=== PATIENT | female | born 1955 | race Caucasian/White ===

== ENCOUNTER 2023-05-04 11:27 | Observation (INO) | payer BC, SELFPAY ==
[2023-05-04] VITALS (31 sets, daily range): BP systolic 119–184; BP diastolic 61–105; PULSE 70–129; RESP 16–33; TEMP 36.6–37.7; O2SAT 87–100; BMI 34.8; BMI 38.0
--- NOTE | 2023-05-04 12:23 | ED_ITS ---
HPI - Nausea/Vomiting/Diarrhea General Chief complaint: Nausea/Vomiting/Diarrhea Stated complaint: vomiting Time Seen by Provider: 05/04/23 12:23 Source: patient Mode of arrival: Wheelchair Limitations: no limitations History of Present Illness HPI Narrative: Patient presents to emergency department complaining of nausea, vomiting. Symptoms have been ongoing for the last 3 days. Patient complains of mid epigastric pain. She has a history of an ulcer. Patient states today she started having blood in her vomitus Today. She has not been able to keep anything down. She denies any fevers, states that she had chills. She denies any chest, shortness of breath. She denies any melena, hematochezia. She denies eating anything that could have gotten her sick. Related Data Home Medications Medication Instructions Recorded Confirmed amitriptyline 150 mg tablet 150 mg PO .HS 05/04/23 05/04/23 diltiazem HCl 300 mg 300 mg PO Q24H 05/04/23 05/04/23 tablet,extended release 24 hr dorzolamide 22.3 mg-timolol 6.8 1 drp ophthalmic (eye) TID 05/04/23 05/04/23 mg/mL eye drops duloxetine 60 mg capsule,delayed 120 mg PO QDAY 05/04/23 05/04/23 release furosemide 20 mg tablet 20 mg PO QDAY 05/04/23 05/04/23 gabapentin 400 mg capsule 400 mg PO TID 05/04/23 05/04/23 latanoprost 0.005 % eye drops 1 drp ophthalmic (eye) QDAY 05/04/23 05/04/23 losartan 50 mg tablet 100 mg PO QDAY 05/04/23 05/04/23 omeprazole 40 mg capsule,delayed 40 mg PO BID 05/04/23 05/04/23 release potassium chloride 10 mEq 10 meq PO BID 05/04/23 05/04/23 tablet,extended release(part/cryst) quetiapine 100 mg tablet 100 mg PO .MORNING 05/04/23 05/04/23 quetiapine 200 mg tablet 200 mg PO .HS 05/04/23 05/04/23 simvastatin 80 mg tablet 80 mg PO QDAY 05/04/23 05/04/23 tizanidine 4 mg tablet 8 mg PO .HS 05/04/23 05/04/23 Allergies Allergy/AdvReac Type Severity Reaction Status Date / Time No Known Drug Allergies Allergy Verified 05/04/23 11:50 Review of Systems ROS Status of ROS 10 or more systems reviewed and unremarkable except as noted in history and below [facility] Social History Smoking status: Never smoker Exam Narrative Exam Narrative: Nurses notes and vital signs reviewed and patient is not hypoxic. General: Ill-appearing, vomiting, and any clinical Skin: Warm, dry, mild pallor noted. No Rash Head: Normocephalic, atraumatic. Neck: Supple, non-tender. Eye: Pupils are equal, round and EOMI. No scleral icterus. Ears, Nose, Mouth, and Throat: TM clear, no posterior oropharynx erythema or nasal mucosal hypertrophy, uvula is mid-line Oral mucosa is dry Cardiovascular: Sinus tachycardia without murmur, gallop or rub. Respiratory: No accessory muscle use or respiratory distress. Lungs are clear to auscultation, no wheezing, rales or rhonchi Chest Wall: no tenderness Back: No midline thoracic or lumbar vertebral tenderness. No CVA tenderness Musculoskeletal: normal ROM, no calf or popliteal tenderness, no lower extremity edema/swelling GI: Abdomen is soft, non-distended. Normal bowel sounds. Moderate epigastric tenderness to palpation. No rebound, guarding, or rigidity noted. Rectal: Normal rectal tone, dark brown, nonmelenous, soft stool Hemoccult positi ve Neurological: A&O x4. No cranial nerve dysfunction observed. No truncal ataxia. Moves all extremities. Sensation intact. Psychiatric: Cooperative and interactive. Normal mood and affect. Constitutional Vital Signs, click to edit/add: Last Vital Signs Temp 98.5 F 05/04/23 11:50 Pulse 120 H 05/04/23 15:00 Resp 18 05/04/23 12:30 BP 150/80 H 05/04/23 15:21 Pulse Ox 94 L 05/04/23 14:50 O2 Del Method Room Air 05/04/23 13:27 O2 Flow Rate 2 05/04/23 13:27 Course Vital Signs Vital signs: Vital Signs Temperature 98.5 F 05/04/23 11:50 Pulse Rate 128 H 05/04/23 11:50 Respiratory Rate 26 H 05/04/23 11:50 Blood Pressure 167/103 H 05/04/23 11:50 Pulse Oximetry 98 05/04/23 11:50 Oxygen Delivery Method Room Air 05/04/23 11:50 Temperature 98.5 F 05/04/23 11:50 Pulse Rate 120 H 05/04/23 15:00 Respiratory Rate 18 05/04/23 12:30 Blood Pressure 150/80 H 05/04/23 15:21 Pulse Oximetry 94 L 05/04/23 14:50 Oxygen Delivery Method Room Air 05/04/23 13:27 Oxygen Delivery Flow Rate 2 05/04/23 13:27 MDM - Nausea/Vomiting/Diarrhea MDM Narrative Medical decision making narrative: She had an IV established. She was given multiple doses of antiemetics and 3 L normal saline. Patient's lactic was elevated and it improved. CT abdomen and pelvis was done. Patient was given Protonix IV. She improve her vomiting but still remained tachycardic. The patient was discussed with Dr. Rodriguez who will observation to monitor for GI bleed. Differential Diagnosis Differential diagnosis: Likely drug-induced nausea and vomiting and dehydration Lab Data Attestation: I reviewed the patient's lab results. Labs: Lab Results 05/04/23 05/04/23 05/04/23 Range/Units 12:00 12:54 14:40 WBC 15.6 H (4.0-11.0) 10^3/uL RBC 5.26 (4.20-5.40) 10^6/uL Hgb 16.9 H (12.0-16.0) g/dL Hct 48.8 H (36.0-48.0) % MCV 92.8 (81.0-99.0) fL MCH 32.1 (26.7-34.0) pg MCHC 34.6 (29.9-35.2) g/dL RDW 12.3 (11.0-15.0) % Plt Count 333 (150-450) 10^3/uL MPV 10.6 (9.5-13.5) fL Neut % (Auto) 82.6 H (43.0-75.0) % Lymph % (Auto) 11.2 L (20.5-60.0) % [place] % (Auto) 5.3 (1.7-12.0) % Eos % (Auto) 0.3 L (0.9-7.0) % Baso % (Auto) 0.1 L (0.2-2.0) % Neut # (Auto) 12.9 H (1.4-6.5) 10^3/uL Lymph # (Auto) 1.8 (1.2-3.8) 10^3/uL [place] # (Auto) 0.8 (0.3-0.8) 10^3/uL Eos # (Auto) 0.1 (0.0-0.7) 10^3/uL Baso # (Auto) 0.0 (0.0-0.1) 10^3/uL Abs Immat Gran (auto) 0.08 H (0.00-0.03) 10^3/uL Imm/Tot Granulo (auto) 0.5 (0.0-0.5) % PT 10.2 (9.0-11.6) sec INR 0.96 Sodium 137 (136-145) mmol/L Potassium 3.1 L (3.5-5.1) mmol/L Chloride 94 L (98-107) mmol/L Carbon Dioxide 21.4 (21.0-32.0) mmol/L Anion Gap 24.7 BUN 26.0 H (7.0-18.0) mg/dL Creatinine 1.75 H (0.55-1.02) mg/dL Est GFR ( Amer) 35 L (>=60) Est GFR (Non-Af Amer) 29 L (>=60) BUN/Creatinine Ratio 14.9 Glucose 190 H (74-106) mg/dL Lactate 5.0 H* (0.4-2.0) mmol/L Calcium 10.4 H (8.5-10.1) mg/dL Magnesium 1.7 L (1.8-2.4) mg/dL Total Bilirubin 0.7 (0.2-1.0) mg/dL AST 49 H (15-37) U/L ALT 25 (14-59) U/L Alkaline Phosphatase 139 H (46-116) U/L Troponin I High Sens 40.8 (4.0-51.3) pg/mL NT-Pro-B Natriuret Pep 2521.0 H* (<=900.0) pg/mL Total Protein 8.6 H (6.4-8.2) g/dL Albumin 4.5 (3.4-5.0) g/dL Globulin 4.1 g/dL Albumin/Globulin Ratio 1.1 Lipase 81.0 (73.0-393.0) U/L Urine Color Lt. yellow (YELLOW) Urine Clarity Clear (CLEAR) Urine pH 7.0 (5.0-9.0) Ur Specific [place] 1.010 (1.005-1.025) Urine Protein >=300 A (NEG/TRACE) mg/dL Urine Glucose (UA) Negative (NEGATIVE) mg/dL Urine Ketones Negative (NEGATIVE) mg/dL Urine Occult Blood Moderate A (NEGATIVE) Urine Nitrite Negative (NEGATIVE) Urine Bilirubin Negative (NEGATIVE) Urine Urobilinogen 0.2 (0.2-1.0) EU/dL Ur Leukocyte Esterase Trace A (NEGATIVE) Urine RBC None seen (0-2) #/HPF Urine WBC 2-5 A (NONE SEEN) #/HPF Ur Squamous Epith Cells Rare (NONE/RARE) #/LPF Urine Crystals None seen (None Seen) #/HPF Urine Bacteria Trace A (NONE SEEN) #/HPF Urine Casts None seen (NONE SEEN) #/LPF Urine Mucus None seen (NONE SEEN) Ur Culture Indicated? Yes Gastric Fluid pH 5-7 Gastric Occult Blood Postive Stool Occult Blood Positive A Blood Type A Positive Antibody Screen Negative 05/04/23 Range/Units 14:48 WBC (4.0-11.0) 10^3/uL RBC (4.20-5.40) 10^6/uL Hgb (12.0-16.0) g/dL Hct (36.0-48.0) % MCV (81.0-99.0) fL MCH (26.7-34.0) pg MCHC (29.9-35.2) g/dL RDW (11.0-15.0) % Plt Count (150-450) 10^3/uL MPV (9.5-13.5) fL Neut % (Auto) (43.0-75.0) % Lymph % (Auto) (20.5-60.0) % [place] % (Auto) (1.7-12.0) % Eos % (Auto) (0.9-7.0) % Baso % (Auto) (0.2-2.0) % Neut # (Auto) (1.4-6.5) 10^3/uL Lymph # (Auto) (1.2-3.8) 10^3/uL [place] # (Auto) (0.3-0.8) 10^3/uL Eos # (Auto) (0.0-0.7) 10^3/uL Baso # (Auto) (0.0-0.1) 10^3/uL Abs Immat Gran (auto) (0.00-0.03) 10^3/uL Imm/Tot Granulo (auto) (0.0-0.5) % PT (9.0-11.6) sec INR Sodium (136-145) mmol/L Potassium (3.5-5.1) mmol/L Chloride (98-107) mmol/L Carbon Dioxide (21.0-32.0) mmol/L Anion Gap BUN (7.0-18.0) mg/dL Creatinine (0.55-1.02) mg/dL Est GFR ( Amer) (>=60) Est GFR (Non-Af Amer) (>=60) BUN/Creatinine Ratio Glucose (74-106) mg/dL Lactate 1.4 (0.4-2.0) mmol/L Calcium (8.5-10.1) mg/dL Magnesium (1.8-2.4) mg/dL Total Bilirubin (0.2-1.0) mg/dL AST (15-37) U/L ALT (14-59) U/L Alkaline Phosphatase (46-116) U/L Troponin I High Sens (4.0-51.3) pg/mL NT-Pro-B Natriuret Pep (<=900.0) pg/mL Total Protein (6.4-8.2) g/dL Albumin (3.4-5.0) g/dL Globulin g/dL Albumin/Globulin Ratio Lipase (73.0-393.0) U/L Urine Color (YELLOW) Urine Clarity (CLEAR) Urine pH (5.0-9.0) Ur Specific [place] (1.005-1.025) Urine Protein (NEG/TRACE) mg/dL Urine Glucose (UA) (NEGATIVE) mg/dL Urine Ketones (NEGATIVE) mg/dL Urine Occult Blood (NEGATIVE) Urine Nitrite (NEGATIVE) Urine Bilirubin (NEGATIVE) Urine Urobilinogen (0.2-1.0) EU/dL Ur Leukocyte Esterase (NEGATIVE) Urine RBC (0-2) #/HPF Urine WBC (NONE SEEN) #/HPF Ur Squamous Epith Cells (NONE/RARE) #/LPF Urine Crystals (None Seen) #/HPF Urine Bacteria (NONE SEEN) #/HPF Urine Casts (NONE SEEN) #/LPF Urine Mucus (NONE SEEN) Ur Culture Indicated? Gastric Fluid pH Gastric Occult Blood Stool Occult Blood Blood Type Antibody Screen ECG Data Attestation: I personally reviewed and interpreted this ECG as follows: Discharge Plan Discharge Chief Complaint: Nausea/Vomiting/Diarrhea Clinical Impression: Gastrointestinal bleed, Tachycardia, Dehydration Patient Disposition: Admitted as Observation Time of Disposition Decision: 16:00 Condition: Good Discharge Date/Time: 05/04/23 17:08
--- NOTE | 2023-05-04 12:27 | XR_ITS ---
The [address] [address] Patient Name: ADRIANNA RIVAS MRN: [id number] date: 1955 Sex: F Assigned Patient Location: ER Current Patient Location: ER Accession/Order Number: [id number] Exam Date: 05/04/2023 13:18 Report Date: 05/04/2023 13:54 At the request of: NISHA TRIPP Procedure: XR chest 1V XR chest 1V CLINICAL HISTORY: weakness. COMPARISON: None Available. TECHNIQUE: Single AP portable upright view of the chest. FINDINGS: Low lung volumes with no focal airspace opacities. No pleural effusion or pneumothorax. And accentuation of the cardiac silhouette size but partially tilted technique but also probable mild cardiomegaly. Evidence of prominent hiatal hernia. No acute bony process. XR/XR chest 1V IMPRESSION: No acute cardiopulmonary process. Suspect hiatal hernia. Electronically authenticated by: MARIA C FERNANDEZ Date: 05/04/2023 13:54
[2023-05-04 12:39] LABS: Basophils Percent Auto 0.1 % (0.2-2.0); Eosinophils Absolute Auto 0.1 10^3/uL (0.0-0.7); Eosinophils Percent Auto 0.3 % (0.9-7.0); Hematocrit 48.8 % (36.0-48.0); Hemoglobin 16.9 g/dL (12.0-16.0); Immature Granulocytes Abs Auto 0.08 10^3/uL (0.00-0.03); Immature Granulocytes Pct Auto 0.5 % (0.0-0.5); Lymphocytes Absolute Auto 1.8 10^3/uL (1.2-3.8); Lymphocytes Percent Auto 11.2 % (20.5-60.0); Mean Corpuscular HGB Conc 34.6 g/dL (29.9-35.2); Mean Corpuscular Hemoglobin 32.1 pg (26.7-34.0); Mean Corpuscular Volume 92.8 fL (81.0-99.0); Mean Platelet Volume 10.6 fL (9.5-13.5); Monocytes Absolute Auto 0.8 10^3/uL (0.3-0.8); Monocytes Percent Auto 5.3 % (1.7-12.0); Neutrophils Absolute Auto 12.9 10^3/uL (1.4-6.5); Neutrophils Percent Auto 82.6 % (43.0-75.0); Platelet Count 333 10^3/uL (150-450); Red Blood Count 5.26 10^6/uL (4.20-5.40); Red Cell Distribution Width 12.3 % (11.0-15.0); White Blood Count 15.6 10^3/uL (4.0-11.0)
[2023-05-04 12:46] LABS: INR 0.96; Prothrombin Time 10.2 sec (9.0-11.6)
--- NOTE | 2023-05-04 12:46 | CT_ITS ---
[address] [address] Patient Name: ADRIANNA RIVAS MRN: [id number] date: 1955 Sex: F Assigned Patient Location: ER Current Patient Location: Accession/Order Number: [id number] Exam Date: 05/04/2023 13:20 Report Date: 05/04/2023 14:01 At the request of: NISHA TRIPP Procedure: CT abdomen pelvis w con CT ABDOMEN AND PELVIS WITH CONTRAST: INDICATION: n/v/d abd pain. COMPARISON: None. TECHNIQUE: Helical CT images of the abdomen and pelvis were obtained after the administration of intravenous contrast. Dose reduction techniques were achieved by using automated exposure control and/or adjustment of mA and/or kV according to patient size and/or use of iterative reconstruction technique. FINDINGS: LOWER CHEST: Subsegmental atelectasis in the left lower lobe. There is a moderate hiatal hernia. LIVER: There is a 2.0 x 1.3 cm hypodense lesion in the periphery of the right hepatic lobe (series 3, image 23). There is hepatomegaly. GALLBLADDER AND BILIARY SYSTEM: The gallbladder is distended. No wall thickening or biliary ductal dilatation. SPLEEN: Unremarkable. PANCREAS: Moderate diffuse fatty atrophy of the pancreas. No pancreatic ductal dilatation. ADRENAL GLANDS: There is a 9 mm indeterminate right adrenal nodule. 1.3 x 0.9 cm indeterminate left adrenal nodule. KIDNEYS AND URETERS: Severe atrophy of the right kidney. Mild atrophy of the left kidney. There is no hydronephrosis. There is a 1.1 cm calculus noted at the right ureteropelvic junction. There is a 1.1 cm calculus in the lower pole the right kidney. 4 mm nonobstructing calculus in the lower pole the right kidney. Nonobstructing left renal calculi measuring 8 mm, 1 cm and 3 mm. There is a 1.3 cm cyst in the upper pole the left kidney. Additional subcentimeter renal hypodensities which are not well characterized on this study. BLADDER: Unremarkable. GASTROINTESTINAL TRACT: No evidence of bowel obstruction or colitis. Normal appendix. VASCULATURE: Atherosclerotic calcification of the abdominal aorta without aneurysmal dilatation. Atherosclerotic disease also noted involving the splenic artery. RETROPERITONEUM AND LYMPH NODES: No lymphadenopathy or mass. PERITONEUM/MESENTERY: No abdominal ascites. No free air. PELVIS: No pelvic ascites or lymphadenopathy. Small bilateral fat-containing inguinal hernias. BODY WALL: Small fat-containing umbilical hernia. BONES: Multilevel degenerative changes of the lumbar spine with grade 1 anterolisthesis of L4 and L5. Moderate degenerative changes of the hips bilaterally. CT/CT abdomen pelvis w con IMPRESSION: 1. Bilateral nephrolithiasis as described. 1.1 cm calculus in the right ureteropelvic junction. No hydroureteronephrosis. Severe atrophy of the right kidney. Mild atrophy of the left kidney. 2. Hepatomegaly. Hypodense lesion in the periphery of the right hepatic lobe measuring 2.0 x 1.3 cm. This may represent a hemangioma. Consider further evaluation with contrast-enhanced nonemergent MRI. 3. Moderate hiatal hernia. 4. Degenerative changes of bilateral hips and the lumbar spine. 5. Indeterminate bilateral adrenal nodules. Electronically authenticated by: DENIS ANTUNEZ Date: 05/04/2023 14:01
[2023-05-04] MEDS: PROMETHAZINE HCL 25 MG/ML VIAL IV (12:52)
[2023-05-04] MEDS: PANTOPRAZOLE SODIUM 40 MG VIAL IV (12:52)
[2023-05-04] MEDS: ONDANSETRON PF 4 MG/2 ML VIAL IV ×2 (12:52→18:18)
[2023-05-04] MEDS: 0.9 % SODIUM CHLORIDE 1,000 ML 999 ML IV (12:52)
[2023-05-04 12:58] LABS: Alanine Aminotransferase 25 U/L (14-59); Albumin Globulin Ratio 1.1; Albumin Level 4.5 g/dL (3.4-5.0); Alkaline Phosphatase 139 U/L (46-116); Anion Gap 24.7; Aspartate Amino Transferase 49 U/L (15-37); BUN Creatinine Ratio 14.9; Bilirubin Total 0.7 mg/dL (0.2-1.0); Calcium 10.4 mg/dL (8.5-10.1); Carbon Dioxide 21.4 mmol/L (21.0-32.0); Chloride 94 mmol/L (98-107); Estimated GFR (African America 35 (>=60); Estimated GFR (Non-African Ame 29 (>=60); Globulin 4.1 g/dL; Glucose 190 mg/dL (74-106); Magnesium 1.7 mg/dL (1.8-2.4); Potassium 3.1 mmol/L (3.5-5.1); Sodium 137 mmol/L (136-145); Total Protein 8.6 g/dL (6.4-8.2); Troponin I High Sensitivity 40.8 pg/mL (4.0-51.3)
[2023-05-04 13:12] LABS: Internal Control Within Normal Limits; Occult Blood Gastric Fluid POSTIVE
[2023-05-04 13:16] LABS: Occult Blood Positive
--- NOTE | 2023-05-04 13:28 | PC.NURSE ---
Addendum entered by Skye Vazquez 05/04/23 13:29: INITIATED AT 1300 Original Note: INITIATED SUPPLEMENTAL OXYGEN AT 2L WITH NASAL CANNULA
[2023-05-04 15:19] LABS: Bilirubin Urine NEGATIVE (NEGATIVE); Blood Urine MODERATE (NEGATIVE); Clarity Urine CLEAR (CLEAR); Color Urine LT. YELLOW (YELLOW); Glucose Urine UA NEGATIVE (NEGATIVE); Ketones Urine NEGATIVE (NEGATIVE); Leukocyte Esterase Urine TRACE (NEGATIVE); Nitrite Urine NEGATIVE (NEGATIVE); Protein Urine >=300 mg/dL (NEG/TRACE); Urobilinogen Urine 0.2 EU/dL (0.2-1.0)
[2023-05-04 15:20] LABS: Urine Microscopic Indicated YES
[2023-05-04 15:26] LABS: Bacteria Urine TRACE #/HPF (NONE SEEN); Cast Seen? NONE SEEN #/LPF (NONE SEEN); Crystals Seen? None Seen #/HPF (None Seen); Mucus Urine NONE SEEN (NONE SEEN); RBC Urine NONE SEEN #/HPF (0-2); Squamous Epithelial Cell Urine RARE #/LPF (NONE/RARE)
[2023-05-04 15:27] LABS: Urine Culture Indicated YES
[2023-05-04] MEDS: 0.9 % SODIUM CHLORIDE 1,000 ML 1000 ML IV (15:32)
[2023-05-04 15:56] LABS: Lactate/Lactic Acid 1.4 mmol/L (0.4-2.0)
[2023-05-04 17:20] LABS: Thyroid Stimulating Hormone 3.747 uIU/mL (0.358-3.740)
--- NOTE | 2023-05-04 17:32 | ECG_ITS ---
The [facility] Test Date: 2023-05-04 Pat Name: ADRIANNA RIVAS Department: Room: Gender: Female [employer] Business [employer]: : 1955 Requested By: [id number] Order Number: [id number] Reading MD: IVAN BURDICK Measurements Intervals [place] Rate: 128 P: 126 MO: 192 QRS: 86 QRSD: 98 T: -45 QT: 322 QTc: 398 Interpretive Statements 1220 Rapid atrial rhythm 2440 Incomplete right bundle branch block [address] depression 4664 Twave abnormality, possible inferior ischemia 9150 abnormal ECG No previous ECG available for comparison Electronically Signed On 05-04-2023 18:30:34 EDT by IVAN BURDICK
[2023-05-04] MEDS: CEFTRIAXONE 1,000 MG in 0.9 % SODIUM CHLORIDE 50 ML 100 MG IV (18:17)
[2023-05-04] MEDS: LACTATED RINGER'S SOLUTION 1,000 ML 100 ML IV (18:18)
[2023-05-04] MEDS: CIPROFLOXACIN IN 5 % DEXTROSE 400 MG/200 ML PIGGYBACK 200 MG IV (18:45)
--- NOTE | 2023-05-04 20:02 | PC.NURSE ---
Patient thought she was going to vomit. Patient sitting up in bed with dry heaves. Pt soiled underwear, Depends placed on patient until can bring her clean clothing. Patient had BM and Urinated at bedside commode then returned to bed with bed alarm on.
[2023-05-04] MEDS: INSULIN ASPART 300 UNIT/3 ML PEN SUBQ (21:54)
[2023-05-04] MEDS: TIZANIDINE HCL 4 MG TABLET 8 MG PO (21:55)
[2023-05-04] MEDS: GABAPENTIN 400 MG CAPSULE PO (21:55)
[2023-05-04] MEDS: AMITRIPTYLINE HCL 50 MG TABLET 150 MG PO (21:55)
[2023-05-04] MEDS: QUETIAPINE FUMARATE 100 MG TABLET 200 MG PO (21:56)
[2023-05-04 22:50] LABS: Glucometer 151 mg/dL (74-106)
[2023-05-04] MEDS: PROMETHAZINE HCL 25 MG/ML VIAL 12.5 MG IV (22:58)
[2023-05-05] VITALS (11 sets, daily range): BP systolic 135–137; BP diastolic 86–89; PULSE 90–116; RESP 16; TEMP 37.6; O2SAT 90–97
[2023-05-05 04:54] LABS: Basophils Percent Auto 0.2 % (0.2-2.0); Hematocrit 39.3 % (36.0-48.0); Immature Granulocytes Abs Auto 0.04 10^3/uL (0.00-0.03); Immature Granulocytes Pct Auto 0.4 % (0.0-0.5); Lymphocytes Absolute Auto 1.9 10^3/uL (1.2-3.8); Lymphocytes Percent Auto 18.4 % (20.5-60.0); Mean Corpuscular HGB Conc 33.1 g/dL (29.9-35.2); Mean Corpuscular Hemoglobin 32.2 pg (26.7-34.0); Mean Corpuscular Volume 97.3 fL (81.0-99.0); Mean Platelet Volume 10.5 fL (9.5-13.5); Monocytes Percent Auto 10.1 % (1.7-12.0); Neutrophils Absolute Auto 7.2 10^3/uL (1.4-6.5); Neutrophils Percent Auto 70.9 % (43.0-75.0); Platelet Count 200 10^3/uL (150-450); Red Blood Count 4.04 10^6/uL (4.20-5.40); Red Cell Distribution Width 12.7 % (11.0-15.0); White Blood Count 10.1 10^3/uL (4.0-11.0)
[2023-05-05 05:11] LABS: BUN Creatinine Ratio 16.8; Calcium 8.5 mg/dL (8.5-10.1); Carbon Dioxide 23.1 mmol/L (21.0-32.0); Chloride 104 mmol/L (98-107); Estimated GFR (African America 54 (>=60); Estimated GFR (Non-African Ame 45 (>=60); Glucose 132 mg/dL (74-106); Potassium 3.1 mmol/L (3.5-5.1); Sodium 139 mmol/L (136-145)
[2023-05-05] MEDS: CIPROFLOXACIN IN 5 % DEXTROSE 400 MG/200 ML PIGGYBACK 150 MG IV (05:30)
[2023-05-05] MEDS: GABAPENTIN 400 MG CAPSULE PO (05:33)
[2023-05-05] MEDS: POTASSIUM CHLORIDE 10 MEQ ER TABLET 20 MEQ PO ×2 (06:58→08:52)
[2023-05-05] MEDS: ACETAMINOPHEN 500 MG TABLET 1000 MG PO (07:35)
[2023-05-05] MEDS: LACTATED RINGER'S SOLUTION 1,000 ML 100 ML IV (07:36)
[2023-05-05] MEDS: DULOXETINE HCL 60 MG CAPSULE.DR 120 MG PO (08:51)
[2023-05-05] MEDS: LOSARTAN POTASSIUM 50 MG TABLET 100 MG PO (08:51)
[2023-05-05] MEDS: DILTIAZEM HCL 300 MG CAP.ER.24H PO (08:52)
[2023-05-05] MEDS: METOPROLOL TARTRATE 25 MG TABLET PO (08:52)
[2023-05-05] MEDS: QUETIAPINE FUMARATE 100 MG TABLET PO (08:52)
[2023-05-05] MEDS: ATORVASTATIN CALCIUM 40 MG TABLET PO (08:52)
--- NOTE | 2023-05-05 09:24 | PM.HP ---
H&P: HPI History of Present Illness Chief complaint: vomiting, GI Bleed, Tachycardia, Hypokalemia Narrative: Patient present to the emergency room with nausea vomiting and black stools. Hemoccult positive. Hemoglobin elevated in the emergency room. Patient observed overnight. Globin did drop down 5 points. Part of this may be delusional. [facility] Medical History Surgical History Family History Father Family history of CHF (congestive heart failure) Family history of diabetes mellitus Mother Family history of CHF (congestive heart failure) Family history of hypertension Social History Within the past year, how often did you have a drink containing alcohol: never Score interpretation: A score less than 3 is consistent with normal alcohol consumption. Smoking status: Never smoker Non-prescribed substance use: denies use Previous occupational history: retired Highest level of school completed/degree received: high school graduate Are you now , , , , never or living with a partner: Little interest or pleasure in doing things: not at all Feeling down, depressed, or hopeless: not at all Feel stressed/tense/nervous/anxious/difficulty sleeping: only a little Do you think of yourself as: straight/heterosexual Gender Identity: female Meds Home Medications and Allergies Home Medications Medication Instructions Recorded Confirmed Type amitriptyline 150 mg tablet 150 mg PO .HS 05/04/23 05/04/23 History diltiazem HCl 300 mg 300 mg PO Q24H 05/04/23 05/04/23 History tablet,extended release 24 hr dorzolamide 22.3 mg-timolol 6.8 1 drp ophthalmic (eye) TID 05/04/23 05/04/23 History mg/mL eye drops duloxetine 60 mg capsule,delayed 120 mg PO QDAY 05/04/23 05/04/23 History release furosemide 20 mg tablet 20 mg PO QDAY 05/04/23 05/04/23 History gabapentin 400 mg capsule 400 mg PO TID 05/04/23 05/04/23 History latanoprost 0.005 % eye drops 1 drp ophthalmic (eye) QDAY 05/04/23 05/04/23 History losartan 50 mg tablet 100 mg PO QDAY 05/04/23 05/04/23 History potassium chloride 10 mEq 10 meq PO BID 05/04/23 05/04/23 History tablet,extended release(part/cryst) quetiapine 100 mg tablet 100 mg PO .MORNING 05/04/23 05/04/23 History quetiapine 200 mg tablet 200 mg PO .HS 05/04/23 05/04/23 History simvastatin 80 mg tablet 80 mg PO QDAY 05/04/23 05/04/23 History tizanidine 4 mg tablet 8 mg PO .HS 05/04/23 05/04/23 History pantoprazole 40 mg tablet,delayed 40 mg PO QAM #30 tabs 05/05/23 Rx release (Protonix) sucralfate 1 gram tablet (Carafate) 1 g PO Q6H 4 weeks #112 tabs 05/05/23 Rx Allergies Allergy/AdvReac Type Severity Reaction Status Date / Time No Known Drug Allergies Allergy Verified 05/04/23 11:50 Exam Constitutional Vital Signs, click to edit/add: Last Vital Signs Temp 99.6 F 05/05/23 05:01 Pulse 116 H 05/05/23 08:02 Resp 16 05/05/23 05:01 BP 135/86 05/05/23 08:51 Pulse Ox 90 L 05/05/23 05:34 O2 Del Method Room Air 05/05/23 05:34 O2 Flow Rate 2 05/04/23 17:32 Documenting provider has reviewed patient's vital signs: yes Common normals: no apparent distress Respiratory Common normals: normal respiratory effort Cardio Common normals: regular rate, regular rhythm and S2 normal heart sound GI Common normals: Normal to inspection, nondistended, normoactive bowel sounds present, soft to palpation and non-tender Results Labs Labs: Short CBC 05/04/23 05/05/23 Range/Units 12:00 04:09 WBC 15.6 H 10.1 (4.0-11.0) 10^3/uL Hgb 16.9 H 13.0 (12.0-16.0) g/dL Hct 48.8 H 39.3 (36.0-48.0) % Plt Count 333 200 (150-450) 10^3/uL BMP 05/04/23 05/05/23 12:00 04:09 Sodium 137 139 Potassium 3.1 L 3.1 L Chloride 94 L 104 Carbon Dioxide 21.4 23.1 BUN 26.0 H 20.0 H Creatinine 1.75 H 1.19 H Glucose 190 H 132 H Calcium 10.4 H 8.5 Liver Function 05/04/23 Range/Units 12:00 Total Bilirubin 0.7 (0.2-1.0) mg/dL AST 49 H (15-37) U/L ALT 25 (14-59) U/L Alkaline Phosphatase 139 H (46-116) U/L Albumin 4.5 (3.4-5.0) g/dL Urine 05/04/23 Range/Units 14:40 Urine Color Lt. yellow (YELLOW) Urine Clarity Clear (CLEAR) Urine pH 7.0 (5.0-9.0) Ur Specific [place] 1.010 (1.005-1.025) Urine Protein >=300 A (NEG/TRACE) mg/dL Urine Glucose (UA) Negative (NEGATIVE) mg/dL Assessment and Plan Assessment and Plan (1) Gastrointestinal bleed: (2) Tachycardia: Plan Vomiting, tachycardia, respiratory distress, mild hypoxia, leukocytosis, hypokalemia, positive lactate secondary to acute upper gastrointestinal bleeding causing acute upper get to gastrointestinal blood loss anemia. At this point we will repeat patient CBC is not low enough to transfuse. She feels much improved. No more passing dark stools. If her hemoglobin is stable later this morning she can be discharged home in improving condition. Medications see list. Follow-up with her PCP within the next week.
--- NOTE | 2023-05-05 09:37 | CM.NOTE ---
Rounds made with Dr. Rodriguez. Rechecking CBC at noon and if stable potential for discharge to home.
[2023-05-05 11:08] LABS: Glucometer 138 mg/dL (74-106)
[2023-05-05 12:30] LABS: Hematocrit 39.8 % (36.0-48.0); Hemoglobin 13.2 g/dL (12.0-16.0); Mean Corpuscular HGB Conc 33.2 g/dL (29.9-35.2); Mean Corpuscular Hemoglobin 32.4 pg (26.7-34.0); Mean Corpuscular Volume 97.5 fL (81.0-99.0); Mean Platelet Volume 10.4 fL (9.5-13.5); Platelet Count 196 10^3/uL (150-450); Red Blood Count 4.08 10^6/uL (4.20-5.40); Red Cell Distribution Width 12.9 % (11.0-15.0); White Blood Count 9.1 10^3/uL (4.0-11.0)
--- NOTE | 2023-05-12 16:03 | CM.DCFOLLOWU ---
Person spoke with:patient How are you feeling? well How is your pain? no pain Did you understand your discharge instructions? yes Do you have any questions about your discharge instructions? no Were you given any prescriptions at discharge? yes Were you able to get your prescriptions filled? yes Do you understand how to take your medications as ordered? yes Do you have any questions about your follow up appointment and do you plan to keep your follow up appointment? no questions, follow up with Hanna Graves on 05/15/23 Is there anything else that you would like to discuss? no Questions/Comments/Concerns/Other:
== END 2023-05-05 13:43 | disposition home or self-care (01) ==
LOC: ER 17:08 → MS 17:11
PROVIDERS: Admitting Provider Family Medicine; Emergency Provider Emergency Medicine; Visit Provider Family Medicine
DX: K92.2 Gastrointestinal hemorrhage, unspecified (principal); D62 Acute posthemorrhagic anemia; R11.10 Vomiting, unspecified; R00.0 Tachycardia, unspecified; R06.03 Acute respiratory distress; R09.02 Hypoxemia; D72.829 Elevated white blood cell count, unspecified; E87.6 Hypokalemia; E86.0 Dehydration; R79.89 Other specified abnormal findings of blood chemistry; Z79.899 Other long term (current) drug therapy
CPT/HCPCS: 36415; 71045; 74177; 80048; 80053; 81001; 81003; 82271; 82948; 83605; 83690; 83735; 83880; 84443; 84484; 85025; 85027; 85610; 86850; 86900; 86901; 87086; 87150; 87186; 87493; 87507; 93005; 94761; 96361; 96365; 96366; 96367; 96375; 96376; 99285; G0328; G0378; Q9966

== ENCOUNTER 2024-12-06 11:08 | Outpatient (OUT) | payer BC, SELFPAY ==
[2024-12-06 11:33] LABS: Basophils Absolute Auto 0.1 10^3/uL (0.0-0.1); Basophils Percent Auto 0.8 % (0.2-2.0); Eosinophils Absolute Auto 0.4 10^3/uL (0.0-0.7); Eosinophils Percent Auto 5.2 % (0.9-7.0); Hematocrit 42.9 % (36.0-48.0); Hemoglobin 14.1 g/dL (12.0-16.0); Immature Granulocytes Abs Auto 0.03 10^3/uL (0.00-0.03); Immature Granulocytes Pct Auto 0.4 % (0.0-0.5); Lymphocytes Absolute Auto 1.7 10^3/uL (1.2-3.8); Lymphocytes Percent Auto 23.6 % (20.5-60.0); Mean Corpuscular HGB Conc 32.9 g/dL (29.9-35.2); Mean Corpuscular Hemoglobin 33.3 pg (26.7-34.0); Mean Corpuscular Volume 101.4 fL (81.0-99.0); Mean Platelet Volume 10.5 fL (9.5-13.5); Monocytes Absolute Auto 0.5 10^3/uL (0.3-0.8); Monocytes Percent Auto 6.6 % (1.7-12.0); Neutrophils Absolute Auto 4.5 10^3/uL (1.4-6.5); Neutrophils Percent Auto 63.4 % (43.0-75.0); Platelet Count 217 10^3/uL (150-450); Red Blood Count 4.23 10^6/uL (4.20-5.40); Red Cell Distribution Width 12.3 % (11.0-15.0); White Blood Count 7.1 10^3/uL (4.0-11.0)
[2024-12-06 11:45] LABS: Estimated Average Glucose 117 mg/dL; Glycohemoglobin A1C 5.7 % (4.5-6.2)
[2024-12-06 12:14] LABS: Alanine Aminotransferase 7 U/L (14-59); Albumin Globulin Ratio 1.1; Albumin Level 3.3 g/dL (3.4-5.0); Alkaline Phosphatase 102 U/L (46-116); Anion Gap 12.5; Aspartate Amino Transferase 12 U/L (15-37); BUN Creatinine Ratio 11.6; Bilirubin Total 0.3 mg/dL (0.2-1.0); Calcium 9.1 mg/dL (8.5-10.1); Carbon Dioxide 23.4 mmol/L (21.0-32.0); Chloride 107 mmol/L (98-107); Chol HDL Ratio 2.6; Cholesterol 137 mg/dL (<=200); Estimated GFR (African America 43 (>=60 mL/min/1.73m^2); Estimated GFR (Non-African Ame 35 (>=60 mL/min/1.73m^2); Free T3 1.69 pg/mL (2.18-3.98); Globulin 3.1 g/dL; Glucose 109 mg/dL (74-106); HDL Cholesterol 53 mg/dL (40-60); Potassium 3.9 mmol/L (3.5-5.1); Sodium 139 mmol/L (136-145); Thyroid Stimulating Hormone 1.161 uIU/mL (0.358-3.740); Total Protein 6.4 g/dL (6.4-8.2); Triglycerides 221 mg/dL (<=150); VLDL CHOLESTEROL 44.2 mg/dL
[2024-12-07 04:07] LABS: Insulin 5.3 uIU/mL (2.6-24.9)
== END 2024-12-06 11:09 | disposition home or self-care (01) ==
LOC: LAB 11:10
PROVIDERS: Visit Provider Nurse Practitioner Family
DX: E78.5 Hyperlipidemia, unspecified (principal); R53.83 Other fatigue; R73.09 Other abnormal glucose
CPT/HCPCS: 36415; 80053; 80061; 83036; 83525; 84436; 84443; 84481; 85025

== ENCOUNTER 2025-05-14 10:06 | Outpatient (OUT) | payer BC, MEDICARE, SELFPAY ==
--- OUTSIDE RECORDS SUMMARY | 2025-04-27 10:35 | XMS_ITS ---
Author Organization The [facility] in [place] Address [address] [place] [address] Care Team Providers Care Vaccine Manager Name Role Phone Hanna Graves Primary Care Provider Medications Medication SIG (Take, Route, Fr equency, Duration) Notes Start Date End Date Status Handicap Placard -- as directed 04/27/2025 Active Encounters Encounter Location Date Provider Diagnosis [facility] [address] [place] [address] 04/27/2025 Hanna Graves Plan Of Treatment Medication Medication Name Sig Start Date Stop Date Notes Handicap Placard -- as directed 04/27/2025 Progress Notes * Keyanna BAUER ADOB:[birth year] (70 yo F)Acc No.[id number]:04/27/2025 Patient: Chapis Keyanna LEAL :1955 A ge:70 Y S ex:Female Address:[address] [place] [address] * Refills Start Handicap Placard --, --, as directed * true * Date: Generated for Printi ng/Faxing/eTransmitting on: 0 05/14/2025 10:17 AM EDT
--- OUTSIDE RECORDS SUMMARY | 2025-05-03 06:29 | XMS_ITS ---
Author Organization The [facility] in [place] Address [address] [place] [address] Care Team Providers Care Sports Reporter Name Role Phone Hanna Graves Primary Care Provider REASON FOR VISIT rf seroquel Medications Medication SIG (Take, Route, Frequency, Duration) Notes Start Date End Date Status QUEtiapine Fumarate 100 MG TAKE 1 CAP IN THE MORNING AND 2 CAPS AT BEDTIME for 30 days Active Encounters Encounter Location Date Provider Diagnosis [facility] [address] [place] [address] 05/03/2025 Hanna Graves Plan Of Treatment Medication Medication Name Sig Start Date Stop Date Notes QUEtiapine Fumarate 100 MG TAKE 1 CAP IN THE MORNING AND 2 CAPS AT BEDTIME for 30 days Progress Notes * Keyanna BAUER ADOB:[birth year] (70 yo F)Acc No.[id number]:05/03/2025 Patient: Chapis Keyanna LEAL :1955 A ge:70 Y S ex:Female [address] [place] [address] * Refills Refill QUEtiapine Fumarate Tablet, 100 MG, 90 Tablet, TAKE 1 CAP IN THE MORNING AND 2 CAPS AT BEDTIME, 30 days, Refills=5 * true * Date: Generated for Printi ng/Faxing/eTransmitting on: 0 05/14/2025 10:17 AM EDT
--- OUTSIDE RECORDS SUMMARY | 2025-05-13 07:02 | XMS_ITS ---
Author Organization The [facility] in [place] Address [address] [place] [address] Care Team Providers Care Pot Annealer Name Role Phone Hanna Graves Primary Care Provider REASON FOR VISIT excuse for Jury duty Encounters Encounter Location Date Provider Diagnosis [facility] [address] [place] [address] 05/13/2025 Hanna Graves Plan Of Treatment No Information Progress Notes * Keyanna BAUER ADOB:[birth year] (70 yo F)Acc No.[id number]:05/13/2025 Patient: Chapis LEAL Keyanna Sergei :1955 A ge:70 Y S ex:Female Address:[address] [place] [address] Subjective: * Chief Complaints: * e xcuse for Jury duty * Medical History: * Surgical History: * Hospitalization/Major Diagno stic Procedure: * Medications: Objective: * Vitals: * Physical Examination: Assessment: Plan: * Treatment: * Procedure Codes: * true * Date: Generated for Printi ng/Faxing/eTransmitting on: 0 05/14/2025 10:16 AM EDT
--- OUTSIDE RECORDS SUMMARY | 2025-05-14 10:17 | XMS_ITS | CCD ---
Author Organization [facility] Inform ion Partnership [facility] Care Team Providers Care Agronomy Technician Name Role Phone MARCO, DR TARIK Duran Consulting Unavaildeepali LARA, DR TARIK Duran Attending Unavaildeepali LARA, DR TARIK Duran Admitting UnavailVARUN Miose Primary Care Unavailable JULIO CÉSAR LAMBERT Consulting Unavailable VARUN CONTRERAS Attending Unavailable VARUN CONTRERAS Admitting Unavailable VARUN CONTRERAS Primary Care Unavailable VARUN CONTRERAS Primary Care Unavailable VARUN CONTRERAS Consulting Unavailable VARUN CONTRERAS Attending Unavailable VARUN CONTRERAS Admitting Unavailable Germán Rodriguez MD Primary Care Provider [phone] Kristan Jaquez MD Attending Provider [phone] Allergies Allergy Classification Reported Allergen(s) Allergy Type Date of Onset Reaction(s) Facility (1 source) Cephalexin Drug Allergy 07-23-2017 [facility] Repository Medications Current Medications Medication Drug Class(es) Dates Sig (Normalized) Sig (Original) acetaminophen 500 mg oral tablet (1 source) Start: 04-12-2025 take 2 tablets by mouth twice daily as needed Acetaminophen 500 mg tablet Active 1000 MG PO Twice daily as needed April 12, 2025 12:00am Complies with drug therapy amitriptyline hydrochloride 150 mg oral tablet (1 source) Tricyclic Antidepressant Start: 04-12-2025 take 1 tablet by mouth once daily at bedtime as needed Amitriptyline 150 mg tablet Active 150 MG PO Daily at bedtime as needed April 12, 2025 12:00am Complies with drug therapy brimonidine tartrate 2 mg/ml ophthalmic solution (1 source) alpha-Adrenergic Agonist Start: 04-12-2025 take 1 drop(s) into the eye(s) three times daily Brimonidine 0.2 % drops Active 1 DROPS OPHTHALMIC Three times daily April 12, 2025 12:00am Complies with drug therapy cetirizine hydrochloride 10 mg oral tablet (1 source) Histamine-1 Receptor Antagonist Start: 04-12-2025 take 1 tablet by mouth once daily as needed Cetirizine (Zyrtec) 10 mg tablet Active 10 MG PO Daily as needed April 12, 2025 12:00am Complies with drug therapy dicyclomine hydrochloride 10 mg oral capsule (1 source) Anticholinergic Start: 04-12-2025 take 1 capsule by mouth three times daily as needed Dicyclomine 10 mg capsule Active 10 MG PO Three times daily as needed April 12, 2025 12:00am Complies with drug therapy 24 hr dilTIAZem hydrochloride 300 mg extended release oral tablet (1 source) Calcium Channel Jesús Start: 04-12-2025 take 1 tablet by mouth every twenty-four hours Diltiazem Hcl 300 mg tablet extended release 24 hr Active 300 MG PO Once April 12, 2025 12:00am Complies with drug therapy dorzolamide 20 mg/ml / timolol 5 mg/ml ophthalmic solution (1 source) Carbonic Anhydrase Inhibitor, beta-Adrenergic Jesús Start: 04-12-2025 take 1 drop(s) into the eye(s) three times daily Dorzolamide-Timol ol 22.3-6.8 mg/mL drops Active 1 DROPS OPHTHALMIC Three times daily April 12, 2025 12:00am Complies with drug therapy DULoxetine 60 mg delayed release oral capsule (1 source) Serotonin and Norepinephrine Reuptake Inhibitor Start: 04-12-2025 take 2 capsules by mouth once daily at bedtime Duloxetine 60 mg capsule,delayed release(DR/EC) Active 120 MG PO Daily at bedtime April 12, 2025 12:00am Complies with drug therapy furosemide 20 mg oral tablet (1 source) Loop Diuretic Start: 04-12-2025 take 1 tablet by mouth once daily Furosemide 20 mg tablet Active 20 MG PO Daily April 12, 2025 12:00am Complies with drug therapy latanoprost 0.05 mg/ml ophthalmic solution (1 source) Prostaglandin Analog Start: 04-12-2025 take 1 drop(s) into the eye(s) once daily in the evening Latanoprost 0.005 % drops Active 1 DROPS OPHTHALMIC Every evening April 12, 2025 12:00am Complies with drug therapy losartan potassium 50 mg oral tablet (1 source) Angiotensin 2 Receptor Jesús Start: 04-12-2025 take 1 tablet by mouth twice daily Losartan 50 mg tablet Active 50 MG PO Twice daily April 12, 2025 12:00am Complies with drug therapy omeprazole 40 mg delayed release oral capsule (1 source) Proton Pump Inhibitor Start: 04-12-2025 take 1 capsule by mouth twice daily Omeprazole 40 mg capsule,delayed release(DR/EC) Active 40 MG PO Twice daily April 12, 2025 12:00am Complies with drug therapy ondansetron 4 mg oral tablet (1 source) Serotonin-3 Receptor Antagonist Start: 04-12-2025 take 1 tablet by mouth once daily as needed Ondansetron Hcl 4 mg tablet Active 4 MG PO Daily as needed April 12, 2025 12:00am Complies with drug therapy microencapsulated potassium chloride 10 meq extended release oral tablet (1 source) Start: 04-12-2025 take 1 tablet by mouth twice daily Potassium Chloride 10 mEq tablet,ER particles/crystal s Active 10 MEQ PO Twice daily April 12, 2025 12:00am Complies with drug therapy QUEtiapine 100 mg oral tablet (1 source) Atypical Antipsychotic Start: 04-12-2025 take 2 tablets by mouth in the evening Quetiapine 100 mg tablet Active 100 MG PO .COMPLEX April 12, 2025 12:00am 100 mg orally 1 tab in am, 2 tabs in pm; Complies with drug therapy simvastatin 80 mg oral tablet (1 source) HMG-CoA Reductase Inhibitor Start: 04-12-2025 take 1 tablet by mouth once daily Simvastatin 80 mg tablet Active 80 MG PO Daily April 12, 2025 12:00am Complies with drug therapy tiZANidine 4 mg oral tablet (1 source) Central alpha-2 Adrenergic Agonist Start: 04-12-2025 take 1 tablet by mouth twice daily Tizanidine 4 mg tablet Active 4 MG PO Twice daily April 12, 2025 12:00am Complies with drug therapy Problems Active Problems Problem Classification Problem Date Documented Date Episodic/Chronic Calculus of urinary tract (3 sources) Personal history of urinary calculi; Translations: [Kidney stone] Onset: 2 04-12-2025 Episodic Chronic kidney disease (2 sources) Chronic kidney disease stage 3; Translations: [Stage 3 chronic kidney disease] 04-12-2025 Chronic Disorders of lipid metabolism (7 sources) Pure hypercholesterolemia, unspecified; Translations: [Hyperlipidemia, unspecified] Onset: 2 Chronic Essential hypertension (1 source) Essential (primary) hypertension; Translations: [ESSENTIAL PRIMARY HYPERTENSION] Onset: 2 Chronic Hypertension with complications and secondary hypertension (2 sources) Chronic kidney disease due to hypertension; Translations: [Hypertensive chronic kidney disease with stage 1 through stage 4 chronic kidney disease, or unspecified chronic kidney disease] 04-12-2025 Chronic Mood disorders (1 source) Major depressive disorder, single episode, unspecified; Translations: [WILFREDO DEPRESS D/O SINGLE EPIS UNS] Onset: 2 Chronic Other diseases of kidney and ureters (2 sources) Secondary hyperparathyroidism; Translations: [Secondary hyperparathyroidism of renal origin] 04-12-2025 Chronic Unclassified (1 source) LOW BACK PAIN, UNSPECIFIED; Translations: [LOW BACK PAIN, UNSPECIFIED] Onset: 2 Past or Other Problems Problem Classification Problem Date Documented Da te Episodic/Chronic E Codes: Natural/environment (1 source) Other and unspecified overexertion or strenuous movements or postures, initial encounter; Translations: [OTH AND UNS OVREXRT/STRN MVMT/POS INT] Onset: 01-22-2022 Episodic Genitourinary symptoms and ill-defined conditions (1 source) Personal history of urinary (tract) infections; Translations: [PERS HX URINARY TRACT INFECTIONS] Onset: 01-22-2022 Episodic Other aftercare (1 source) Other ferry terminal 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) drug therapy; Translations: [OTH GLOBAL CEO CURRENT DRUG THERAPY] Onset: 01-22-2022 Episodic Other connective tissue disease (1 source) Fibromyalgia; Translations: [FIBROMYALGIA] Onset: 01-22-2022 Episodic Spondylosis; intervertebral disc disorders; other back problems (3 sources) Dorsalgia, unspecified; Translations: [DORSALGIA UNSPECIFIED] Onset: 01-19-2022 Episodic Sprains and strains (1 source) Sprain of ligaments of lumbar spine, initial encounter; Translations: [SPRAIN LIGAMENTS LUMBAR SPN INITIAL] Onset: 01-22-2022 Episodic Results Test Name Value Interpretation Reference Range Facility CT LSPINE WO CONon 2 CT LSPINE WO CON EXAM: CT LSPINE WO C ON HISTORY: Back pain. COMPARISON: None. TECHNIQUE: Routine CT lumbar spine without intravenous contrast. FINDINGS: The bony structures are osteopenic. There is mild levoscoliosis of the lumbar spine. The vertebral body heights are maintained. There is no acute fracture. T11-T12: Severe discogenic degenerative changes. There is mild facet arthritis on the left. There is no significant spinal canal or neural foraminal stenosis. T12-L1: There is 0.3 cm posterolisthesis of T12 on L1. Severe discogenic degenerative changes. The facet joints are unremarkable. There is mild spinal canal stenosis based on 0.3 cm posterior listhesis of T12 on L1 and circumferential disc bulge osteophyte complex which is most prominent causing mass effect upon and narrowing of the left lateral recess. There is neural foraminal stenosis which is severe on the left and moderate on the right. L1-L2: There is 0.3 cm posterolisthesis of L1 on L2. There is severe discogenic degenerative changes. There is moderate facet arthritis bilaterally. There is no significant spinal canal stenosis. There is moderate neural foraminal stenosis on the right. L2-L3: There is 0.2 cm posterolisthesis of L2 on L3. There are severe discogenic degenerative changes. There is facet arthritis, severe on the right and mild on the left. There is mild spinal canal stenosis based on disc bulge osteophyte complex and the severe hypertrophic facet arthritis on the right. This causes mass effect upon and narrowing of the right lateral recess. There is severe neural foraminal stenosis on the right. L3-L4: There are severe discogenic degenerative changes. There is facet arthritis which is severe on the left and moderate on the right. There is moderately severe spinal canal stenosis based on circumferential disc bulge osteophyte complex, facet hypertrophy and hypertrophy of the ligamentum flavum bilaterally. There is no significant neural foraminal stenosis. L4-L5: There is 0.3 cm anterolisthesis of L4 on L5. There are moderate discogenic degenerative changes. There is severe facet arthritis bilaterally. There is moderate spinal canal stenosis based on 0.3 cm anterolisthesis of L4 on L5, circumferential disc bulge osteophyte complex and hypertrophic facet arthritis. There is severe neural foraminal stenosis bilaterally. L5-S1: Severe discogenic degenerative changes. There is moderate facet arthritis bilaterally. There is a disc bulge osteophyte complex causing mass effect upon the ventral thecal sac. There is neural foraminal stenosis which is moderate on the right in moderately severe on the left. There is sclerosis along the sacral and iliac margins of the bilateral sacroiliac joints without erosive changes or ankylosis. The right kidney is atrophic. There is a 1.1 cm nonobstructing calculus within the midpole of the right renal pelvis. There is a 1 cm calculus at the right UPJ. There is no significant pelvocaliectasis. There are atheromatous calcifications within the right renal artery. There are several nonobstructing calculi within the left renal pelvis, largest measuring 0.9 cm. There is a partially imaged 1.2 cm cyst projecting off the posterior lateral margin of the upper pole the left kidney measuring 10 Hounsfield units. There are atheromatous calcifications within the left renal artery. There are atheromatous calcifications along the abdominal aorta and bilateral iliac arteries. There is atheromatous calcification within the distal celiac trunk. There is atheromatous calcification throughout the splenic artery. There is a punctate atheromatous calcification at the junction of the proximal and middle thirds of the superior mesenteric artery. There is hypertrophy of the bilateral adrenal glands, left greater than right. IMPRESSION: There is no acute process. There is mild levoscoliosis of the lumbar spine. Alignment is otherwise described in the body the report. Diffuse discogenic degenerative changes and facet arthritis as described in the body the report. Multilevel spinal canal or neural foraminal stenosis as described in the body the report. The bony structures are osteopenic. Numerous findings within the visualized portions of the abdomen/pelvis as described in the body the report. Electronically authenticated by: JULIO CÉSAR LAMBERT Date: 2022-01-19 15:26 Normal [facility] INSULINon 12-14-2021 Insulin 7.8 uIU/mL Normal 2.6-24.9 [facility] [place] Comment on above: Performed By: #### I NSULIN #### [facility] [address] [address] [address] Ирина Kerr CBC AUTO DIFFon 12-13-2021 BASO # 0.1 103/ul Normal 0.0-0.1 [facility] [place] Comment on above: Performed By: #### C BC #### [facility] [address] [address] [address] Ирина Kerr Basophils/100 WBC (Bld) 1.1 % Normal 0.2-2.0 [facility] [place] Comment on above: Performed By: #### C BC #### [facility] [address] [place] [address] Dr. Ирина Kerr EO # 0.2 103/ul Normal 0.0-0.7 [facility] [place] Comment on above: Performed By: #### C BC #### [facility] [address] [place] [address] Dr. Ирина Kerr Eosinophils/100 WBC (Bld) 4.5 % Normal 0.9-7.0 [facility] [place] Comment on above: Performed By: #### C BC #### [facility] [address] [place] [address] Dr. Ирина Kerr Erythrocyte distribution width (RBC) [Ratio] 15.4 % Critically high 11.0-15.0 [facility] [place] Comment on above: Performed By: #### C BC #### [facility] [address] [place] [address] Dr. Ирина Kerr Hematocrit (Bld) [Volume fraction] 39.7 % Normal 36.0-48.0 [facility] [place] Comment on above: Performed By: #### C BC #### [facility] [address] [place] [address] Dr. Ирина Kerr Hemoglobin (Bld) [Mass/Vol] 13.2 g/dL Normal 12.0-16.0 [facility] [place] Comment on above: Performed By: #### C BC #### [facility] [address] [place] [address] Dr. Ирина Kerr IG # 0.03 10e3/ul Normal 0.00-0.03 [facility] Comment on above: Performed By: #### C BC #### [facility] [address] [place] [address] Dr. Ирина Kerr IG % 0.6 % Critically high 0.0-0.5 [facility] Comment on above: Performed By: #### C BC #### [facility] [address] [place] [address] Dr. Ирина Kerr LYMPH # 1.6 103/ul Normal 1.2-3.8 [facility] [place] Comment on above: Performed By: #### C BC #### [facility] [address] [place] [address] Dr. Ирина Kerr Lymphocytes/100 WBC (Bld) 35.1 % Normal 20.5-60.0 [facility] [place] Comment on above: Performed By: #### C BC #### [facility] [address] [place] [address] Dr. Ирина Kerr MANUAL DIFF REQ NO Normal [facility] Comment on above: Performed By: #### C BC #### [facility] [address] [place] [address] Dr. Ирина Kerr MCH (RBC) [Entitic mass] 36.2 pg Critically high 26.7-34.0 [facility] [place] Comment on above: Performed By: #### C BC #### [facility] [address] [place] [address] Dr. Ирина Kerr MCHC (RBC) [Mass/Vol] 33.2 g/dL Normal 29.9-35.2 [facility] [place] Comment on above: Performed By: #### C BC #### [facility] [address] [place] [address] Dr. Ирина Kerr MCV (RBC) [Entitic vol] 108.8 fL Critically high 81.0-99.0 [facility] [place] Comment on above: Performed By: #### C BC #### [facility] [address] [place] [address] Dr. Ирина Kerr MONO # 0.4 103/ul Normal 0.3-0.8 [facility] [place] Comment on above: Performed By: #### C BC #### [facility] [address] [place] [address] Dr. Ирина Kerr Monocytes/100 WBC (Bld) 7.8 % Normal 1.7-12.0 [facility] [place] Comment on above: Performed By: #### C BC #### [facility] [address] [place] [address] Dr. Ирина Kerr NEUT # 2.4 103/ul Normal 1.4-6.5 [facility] [place] Comment on above: Performed By: #### C BC #### [facility] [address] [address] [address] Ирина Kerr Neutrophils/100 WBC (Bld) 50.9 % Normal 43.0-75.0 [facility] [place] Comment on above: Performed By: #### C BC #### [facility] [address] [address] [address] Ирина Kerr Platelet mean volume (Bld) [Entitic vol] 9.6 fL Normal 9.5-13.5 [facility] [place] Comment on above: Performed By: #### C BC #### [facility] [address] [place] [address] Dr. Ирина Kerr PLT 208 103/ul Normal 150-450 [facility] [place] Comment on above: Performed By: #### C BC #### [facility] [address] [place] [address] Dr. Ирина Kerr RBC 3.65 106/ul Critically low 4.20-5.40 [facility] Comment on above: Performed By: #### C BC #### [facility] [address] [place] [address] Dr. Ирина Kerr WBC 4.6 103/ul Normal 4.0-11.0 [facility] [place] Comment on above: Performed By: #### C BC #### [facility] [address] [place] [address] Dr. Ирина Kerr FREE THYROXINE INDEX T7on FTI 1.70 Normal [facility] [place] Comment on above: Performed By: #### T SH, CMP, T7, LIPID #### [facility] [address] [place] [address] Dr. Ирина Kerr T3U 37.0 % Normal 23.5-40.5 [facility] [place] Comment on above: Performed By: #### T SH, CMP, T7, LIPID #### [facility] [address] [address] [address] Ирина Kerr T4 [Mass/Vol] 4.60 ug/dL Critically low 5.53-11.00 [facility] Comment on above: Performed By: #### T SH, CMP, T7, LIPID #### [facility] [address] [address] [address] Ирина Kerr GLYCOHEMOGLOBIN A1Con 2021 ADA RECOMMENDATION ADA THERAPEUTIC TARG ET 6.0 - 7.0 ACTION SUGGESTED > 7.0 Normal [facility] [place] Comment on above: Performed By: #### A 1C #### [facility] [address] [address] [address] Ирина Kerr Glucose [Mass/Vol] 114 mg/dL Normal [facility] Comment on above: Performed By: #### A 1C #### [facility] [address] [place] [address] Dr. Ирина Kerr HbA1c (Bld) [Mass fraction] 5.6 % Normal <=6.0 [facility] [place] Comment on above: Performed By: #### A 1C #### [facility] [address] [place] [address] Dr. Ирина Kerr IRONon 12-13-2021 Iron [Mass/Vol] 105.0 ug/dL Normal 37.0-170.0 [facility] Comment on above: Performed By: #### I BE #### [facility] [address] [place] [address] Dr. Ирина Kerr LIPID PROFILEon 12-13-2021 CHOL-HDL RATIO NORM SEE BELOW Normal [facility] Comment on above: Result Comment: 3.3 - 4.4 LOW RISK 4.4 - 7.1 AVERAGE RISK 7.1 - 11.0 MODERATE RISK >11.0 HIGH RISK Performed By: #### T SH, CMP, T7, LIPID #### [facility] [address] [place] [address] Dr. Ирина Kerr Cholesterol [Mass/Vol] 179 mg/dL Normal <=200 [facility] [place] Comment on above: Performed By: #### T SH, CMP, T7, LIPID #### [facility] [address] [place] [address] Dr. Ирина Kerr Cholesterol in HDL [Mass/Vol] 66 mg/dL Normal [facility] [place] Comment on above: Performed By: #### T SH, CMP, T7, LIPID #### [facility] [address] [address] [address] Ирина Kerr Cholesterol in LDL [Mass/Vol] 74.2 mg/dL Normal [facility] [place] Comment on above: Performed By: #### T SH, CMP, T7, LIPID #### [facility] [address] [address] [address] Ирина Kerr Cholesterol.total/Ch olesterol in HDL [Mass ratio] 2.7 {ratio} Normal [facility] [place] Comment on above: Performed By: #### T SH, CMP, T7, LIPID #### [facility] [address] [address] [address] Ирина Kerr HDL NORMAL > or = 60 mg/dl - LO W CARDIOVASCULAR RISK <40 mg/dl - HIGH CARDIOVASCULAR RISK Normal [facility] [place] Comment on above: Performed By: #### T SH, CMP, T7, LIPID #### [facility] [address] [address] [address] Ирина Kerr LDL CALC NORMAL SEE BELOW Normal [facility] Comment on above: Result Comment: <100 mg/dl OPTIMAL 100 - 129 mg/dl NEAR OR ABOVE OPTIMAL 130 - 159 mg/dl BORDERLINE HIGH 160 - 189 mg/dl HIGH >190 mg/dl VERY HIGH Performed By: #### T SH, CMP, T7, LIPID #### [facility] [address] [address] [address] Ирина Kerr Triglyceride [Mass/Vol] 194 mg/dL Critically high <=150 [facility] Comment on above: Performed By: #### T SH, CMP, T7, LIPID #### [facility] [address] [address] [address] Ирина Kerr VLDL CALC 38.8 mg/dL Normal [facility] [place] Comment on above: Performed By: #### T SH, CMP, T7, LIPID #### [facility] [address] [address] [address] Ирина Kerr PROF 14(COMP METB)on 022 Albumin [Mass/Vol] 3.9 g/dL Normal 3.5-5.0 [facility] Comment on above: Performed By: #### T SH, CMP, T7, LIPID #### [facility] [address] [place] [address] Dr. Ирина Kerr Albumin/Globulin [Mass ratio] 1.1 {ratio} Normal [facility] [place] Comment on above: Performed By: #### T SH, CMP, T7, LIPID #### [facility] [address] [place] [address] Dr. Ирина Kerr ALP [Catalytic activity/Vol] 90 U/L Normal 38-126 [facility] [place] Comment on above: Performed By: #### T SH, CMP, T7, LIPID #### [facility] [address] [place] [address] Dr. Ирина Kerr ALT [Catalytic activity/Vol] 14 U/L Normal 9-52 [facility] [place] Comment on above: Performed By: #### T SH, CMP, T7, LIPID #### [facility] [address] [place] [address] Dr. Ирина Kerr Anion gap [Moles/Vol] 14.4 mmol/L Normal [facility] [place] Comment on above: Performed By: #### T SH, CMP, T7, LIPID #### [facility] [address] [place] [address] Dr. Ирина Kerr AST [Catalytic activity/Vol] 14 U/L Normal 14-36 [facility] [place] Comment on above: Performed By: #### T SH, CMP, T7, LIPID #### [facility] [facility] [address] [place] [address] Dr. Ирина Kerr Bilirubin [Mass/Vol] 0.6 mg/dL Normal 0.2-1.3 [facility] Comment on above: Performed By: #### T SH, CMP, T7, LIPID #### [facility] [address] [place] [address] Dr. Ирина Kerr Calcium [Mass/Vol] 9.2 mg/dL Normal 8.4-10.2 The [facility] Comment on above: Performed By: #### T SH, CMP, T7, LIPID #### [facility] [address] [place], [place] [id number] Dr. Ирина Kerr Chloride [Moles/Vol] 104 mmol/L Normal 98-107 [facility] Comment on above: Performed By: #### T SH, CMP, T7, LIPID #### [facility] [address] [place] [address] Dr. Ирина Kerr CO2 [Moles/Vol] 25.8 mmol/L Normal 22.0-30.0 The [facility] Comment on above: Performed By: #### T SH, CMP, T7, LIPID #### [facility] [address] [place] [address] Dr. Ирина Kerr Creatinine [Mass/Vol] 1.45 mg/dL Critically high 0.52-1.04 [facility] Comment on above: Performed By: #### T SH, CMP, T7, LIPID #### [facility] [address] [place] [address] Dr. Ирина Kerr EGFR-AF TOGOLESE 44 mL/min/1.73m2 Critically low >=60 [facility] Comment on above: Performed By: #### T SH, CMP, T7, LIPID #### [facility] [address] [place] [address] Dr. Ирина Kerr EGFR-NON AF TOGOLESE 36 mL/min/1.73m2 Critically low >=60 [facility] Comment on above: Performed By: #### T SH, CMP, T7, LIPID #### [facility] [address] [place] [address] Dr. Ирина Kerr Globulin (S) [Mass/Vol] 3.4 g/dL Normal [facility] Comment on above: Performed By: #### T SH, CMP, T7, LIPID #### [facility] [address] [place] [address] Dr. Ирина Kerr Glucose [Mass/Vol] 110 mg/dL Critically high 74-106 [facility] Comment on above: Performed By: #### T SH, CMP, T7, LIPID #### [facility] [address] [place] [address] Dr. Ирина Kerr Potassium [Moles/Vol] 4.2 mmol/L Normal 3.4-5.0 The [facility] Comment on above: Performed By: #### T SH, CMP, T7, LIPID #### [facility] [address] [address] [address] Ирина Kerr Protein [Mass/Vol] 7.3 g/dL Normal 6.1-8.2 [facility] Comment on above: Performed By: #### T SH, CMP, T7, LIPID #### [facility] [address] [place] [address] Dr. Ирина Kerr Sodium [Moles/Vol] 140 mmol/L Normal 137-145 [facility] Comment on above: Performed By: #### T SH, CMP, T7, LIPID #### [facility] [address] [place] [address] Dr. Ирина Kerr Urea nitrogen [Mass/Vol] 22.0 mg/dL Critically high 7.0-17.0 [facility] Comment on above: Performed By: #### T SH, CMP, T7, LIPID #### [facility] [address] [place] [address] Dr. Ирина Kerr Urea nitrogen/Creatinine [Mass ratio] 15.2 mg/mg Normal [facility] Comment on above: Performed By: #### T SH, CMP, T7, LIPID #### [facility] [address] [place] [address] Dr. Ирина Kerr TSHon 12-13-2021 TSH 1.181 uIU/mL Normal 0.470-4.680 The [facility] Comment on above: Performed By: #### T SH, CMP, T7, LIPID #### [facility] [address] [place] [address] Dr. Ирина Kerr TSH RANGE SEE BELOW Normal [facility] Comment on above: Result Comment: <0.3 4 UIU/ml HYPERTHYROID 0.34-5.60 UIU/ml EUTHYROID >5.60 UIU/ml HYPOTHYROID Performed By: #### T SH, CMP, T7, LIPID #### [facility] [address] [place] [address] Dr. Ирина Kerr Consent for Procedure/Surger yon 10-08-2021 Consent for Procedure/Surgery [id number] D:127 Normal [facility] Gastroenterology Office/Clin ic Noteon 10-05-2021 Gastroenterology Office/Clinic Note Chief Complaint 1 year f/u HPI Staff This is a 66 year old female who presents today for a 1 year follow up. History of Present Illness Keyanna Bauer is a 66-year-old white female who presents today for a follow-up. She was a patient of Dr. Ibrahim last seen in 06/2020 for heartburn. The patient had an EGD done in 2018 that showed moderate hiatal hernia and partial Schatzki ring with mild gastritis and duodenitis which at that point started her on antacids and Carafate. The patient also has a history of colon polyps with her last colonoscopy being in 2017. Dr. Ibrahim noted that she would need to have a repeat colonoscopy at her next visit due to a large polyp removed in the piecemeal fashion. He also noted that she has a gallbladder polyp, but it was very small at 2 mm and needed no intervention. She has a history of ulcerative colitis that was diagnosed in 2016 and she is taking Apriso and 6-MP with allopurinol. The patient reports that her main issues today are heartburn and acid reflux. She endorses this is not severe but explains that it is more frequent now. Carafate has provided benefit for her heartburn, and she requested a refill of this today. She denies dysphagia or taking blood thinners. The patient also denies undergoing any recent blood work. Review of Systems PHQ Score Initial Depression Screen Score: 0 Constitutional: no fever, no chills, no sweats, no weakness Skin: no Jaundice, no rash, no lesions, no petechiae ENMT: no ear pain, no sore throat, no congestion, no hoarseness Respiratory: no shortness of breath, no cough, no orthopnea, no wheezing Cardiovascular: no chest pain, no palpitations, no edema Gastrointestinal: no nausea, no vomiting, no diarrhea, no constipation, no GI bleeding, no abdominal pain, no dysphagia, no bloating, positive for heartburn Genitourinary: no dysuria, no hematuria, no discharge, no pain Musculoskeletal: no back pain, no trauma Neurologic: no numbness, no sleeping problems Additional ROS info: Except as noted in the above Review of Systems and in the History of Present Illness all other systems have been reviewed and are negative or noncontributory. Physical Exam Vitals & Measurements T: 36.3 ?C(Temporal Artery) HR: 93(Peripheral) RR: 16 BP: 128/86 HT: 162 cm HT: 162.0 cm WT: 91.7 kg WT: 91.7 kg BMI: 34.94 Constitutional: Appearance: well developed Skin: Inspection: no rashes, ulcers, icterus, or telangiectasias. Eyes: Conjunctivae/lids: normal conjunctivae and lids. ENMT: Hearing: within normal limits. Lips/Teeth/Gums: normal oral mucosa Neck: Neck: normal motion, central trachea Respiratory: Percussion: thorax normoresonant. Auscultation: normal breath sounds; no rubs, wheezes, rale or ronchi. Cardiovascular: Auscultation: normal rhythm, S1 and S2; no rubs, murmurs or gallop. Peripheral: no edema Gastrointestinal/Abdome n: Abdomen: normal consistency and bowel sounds; no tenderness or masses. Liver/Spleen: normal size and consistency, not palpable. Rectal: deferred Musculoskeletal: Gait/station: normal gait Assessment/Plan 1. Heartburn (R12: Heartburn) The patient underwent an EGD in 2018 that showed mild inflammation in the stomach and duodenum with negative H-pylori. She is controlling her heartburn with antacid and Carafate. We will proceed with an EGD to assess the heartburn and hiatal hernia. 2. Colon polyps (K63.5: Polyp of colon) The patient's last colonoscopy was done by Dr. Ibrahim in 2019 and noted to have a tubular adenoma removed in a piecemeal fashion. She is due for a surveillance colonoscopy. 3. Ulcerative colitis (K51.90: Ulcerative colitis, unspecified, without complications) This was diagnosed in 2016 and is controlled with Apriso and 6-MP together with allopurinol, and we will refill all. We will proceed with a surveillance colonoscopy. 4. 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 There is no need for further evaluation. ATTESTATION: Documentation services were performed by FABRIZIO after patient consented to recording for virtual adolescent medicine specialist and provider reviewed before signing. FABRIZIO: Maria G Guthriearez. Entered into [employer] by Lois Nelson. Follow-up No qualifying data available Problem List/Past Medical History Ongoing Colon polyps Depression Fibromyalgia Gallbladder polyp Heartburn Hiatal hernia Hypertension Kidney stone Migraine Pancreatitis Stomach ulcer Ulcerative colitis Historical No qualifying data Procedure/Surgical History Bilateral Carpal tunnel surgery, Bilateral knee replacement, Eye Surgery x3, Facial Surgery, Tonsillectomy, Tubal ligation. Medications allopurinol 100 mg Tab, 100 mg= 1 tab(s), Oral, Daily allopurinol 100 mg Tab, 100 mg= 1 tab(s), Oral, Daily, 4 refills amitriptyline, 50 mg, Oral, Once a day (at bedtime) Apriso 0.375 g oral capsule, extended release, 1.5 gm= 4 cap(s), Oral, qAM, 11 refills Apriso 0.375 (more content not included)... Normal [facility] Comment on above: Result Comment: Elec tronically Signed By: Lois Nelson\.br\Date and Time Signed: 10/04/21 17:20 EST\.br\Electronically Co-Signed By: Bibiana FARIA MD\.br\Date and Time Co-Signed: 10/05/21 10:31 EST Ambulatory Clinical Summaryo n 10-04-2021 Ambulatory Clinical Summary {[id number] [facility] Ambulatory Clinical Summary {[id number]}CD:[id number] [facility] PROGRESSon 05-04-2019 PROGRESS HNO ID: [id number] Author: Migdalia Gamble Service: ? Author Type: Physician Type: Progress Notes Filed: 05/26/2019 12:28 PM Note Text: Reviewed Epic, chart, labs, imaging studies. 1. Decreasing disc edema Left eye. Visual acuity remains 20/25. Jamison visual field is full. All inflammatory labs and imaging are normal. Follow up in 2 months, sooner prn. 2. Eye ache Left eye is I believe caused by the large filtering bleb. There is also a small suture end coming through the conjunctiva. Follow up with her glaucoma surgeon. 3. Choroidal nevus stable. I have confirmed and edited as necessary the relevant ophthalmic history, ROS, and the neuro exam findings as obtained by others. I have seen and examined Keyanna Bauer. I have discussed the case and the management of this patient's care with the Resident/Fellow, if applicable. I also have reviewed and agree with the assessment and plan as stated above and agree with all of its relevant components.The nature of the patient's eye disease, its relationship to systemic health, and its prognosis have been explained to the patient/family. The treatment options/risks/benefits have been discussed. Questions answered. Normal [facility] MR-MRI ORBIT WO/W CON IMPORT on 03-31-2019 MR-MRI ORBIT WO/W CON IMPORT Images were obtained outside of [facility] [id number] Normal [facility] ANAon 03-24-2019 Nuclear Ab IF (S) [Titer] Negative Normal Negative [facility] Comment on above: Performed By: #### A CE, ANAS #### [facility] [employer] [address] [address] Nuclear Ab IF (S) [Titer] 0.1 OD Ratio Normal [facility] Comment on above: Result Comment: OD R atio is interpreted as follows: Negative <1.0 Positive >=1.0 Performed By: #### A CE, ANAS #### [facility] [address] [address] Angiotens. Conv Enzon 2018 Angiotens. Conv Enz 23 U/L Normal <52 [facility] Comment on above: Result Comment: Kay ficially low TERRY levels may be found for patients taking TERRY inhibitors or after the administration of gadolinium. This test was developed and its performance characteristics determined by [facility]'s [facility] [place] ( [facility]). It has not been cleared or approved by the FDA. [facility]3] is regulated under CLIA as qualified to perform high complexity testing. This test is used for clinical purposes. It should not be regarded as investigational or for research. Performed By: #### A NORMA, DON #### [facility] [address] [id number] PROGRESSon 03-24-2019 PROGRESS HNO ID: [id number] Author: Migdalia Gamble Service: ? Author Type: Physician Type: Progress Notes Filed: 03/24/2019 5:57 PM Note Text: Reviewed Epic, chart, labs, imaging studies. 1. Asymptomatic disc edema in the Left eye. She has been seeing Dr. Valenzuela monthly since her Phacoemulsification with tube shunt Left eye in Nov 2018. At follow up yesterday he noted disc edema Left eye. Visual acuity is correctable to 20/25. There is no dyschromatopsia. She has poor pupil responses due to surgical changes but no clear Afferent pupillary defect. No symptoms of Giant Cell Arteritis including Headache, transient vision loss, jaw claudication, scalp paresthesia, myalgia, weight loss, anorexia, fevers. Check ESR,CRP,CBC, MARY,TERRY 2. Proptosis Left eye. Ordered MRI orbit 3. Primary open angle glaucoma mild both eyes S/p shunt Left eye. 4. 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 HTN controlled per patient. 6. Ulcerative colitis on Apriso 7. Hyperlipidemia. Controlled per patient. Checked within past 2 months. I have confirmed and edited as necessary the relevant ophthalmic history, ROS, and the neuro exam findings as obtained by others. I have seen and examined Keyanna Sergei Bauer. I have discussed the case and the management of this patient's care with the Resident/Fellow, if applicable. I also have reviewed and agree with the assessment and plan as stated above and agree with all of its relevant components.The nature of the patient's eye disease, its relationship to systemic health, and its prognosis have been explained to the patient/family. The treatment options/risks/benefits have been discussed. Questions answered. Normal [facility] Vital Signs Date Time Vital Sign Value Performing Clinician Kevyn romero 04-12-2025 13:23-0400 Body height 160.02 cm Germán Rodriguez MD Work Phone: [facility] 04-12-2025 13:23-0400 Body mass index (BMI) [Ratio] 33.1 kg/m2 Germán Rodriguez MD Work Phone: [facility] 04-12-2025 13:23-0400 Body temperature 96.3 [degF] Germán Rodriguez MD Work Phone: [facility] 04-12-2025 13:23-0400 Body weight 84.93 kg Germán Rodriguez MD Work Phone: [facility] 04-12-2025 13:23-0400 Diastolic blood pressure 86 mm[Hg] Germán Rodriguez MD Work Phone: [facility] 04-12-2025 13:23-0400 Heart rate 95 /min Germán Rodriguez MD Work Phone: [facility] 04-12-2025 13:23-0400 Respiratory rate 18 /min Germán Rodriguez MD Work Phone: [facility] 04-12-2025 13:23-0400 SaO2% (BldA) [Mass fraction] 98 % Germán Rodriguez MD Work Phone: [facility] 04-12-2025 13:23-0400 Systolic blood pressure 136 mm[Hg] Germán Rodriguez MD Work Phone: [facility] Encounters Encounter Date Encounter Type Care Provider Facility Start: 04-12-2025 End: 04-12-2025 ambulatory Germán Rodriguez MD Work Phone: [facility] Work Phone: Start: 04-12-2025 End: 04-12-2025 Patient encounter procedure Kristan Jaquez MD -[facility] Work Phone: Start: 04-26-2022 ambulatory VARUN CONTRERAS Facility: [facility] Start: 01-19-2022 End: 01-19-[address] TARIK LARA Facility:[facility] Start: 12-13-2021 End: 12-14-2021 ambulatory VARUN CONTRERAS Facility:[facility] Plan of Treatment Date Care Activity Detail Author Renal function 2000 panel - Serum or [facility] Payers Date Payer Category Payer Self-pay 1961 Unknown [id number] 1955 Unknown [id number] 1955 Unknown [id number] 1955 Unknown [id number] Social History Date Type Detail Facility Start: 04-12-2025 Tobacco smoking stat [facility] Never smoked tobacco (finding) [facility] Sex Female (finding) [facility] Start: 1955 Sex Assigned At Female [facility] Evaluation note Note Date & Type Note Facility Evaluation note Diagnosis Onset Date Resolution CKD (chronic kidney disease) stage 3, GFR 30-59 ml/min acute April 12, 2025 1:18pm Hyperlipidemia acute April 12, 2025 1:18pm Hypertensive chronic kidney disease with stage 1 through stage 4 chronic ki acute April 12, 2025 1:18pm Nephrolithiasis acute April 12, 2025 1:18pm Secondary hyperparathyroidism acute April 12 1:18pm [facility] Work Phone: Reason for referral (narrative) Note Date & Type Note Facility Reason for referral (narrative) No reason for referral information available [facility] Work Phone: Summary Purpose Family History Relationship Condition Age at Onset Recorded Date/T grecia father Congestive heart failure Unknown mother Congestive heart failure Unknown Heart disease Unknown Advance Directives Advance Directive Response Recorded Date/ Time Advance Directives No April 06 2:43pm Chief Complaint and Reason for Visit Chief Complaint Admit Date RENAL disorder of kidney, ckd 3 April 1:18pm Reason for Visit Admit Date CKD (chronic kidney disease) stage 3, GF R 30-59 ml/min April 12, 2025 1:18pm Hyperlipidemia April 12, 2025 1:18p m Hypertensive chronic kidney disease with stage 1 through stage 4 chronic ki April 12, 2025 1:18pm Nephrolithiasis April 12, 2025 1:18p m Secondary hyperparathyroidism April 12, 2025 1:18pm Additional Source Comments INFORMATION SOURCE (unrecogn ized section and content) DATE CREATED AUTHOR 06/17/2019 [facility] DATE CREATED AUTHOR AUTHOR'S ORGANIZ ATION 12/31/2021 Kostas Chau [facility] DATE CREATED AUTHOR AUTHOR'S ORGANIZ ATION 04/28/2022 [facility] Care Teams (unrecognized sec tion and content) Team Status: Active Member Role Status Dates Germán Rodriguez MD Primary Care Provider Active Team Status: Inactive Member Role Status Dates Germán Rodriguez MD Primary Care Provider Active Start: April 12, 2025 End: April 12, 2025 Kristan Jaquez MD Attending Provider Active Start : April 12, 2025 End: April 12, 2025 Goals (unrecognized section and content) Goals may be documented in a n alternate section FOR RECORDS PERTAINING TO PATIENTS WHO ARE OR HAVE BEEN ENROLLED IN A CHEMICAL DEPENDENCY/SUBSTANCEABUSE PROGRAM, SOME INFORMATION MAY BE OMITTED. This clinical summary was aggregated from multiple sources. Caution should be exercised in using it in the provision of clinical care. This summary normalizes information from multiple sources, and as a consequence, information in this document may materially change the coding, format and clinical context of patient data. In addition, data may be omitted in some cases. CLINICAL DECISIONS SHOULD BE BASED ON THE PRIMARY CLINICAL RECORDS. [employer] [facility]. provides no warranty or guarantee of the accuracy or completeness of information in this document.
--- OUTSIDE RECORDS SUMMARY | 2025-05-14 10:17 | XMS_ITS | Patient Health Record ---
Author Organization [facility] in [place] Address [address] [place] [address] Care Team Providers Care Structured Cabling Technician Name Role Phone Hanna Graves Primary Care Provider [phone] InderjitjagdishRamo [phone] Allergies No Known Allergies Results Component Value Reference Range Notes PROF 14(COMP METB) Reviewed date:12/06/2024 02:20:40 PM Interpretation: Performing Lab: Notes/Report: [facility] , Sodium 139 136-145 mmol/L Potassium 3.9 3.5-5.1 mmol/L Chloride 107 98-107 mmol/L Carbon Dioxide 23.4 21.0-32.0 mmol/L Anion Gap 12.5 Glucose 109 74-106 mg/dL Blood Urea Nitrogen 17.0 7.0-18.0 mg/dL Creatinine 1.46 0.55-1.02 mg/dL Estimated GFR ( Sindy 43 >=60 mL/min/1.73m 2 Estimated GFR (Non- Lorena 35 >=60 mL/min/1.73m 2 BUN Creatinine Ratio 11.6 Calcium 9.1 8.5-10.1 mg/dL Bilirubin Total 0.3 0.2-1.0 mg/dL Aspartate Amino Transferase 12 15-37 U/L Alanine Aminotransferase 7 14-59 U/L Alkaline Phosphatase 102 46-116 U/L Total Protein 6.4 6.4-8.2 g/dL Albumin Level 3.3 3.4-5.0 g/dL Globulin 3.1 Albumin Globulin Ratio 1.1 Performing Lab: see note ML - [facility] LB T4 Reviewed date:12/06/2024 02:20:40 PM Interpretation: Performing Lab: Notes/Report: [facility] , T4 Thyroxine 3.20 4.80-13.90 ug/dL Performing Lab: see note ML - [facility] LB TSH Reviewed date:12/06/2024 02:20:40 PM Interpretation: Performing Lab: Notes/Report: [facility] , Thyroid Stimulating Hormone 1.161 0.358-3.740 u IU/mL Performing Lab: see note ML - [facility] LB LIPID PROFILE Reviewed date:12/06/2024 02:20:40 PM Interpretation: Performing Lab: Notes/Report: [facility] , Triglycerides 221 <=150 mg/dL Cholesterol 137 <=200 mg/dL HDL Cholesterol 53 40-60 mg/dL > or =60 mg/dl - LOW CARDIOVASCULAR RISK <40 mg/dl - HIGH CARDIOVASCULAR RISK LDL Cholesterol Calculated 40.0 100-129 mg/dl NEAR OR ABOVE OPTIMAL <100 mg/dl OPTIMAL 160-189 mg/dl HIGH 130-159 mg/dl BORDERLINE HIGH >190 mg/dl VERY HIGH VLDL CHOLESTEROL 44.2 Chol HDL Ratio 2.6 >11.0 HIGH RISK 3.3 - 4.4 LOW RISK 7.1 - 11.0 MODERATE RISK 4.4 - 7.1 AVERAGE RISK Performing Lab: see note ML - [facility] LB GLYCOHEMOGLOBIN A1C Reviewed date:12/06/2024 02:20:40 PM Interpretation: Performing Lab: Notes/Report: [facility] , Glycohemoglobin A1C 5.7 4.5-6.2 % ACTION SUGGESTED > 7.0 ADA RECOMMENDED LIMIT 4.0 - 6.0 ADA THERAPEUTIC TARGET < 7.0 Estimated Average Glucose 117 Performing Lab: see note ML - [facility] LB FREE T3 Reviewed date:12/06/2024 02:20:40 PM Interpretation: Performing Lab: Notes/Report: [facility] , Free T3 1.69 2.18-3.98 pg/mL Performing Lab: see note ML - [facility] LB CBC AUTO DIFF Reviewed date:12/06/2024 02:20:40 PM Interpretation: Performing Lab: Notes/Report: [facility] , White Blood Count 7.1 4.0-11.0 10 3/uL Red Blood Count 4.23 4.20-5.40 10 6/uL Hemoglobin 14.1 12.0-16.0 g/dL Hematocrit 42.9 36.0-48.0 % Mean Corpuscular Volume 101.4 81.0-99.0 fL Mean Corpuscular Hemoglobin 33.3 26.7-34.0 pg Mean Corpuscular HGB Conc 32.9 29.9-35.2 g/dL Red Cell Distribution Width 12.3 11.0-15.0 % Platelet Count 217 150-450 10 3/uL Mean Platelet Volume 10.5 9.5-13.5 fL Neutrophils Percent Auto 63.4 43.0-75.0 % Lymphocytes Percent Auto 23.6 20.5-60.0 % Monocytes Percent Auto 6.6 1.7-12.0 % Eosinophils Percent Auto 5.2 0.9-7.0 % Basophils Percent Auto 0.8 0.2-2.0 % Immature Granulocytes Pct Auto 0.4 0.0-0.5 % Neutrophils Absolute Auto 4.5 1.4-6.5 10 3/uL Lymphocytes Absolute Auto 1.7 1.2-3.8 10 3/uL Monocytes Absolute Auto 0.5 0.3-0.8 10 3/uL Eosinophils Absolute Auto 0.4 0.0-0.7 10 3/uL Basophils Absolute Auto 0.1 0.0-0.1 10 3/uL Immature Granulocytes Abs Auto 0.03 0.00-0.03 10 3/uL Performing Lab: see note ML - [facility] LB INSULIN Reviewed date:12/07/2024 11:28:44 AM Interpretation: Performing Lab: Notes/Report: [facility] , Insulin 5.3 2.6-24.9 uIU/mL [address] [place], [place] [id number] Performed at: [facility] Machine Hostler: Gerhard Saul PhD, Phone: [phone] Performing Lab: see note - [facility] LB Reason For Referral Diagnosis 1 Kidney disease (N28. 9) Referral Organization [facility] [place] Referring Provider First Name Hanna Referring Provider Last Name Star Referring Provider Speciality [facility] ronda Referred Provider Kristan Jaquez Referred Provider Specialty Nephrology Referral Priority Routine Medications Medication SIG (Take, Route, Frequency, Duration) Notes Start Date End Date Status QUEtiapine Fumarate 100 MG TAKE 1 CAP IN THE MORNING AND 2 CAPS AT BEDTIME for 30 days Active Dicyclomine HCl 10 MG take 1 capsule by mouth three times a day if needed for 30 Active dilTIAZem HCl ER 300 MG take 1 tablet by mouth once daily for 90 days Active Furosemide 20 MG take 1 tablet by masoud th once daily for 90 days Active Ondansetron HCl 4 MG take 1 tablet by mo uth once daily if needed for 90 days Active Potassium Chloride Ofelia ER 10 MEQ take 1 tablet by mouth twice a day for 90 Active Acetaminophen Extra Strength 500 MG 1 tablet as needed Orally every 6 hrs Active Simvastatin 80 MG take 1 tablet by masoud th once daily for 90 days Active Amitriptyline HCl 150 MG take 1 tablet b y mouth at bedtime if needed for 90 days Active tiZANidine HCl 4 MG take 1 tablet by masoud th every morning and 2 tablets at bedtime for 90 days Active DULoxetine HCl 60 MG take 2 capsules by mouth once daily for 90 days Active Losartan Potassium 50 mg TAKE 2 TABLETS BY MOUTH DAILY for 30 Active Omeprazole 40 MG take 1 capsule by mo uth twice a day Oral for 90 days Active Handicap Placard -- as directed 04/27/2025 Active Social History Tobacco Use: Social History Observation Description Date Details (start date - stop date) Never Smoker NA - NA Tobacco Use/Smoking Question Answer Notes Patient is a nonsmoker Alcohol Screen (Audit-C) Question Answer Notes Did you have a drink containing alcohol in the p ast year? No Points 0 Interpretation Negative AUDIT-C (Standard) Question Answer Notes Did you have a drink containing alcohol in the p ast year? No Points 0 Interpretation Negative Problems Problem Type SNOMED Code ICD Code Onset Dates Problem Status W/U Status Risk Notes Problem 42420708 Essential (prima ry) hypertension (I10) Active confirmed Problem 832760772 Anemia, unspecif ied (D64.9) Active confirmed Problem 02162572 Hyperlipidemia, unspecified (E78.5) Active confirmed Problem 91259752 Migraine, unspecified, not intractable, without status migrainosus (G43.909) Active confirmed Problem 63248713 Other chronic pa in (G89.29) Active confirmed Problem 22093221 Unspecified glaucoma (H40.9) Active confirmed Problem 70352882 Diaphragmatic hernia without obstruction or gangrene (K44.9) Active confirmed Problem 47402948 Ulcerative colit is, unspecified with unspecified complications (K51.919) Active confirmed Problem 90833441 Noninfective gastroenteritis and colitis, unspecified (K52.9) Active confirmed Problem 510039092 Diverticulosis o f intestine, part unspecified, without perforation or abscess without bleeding (K57.90) Active confirmed Problem 032726988 Unspecified osteoarthritis, unspecified site (M19.90) Active confirmed Problem 572401678 Fibromyalgia (M79.7) Active confirmed Problem Impairment of balance (928085736) Balance problem (R26.89) Active confirmed Problem Stage 3b chronic kidney disease (N18.32) Active confirmed Problem 04991898 Depression, unspecified (F32.A) Active confirmed Vital Signs Blood pressure diastolic 86 mm Hg 04/19/2025 Height 63 in 04/19/2025 Blood pressure systolic 138 mm Hg 04/19/2025 Weight 188 lbs 04/19/2025 BMI 33.3 kg/m2 04/19/2025 Encounters Encounter Location Date Provider Diagnosis [facility] [address] [place] [address] 05/13/2025 Hanna Graves [facility] [address] [place] [address] 03/18/2025 Hanna Graves [facility] [address] [place] [address] 03/23/[address] [facility] [address] [place] [address] 03/28/[address] [facility] [address] [place] [address] 04/19/2025 Hanna Graves [facility] [address] [place] [address] 04/27/[address] [facility] [address] [place] [address] 05/03/[address] [facility] [address] [facility] [place] [address] 12/03/2024 Hanna Graves [facility] [address] [place] [address] 12/14/[address] [facility] [address] [place] [address] 12/14/2024 Hanna Graves Kidney disease N28.9 [facility] [address] [place] [address] 01/19/2025 Hanna Graves Other specified abnormal findings of blood chemistry R79.89 [facility] [address] [place] [address] 02/09/2025 Hanna Graves [facility] [address] [place] [address] 02/11/[address] [facility] [address] [place] [address] 06/15/[address] [facility] [address] [place] [address] 08/23/[address] [facility] [address] [place] [address] 08/31/[address] [facility] [address] [place] [address] 09/20/2024 Hanna Graves [facility] [address] [place] [address] 09/30/[address] [facility] [address] [place] [address] 11/24/[address] [facility] [address] [place] [address] 04/19/2025 Hanna Graves Essential (primary) hypertension I10 and Balance problem R26.89 Assessments Encounter Date Diagnosis (ICD Code) Assessment Notes Treatment Notes Treatment Clinical Notes Section Notes 04/19/2025 Essential (primary) hypertension (ICD-10 - I10) BP ok , continue meds 04/19/2025 Balance problem (ICD-10 - R26.89) offered PT, declined using cane 12/14/2024 Kidney disease (ICD-10 - N28.9) 01/19/2025 Other specified abnormal findings of blood chemistry (ICD-10 - R79.89) Plan Of Treatment Pending Test Test Name Order Date CMP (COMPLETE METABOLIC PANEL) 4 HEMOGLOBIN A1C (GLYCO) 04/05/2024 INSULIN, TOTAL 04/05/2024 LIPID PANEL (CHOL/TRIG/HDL/LDL) 04/05/20 24 CBC WITH DIFF 04/05/2024 THYROID PANEL (T4/TSH/FREE T3) 4 THYROID PANEL (T4/TSH/FREE T3) 5 THYROID PANEL (T4/TSH/FREE T3) 5 Insurance Providers Payer Name Payer Address Payer Phone Subscriber Number Group Number Insured Name Patient Relationship to Insured Coverage Start Date Coverage End Date [employer] [place] [address] [place] [address] [id number] Alvaro Bauer Spouse - patient is the spouse of the insured 3 MEDICARE [place] [address] [address] [id number] Keyanna Bauer Self - patient is the insured Medical (General) History Medical History History ICD Code Low Back Pain Shingles Essential Tremor Bilateral Hearing Loss Hypokalemia Nephrolithasis Surgical History Surgery Date(Month/Year) Cystoscopy 07/2006 Endoscopy Colonoscopy Total Knee Arthroplasty- Right 10/2005 Total Knee Arthroplasty- Left 05/2003 Bilateral Carpal Tunnel Release Hospitalization History Reason Date(Month/Year) GI Issues 04/2023
--- OUTSIDE RECORDS SUMMARY | 2025-05-14 10:17 | XMS_ITS | Clinical Summary ---
Author Organization [facility] Address [address] [place] [address] Care Team Providers Care Manager Of Health Name Role Phone Steffen Lobato DO Primary Care Provider Allergies No known active allergies Medications QUEtiapine (SEROQUEL) 50 mg tablet Take 50 mg by mouth twice daily. 100 mg qhs, 50mg in the a.m. Active DULoxetine (CYMBALTA) 60 mg capsule Take 60 mg by mouth once daily. Active tiZANidine HCl 4 mg capsule Take 4 mg by mouth three times daily. Active simvastatin (ZOCOR) 80 mg tablet Take 80 mg by mouth daily at bedtime. Active pantoprazole (PROTONIX) 40 mg grps Take 40 mg by mouth DAILY (6 AM). Active diltiazem CD (CARDIZEM CD) 300 mg 24 hr capsule Take 300 mg by mouth once daily. Active allopurinol (ZYLOPRIM) 100 mg tablet Take 100 mg by mouth once daily. Active mesalamine ER (APRISO) 0.375 gram capsule Take 375 mg by mouth once daily. Active latanoprost (XALATAN) 0.005 % ophthalmic solution Use 1 Drop in both eyes daily at bedtime. Active ondansetron (ZOFRAN, HYDROCHLORIDE,) 8 mg tablet Take 1 tablet by mouth every 8 hours as needed. 90 tablet 5 01/09/2017 Active brimonidine (ALPHAGAN P) 0.1 % drop Use 1 Drop in the right eye three times daily. Active dorzolamide-jorge lol (COSOPT) 22.3-6.8 mg/mL ophthalmic solution Use 1 Drop in both eyes twice daily. Active netarsudil (RHOPRESSA) 0.02 % drop Use 1 Drop in the right eye daily at bedtime. Active amitriptyline (ELAVIL) 50 mg tablet Take 50 mg by mouth daily at bedtime. 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 Proptosis 03/24/2019 Essential hypertension 03/24/2019 Hyperlipidemia 03/24/2019 Anemia 12/10/2016 Family History Medical History Relation Comments Diabetes Father Hypertension Father Cataract Mother Hypertension Mother Glaucoma Paternal Grandmother Relation Status Comments Father Mother Paternal Grandmother Social History Tobacco Use Types Packs/Day Years Used Date Smoking Tobacco: Never Smokeless Tobacco: Never Alcohol Use Standard Drinks/Week Comments No 0 (1 standard drink = 0.6 oz pur e alcohol) Area Deprivation Index Answer Date Satinder rded National Score (1-100), lower number is lower ri sk Not on file 09/12/2020 State Score (1-10), lower number is lower risk N ot on file 09/12/2020 Data from: https://www.neighborhoodatlas.medicine.[facility]/. Last address used for calculation Not on file 09/12/2020 Comments No Sex and Gender Information Value Date Recorded Sex Assigned at Not on file Legal Sex Female 11:01 AM EST Gender Identity Not on file Sexual Orientation Not on file Last Filed Vital Signs Vital Sign Reading Time Taken Comments Blood Pressure 133/72 04/01/2017 11:23 AM EDT Pulse 88 04/01/2017 11:23 AM EDT Temperature 36.7 C (98.1 F) 04/01/2017 11:23 AM EDT Respiratory Rate 18 04/01/2017 11:2 3 AM EDT Oxygen Saturation - - Inhaled Oxygen Concentration - - Weight 73.4 kg (161 lb 14.4 oz) 017 11:23 AM EDT Height 154.9 cm (5' 0.98 ) 04/01/2017 1 1:23 AM EDT Body Mass Index 30.61 04/01/2017 11:23 AM EDT Plan of Treatment Health Maintenance Due Date Last Done Comments Anxiety Screening 1971 Depression Screening 1971 DTaP,Tdap,Td Vaccine (1 - Tdap) [address] Colonography 1998 Cologuard (FIT-DNA) 1998 Colonoscopy 1998 Colorectal Cancer Screening 1998 Fecal Occult Blood 1998 Lipid Screening 1998 Sigmoidoscopy 1998 Pneumococcal Vaccine: 50+ (1 of 1 - PCV) 2003 Shingrix Vaccine (1 of 2) 2003 Bone Density Screening 2018 Diabetes Screening 12/11/2019 12/10/2016 Advance Directive Discussion 10/06/2024 Influenza Vaccine (#1) 2025 RSV Vaccine (1 - 1-dose 75+ series) 2028 Hepatitis C Screening Completed 12/10/2016 Procedures Procedure Name Priority Date/Time Associated Diagnosis Comments HEP REMOTE PANEL BL Routine 12/10/2016 1 2:23 PM EST Anemia, unspecified type COMPREHENSIVE METABOLIC PANEL Routine 12/10/2016 12:23 PM EST Anemia, unspecified type from Last 3 Months or Most Recently Relevant to Health Maintenance Results * HEP REMOTE PANEL BL (12/10/2016 12:23 PM EST) Hep B Core Ab, Total Negative Negative 12/11/2016 10:08 AM EST [facility] Hep C Antibody IA Negative Negative 12/11/2016 10:08 AM EST [facility] HBsAg Negative Negative 12/11/2016 10:08 AM EST [facility] Hep B Surface Ab, Qual Negative Negative 12/11/2016 10:08 AM EST [facility] Comment:NEGATIVE Blood specimen (specimen) BLOOD SPECIMEN / Unknown 12/10/2016 12:23 PM EST 12/10/2016 12:28 PM EST us Vasu Wright DO LABORATORY Final Res ult [facility] [address] [place] [address] * (ABNORMAL) COMP METABOLIC PANEL (12/10/2016 12:23 PM EST) Protein, Total 6.1(L) 6.3 - 8.0 g/dL 12/11/2016 7:44 AM [facility] Albumin 3.6(L) 3.9 - 4.9 g/dL 12/11/2016 7:44 AM [facility] Calcium 9.5 8.5 - 10.2 mg/dL 12/11/2016 7:44 AM [facility] Bilirubin, Total 0.5 0.2 - 1.3 mg/dL 12/11/2016 7:44 AM [facility] Alkaline Phosphatase 82 32 - 117 U/L 12/11/2016 7:44 AM [facility] AST 16 13 - 35 U/L 12/11/2016 7:44 AM [facility] Glucose 104(H) 74 - 99 mg/dL 12/11/2016 7:44 AM [facility] Comment: The [place] Diabetes Association (ADA) provides guidance for cutoff values for fasting glucose and random glucose. The ADA defines fasting as no caloric intake for at least 8 hours. Fasting plasma glucose results between 100 to 125 mg/dL indicate increased risk for diabetes (prediabetes). Fasting plasma glucose results greater than or equal to 126 mg/dL meet the criteria for diagnosis of diabetes. In the absence of unequivocal hyperglycemia, results should be confirmed by repeat testing. In a patient with classic symptoms of hyperglycemia or hyperglycemic crisis, random plasma glucose results greater than or equal to 200 mg/dL meet the criteria for diagnosis of diabetes. Reference: Standards of Medical Care in Diabetes 2016, Indian Diabetes Association. Diabetes Care. 2016.39(Suppl 1). BUN 16 7 - 21 mg/dL 12/11/2016 7:44 AM [facility] Creatinine 1.41(H) 0.58 - 0.96 mg/dL 12/11/2016 7:44 AM [facility] Sodium 142 136 - 144 mmol/L 12/11/2016 7:44 AM [facility] Potassium 4.4 3.7 - 5.1 mmol/L 12/11/2016 7:44 AM [facility] Chloride 106(H) 97 - 105 mmol/L 12/11/2016 7:44 AM [facility] CO2 18(L) 22 - 30 mmol/L 12/11/2016 7:44 AM [facility] Anion Gap 18 9 - 18 mmol/L 12/11/2016 7:44 AM EST [facility] ALT 9 7 - 38 U/L 12/11/2016 7:44 AM EST [facility] eGFR- 46 12/11/2016 7:44 AM EST [facility] eGFR-All Other Races 38 . 12/11/2016 7:44 AM EST [facility] Comment: eGFR (Estimated GFR) Units of measure: mL/min/1.73 meters squared eGFR is derived from the reexpressed MDRD Study equation using the following parameters: serum creatinine, age, gender and race. The creatinine assay has been calibrated to be traceable to IDMS. An eGFR <60 mL/min/1.73m2 for >3 months is consistent with chronic kidney disease. Refer to KDOQI guidelines for clinical interpretation. In patients with unstable renal function, e.g. those with acute kidney injury, the eGFR may not accurately reflect actual GFR. Blood specimen (specimen) BLOOD SPECIMEN / Unknown 12/10/2016 12:23 PM EST 12/10/2016 12:28 PM EST us Vasu Wright DO LABORATORY Final Res ult [facility] [address] [place] [address] from Last 3 Months or Most Recently Relevant to Health Maintenance Insurance BLUE CARD PPO OOS Care Teams Manager Of Health Relationship Specialty Start Date End Date Steffen Lobato DO PCP - General Family Medicine 12/09/16
[2025-05-14 10:40] LABS: Hematocrit 43.2 % (36.0-48.0); Hemoglobin 14.6 g/dL (12.0-16.0); Mean Corpuscular HGB Conc 33.8 g/dL (29.9-35.2); Mean Corpuscular Hemoglobin 34.0 pg (26.7-34.0); Mean Corpuscular Volume 100.5 fL (81.0-99.0); Platelet Count 238 10^3/uL (150-450); Red Blood Count 4.30 10^6/uL (4.20-5.40); White Blood Count 8.2 10^3/uL (4.0-11.0)
[2025-05-14 11:03] LABS: Albumin Level 3.1 g/dL (3.4-5.0); Anion Gap 14.5; Blood Urea Nitrogen 19.0 mg/dL (7.0-18.0); Calcium 9.4 mg/dL (8.5-10.1); Carbon Dioxide 24.9 mmol/L (21.0-32.0); Chloride 108 mmol/L (98-107); Estimated GFR (African America 54 (>=60 mL/min/1.73m^2); Estimated GFR (Non-African Ame 45 (>=60 mL/min/1.73m^2); Glucose 130 mg/dL (74-106); Magnesium 1.8 mg/dL (1.8-2.4); Potassium 4.4 mmol/L (3.5-5.1); Sodium 143 mmol/L (136-145); Uric Acid 4.4 mg/dL (2.6-6.0)
[2025-05-14 11:49] LABS: Glucose Urine UA NEGATIVE (NEGATIVE)
[2025-05-14 11:54] LABS: Protein Creatinine Ratio Urine 1.13; Total Protein Urine Random 61.6 mg/dL (<=11.9)
[2025-05-14 12:09] LABS: Cast Seen? NONE SEEN #/LPF (NONE SEEN); Crystals Seen? None Seen #/HPF (None Seen)
== END 2025-05-14 10:07 | disposition home or self-care (01) ==
PROVIDERS: PCP Nurse Practitioner Family; Visit Provider Internal Medicine
DX: E78.5 Hyperlipidemia, unspecified (principal); N20.0 Calculus of kidney; N25.81 Secondary hyperparathyroidism of renal origin; I12.9 Hypertensive chronic kidney disease with stage 1 through stage 4 chronic kidney disease, or unspecified chronic kidney disease; N18.30 Chronic kidney disease, stage 3 unspecified
CPT/HCPCS: 36415; 80069; 81001; 82306; 82570; 83735; 83970; 84156; 84550; 85027

== ENCOUNTER 2025-06-08 09:22 | Outpatient (OUT) | payer BC, SELFPAY ==
--- NOTE | 2025-06-08 09:26 | US_ITS ---
The [address] [address] Patient Name: ADRIANNA RIVAS MRN: [id number] date: 1955 Sex: F Assigned Patient Location: US Current Patient Location: US Accession/Order Number: [id number] Exam Date: 06/08/2025 09:35 Report Date: 06/08/2025 10:58 At the request of: RONDA BRIZUELA Procedure: US renal BI BILATERAL RENAL AND BLADDER ULTRASOUND CLINICAL HISTORY: Stage 3 Chronic Kidney Disease, Hypertensive Renal Disease COMPARISON: CT 05/04/2023 Estimation of renal size is approximately 8.4 cm on the right and 9.8 cm on the left. There is thinning and increased echogenicity of the renal cortex on the right. Echogenic foci with shadowing are seen at both kidneys compatible with stones. The largest on the right is at the mid to lower pole measuring 12 mm . Largest on the left is at the superior pole measuring 10 mm. Small bilateral renal cysts are seen measuring up to 1 cm on the right and 1.7 cm on the left. There is no perinephric fluid. The urinary bladder is partially distended with a volume of 97 mL. No contour or intraluminal abnormalities are seen. US/US renal BI IMPRESSION: ATROPHIC RIGHT KIDNEY. BILATERAL NEPHROLITHIASIS AND RENAL CYSTS. NO OBSTRUCTIVE UROPATHY. Impression dictated by: Mallika Reynoso M.D. 06/08/2025 10:58 AM Dictation Location: [place] [address] Electronically authenticated by: [id number] Y Date: 06/08/2025 10:58
--- OUTSIDE RECORDS SUMMARY | 2025-06-08 09:52 | XMS_ITS | CCD ---
Author Organization [facility] Inform ion Partnership [facility] Care Team Providers Care Tapping Machine Operator Automatic Name Role Phone MARCO, DR TRAIK Duran Consulting Unavaildeepali LARA, DR TARIK Duran Attending Unavaildeepail LARA, DR TARIK Duran Admitting UnavailVARUN Moise Primary Care Unavailable JULIO CÉSAR LAMBERT Consulting Unavailable VARUN CONTRERAS Attending Unavailable VARUN CONTRERAS Admitting Unavailable VARUN CONTRERAS Primary Care Unavailable VARUN CONTRERAS Primary Care Unavailable VARUN CONTRERAS Consulting Unavailable VARUN CONTRERAS Attending Unavailable VARUN CONTRERAS Admitting Unavailable Germán Rodriguez MD Primary Care Provider [phone] Kristan Jaquez MD Attending Provider [phone] Allergies Allergy Classification Reported Allergen(s) Allergy Type Date of Onset Reaction(s) Facility (1 source) Cephalexin Drug Allergy 07-23-2017 [facility] Repository Medications Current Medications Medication Drug Class(es) Dates Sig (Normalized) Sig (Original) acetaminophen 500 mg oral tablet (2 sources) Start: 04-12-2025 take 2 tablets by mouth twice daily as needed Acetaminophen 500 mg tablet Active 1000 MG PO Twice daily as needed April 12, 2025 12:00am Complies with drug therapy amitriptyline hydrochloride 150 mg oral tablet (2 sources) Tricyclic Antidepressant Start: 04-12-2025 take 1 tablet by mouth once daily at bedtime as needed Amitriptyline 150 mg tablet Active 150 MG PO Daily at bedtime as needed April 12, 2025 12:00am Complies with drug therapy brimonidine tartrate 2 mg/ml ophthalmic solution (2 sources) alpha-Adrenergic Agonist Start: 04-12-2025 take 1 drop(s) into the eye(s) three times daily Brimonidine 0.2 % drops Active 1 DROPS OPHTHALMIC Three times daily April 12, 2025 12:00am Complies with drug therapy cefuroxime 250 mg oral tablet (1 source) Cephalosporin Antibacterial Start: 05-24-2025 take 1 tablet by mouth twice daily Cefuroxime Axetil 250 mg tablet Active 250 MG PO Twice daily May 24, 2025 12:00am Complies with drug therapy cetirizine hydrochloride 10 mg oral tablet (2 sources) Histamine-1 Receptor Antagonist Start: 04-12-2025 take 1 tablet by mouth once daily as needed Cetirizine (Zyrtec) 10 mg tablet Active 10 MG PO Daily as needed April 12, 2025 12:00am Complies with drug therapy dicyclomine hydrochloride 10 mg oral capsule (2 sources) Anticholinergic Start: 04-12-2025 take 1 capsule by mouth three times daily as needed Dicyclomine 10 mg capsule Active 10 MG PO Three times daily as needed April 12, 2025 12:00am Complies with drug therapy 24 hr dilTIAZem hydrochloride 300 mg extended release oral tablet (2 sources) Calcium Channel Jesús Start: 04-12-2025 take 1 tablet by mouth every twenty-four hours Diltiazem Hcl 300 mg tablet extended release 24 hr Active 300 MG PO Once April 12, 2025 12:00am Complies with drug therapy dorzolamide 20 mg/ml / timolol 5 mg/ml ophthalmic solution (2 sources) Carbonic Anhydrase Inhibitor, beta-Adrenergic Jesús Start: 04-12-2025 take 1 drop(s) into the eye(s) three times daily Dorzolamide-Timol ol 22.3-6.8 mg/mL drops Active 1 DROPS OPHTHALMIC Three times daily April 12, 2025 12:00am Complies with drug therapy DULoxetine 60 mg delayed release oral capsule (2 sources) Serotonin and Norepinephrine Reuptake Inhibitor Start: 04-12-2025 take 2 capsules by mouth once daily at bedtime Duloxetine 60 mg capsule,delayed release(DR/EC) Active 120 MG PO Daily at bedtime April 12, 2025 12:00am Complies with drug therapy furosemide 20 mg oral tablet (2 sources) Loop Diuretic Start: 04-12-2025 take 1 tablet by mouth once daily Furosemide 20 mg tablet Active 20 MG PO Daily April 12, 2025 12:00am Complies with drug therapy latanoprost 0.05 mg/ml ophthalmic solution (2 sources) Prostaglandin Analog Start: 04-12-2025 take 1 drop(s) into the eye(s) once daily in the evening Latanoprost 0.005 % drops Active 1 DROPS OPHTHALMIC Every evening April 12, 2025 12:00am Complies with drug therapy losartan potassium 50 mg oral tablet (2 sources) Angiotensin 2 Receptor Jeúss Start: 04-12-2025 take 1 tablet by mouth twice daily Losartan 50 mg tablet Active 50 MG PO Twice daily April 12, 2025 12:00am Complies with drug therapy omeprazole 40 mg delayed release oral capsule (2 sources) Proton Pump Inhibitor Start: 04-12-2025 take 1 capsule by mouth twice daily Omeprazole 40 mg capsule,delayed release(DR/EC) Active 40 MG PO Twice daily April 12, 2025 12:00am Complies with drug therapy ondansetron 4 mg oral tablet (2 sources) Serotonin-3 Receptor Antagonist Start: 04-12-2025 take 1 tablet by mouth once daily as needed Ondansetron Hcl 4 mg tablet Active 4 MG PO Daily as needed April 12, 2025 12:00am Complies with drug therapy microencapsulated potassium chloride 10 meq extended release oral tablet (2 sources) Start: 04-12-2025 take 1 tablet by mouth twice daily Potassium Chloride 10 mEq tablet,ER particles/crystal s Active 10 MEQ PO Twice daily April 12, 2025 12:00am Complies with drug therapy QUEtiapine 100 mg oral tablet (2 sources) Atypical Antipsychotic Start: 04-12-2025 take 2 tablets by mouth in the evening Quetiapine 100 mg tablet Active 100 MG PO .COMPLEX April 12, 2025 12:00am 100 mg orally 1 tab in am, 2 tabs in pm; Complies with drug therapy simvastatin 80 mg oral tablet (2 sources) HMG-CoA Reductase Inhibitor Start: 04-12-2025 take 1 tablet by mouth once daily Simvastatin 80 mg tablet Active 80 MG PO Daily April 12, 2025 12:00am Complies with drug therapy tiZANidine 4 mg oral tablet (2 sources) Central alpha-2 Adrenergic Agonist Start: 04-12-2025 take 1 tablet by mouth twice daily Tizanidine 4 mg tablet Active 4 MG PO Twice daily April 12, 2025 12:00am Complies with drug therapy Problems Active Problems Problem Classification Problem Date Documented Date Episodic/Chronic Calculus of urinary tract (6 sources) Personal history of urinary calculi; Translations: [Kidney stone] Onset: 2 04-12-2025 Episodic Chronic kidney disease (5 sources) Chronic kidney disease stage 3; Translations: [Stage 3 chronic kidney disease] 04-12-2025 Chronic Disorders of lipid metabolism (10 sources) Pure hypercholesterolemia, unspecified; Translations: [Hyperlipidemia, unspecified] Onset: 2 Chronic Essential hypertension (1 source) Essential (primary) hypertension; Translations: [ESSENTIAL PRIMARY HYPERTENSION] Onset: 2 Chronic Hypertension with complications and secondary hypertension (5 sources) Chronic kidney disease due to hypertension; Translations: [Hypertensive chronic kidney disease with stage 1 through stage 4 chronic kidney disease, or unspecified chronic kidney disease] 04-12-2025 Chronic Mood disorders (1 source) Major depressive disorder, single episode, unspecified; Translations: [WILFREDO DEPRESS D/O SINGLE EPIS UNS] Onset: 2 Chronic Other diseases of kidney and ureters (5 sources) Secondary hyperparathyroidism; Translations: [Secondary hyperparathyroidism of renal origin] 04-12-2025 Chronic Unclassified (1 source) LOW BACK PAIN, UNSPECIFIED; Translations: [LOW BACK PAIN, UNSPECIFIED] Onset: 2 Urinary tract infections (1 source) Urinary tract infectious disease; Translations: [Urinary tract infection, site not specified] 05-24-2025 Episodic Past or Other Problems Problem Classification Problem [...] 01-22-2022 Episodic Other aftercare (1 source) Other assistant terminal manager (current) drug therapy; Translations: [OTH SENIOR CARE CURRENT DRUG THERAPY] Onset: 01-22-2022 Episodic Other [...] Test Name Value Interpretation Reference Range Facility Erythrocyte distribution wid th Auto (RBC) [Ratio]Ordered By: Kristan Jaquez on 05-14-2025 Erythrocyte distribution width (RBC) [Ratio] 12.3 % 11.0-15.0 [facility] Glomerular filtration rate ( GFR) estimation in non- AmericanOrdered By: Kristan Jaquez on 05-14-2025 GFR/1.73 sq M.predicted among non-blacks MDRD (S/P/Bld) [Vol rate/Area] 45 mL/min/{1.73_m2} Low >=60 mL/min/1.73m 2 [facility] Hematocrit Auto (Bld) [Volum e fraction]Ordered By: Kristan Jaquez on 05-14-2025 Hematocrit (Bld) [Volume fraction] 43.2 % 36.0-48.0 [facility] Hemoglobin [Mass/volume] in BloodOrdered By: Kristan Jaquez on 05-14-2025 Hemoglobin (Bld) [Mass/Vol] 14.6 g/dL 12.0-16.0 [facility] Laboratory - Chemistry and C hemistry - challengeOrdered By: Kristan Jaquez on 05-14-2025 Albumin [Mass/Vol] 3.1 g/dL Low 3.4-5.0 [facility] Calcium [Mass/Vol] 9.4 mg/dL 8.5-10.1 [facility] Chloride [Moles/Vol] 108 mmol/L High 98-107 [facility] CO2 [Moles/Vol] 24.9 mmol/L 21.0-32.0 [facility] Creatinine [Mass/Vol] 1.19 mg/dL High 0.55-1.02 [facility] GFR/1.73 sq M.predicted MDRD (S/P/Bld) [Vol rate/Area] 54 mL/min/{1.73_m2} Low >=60 mL/min/1.73m 2 [facility] Glucose [Mass/Vol] 130 mg/dL High 74-106 [facility] Magnesium [Mass/Vol] 1.8 mg/dL 1.8-2.4 [facility] Potassium [Moles/Vol] 4.4 mmol/L 3.5-5.1 [facility] Sodium [Moles/Vol] 143 mmol/L 136-145 [facility] Urate [Mass/Vol] 4.4 mg/dL 2.6-6.0 [facility] Urea nitrogen [Mass/Vol] 19.0 mg/dL High 7.0-18.0 [facility] Urea nitrogen/Creatinine [Mass ratio] 16.0 mg/mg [facility] Bilirubin Ql (U) Negative NEGATIVE [facility] Glucose (U) [Mass/Vol] Negative NEGATIVE [facility] Ketones Ql (U) Negative NEGATIVE [facility] pH (U) 6.0 [pH] 5.0-9.0 [facility] Specific gravity (U) [Rel density] 1.015 1.005-1.025 [facility] Urobilinogen Qn (U) 0.2 {Brianne'U}/dL 0.2-1.0 [facility] Laboratory - Specimen inform ationOrdered By: Kristan Jaquez on 05-14-2025 Appearance (U) CLOUDY Abnormal CLEAR [facility] Color (U) YELLOW YELLOW [facility] Laboratory - UrinalysisOrder ed By: Kristan Jaquez on 05-14-2025 Leukocyte esterase Test strip Ql (U) LARGE Abnormal NEGATIVE [facility] Mucus Ql (Urine sed) NONE SEEN NONE SEEN [facility] Nitrite Ql (U) Negative NEGATIVE [facility] Protein (U) [Mass/Vol] 61.6 mg/dL High <=11.9 [facility] Protein Ql (U) 30 mg/dL Abnormal NEG/TRACE [facility] Leukocytes [#/volume] correc bran for nucleated erythrocytes in Blood by Automated counOrdered By: Kristan Jaquez on 05-14-2025 WBC corrected for nucl RBC Auto (Bld) [#/Vol] 8.2 10 3/uL 4.0-11.0 [facility] MCH Auto (RBC) [Entitic mass ]Ordered By: Kristan Jaquez on 05-14-2025 MCH (RBC) [Entitic mass] 34.0 pg 26.7-34.0 [facility] MCHC Auto (RBC) [Mass/Vol]Or dered By: Kristan Jaquez on 05-14-2025 MCHC (RBC) [Mass/Vol] 33.8 g/dL 29.9-35.2 [facility] MCV Auto (RBC) [Entitic vol] Ordered By: Kristan Jaquez on 05-14-2025 MCV (RBC) [Entitic vol] 100.5 fL High 81.0-99.0 [facility] No Panel InformationOrdered By: Kristan Jaquez on 05-14-2025 25-Hydroxy Vitamin D Total 27.5 ng/mL [facility] Comment on above: <20 ng/mL Vit D defi cient20-<30 ng/mL Vit D [id number] ng/mL Vit D sufficient>100 ng/mL Potential Toxicity Parathyroid Hormone (Intact) 55 pg/mL 15-65 [facility] Comment on above: Performed at: [place] [id number] Director: Gerhard Saul PhD, Phone: [phone] Phosphorus Level 3.8 mg/dL 2.6-4.7 [facility] Urine Bacteria LARGE #/HPF Abnormal NONE SEEN [facility] Urine Occult Blood SMALL Abnormal NEGATIVE [facility] Urine Other Casts NONE SEEN #/LPF NONE SEEN [facility] Urine Other Crystals None Seen #/HPF None Seen [facility] Urine Random Creatinine 54.37 mg/dL 20.00-300.0 0 [facility] Urine RBC 2-5 #/HPF Abnormal 0-2 [facility] Urine Squamous Epithelial Cells MODERATE #/LPF Abnormal NONE/RARE [facility] Urine WBC 20-50 #/HPF Abnormal NONE SEEN [facility] Platelet mean volume Auto (B ld) [Entitic vol]Ordered By: Kristan Jaquez on 05-14-2025 Platelet mean volume (Bld) [Entitic vol] 10.1 fL 9.5-13.5 [facility] Platelets Auto (Bld) [#/Vol] Ordered By: Kristan Jaquez on 05-14-2025 Platelets (Bld) [#/Vol] 238 10 3/uL 150-450 [facility] RBC Auto (Bld) [#/Vol]Ordere d By: Kristan Jaquez on 05-14-2025 RBC (Bld) [#/Vol] 4.30 10 6/uL 4.20-5.40 [facility] Serum or plasma anion gap de terminationOrdered By: Kristan Jaquez on 05-14-2025 Anion gap [Moles/Vol] 14.5 mmol/L [facility] Urine protein/creatinine rat ioOrdered By: Kristan Jaquez on 05-14-2025 Protein/Creatinine (U) [Ratio] 1.[address] [facility] [address] LSPINE WO CONon 2 CT LSPINE [...] JULIO CÉSAR LAMBERT Date: 2022-01-19 15:26 Normal [facility] INSULINon 12-14-2021 Insulin 7.8 uIU/mL Normal 2.6-24.9 [facility] Comment on above: Performed By: #### I NSULIN #### [facility] [address] [place] [address] Dr. Ирина Kerr CBC AUTO DIFFon 12-13-2021 BASO # 0.1 103/ul Normal 0.0-0.1 [facility] Comment on above: Performed By: #### C BC #### [facility] [address] [place] [address] Dr. Ирина Kerr Basophils/100 WBC (Bld) 1.1 % Normal 0.2-2.0 [facility] Comment on above: Performed By: #### C BC #### [facility] [address] [place] [address] Dr. Ирина Kerr EO # 0.2 103/ul Normal 0.0-0.7 [facility] Comment on above: Performed By: #### C BC #### [facility] [address] [place] [address] Dr. Ирина Kerr Eosinophils/100 WBC (Bld) 4.5 % Normal 0.9-7.0 [facility] Comment on above: Performed By: #### C BC #### [facility] [address] [place] [address] Dr. Ирина Kerr Erythrocyte distribution width (RBC) [Ratio] 15.4 % Critically high 11.0-15.0 [facility] Comment on above: Performed By: #### C BC #### [facility] [address] [place] [address] Dr. Ирина Kerr Hematocrit (Bld) [Volume fraction] 39.7 % Normal 36.0-48.0 [facility] Comment on above: Performed By: #### C BC #### [facility] [address] [place] [address] Dr. Ирина Kerr Hemoglobin (Bld) [Mass/Vol] 13.2 g/dL Normal 12.0-16.0 [facility] Comment on above: Performed By: #### C BC #### [facility] [address] [place] [address] Dr. Ирина Kerr IG # 0.03 10e3/ul Normal 0.00-0.03 [facility] Comment on above: Performed By: #### C BC #### [facility] [address] [place] [address] Dr. Ирина Kerr IG % 0.6 % Critically high 0.0-0.5 [facility] Comment on above: Performed By: #### C BC #### [facility] [address] [place] [address] Dr. Ирина Kerr LYMPH # 1.6 103/ul Normal 1.2-3.8 [facility] Comment on above: Performed By: #### C BC #### [facility] [address] [place] [address] Dr. Ирина Kerr Lymphocytes/100 WBC (Bld) 35.1 % Normal 20.5-60.0 [facility] Comment on above: Performed By: #### C BC #### [facility] [address] [place] [address] Dr. Ирина Kerr MANUAL DIFF REQ NO Normal [facility] Comment on above: Performed By: #### C BC #### [facility] [address] [place] [address] Dr. Ирина Kerr MCH (RBC) [Entitic mass] 36.2 pg Critically high 26.7-34.0 [facility] Comment on above: Performed By: #### C BC #### [facility] [address] [place] [address] Dr. Ирина Kerr MCHC (RBC) [Mass/Vol] 33.2 g/dL Normal 29.9-35.2 [facility] Comment on above: Performed By: #### C BC #### [facility] [address] [place] [address] Dr. Ирина Kerr MCV (RBC) [Entitic vol] 108.8 fL Critically high 81.0-99 .0 [facility] Comment on above: Performed By: #### C BC #### [facility] [address] [place] [address] Dr. Ирина Kerr MONO # 0.4 103/ul Normal 0.3-0.8 [facility] Comment on above: Performed By: #### C BC #### [facility] [address] [place] [address] Dr. Ирина Kerr Monocytes/100 WBC (Bld) 7.8 % Normal 1.7-12.0 [facility] Comment on above: Performed By: #### C BC #### [facility] [address] [place] [address] Dr. Ирина Kerr NEUT # 2.4 103/ul Normal 1.4-6.5 [facility] Comment on above: Performed By: #### C BC #### [facility] [address] [place] [address] Dr. Ирина Kerr Neutrophils/100 WBC (Bld) 50.9 % Normal 43.0-75.0 [facility] Comment on above: Performed By: #### C BC #### [facility] [address] [place] [address] Dr. Ирина Kerr Platelet mean volume (Bld) [Entitic vol] 9.6 fL Normal 9.5-13.5 [facility] Comment on above: Performed By: #### C BC #### [facility] [address] [place] [address] Dr. Ирина Kerr PLT 208 103/ul Normal 150-450 [facility] Comment on above: Performed By: #### C BC #### [facility] [address] [place] [address] Dr. Ирина Kerr RBC 3.65 106/ul Critically low 4.20-5.40 [facility] Comment on above: Performed By: #### C BC #### [facility] [address] [place] [address] [address] Ирина Kerr WBC 4.6 103/ul Normal 4.0-11.0 [facility] Comment on above: Performed By: #### C BC #### [facility] [address] [place] [address] [address] Ирина Kerr FREE THYROXINE INDEX T7on FTI 1.70 Normal [facility] Comment on above: Performed By: #### T SH, CMP, T7, LIPID #### [facility] [address] [place] [address] [address] Ирина Kerr T3U 37.0 % Normal 23.5-40.5 [facility] Comment on above: Performed By: #### T SH, CMP, T7, LIPID #### [facility] [address] [place] [address] [address] Ирина Kerr T4 [Mass/Vol] 4.60 ug/dL Critically low 5.53-11.00 [facility] Comment on above: Performed By: #### T SH, CMP, T7, LIPID #### [facility] [address] [place] [address] [address] Ирина Kerr GLYCOHEMOGLOBIN A1Con 2021 ADA RECOMMENDATION ADA THERAPEUTIC TARG ET 6.0 - 7.0 ACTION SUGGESTED > 7.0 Normal [facility] Comment on above: Performed By: #### A 1C #### [facility] [address] [place] [address] [address] Ирина Kerr Glucose [Mass/Vol] 114 mg/dL Normal [facility] Comment on above: Performed By: #### A 1C #### [facility] [address] [place] [address] Dr. Ирина Kerr HbA1c (Bld) [Mass fraction] 5.6 % Normal <=6.0 [facility] Comment on above: Performed By: #### A 1C #### [facility] [address] [place] [address] Dr. Ирина Kerr IRONon 12-13-2021 Iron [Mass/Vol] 105.0 ug/dL Normal 37.0-170.0 [facility] Comment on above: Performed By: #### I BE #### [facility] [address] [place] [address] [address] Ирина Kerr LIPID PROFILEon 12-13-2021 CHOL-HDL RATIO NORM SEE BELOW Normal [facility] Comment on above: Result Comment: 3.3 - 4.4 LOW RISK 4.4 - 7.1 AVERAGE RISK 7.1 - 11.0 MODERATE RISK >11.0 HIGH RISK Performed By: #### T SH, CMP, T7, LIPID #### [facility] [address] [place] [address] [address] Ирина Kerr Cholesterol [Mass/Vol] 179 mg/dL Normal <=200 Th [facility] Comment on above: Performed By: #### T SH, CMP, T7, LIPID #### [facility] [address] [place] [address] [address] Ирина Kerr Cholesterol in HDL [Mass/Vol] 66 mg/dL Normal [facility] Comment on above: Performed By: #### T SH, CMP, T7, LIPID #### [facility] [address] [place] [address] [address] Ирина Kerr Cholesterol in LDL [Mass/Vol] 74.2 mg/dL Normal [facility] Comment on above: Performed By: #### T SH, CMP, T7, LIPID #### [facility] [address] [place] [address] [address] Ирина Kerr Cholesterol.total/Nimo sterol in HDL [Mass ratio] 2.7 {ratio} Normal [facility] Comment on above: Performed By: #### T SH, CMP, T7, LIPID #### [facility] [address] [place] [address] [address] Ирина Kerr HDL NORMAL > or = 60 mg/dl - LO W CARDIOVASCULAR RISK <40 mg/dl - HIGH CARDIOVASCULAR RISK Normal [facility] Comment on above: Performed By: #### T SH, CMP, T7, LIPID #### [facility] [address] [address] [address] Ирина Kerr LDL CALC NORMAL SEE BELOW Normal [facility] Comment on above: Result Comment: <100 mg/dl OPTIMAL 100 - 129 mg/dl NEAR OR ABOVE OPTIMAL 130 - 159 mg/dl BORDERLINE HIGH 160 - 189 mg/dl HIGH >190 mg/dl VERY HIGH Performed By: #### T SH, CMP, T7, LIPID #### [facility] [address] [address] [address] Ирина Kerr Triglyceride [Mass/Vol] 194 mg/dL Critically high <=150 [facility] Comment on above: Performed By: #### T SH, CMP, T7, LIPID #### [facility] [address] [place] [address] [address] Ирина Kerr VLDL CALC 38.8 mg/dL Normal [facility] Comment on above: Performed By: #### T SH, CMP, T7, LIPID #### [facility] [address] [place] [address] Dr. Ирина Kerr PROF 14(COMP METB)on 022 Albumin [Mass/Vol] 3.9 g/dL Normal 3.5-5.0 [facility] Comment on above: Performed By: #### T SH, CMP, T7, LIPID #### [facility] [address] [place] [address] [address] Ирина Krer Albumin/Globulin [Mass ratio] 1.1 {ratio} Normal [facility] Comment on above: Performed By: #### T SH, CMP, T7, LIPID #### [facility] [address] [place] [address] [address] Ирина Kerr ALP [Catalytic activity/Vol] 90 U/L Normal 38-126 [facility] Comment on above: Performed By: #### T SH, CMP, T7, LIPID #### [facility] [address] [place] [address] [address] Ирина Kerr ALT [Catalytic activity/Vol] 14 U/L Normal 9-52 [facility] Comment on above: Performed By: #### T SH, CMP, T7, LIPID #### [facility] [address] [place] [address] [address] Ирина Kerr Anion gap [Moles/Vol] 14.4 mmol/L Normal Th [facility] Comment on above: Performed By: #### T SH, CMP, T7, LIPID #### [facility] [facility] [address] [address] [address] Ирина Kerr AST [Catalytic activity/Vol] 14 U/L Normal 14-36 [facility] [place] Comment on above: Performed By: #### T SH, CMP, T7, LIPID #### [facility] [address] [address] [address] Ирина Kerr Bilirubin [Mass/Vol] 0.6 mg/dL Normal 0.2-1.3 [facility] [place] Comment on above: Performed By: #### T SH, CMP, T7, LIPID #### [facility] [address] [address] [address] Ирина Kerr Calcium [Mass/Vol] 9.2 mg/dL Normal 8.4-10.2 [facility] Comment on above: Performed By: #### T SH, CMP, T7, LIPID #### [facility] [address] [address] [address] Ирина Kerr Chloride [Moles/Vol] 104 mmol/L Normal 98-107 [facility] [place] Comment on above: Performed By: #### T SH, CMP, T7, LIPID #### [facility] [address] [place] [address] Dr. Ирина Kerr CO2 [Moles/Vol] 25.8 mmol/L Normal 22.0-30.0 [facility] Comment on above: Performed By: #### T SH, CMP, T7, LIPID #### [facility] [address] [place] [address] Dr. Ирина Kerr Creatinine [Mass/Vol] 1.45 mg/dL Critically high 0.52-1.04 [facility] [place] Comment on above: Performed By: #### T SH, CMP, T7, LIPID #### [facility] [address] [place] [address] Dr. Ирина Kerr EGFR-AF TOGOLESE 44 mL/min/1.73m2 Critically low >=60 [facility] Comment on above: Performed By: #### T SH, CMP, T7, LIPID #### [facility] [address] [place] [address] Dr. Ирина Kerr EGFR-NON AF TOGOLESE 36 mL/min/1.73m2 Critically low >=60 [facility] [place] Comment on above: Performed By: #### T SH, CMP, T7, LIPID #### [facility] [address] [place] [address] Dr. Ирина Kerr Globulin (S) [Mass/Vol] 3.4 g/dL Normal [facility] Comment on above: Performed By: #### T SH, CMP, T7, LIPID #### [facility] [address] [place] [address] Dr. Ирина Kerr Glucose [Mass/Vol] 110 mg/dL Critically high 74-106 [facility] Comment on above: Performed By: #### T SH, CMP, T7, LIPID #### [facility] [address] [place] [address] Dr. Ирина Kerr Potassium [Moles/Vol] 4.2 mmol/L Normal 3.4-5.0 [facility] [place] Comment on above: Performed By: #### T SH, CMP, T7, LIPID #### [facility] [address] [place] [address] Dr. Ирина Kerr Protein [Mass/Vol] 7.3 g/dL Normal 6.1-8.2 [facility] Comment on above: Performed By: #### T SH, CMP, T7, LIPID #### [facility] [address] [place] [address] Dr. Ирина Kerr Sodium [Moles/Vol] 140 mmol/L Normal 137-145 [facility] Comment on above: Performed By: #### T SH, CMP, T7, LIPID #### [facility] [address] [place] [address] Dr. Ирина Kerr Urea nitrogen [Mass/Vol] 22.0 mg/dL Critically high 7.0-17.0 [facility] [place] Comment on above: Performed By: #### T SH, CMP, T7, LIPID #### [facility] [address] [place] [address] Dr. Ирина Kerr Urea nitrogen/Creatinine [Mass ratio] 15.2 mg/mg Normal [facility] Comment on above: Performed By: #### T SH, CMP, T7, LIPID #### [facility] [address] [address] [address] Ирина Kerr TSHon 12-13-2021 TSH 1.181 uIU/mL Normal 0.470-4.680 [facility] Comment on above: Performed By: #### T SH, CMP, T7, LIPID #### [facility] [address] [address] [address] Ирина Kerr TSH RANGE SEE BELOW Normal [facility] [place] Comment on above: Result Comment: <0.3 4 UIU/ml HYPERTHYROID 0.34-5.60 UIU/ml EUTHYROID >5.60 UIU/ml HYPOTHYROID Performed By: #### T SH, CMP, T7, LIPID #### [facility] [address] [address] [address] Ирина Kerr Consent for Procedure/Surger yon 10-08-2021 Consent for Procedure/Surgery [id number]:[id number] Normal [facility] Gastroenterology Office/Clin ic Noteon 10-05-2021 Gastroenterology Office/Clinic [...] polyps with her last colonoscopy being in 2018. Dr. Ibrahim noted that she would need [...] rubs, murmurs or gallop. Peripheral: no edema Gastrointestinal/Abdom en: Abdomen: normal consistency and bowel sounds; no [...] after patient consented to recording for virtual waste specialist and provider reviewed before signing. FABRIZIO: Maria G Oates. Entered into [employer] by Lois Nelson. Follow-up No qualifying data [...] Apriso 0.375 (more content not included)... Normal [facility] Comment on above: Result Comment: Elec tronically Signed By: Lois Nelson\.br\Date and Time Signed: 10/04/21 17:20 EST\.br\Electronically Co-Signed By: Bibiana FARIA MD\.br\Date and Time Co-Signed: 10/05/21 10:31 EST Ambulatory Clinical Summaryo n 10-04-2021 Ambulatory Clinical Summary {[id number]}CD:[id number] Normal [facility] Ambulatory Clinical Summary {[id number]}CD:[id number] Normal [facility] PROGRESSon 05-04-2019 PROGRESS HNO ID: [id number] Author: Migdalia Gamble Service: ? Author Type: [...] options/risks/benefits have been discussed. Questions answered. Normal [facility] MR-MRI ORBIT WO/W CON IMPORT on 03-31-2019 MR-MRI ORBIT WO/W CON IMPORT Images were obtained outside of [facility] [id number] Normal [facility] ANAon 03-24-2019 Nuclear Ab IF (S) [Titer] Negative Normal Negative [facility] Comment on above: Performed By: #### A NORMA, ANAS #### [facility] [address] [address] Nuclear Ab IF (S) [Titer] 0.1 OD Ratio Normal [facility] Comment on above: Result Comment: OD R atio is interpreted as follows: Negative <1.0 Positive >=1.0 Performed By: #### A NORMA, MARYS #### [id number] [address] [employer]. Conv Enzon 2018 Angiotens. Conv Enz 23 U/L Normal <52 [facility] Comment on above: Result Comment: Kay ficially low TERRY levels may be found for patients taking TERRY inhibitors or after the administration of gadolinium. This test was developed and its performance characteristics determined by [facility] [place] ([facility]). It has not been cleared or approved by the FDA. [facility] is regulated under CLIA as qualified to perform high complexity testing. This test is used for clinical purposes. It should not be regarded as investigational or for research. Performed By: #### A NORMA, ANAS #### [facility] [address] PROGRESSon 03-24-2019 PROGRESS HNO ID: [id number] Author: Migdalia Gamble Service: ? Author Type: [...] controlled per patient. 6. Ulcerative colitis on 7. Hyperlipidemia. Controlled per patient. Checked within [...] options/risks/benefits have been discussed. Questions answered. Normal [facility] Vital Signs Date Time Vital Sign Value Performing Clinician Kevyn romero 05-24-2025 10:06-0400 Body height 160.02 cm Germán Rodriguez MD Work Phone: [facility] 05-24-2025 10:06-0400 Body mass index (BMI) [Ratio] 32.4 kg/m2 Germán Rodriguez MD Work Phone: [facility] 05-24-2025 10:06-0400 Body weight 83.06 kg Germán Rodriguez MD Work Phone: [facility] 05-24-2025 10:06-0400 Diastolic blood pressure 81 mm[Hg] Germán Rodriguez MD Work Phone: [facility] 05-24-2025 10:06-0400 Heart rate 101 /min Germán Rodriguez MD Work Phone: [facility] 05-24-2025 10:06-0400 Respiratory rate 18 /min Germán Rodriguez MD Work Phone: [facility] 05-24-2025 10:06-0400 SaO2% (BldA) [Mass fraction] 95 % Germán Rodriguez MD Work Phone: [facility] 05-24-2025 10:06-0400 Systolic blood pressure 122 mm[Hg] Germán Rodriguez MD Work Phone: [facility] 04-12-2025 13:23-0400 Body height 160.02 cm Germán Rodriguez MD Work Phone: [facility] 04-12-2025 13:23-0400 Body mass index (BMI) [Ratio] 33.1 kg/m2 Germán Rodriguez MD Work Phone: [facility] 04-12-2025 13:23-0400 Body temperature 96.3 [degF] Germán Rodriguez MD Work Phone: [facility] 04-12-2025 13:23-0400 Body weight 84.93 kg Germán Rodriguez MD Work Phone: [facility] 04-12-2025 13:23-0400 Diastolic blood pressure 86 mm[Hg] Germán Rodriguez MD Work Phone: [facility] 04-12-2025 13:23-0400 Heart rate 95 /min Germán Rodriguez MD Work Phone: [facility] 04-12-2025 13:23-0400 Respiratory rate 18 /min Germán Rodriguez MD Work Phone: [facility] 04-12-2025 13:23-0400 SaO2% (BldA) [Mass fraction] 98 % Germán Rodriguez MD Work Phone: [facility] 04-12-2025 13:23-0400 Systolic blood pressure 136 mm[Hg] Germán Rodriguez MD Work Phone: [facility] Encounters Encounter Date Encounter Type Care Provider Facility Start: 05-24-2025 End: 05-24-2025 ambulatory Germán Rodriguez MD Work Phone: [facility] Work Phone: Start: 05-24-2025 End: 05-24-2025 Patient encounter procedure Kristan Jaquez MD -[facility] Work Phone: Start: 05-14-2025 Non-patient / Non-visit Kristan Jaquez MD -[facility] Work Phone: Start: 04-12-2025 End: 04-12-2025 ambulatory Germán Rodriguez MD Work Phone: [facility] Work Phone: Start: 04-12-2025 End: 04-12-2025 Patient encounter procedure Kristan Jaquez MD -[facility] Work Phone: Start: 04-26-2022 ambulatory VARUN CONTRERAS Facility: [facility] Start: 01-19-2022 End: 01-19-[address] TARIK LARA Facility:[facility] Start: 12-13-2021 End: 12-14-2021 ambulatory VARUN CONTRERAS Facility:[facility] Plan of Treatment Date Care Activity Detail Author Renal function 1999 panel - Serum or Plasma [facility] enter Renal function 1999 panel - Serum or Plasma [facility] enter [facility] Payers Date Payer Category Payer Self-pay 1961 Unknown [id number] 1955 Unknown [id number] 1955 Unknown [id number] 1955 Unknown [id number] Social History Date Type Detail Facility [facility]: [facility] Sex Female (finding) [facility] Start: 1955 Sex Assigned At Female F [facility] Evaluation note 04-12-2025 Note Date & Type Note Facility 04-12-2025 Evaluation note Diagnosis Onset Date Resolution CKD (chronic kidney disease) stage 3, GFR 30-59 ml/min acute April 12, 2025 1:18pm Hyperlipidemia acute April 12, 2025 1:18pm Hypertensive chronic kidney disease with stage 1 through stage 4 chronic ki acute April 12, 2025 1:18pm Nephrolithiasis acute April 12, 2025 1:18pm Secondary hyperparathyroidism acute April 12 1:18pm CKD (chronic kidney disease) stage 3, GFR 30-59 ml/min acute May 24 10:05am Hyperlipidemia acute May 10:05am Hypertensive chronic kidney disease with stage 1 through stage 4 chronic ki acute Aug2024 10:05am Nephrolithiasis acute May 242024 10:05am Secondary hyperparathyroidism acute May 24, 2025 10:05am [facility] Work Phone: Evaluation note Note Date & Type Note Facility Evaluation note Diagnosis Onset Date Resolution CKD (chronic kidney disease) stage 3, GFR 30-59 ml/min acute April 12, 2025 1:18pm Hyperlipidemia acute April 12, 2025 1:18pm Hypertensive chronic kidney disease with stage 1 through stage 4 chronic ki acute April 12, 2025 1:18pm Nephrolithiasis acute April 12, 2025 1:18pm Secondary hyperparathyroidism acute April 12 1:18pm [facility] Work Phone: Reason for referral (narrative) Note Date & Type Note Facility Reason for referral (narrative) No reason for referral information available [facility] Work Phone: Summary Purpose Family History Relationship Condition Age at Onset Recorded Date/T grecia father Congestive heart failure Unknown mother Congestive heart failure Unknown Heart disease Unknown Advance Directives Advance Directive Response Recorded Date/ Time Advance Directives No April 06 2:43pm Chief Complaint and Reason for Visit Chief Complaint Admit Date RENAL disorder of kidney, ckd April 1:18pm Reason for Visit Admit Date CKD (chronic kidney disease) stage 3, GF R 30-59 ml/min April 12, 2025 1:18pm Hyperlipidemia April 12, 2025 1:18p m Hypertensive chronic kidney disease with stage 1 through stage 4 chronic ki April 12, 2025 1:18pm Nephrolithiasis April 12, 2025 1:18p m Secondary hyperparathyroidism April 12, 2025 1:18pm Chief Complaint Admit Date RENAL disorder of kidney, ckd April 1:18pm renal 6 week f/u May 24, 2025 10 :05am Reason for Visit Admit Date CKD (chronic kidney disease) stage 3, GF R 30-59 ml/min April 12, 2025 1:18pm Hyperlipidemia April 12, 2025 1:18p m Hypertensive chronic kidney disease with stage 1 through stage 4 chronic ki April 12, 2025 1:18pm Nephrolithiasis April 12, 2025 1:18p m Secondary hyperparathyroidism April 12, 2025 1:18pm CKD (chronic kidney disease) stage 3, GF R 30-59 ml/min May 24, 2025 10:05am Hyperlipidemia May 24, 2025 10 :05am Hypertensive chronic kidney disease with stage 1 through stage 4 chronic ki May 24, 2025 10:05am Nephrolithiasis May 24, 2025 10 :05am Secondary hyperparathyroidism May 10:05am Additional Source Comments INFORMATION SOURCE (unrecogn ized section and content) DATE CREATED AUTHOR 06/17/2019 [facility] DATE CREATED AUTHOR AUTHOR'S ORGANIZ ATION 12/31/2021 [facility] DATE CREATED AUTHOR AUTHOR'S ORGANIZ ATION 04/28/2022 [facility] Care Teams (unrecognized sec tion and content) Team Status: Active Member Role Status Greg Rodriguez MD Primary Care Provider Active Team Status: Inactive Member Role Status Greg Rodriguez MD Primary Care Provider Active Start: April 12, 2025 End: April 12, 2025 Kristan Jaquez MD Attending Provider Active Start : April 12, 2025 End: April 12, 2025 Team Status: Active Member Role Status Greg Rodriguez MD Primary Care Provider Active Start: May 14, 2025 Kristan Jaquez MD Attending Provider Active Start : May 14, 2025 Team Status: Inactive Member Role Status Greg Rodriguez MD Primary Care Provider Active Start: May 24, 2025 End: May 24, 2025 Kristan Jaquez MD Attending Provider Active Start : May 24, 2025 End: May 24, 2025 Goals (unrecognized section and content) Goals may be documented in a n alternate sectionGoals may be documented in an alternate section FOR RECORDS PERTAINING TO PATIENTS [...] BE BASED ON THE PRIMARY CLINICAL RECORDS. [facility]. provides no warranty or guarantee of the accuracy or completeness of information in this document.
== END 2025-06-08 09:23 | disposition home or self-care (01) ==
LOC: US 09:22
PROVIDERS: PCP Nurse Practitioner Family; Visit Provider Internal Medicine
DX: N18.30 Chronic kidney disease, stage 3 unspecified (principal); I12.9 Hypertensive chronic kidney disease with stage 1 through stage 4 chronic kidney disease, or unspecified chronic kidney disease; N20.0 Calculus of kidney
CPT/HCPCS: 76775

== ENCOUNTER 2025-07-20 14:30 | Emergency (ER) | payer BC, SELFPAY ==
[2025-07-20 14:34] VITALS: BP 166/103; PULSE 113; TEMP 36.7; O2SAT 100; BMI 35.7
--- OUTSIDE RECORDS SUMMARY | 2025-07-20 14:39 | XMS_ITS | CCD ---
Author Organization [facility] Inform ion Partnership [facility] Care Team Providers Care Certified Medical Technician Assistant Name Role Phone MARCO, DR TARIK Duran Consulting Unavaildeepali LARA, DR TARIK Duran Attending Unavaildeepali LARA, DR TARIK Duran Admitting UnavailVARUN Moise Primary Care Unavailable JULIO CÉSAR LAMBERT Consulting Unavailable VARUN CONTRERAS Attending Unavailable VARUN CONTRERAS Admitting Unavailable VARUN CONTRERAS Primary Care Unavailable VARUN CONTRERAS Primary Care Unavailable VARUN CONTRERAS Consulting Unavailable VARUN CONTRERAS Attending Unavailable VARUN CONTRERAS Admitting Unavailable Germán Rodriguez MD Primary Care Provider [phone] Kristan Jaquez MD Attending Provider Allergies Allergy Classification Reported Allergen(s) Allergy Type Date of Onset Reaction(s) Facility (1 source) Cephalexin Drug Allergy 07-23-2017 [facility] Repository Medications Current Medications Medication Drug [...] oral tablet (2 sources) Angiotensin 2 Receptor Jesús Start: 04-12-2025 take [...] 01-22-2022 Episodic Other aftercare (1 source) 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; Translations: [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 TENDER CURRENT DRUG THERAPY] Onset: 01-22-2022 Episodic Other [...] distribution width (RBC) [Ratio] 12.3 % 11.0-15.0 [facility] Glomerular filtration rate ( GFR) estimation in non- AmericanOrdered By: Kristan Jaquez on 05-14-2025 GFR/1.73 sq M.predicted among non-blacks MDRD (S/P/Bld) [Vol rate/Area] 45 mL/min/{1.73_m2} Low >=60 mL/min/1.73m 2 [facility] Hematocrit Auto (Bld) [Volum e fraction]Ordered By: Kristan Jaquez on 05-14-2025 Hematocrit (Bld) [Volume fraction] 43.2 % 36.0-48.0 [facility] Hemoglobin [Mass/volume] in BloodOrdered By: Kristan Jaquez on 05-14-2025 Hemoglobin (Bld) [Mass/Vol] 14.6 g/dL 12.0-16.0 [facility] - Chemistry and C hemistry - challengeOrdered By: Kristan Jaquez on 05-14-2025 Albumin [Mass/Vol] 3.1 g/dL Low 3.4-5.0 [facility] Calcium [Mass/Vol] 9.4 mg/dL 8.5-10.1 [facility] Chloride [Moles/Vol] 108 mmol/L High 98-107 [facility] CO2 [Moles/Vol] 24.9 mmol/L 21.0-32.0 [facility] Creatinine [Mass/Vol] 1.19 mg/dL High 0.55-1.02 [facility] GFR/1.73 sq M.predicted MDRD (S/P/Bld) [Vol rate/Area] 54 mL/min/{1.73_m2} Low >=60 mL/min/1.73m 2 [facility] Glucose [Mass/Vol] 130 mg/dL High 74-106 [facility] Magnesium [Mass/Vol] 1.8 mg/dL 1.8-2.4 [facility] Potassium [Moles/Vol] 4.4 mmol/L 3.5-5.1 [facility] Sodium [Moles/Vol] 143 mmol/L 136-145 [facility] Urate [Mass/Vol] 4.4 mg/dL 2.6-6.0 [facility] Urea nitrogen [Mass/Vol] 19.0 mg/dL High 7.0-18.0 [facility] Urea nitrogen/Creatinine [Mass ratio] 16.0 mg/mg [facility] Bilirubin Ql (U) Negative NEGATIVE [facility] Glucose (U) [Mass/Vol] Negative NEGATIVE [facility] Ketones Ql (U) Negative NEGATIVE [facility] pH (U) 6.0 [pH] 5.0-9.0 [facility] Specific gravity (U) [Rel density] 1.015 1.005-1.025 [facility] Urobilinogen Qn (U) 0.2 {Brianne'U}/dL 0.2-1.0 [facility] - Specimen inform ationOrdered By: Kristan Jaquez on 05-14-2025 Appearance (U) CLOUDY Abnormal CLEAR [facility] Color (U) YELLOW YELLOW [facility] - UrinalysisOrder ed By: Kristan Jaquez on 05-14-2025 Leukocyte esterase Test strip Ql (U) LARGE Abnormal NEGATIVE [facility] Mucus Ql (Urine sed) NONE SEEN NONE SEEN [facility] Nitrite Ql (U) Negative NEGATIVE [facility] Protein (U) [Mass/Vol] 61.6 mg/dL High <=11.9 [facility] Protein Ql (U) 30 mg/dL Abnormal NEG/TRACE [facility] Leukocytes [#/volume] correc bran for nucleated erythrocytes in Blood by Automated counOrdered By: Kristan Jaquez on 05-14-2025 WBC corrected for nucl RBC Auto (Bld) [#/Vol] 8.2 10 3/uL 4.0-11.0 [facility] MCH Auto (RBC) [Entitic mass ]Ordered By: Kristan Jaquez on 05-14-2025 MCH (RBC) [Entitic mass] 34.0 pg 26.7-34.0 [facility] MCHC Auto (RBC) [Mass/Vol]Or dered By: Kristan Jaquez on 05-14-2025 MCHC (RBC) [Mass/Vol] 33.8 g/dL 29.9-35.2 [facility] MCV Auto (RBC) [Entitic vol] Ordered By: Kristan Jaquez on 05-14-2025 MCV (RBC) [Entitic vol] 100.5 fL High 81.0-99.0 [facility] No Panel InformationOrdered By: Kristan Jaquez on 05-14-2025 25-Hydroxy Vitamin D Total 27.5 ng/mL [facility] Comment on above: <20 ng/mL Vit D defi cient20-<30 ng/mL Vit D [id number] ng/mL Vit D sufficient>100 ng/mL Potential Toxicity Parathyroid Hormone (Intact) 55 pg/mL 15-65 [facility] Comment on above: Performed at: [place] [id number] Director: Gerhard Saul PhD, Phone: [phone] Phosphorus Level 3.8 mg/dL 2.6-4.7 [facility] Urine Bacteria LARGE #/HPF Abnormal NONE SEEN [facility] Urine Occult Blood SMALL Abnormal NEGATIVE [facility] Urine Other Casts NONE SEEN #/LPF NONE SEEN [facility] Urine Other Crystals None Seen #/HPF None Seen [facility] Urine Random Creatinine 54.37 mg/dL 20.00-300.0 0 [facility] Urine RBC 2-5 #/HPF Abnormal 0-2 [facility] Urine Squamous Epithelial Cells MODERATE #/LPF Abnormal NONE/RARE [facility] Urine WBC 20-50 #/HPF Abnormal NONE SEEN [facility] Platelet mean volume Auto (B ld) [Entitic vol]Ordered By: Kristan Jaquez on 05-14-2025 Platelet mean volume (Bld) [Entitic vol] 10.1 fL 9.5-13.5 [facility] Platelets Auto (Bld) [#/Vol] Ordered By: Kristan Jaquez on 05-14-2025 Platelets (Bld) [#/Vol] 238 10 3/uL 150-450 [facility] RBC Auto (Bld) [#/Vol]Ordere d By: Kristan Jaquez on 05-14-2025 RBC (Bld) [#/Vol] 4.30 10 6/uL 4.20-5.40 [facility] Serum or plasma anion gap de terminationOrdered By: Kristan Jaquez on 05-14-2025 Anion gap [Moles/Vol] 14.5 mmol/L [facility] Urine protein/creatinine rat ioOrdered By: Kristan Jaquez on 05-14-2025 Protein/Creatinine (U) [Ratio] 1.[address] [facility] [address] LSPINE WO CONon 2 CT LSPINE [...] JULIO CÉSAR LAMBERT Date: 2022-01-19 15:26 Normal [facility] INSULINon 12-14-2021 Insulin 7.8 uIU/mL Normal 2.6-24.9 [facility] Comment on above: Performed By: #### I NSULIN #### [facility] [address] [place] [address] Dr. Ирина Kerr CBC AUTO DIFFon 12-13-2021 BASO # 0.1 103/ul Normal 0.0-0.1 [facility] Comment on above: Performed By: #### C BC #### [facility] [address] [place] [address] Dr. Ирина Kerr Basophils/100 WBC (Bld) 1.1 % Normal 0.2-2.0 [facility] Comment on above: Performed By: #### C BC #### [facility] [address] [place] [address] Dr. Ирина Kerr EO # 0.2 103/ul Normal 0.0-0.7 [facility] Comment on above: Performed By: #### C BC #### [facility] [address] [place] [address] Dr. Ирина Kerr Eosinophils/100 WBC (Bld) 4.5 % Normal 0.9-7.0 [facility] Comment on above: Performed By: #### C BC #### [facility] [address] [place] [address] Dr. Ирина Kerr Erythrocyte distribution width (RBC) [Ratio] 15.4 % Critically high 11.0-15.0 [facility] Comment on above: Performed By: #### C BC #### [facility] [address] [place] [address] Dr. Ирина Kerr Hematocrit (Bld) [Volume fraction] 39.7 % Normal 36.0-48.0 [facility] Comment on above: Performed By: #### C BC #### [facility] [address] [place] [address] Dr. Ирина Kerr Hemoglobin (Bld) [Mass/Vol] 13.2 g/dL Normal 12.0-16.0 [facility] Comment on above: Performed By: #### C BC #### [facility] [address] [place] [address] Dr. Ирина Kerr IG # 0.03 10e3/ul Normal 0.00-0.03 [facility] Comment on above: Performed By: #### C BC #### [facility] [address] [place] [address] Dr. Ирина Kerr IG % 0.6 % Critically high 0.0-0.5 [facility] Comment on above: Performed By: #### C BC #### [facility] [address] [place] [address] Dr. Ирина Kerr LYMPH # 1.6 103/ul Normal 1.2-3.8 [facility] Comment on above: Performed By: #### C BC #### [facility] [address] [place] [address] Dr. Ирина Kerr Lymphocytes/100 WBC (Bld) 35.1 % Normal 20.5-60.0 [facility] Comment on above: Performed By: #### C BC #### [facility] [address] [place] [address] Dr. Ирина Kerr MANUAL DIFF REQ NO Normal [facility] Comment on above: Performed By: #### C BC #### [facility] [address] [place] [address] Dr. Ирина Kerr MCH (RBC) [Entitic mass] 36.2 pg Critically high 26.7-34.0 [facility] Comment on above: Performed By: #### C BC #### [facility] [address] [place] [address] Dr. Ирина Kerr MCHC (RBC) [Mass/Vol] 33.2 g/dL Normal 29.9-35.2 [facility] Comment on above: Performed By: #### C BC #### [facility] [address] [place] [address] Dr. Ирина Kerr MCV (RBC) [Entitic vol] 108.8 fL Critically high 81.0-99 .0 [facility] Comment on above: Performed By: #### C BC #### [facility] [address] [place] [address] Dr. Ирина Kerr MONO # 0.4 103/ul Normal 0.3-0.8 [facility] Comment on above: Performed By: #### C BC #### [facility] [address] [place] [address] Dr. Ирина Kerr Monocytes/100 WBC (Bld) 7.8 % Normal 1.7-12.0 [facility] Comment on above: Performed By: #### C BC #### [facility] [address] [place] [address] Dr. Ирина Kerr NEUT # 2.4 103/ul Normal 1.4-6.5 [facility] Comment on above: Performed By: #### C BC #### [facility] [address] [place] [address] Dr. Ирина Kerr Neutrophils/100 WBC (Bld) 50.9 % Normal 43.0-75.0 [facility] Comment on above: Performed By: #### C BC #### [facility] [address] [place] [address] Dr. Ирина Kerr Platelet mean volume (Bld) [Entitic vol] 9.6 fL Normal 9.5-13.5 [facility] Comment on above: Performed By: #### C BC #### [facility] [address] [place] [address] Dr. Ирина Kerr PLT 208 103/ul Normal 150-450 [facility] Comment on above: Performed By: #### C BC #### [facility] [address] [place] [address] Dr. Ирина Kerr RBC 3.65 106/ul Critically low 4.20-5.40 [facility] Comment on above: Performed By: #### C BC #### [facility] [address] [place] [address] [address] Ирина Kerr WBC 4.6 103/ul Normal 4.0-11.0 [facility] Comment on above: Performed By: #### C BC #### [facility] [address] [place] [address] [address] Ирина Kerr FREE THYROXINE INDEX T7on FTI 1.70 Normal [facility] Comment on above: Performed By: #### T SH, CMP, T7, LIPID #### [facility] [address] [place] [address] [address] Ирина Kerr T3U 37.0 % Normal 23.5-40.5 [facility] Comment on above: Performed By: #### T SH, CMP, T7, LIPID #### [facility] [address] [place] [address] [address] Ирина Kerr T4 [Mass/Vol] 4.60 ug/dL Critically low 5.53-11.00 [facility] Comment on above: Performed By: #### T SH, CMP, T7, LIPID #### [facility] [address] [place] [address] [address] Ирина Kerr GLYCOHEMOGLOBIN A1Con 2021 ADA RECOMMENDATION ADA THERAPEUTIC TARG ET 6.0 - 7.0 ACTION SUGGESTED > 7.0 Normal [facility] Comment on above: Performed By: #### A 1C #### [facility] [address] [place] [address] [address] Ирина Kerr Glucose [Mass/Vol] 114 mg/dL Normal [facility] Comment on above: Performed By: #### A 1C #### [facility] [address] [place] [address] Dr. Ирина Kerr HbA1c (Bld) [Mass fraction] 5.6 % Normal <=6.0 [facility] Comment on above: Performed By: #### A 1C #### [facility] [address] [place] [address] Dr. Ирина Kerr IRONon 12-13-2021 Iron [Mass/Vol] 105.0 ug/dL Normal 37.0-170.0 [facility] Comment on above: Performed By: #### I BE #### [facility] [address] [place] [address] [address] Ирина Kerr LIPID PROFILEon 12-13-2021 CHOL-HDL RATIO NORM SEE BELOW Normal [facility] Comment on above: Result Comment: 3.3 - 4.4 LOW RISK 4.4 - 7.1 AVERAGE RISK 7.1 - 11.0 MODERATE RISK >11.0 HIGH RISK Performed By: #### T SH, CMP, T7, LIPID #### [facility] [address] [place] [address] [address] Ирина Kerr Cholesterol [Mass/Vol] 179 mg/dL Normal <=200 [facility] Comment on above: Performed By: #### T SH, CMP, T7, LIPID #### [facility] [address] [place] [address] [address] Ирина Kerr Cholesterol in HDL [Mass/Vol] 66 mg/dL Normal [facility] Comment on above: Performed By: #### T SH, CMP, T7, LIPID #### [facility] [address] [place] [address] [address] Ирина Kerr Cholesterol in LDL [Mass/Vol] 74.2 mg/dL Normal [facility] Comment on above: Performed By: #### T SH, CMP, T7, LIPID #### [facility] [address] [place] [address] [address] Ирина Kerr Cholesterol.total/Nimo sterol in HDL [Mass ratio] 2.7 {ratio} Normal [facility] Comment on above: Performed By: #### T SH, CMP, T7, LIPID #### [facility] [address] [place] [address] [address] Ирина Kerr HDL NORMAL > or = 60 mg/dl - LO W CARDIOVASCULAR RISK <40 mg/dl - HIGH CARDIOVASCULAR RISK Normal [facility] Comment on above: Performed By: #### T SH, CMP, T7, LIPID #### [facility] [address] [place] [address] [address] Ирина Kerr LDL CALC NORMAL SEE BELOW Normal [facility] Comment on above: Result Comment: <100 mg/dl OPTIMAL 100 - 129 mg/dl NEAR OR ABOVE OPTIMAL 130 - 159 mg/dl BORDERLINE HIGH 160 - 189 mg/dl HIGH >190 mg/dl VERY HIGH Performed By: #### T SH, CMP, T7, LIPID #### [facility] [address] [place] [address] [address] Ирина Kerr Triglyceride [Mass/Vol] 194 mg/dL Critically high <=150 [facility] Comment on above: Performed By: #### T SH, CMP, T7, LIPID #### [facility] [address] [place] [address] [address] Ирина Kerr VLDL CALC 38.8 mg/dL Normal [facility] Comment on above: Performed By: #### T SH, CMP, T7, LIPID #### [facility] [address] [place] [address] Dr. Ирина Kerr PROF 14(COMP METB)on 022 Albumin [Mass/Vol] 3.9 g/dL Normal 3.5-5.0 [facility] Comment on above: Performed By: #### T SH, CMP, T7, LIPID #### [facility] [address] [place] [address] [address] Ирина Kerr Albumin/Globulin [Mass ratio] 1.1 {ratio} Normal [facility] Comment on above: Performed By: #### T SH, CMP, T7, LIPID #### [facility] [address] [place] [address] [address] Ирина Kerr ALP [Catalytic activity/Vol] 90 U/L Normal 38-126 [facility] Comment on above: Performed By: #### T SH, CMP, T7, LIPID #### [facility] [address] [place] [address] [address] Ирина Kerr ALT [Catalytic activity/Vol] 14 U/L Normal 9-52 [facility] Comment on above: Performed By: #### T SH, CMP, T7, LIPID #### [facility] [address] [place] [address] [address] Ирина Kerr Anion gap [Moles/Vol] 14.4 mmol/L Normal Th [facility] Comment on above: Performed By: #### T SH, CMP, T7, LIPID #### [facility] [address] [place] [address] [address] Ирина Kerr AST [Catalytic activity/Vol] 14 U/L Normal 14-36 [facility] Comment on above: Performed By: #### T SH, CMP, T7, LIPID #### [facility] [address] [place] [address] [address] Ирина Kerr Bilirubin [Mass/Vol] 0.6 mg/dL Normal 0.2-1.3 [facility] Comment on above: Performed By: #### T SH, CMP, T7, LIPID #### [facility] [address] [place] [address] [address] Ирина Kerr Calcium [Mass/Vol] 9.2 mg/dL Normal 8.4-10.2 [facility] Comment on above: Performed By: #### T SH, CMP, T7, LIPID #### [facility] [address] [place] [address] [address] Ирина Kerr Chloride [Moles/Vol] 104 mmol/L Normal 98-107 [facility] Comment on above: Performed By: #### T SH, CMP, T7, LIPID #### [facility] [address] [place] [address] Dr. Ирина Kerr CO2 [Moles/Vol] 25.8 mmol/L Normal 22.0-30.0 [facility] Comment on above: Performed By: #### T SH, CMP, T7, LIPID #### [facility] [address] [place] [address] Dr. Ирина Kerr Creatinine [Mass/Vol] 1.45 mg/dL Critically high 0.52-1.04 [facility] Comment on above: Performed By: #### T SH, CMP, T7, LIPID #### [facility] [address] [place] [address] Dr. Ирина Kerr EGFR-AF MOROCCAN 44 mL/min/1.73m2 Critically low >=60 [facility] Comment on above: Performed By: #### T SH, CMP, T7, LIPID #### [facility] [address] [place] [address] Dr. Ирина Kerr EGFR-NON AF MOROCCAN 36 mL/min/1.73m2 Critically low >=60 [facility] Comment on above: Performed By: #### T SH, CMP, T7, LIPID #### [facility] [address] [place] [address] Dr. Ирина Kerr Globulin (S) [Mass/Vol] 3.4 g/dL Normal [facility] Comment on above: Performed By: #### T SH, CMP, T7, LIPID #### [facility] [address] [place] [address] Dr. Ирина Kerr Glucose [Mass/Vol] 110 mg/dL Critically high 74-106 [facility] Comment on above: Performed By: #### T SH, CMP, T7, LIPID #### [facility] [address] [place] [address] Dr. Ирина Kerr Potassium [Moles/Vol] 4.2 mmol/L Normal 3.4-5.0 [facility] Comment on above: Performed By: #### T SH, CMP, T7, LIPID #### [facility] [address] [place] [address] Dr. Ирина Kerr Protein [Mass/Vol] 7.3 g/dL Normal 6.1-8.2 [facility] Comment on above: Performed By: #### T SH, CMP, T7, LIPID #### [facility] [address] [place] [address] Dr. Ирина Kerr Sodium [Moles/Vol] 140 mmol/L Normal 137-145 [facility] Comment on above: Performed By: #### T SH, CMP, T7, LIPID #### [facility] [address] [place] [address] Dr. Ирина Kerr Urea nitrogen [Mass/Vol] 22.0 mg/dL Critically high 7.0-17.0 [facility] Comment on above: Performed By: #### T SH, CMP, T7, LIPID #### [facility] [address] [place] [address] Dr. Ирина Kerr Urea nitrogen/Creatinine [Mass ratio] 15.2 mg/mg Normal [facility] Comment on above: Performed By: #### T SH, CMP, T7, LIPID #### [facility] [address] [address] [address] Ирина Kerr TSHon 12-13-2021 TSH 1.181 uIU/mL Normal 0.470-4.680 [facility] Comment on above: Performed By: #### T SH, CMP, T7, LIPID #### [facility] [address] [address] [address] Ирина Kerr TSH RANGE SEE BELOW Normal [facility] Comment on above: Result Comment: <0.3 4 UIU/ml HYPERTHYROID 0.34-5.60 UIU/ml EUTHYROID >5.60 UIU/ml HYPOTHYROID Performed By: #### T SH, CMP, T7, LIPID #### [facility] [address] [address] [address] Ирина Kerr Consent for Procedure/Surger yon 10-08-2021 Consent for Procedure/Surgery [id number]:[id number] Normal [facility] Gastroenterology Office/Clin ic Noteon 10-05-2021 Gastroenterology Office/Clinic [...] after patient consented to recording for virtual vessel specialist and provider reviewed before signing. FABRIZIO: Maria G Oates. Entered into [employer] by Lois Nelson. Follow-up No qualifying data [...] Apriso 0.375 (more content not included)... Normal [facility] Comment on above: Result Comment: Elec tronically Signed By: Lois Nelson\.br\Date and Time Signed: 10/04/21 17:20 EST\.br\Electronically Co-Signed By: Bibiana FARIA MD\.br\Date and Time Co-Signed: 10/05/21 10:31 EST Ambulatory Clinical Summaryo n 10-04-2021 Ambulatory Clinical Summary {[id number] Normal [facility] Ambulatory Clinical Summary {[id number] Normal [facility] PROGRESSon 05-04-2019 PROGRESS HNO ID: [id number] Author: Migdalia Gamble Service: ? Author Type: [...] options/risks/benefits have been discussed. Questions answered. Normal [facility] MR-MRI ORBIT WO/W CON IMPORT on 03-31-2019 MR-MRI ORBIT WO/W CON IMPORT Images were obtained outside of [facility] [id number] Normal [facility] ANAon 03-24-2019 Nuclear Ab IF (S) [Titer] Negative Normal Negative [facility] Comment on above: Performed By: #### A NORMA, ANAS #### [facility] ZE[facility] [address] [address] Nuclear Ab IF (S) [Titer] 0.1 OD Ratio Normal [facility] Comment on above: Result Comment: OD R atio is interpreted as follows: Negative <1.0 Positive >=1.0 Performed By: #### A NORMA, MARYS #### [place] [id number] [place] [address] Angiotens. Conv Enzon 2018 Angiotens. Conv Enz 23 U/L Normal <52 [facility] Comment on above: Result Comment: Kay ficially low TERRY levels may be found for patients taking TERRY inhibitors or after the administration of gadolinium. This test was developed and its performance characteristics determined by [facility]'s [facility] [place] ([facility] It has not been cleared or approved by the FDA. [facility] is regulated under CLIA as qualified to perform high complexity testing. This test is used for clinical purposes. It should not be regarded as investigational or for research. Performed By: #### A NORMA, ANAS #### [facility] [place] [address] PROGRESSon 03-24-2019 PROGRESS HNO ID: [id number] Author: Migdalia Gamble Service: ? Author Type: [...] options/risks/benefits have been discussed. Questions answered. Normal [facility] Vital Signs Date Time Vital Sign Value Performing Clinician Kevyn romero 05-24-2025 10:06-0400 Body height 160.02 cm Germán Rodriguez MD Work Phone: [facility] 05-24-2025 10:06-0400 Body mass index (BMI) [Ratio] 32.4 kg/m2 Germán Rodriguez MD Work Phone: [facility] 05-24-2025 10:06-0400 Body weight 83.06 kg Germán Rodriguez MD Work Phone: [facility] 05-24-2025 10:06-0400 Diastolic blood pressure 81 mm[Hg] Germán Rodriguez MD Work Phone: [facility] 05-24-2025 10:06-0400 Heart rate 101 /min Germán Rodriguez MD Work Phone: [facility] 05-24-2025 10:06-0400 Respiratory rate 18 /min Germán Rodriguez MD Work Phone: [facility] 05-24-2025 10:06-0400 SaO2% (BldA) [Mass fraction] 95 % Germán Rodriguez MD Work Phone: [facility] 05-24-2025 10:06-0400 Systolic blood pressure 122 mm[Hg] Germán Rodriguez MD Work Phone: [facility] 04-12-2025 13:23-0400 Body height 160.02 cm Germán Rodriguez MD Work Phone: [facility] 04-12-2025 13:23-0400 Body mass index (BMI) [Ratio] 33.1 kg/m2 Germán Rodriguez MD Work Phone: [facility] 04-12-2025 13:23-0400 Body temperature 96.3 [degF] Germán Rodriguez MD Work Phone: [facility] 04-12-2025 13:23-0400 Body weight 84.93 kg Germán Rodriguez MD Work Phone: [facility] 04-12-2025 13:23-0400 Diastolic blood pressure 86 mm[Hg] Germán Rodriguez MD Work Phone: [facility] 04-12-2025 13:23-0400 Heart rate 95 /min Germán Rodriguez MD Work Phone: [facility] 04-12-2025 13:23-0400 Respiratory rate 18 /min Germán Rodriguez MD Work Phone: [facility] 04-12-2025 13:23-0400 SaO2% (BldA) [Mass fraction] 98 % Germán Rodriguez MD Work Phone: [facility] 04-12-2025 13:23-0400 Systolic blood pressure 136 mm[Hg] Germán Rodriguez MD Work Phone: [facility] Encounters Encounter Date Encounter Type Care Provider Facility Start: 05-24-2025 End: 05-24-2025 ambulatory Germán Rodriguez MD Work Phone: [facility] Work Phone: Start: 05-24-2025 End: 05-24-2025 Patient encounter procedure Kristan Jaquez MD -[facility] Work Phone: Start: 05-14-2025 Non-patient / Non-visit Kristan Jaquez MD -[facility] Work Phone: Start: 04-12-2025 End: 04-12-2025 ambulatory Germán Rodriguez MD Work Phone: [facility] Work Phone: Start: 04-12-2025 End: 04-12-2025 Patient encounter procedure Kristan Jaquez MD -[facility] Work Phone: Start: 04-26-2022 ambulatory VARUN CONTRERAS Facility: [facility] Start: 01-19-2022 End: 01-19-[address] TARIK LARA Facility:[facility] Start: 12-13-2021 End: 12-14-2021 ambulatory VARUN CONTRERAS Facility:[facility] Plan of Treatment Date Care Activity Detail Author Renal function 1999 panel - Serum or Plasma [facility] enter Renal function 1999 panel - Serum or Plasma [facility] enter US Kidney - bilateral [facility] [place] Payers Date Payer Category Payer Self-pay 1961 Unknown [id number] 1955 Unknown [id number] 1955 Unknown [id number] 1955 Unknown [id number] Social History Date Type Detail Facility Start: 04-12-2025 [facility] Sex Female (finding) [facility] Start: 1955 Sex Assigned At Female F [facility] Evaluation note 04-12-2025 Note Date & [...] Secondary hyperparathyroidism acute May 24, 2025 10:05am [facility] Work Phone: Evaluation note Note Date & [...] 1:18pm Secondary hyperparathyroidism acute April 12 1:18pm [facility] Work Phone: Reason for referral (narrative) Note Date & Type Note Facility Reason for referral (narrative) No reason for referral information available [facility] Work Phone: Summary Purpose Family History [...] section and content) DATE CREATED AUTHOR 06/17/2019 [facility] DATE CREATED AUTHOR AUTHOR'S ORGANIZ ATION 12/31/2021 [facility] DATE CREATED AUTHOR AUTHOR'S ORGANIZ ATION 04/28/2022 [facility] Care Teams (unrecognized sec tion and [...] BE BASED ON THE PRIMARY CLINICAL RECORDS. [facility] provides no warranty or guarantee of the accuracy or completeness of information in this document.
--- NOTE | 2025-07-20 14:47 | CT_ITS ---
The [address] [address] Patient Name: ADRIANNA RIVAS MRN: [id number] date: 1955 Sex: F Assigned Patient Location: ER Current Patient Location: ER Accession/Order Number: [id number] Exam Date: 07/20/2025 15:17 Report Date: 07/20/2025 16:32 At the request of: JANNET GÓMEZ MD Procedure: CT pelvis wo con CT pelvis wo con 07/20/2025 3:22 PM SIGNS AND SYMPTOMS: Fall, right hip pain TECHNIQUE: Multidetector ct axial images of the abdomen and pelvis were obtained without IV contrast. Multiplanar reformats were performed and reviewed to further define anatomy and possible pathology. CT was performed with one or more of the following dose reduction techniques: Automated exposure control, adjustment of the mA and/or kV according to patient size, or use of iterative reconstruction technique. COMPARISON: 05/04/2023 FINDINGS: Reproductive Organs: No pelvic masses. Ureters: Within normal limits. Bladder: Within normal limits. Bowel: Normal caliber. Mesenteric Lymph Nodes: No enlarged mesenteric lymph nodes. Peritoneum: There is a small amount of free fluid in the pelvis which is nonspecific. Vessels: Atherosclerotic changes are noted in the abdominal aorta and its branches. Retroperitoneum: Within normal limits. Abdominal Wall: Within normal limits. Bones: Degenerative changes are noted in the sacroiliac joints. Degenerative changes are noted in the hips bilaterally. Degenerative changes are noted in the symphysis pubis. No fracture. There is an effusion along the greater trochanter of the right hip suggesting bursitis. CT/CT pelvis wo con IMPRESSION: No acute displaced fracture. There is an effusion along the greater trochanter of the right hip suggesting bursitis. Degenerative changes are noted in the lumbar spine, sacroiliac joints, bilateral hips, and symphysis pubis. There is a small amount of free fluid in the pelvis which is nonspecific. Impression dictated by: Elver Bustamante M.D. 07/20/2025 4:32 PM Dictation Location: [place] [address] Electronically authenticated by: [id number] Y Date: 07/20/2025 16:32
[2025-07-20 15:07] LABS: Hematocrit 48.0 % (36.0-48.0); Hemoglobin 16.4 g/dL (12.0-16.0); Immature Granulocytes Abs Auto 0.04 10^3/uL (0.00-0.03); Immature Granulocytes Pct Auto 0.6 % (0.0-0.5); Lymphocytes Absolute Auto 2.4 10^3/uL (1.2-3.8); Mean Corpuscular HGB Conc 34.2 g/dL (29.9-35.2); Mean Corpuscular Hemoglobin 33.5 pg (26.7-34.0); Mean Corpuscular Volume 98.0 fL (81.0-99.0); Platelet Count 275 10^3/uL (150-450); Red Blood Count 4.90 10^6/uL (4.20-5.40); White Blood Count 7.1 10^3/uL (4.0-11.0)
[2025-07-20] MEDS: KETOROLAC TROMETHAMINE 30 MG/ML VIAL 15 MG IVP (15:10)
[2025-07-20 15:20] LABS: Alanine Aminotransferase 16 U/L (14-59); Albumin Globulin Ratio 0.8; Albumin Level 3.1 g/dL (3.4-5.0); Alkaline Phosphatase 99 U/L (46-116); Anion Gap 22.4; Aspartate Amino Transferase 20 U/L (15-37); Blood Urea Nitrogen 17.0 mg/dL (7.0-18.0); Calcium 9.3 mg/dL (8.5-10.1); Carbon Dioxide 18.1 mmol/L (21.0-32.0); Chloride 107 mmol/L (98-107); Estimated GFR (African America 44 (>=60 mL/min/1.73m^2); Estimated GFR (Non-African Ame 37 (>=60 mL/min/1.73m^2); Globulin 3.8 g/dL; Glucose 110 mg/dL (74-106); Potassium 3.5 mmol/L (3.5-5.1); Sodium 144 mmol/L (136-145); Total Protein 6.9 g/dL (6.4-8.2)
[2025-07-20] MEDS: 0.9 % SODIUM CHLORIDE 1,000 ML 500 ML IV (15:47)
[2025-07-20] MEDS: METHYLPREDNISOLONE SOD SUCC PF 40 MG/ML VIAL IVP (17:14)
[2025-07-20] MEDS: OXYCODONE HCL/ACETAMINOPHEN 5MG/325MG 1 TAB PO (17:14)
[2025-07-20 17:45] LABS: Anion Gap 18.9; Blood Urea Nitrogen 17.0 mg/dL (7.0-18.0); Calcium 9.0 mg/dL (8.5-10.1); Carbon Dioxide 19.3 mmol/L (21.0-32.0); Chloride 110 mmol/L (98-107); Estimated GFR (African America 52 (>=60 mL/min/1.73m^2); Estimated GFR (Non-African Ame 43 (>=60 mL/min/1.73m^2); Glucose 99 mg/dL (74-106); Potassium 3.2 mmol/L (3.5-5.1); Sodium 145 mmol/L (136-145)
--- NOTE | 2025-07-20 18:16 | ED.LOWEXI1 ---
HPI HPI - Extremity Injury (Lower) General Chief Complaint: Extremity Injury, Lower Stated Complaint: PREVIOUS FALL, PAIN IN R HIP Time Seen by Provider: 07/20/25 14:40 Mode of arrival: Wheelchair Limitations: no limitations History of Present Illness HPI Narrative: Patient 70-year-old female is coming to the ER after she tripped and fell almost a week ago at that time she did not have any hip pain but started right after the fall, the pain is only with movement and is not radiating only limited to the right hip She already had a history of chronic back pain she denies any acute back pain at the moment there is no weakness numbness tingling or any concerns of urine or stool incontinence The patient mentioned that she have some decreased p.o. intake because of the pain as well over the last week Related Data Home Medications ?Medication ?Instructions ?Recorded ?Confirmed amitriptyline 150 mg tablet 150 mg PO BEDTIME 05/04/23 07/20/25 diltiazem HCl 300 mg 300 mg PO Q24H 05/04/23 07/20/25 tablet,extended release 24 hr duloxetine 60 mg capsule,delayed 160 mg PO DAILY 05/04/23 07/20/25 release furosemide 20 mg tablet 20 mg PO QDAY 05/04/23 07/20/25 losartan 50 mg tablet 100 mg PO QDAY 05/04/23 07/20/25 potassium chloride 10 mEq 20 meq PO DAILY 05/04/23 07/20/25 tablet,extended release(part/cryst) quetiapine 100 mg tablet 100 mg PO DAILY 05/04/23 07/20/25 quetiapine 200 mg tablet 200 mg PO BEDTIME 05/04/23 07/20/25 simvastatin 80 mg tablet 80 mg PO QDAY 05/04/23 07/20/25 tizanidine 4 mg tablet 8 mg PO BEDTIME 05/04/23 07/20/25 dicyclomine 10 mg capsule 10 mg PO TID 07/20/25 07/20/25 omeprazole 40 mg capsule,delayed 40 mg PO BID 07/20/25 07/20/25 release ondansetron HCl 4 mg tablet 4 mg PO DAILY 07/20/25 07/20/25 Previous Rx's ?Medication ?Instructions ?Recorded oxycodone-acetaminophen 5 mg-325 1 tab PO Q8H PRN pain 3 days #9 07/20/25 mg tablet (Percocet) tabs prednisone 20 mg tablet 40 mg (2 x 20 mg) PO DAILY 5 days 07/20/25 #10 tabs Allergies Allergy/AdvReac Type Severity Reaction Status Date / Time No Known Drug Allergies Allergy Verified 07/20/25 14:34 Opioid HPI Opioid Management Most Recent Pain and Opioid Data: Last Pain Scale 10 Today, 14:34 Review of Systems ROS Status of ROS 10 or more systems reviewed and unremarkable except as noted in history and below PFSH PFSH Medical History Surgical History Family History Father Family history of CHF (congestive heart failure) Family history of diabetes mellitus Mother Family history of CHF (congestive heart failure) Family history of hypertension Social History Within the past year, how often did you have a drink containing alcohol: never Score interpretation: A score less than 3 is consistent with normal alcohol consumption. Smoking status: Never smoker Non-prescribed substance use: denies use Previous occupational history: retired Highest level of school completed/degree received: high school graduate Are you now , , , , never or living with a partner: Little interest or pleasure in doing things: not at all Feeling down, depressed, or hopeless: not at all Feel stressed/tense/nervous/anxious/difficulty sleeping: only a little Do you think of yourself as: straight/heterosexual Gender Identity: female Exam Narrative Exam Narrative: Nurses notes and vital signs reviewed and patient is not hypoxic. General: Well-appearing and in no apparent distress. Skin: Warm, dry, no pallor noted. No rash. Head: Normocephalic, atraumatic. Neck: Supple, non-tender. Cardiovascular: Regular Rate and Rhythm without murmur, gallop or rub. Respiratory: No accessory muscle use or respiratory distress. Lungs are clear to auscultation, no wheezing, rales or rhonchi Chest Wall: no tenderness Back: No midline thoracic or lumbar vertebral tenderness. No CVA tenderness Musculoskeletal: Tenderness upon palpation of the right hip, full range of movement with pain GI: Abdomen is soft, non-distended. Normal bowel sounds. No masses appreciated. No tenderness to palpation. No rebound, guarding, or rigidity noted. Neurological: A&O x4. No cranial nerve dysfunction observed. Constitutional Vital Signs, click to edit/add: Last Vital Signs Temp 98.1 F 07/20/25 14:34 Pulse 113 H 07/20/25 14:34 Resp 16 07/20/25 14:34 BP 166/103 H 07/20/25 14:34 Pulse Ox 100 07/20/25 14:34 Course Vital Signs Vital signs: Vital Signs Temperature 98.1 F 07/20/25 14:34 Pulse Rate 113 H 07/20/25 14:34 Respiratory Rate 16 07/20/25 14:34 Blood Pressure 166/103 H 07/20/25 14:34 Pulse Oximetry 100 07/20/25 14:34 Temperature 98.1 F 07/20/25 14:34 Pulse Rate 113 H 07/20/25 14:34 Respiratory Rate 16 07/20/25 14:34 Blood Pressure 166/103 H 07/20/25 14:34 Pulse Oximetry 100 07/20/25 14:34 MDM - Extremity Injury (Lower) MDM Narrative Medical decision making narrative: The patient upon arrival was in a lot of pain she had an IV established CBC and chemistry showed that the patient have some acute kidney injury and dehydration that partially resolved after the patient was provided with IV fluid with iimprovement of the anion gap, and seems to be having underlying chronic kidney as well There is improvement with hydration the patient also had her pain controlled after she was provided with Solu-Medrol and Percocet Patient CAT scan of the pelvis shows right hip bursitis CT/CT pelvis wo con IMPRESSION: No acute displaced fracture. There is an effusion along the greater trochanter of the right hip suggesting bursitis. Degenerative changes are noted in the lumbar spine, sacroiliac joints, bilateral hips, and symphysis pubis. There is a small amount of free fluid in the pelvis which is nonspecific. Was able to ambulate feeling better after initial treatment she was instructed about hydration and follow-up with primary care within a week for further evaluation of kidney function ischarged home with Percocet and prednisone Lab Data Labs: Lab Results 07/20/25 07/20/25 Range/Units 14:57 17:24 WBC 7.1 (4.0-11.0) 10^3/uL RBC 4.90 (4.20-5.40) 10^6/uL Hgb 16.4 H (12.0-16.0) g/dL Hct 48.0 (36.0-48.0) % MCV 98.0 (81.0-99.0) fL MCH 33.5 (26.7-34.0) pg MCHC 34.2 (29.9-35.2) g/dL RDW 13.5 (11.0-15.0) % Plt Count 275 (150-450) 10^3/uL MPV 9.5 (9.5-13.5) fL Neut % (Auto) 55.8 (43.0-75.0) % Lymph % (Auto) 34.0 (20.5-60.0) % [place] % (Auto) 7.2 (1.7-12.0) % Eos % (Auto) 1.6 (0.9-7.0) % Baso % (Auto) 0.8 (0.2-2.0) % Neut # (Auto) 4.0 (1.4-6.5) 10^3/uL Lymph # (Auto) 2.4 (1.2-3.8) 10^3/uL [place] # (Auto) 0.5 (0.3-0.8) 10^3/uL Eos # (Auto) 0.1 (0.0-0.7) 10^3/uL Baso # (Auto) 0.1 (0.0-0.1) 10^3/uL Abs Immat Gran (auto) 0.04 H (0.00-0.03) 10^3/uL Imm/Tot Granulo (auto) 0.6 H (0.0-0.5) % Sodium 144 145 (136-145) mmol/L Potassium 3.5 3.2 L (3.5-5.1) mmol/L Chloride 107 110 H (98-107) mmol/L Carbon Dioxide 18.1 L 19.3 L (21.0-32.0) mmol/L Anion Gap 22.4 18.9 BUN 17.0 17.0 (7.0-18.0) mg/dL Creatinine 1.41 H 1.22 H (0.55-1.02) mg/dL Est GFR ( Amer) 44 L 52 L (>=60 mL/min/1.73m^2) Est GFR (Non-Af Amer) 37 L 43 L (>=60 mL/min/1.73m^2) BUN/Creatinine Ratio 12.1 13.9 Glucose 110 H 99 (74-106) mg/dL Calcium 9.3 9.0 (8.5-10.1) mg/dL Total Bilirubin 0.4 (0.2-1.0) mg/dL AST 20 (15-37) U/L ALT 16 (14-59) U/L Alkaline Phosphatase 99 (46-116) U/L Total Protein 6.9 (6.4-8.2) g/dL Albumin 3.1 L (3.4-5.0) g/dL Globulin 3.8 g/dL Albumin/Globulin Ratio 0.8 Discharge Plan Discharge Chief Complaint: Extremity Injury, Lower Clinical Impression: Bursitis of right hip, Dehydration Patient Disposition: Home, Self-Care Time of Disposition Decision: 18:19 Condition: Good Prescriptions / Home Meds: New oxycodone-acetaminophen [Percocet] 5-325 mg tablet 1 tab PO Q8H PRN (Reason: pain) 3 Days Qty: 9 0RF prednisone 20 mg tablet 40 mg PO DAILY 5 Days Qty: 10 0RF No Action amitriptyline 150 mg tablet 150 mg PO BEDTIME diltiazem HCl 300 mg tablet extended release 24 hr 300 mg PO Q24H duloxetine 60 mg capsule,delayed release(DR/EC) 160 mg PO DAILY furosemide 20 mg tablet 20 mg PO QDAY losartan 50 mg tablet 100 mg PO QDAY potassium chloride 10 mEq tablet,ER particles/crystals 20 meq PO DAILY quetiapine 100 mg tablet 100 mg PO DAILY quetiapine 200 mg tablet 200 mg PO BEDTIME simvastatin 80 mg tablet 80 mg PO QDAY tizanidine 4 mg tablet 8 mg PO BEDTIME omeprazole 40 mg capsule,delayed release(DR/EC) 40 mg PO BID ondansetron HCl 4 mg tablet 4 mg PO DAILY dicyclomine 10 mg capsule 10 mg PO TID Print Language: Yakut Instructions: Dehydration (DC), Hip Bursitis (ED) Additional Instructions: Ensure that you hydrate very well and follow-up with your primary care within a week Make sure that you take all the medication with food Referrals: VARUN CONTRERAS [Primary Care Provider, Family Practice] - 1 week
--- NOTE | 2025-07-20 18:17 | PC.NURSE ---
walk test completed, pt walked to bathroom successfully with walker
[2025-07-20 18:37] VITALS: BP 148/62
== END 2025-07-20 18:38 | disposition home or self-care (01) ==
PROVIDERS: Emergency Provider Emergency Medicine; PCP Nurse Practitioner Family
DX: M70.71 Other bursitis of hip, right hip (principal); E86.0 Dehydration
CPT/HCPCS: 36415; 72192; 76376; 80048; 80053; 85025; 96361; 96374; 96375; 99284; 99285; J1885; J2919

== ENCOUNTER 2025-08-04 10:00 | Emergency (ER) | payer BC, SELFPAY ==
[2025-08-04 10:03] VITALS: BP 166/112; PULSE 122; TEMP 36.5; O2SAT 100; BMI 29.1
--- OUTSIDE RECORDS SUMMARY | 2025-08-04 10:08 | XMS_ITS | Clinical Summary ---
Author Organization [facility] Healthcare Address [address] [place] [address] Care Team Providers Care Utilities And Maintenance Supervisor Name Role Phone Unavailable Primary Care Provider Unavailabl e Social History Tobacco UseTypesPacks/DayYears UsedDateSmoking Tobacco: Never Assessed CommentsUnknownSex and Gender InformationValueDate RecordedSex Assigned at Not on fileLegal YsqOwrubw45/15/2023 6:57 PM EDTGender IdentityNot on fileSexual OrientationNot on file Last Filed Vital Signs Vital SignReadingTime TakenCommentsBlood Nsihogjm279/8911/10/2019 12:00 PM EST Pulse--Temperature--Respiratory Rate--Oxygen Saturation--Inhaled Oxygen Concentration--Eumbdb874 kg (224 lb)11/10/2019 12:00 PM GQTLrfeuh511 cm (5' 3 ) 11/10/2019 12:00 PM ESTBody Mass Index39.68011/10/2019 12:00 PM EST Plan of Treatment Not on file Insurance
--- OUTSIDE RECORDS SUMMARY | 2025-08-04 10:09 | XMS_ITS | Clinical Summary ---
Author Organization [facility] Address [address] [place] [address] Care Team Providers Care Composition Professor Name Role Phone Steffen Lobato DO Primary Care Provider Allergies No known active allergies Medications MedicationSigDispense QuantityRefillsLast FilledStart DateEnd DateStatus QUEtiapine (SEROQUEL) 50 mg tablet Take 50 mg by mouth twice daily. 100 mg qhs, 50mg in the a.m.Active DULoxetine (CYMBALTA) 60 mg capsule Take 60 mg by mouth once daily.Active tiZANidine HCl 4 mg capsule Take 4 mg by mouth three times daily.Active simvastatin (ZOCOR) 80 mg tablet Take 80 mg by mouth daily at bedtime.Active pantoprazole (PROTONIX) 40 mg grps Take 40 mg by mouth DAILY (6 AM).Active diltiazem CD (CARDIZEM CD) 300 mg 24 hr capsule Take 300 mg by mouth once daily.Active allopurinol (ZYLOPRIM) 100 mg tablet Take 100 mg by mouth once daily.Active mesalamine ER (APRISO) 0.375 gram capsule Take 375 mg by mouth once daily.Active latanoprost (XALATAN) 0.005 % ophthalmic solution Use 1 Drop in both eyes daily at bedtime.Active ondansetron (ZOFRAN, HYDROCHLORIDE,) 8 mg tablet Take 1 tablet by mouth every 8 hours as needed. 90 tablet Active brimonidine (ALPHAGAN P) 0.1 % drop Use 1 Drop in the right eye three times daily.Active dorzolamide-timolol (COSOPT) 22.3-6.8 mg/mL ophthalmic solution Use 1 Drop in both eyes twice daily.Active netarsudil (RHOPRESSA) 0.02 % drop Use 1 Drop in the right eye daily at bedtime.Active amitriptyline (ELAVIL) 50 mg tablet Take 50 mg by mouth daily at bedtime.Active Active Problems ProblemNoted DateDiagnosed DateEdema of optic disc of left eye03/24/2019 Choroidal nevus of left eye03/24/20198672Kxspfsyoh32/19/2019Essential hypertension 03/24/20197457Rtgreqmihacccq58/19/5855Ljkdyl66/07/2017 Family History Medical HistoryRelationCommentsDiabetesFatherHypertensionFatherCataractMother HypertensionMotherGlaucomaPaternal GrandmotherRelationStatusCommentsFatherMother Paternal Grandmother Social History Tobacco UseTypesPacks/DayYears UsedDateSmoking Tobacco: NeverSmokeless Tobacco: NeverAlcohol UseStandard Drinks/WeekCommentsNo0 (1 standard drink = 0.6 oz pure alcohol)Area Deprivation IndexAnswerDate RecordedNational Score (1-100), lower number is lower riskNot on file09/12/2020State Score (1-10), lower number is lower riskNot on file09/12/2020Data from: https://www.neighborhoodatlas.[facility].edu/. Last address used for calculationNot on file09/12/2020CommentsNoSex and Gender Information ValueDate RecordedSex Assigned at BirthNot on fileLegal JgtWbuuff17/06/2017 11:01 AM ESTGender IdentityNot on fileSexual OrientationNot on file Last Filed Vital Signs Vital SignReadingTime TakenCommentsBlood Caooaxkv864/72004/01/2017 11:23 AM EDT Bzxab936404/01/2017 11:23 AM ZLETjgscxmxhwp37.7 ??C (98.1 ??F)04/01/2017 11:23 AM EDTRespiratory Mciu491504/01/2017 11:23 AM EDTOxygen Saturation--Inhaled Oxygen Concentration--Cswupy52.4 kg (161 lb 14.4 oz)04/01/2017 11:23 AM VIYNmcdig008.9 cm (5' 0.98 )04/01/2017 11:23 AM EDTBody Mass Index30.61004/01/2017 11:23 AM EDT Plan of Treatment Health MaintenanceDue DateLast DoneCommentsAnxiety Swwpttasg96/07/1971Depression Ypfkssrjs88/07/1971DTaP,Tdap,Td Vaccine (1 - Tdap)1972Mammogram Screening 1993CT Ujgfgczlkxnt08/07/1998Cologuard (FIT-DNA)1998Colonoscopy 1998Colorectal Cancer Btujuwnyq55/07/1998Fecal Occult Blood1998Lipid Kksxtdjpo21/07/4642Sawjpdpsrobda89/07/1998Pneumococcal Vaccine: 50+ (1 of 1 - PCV)2003Shingrix Vaccine (1 of 2)2003Bone Density Screening 2018Diabetes Mcbjowgku17Advance Directive Discussion 10/06/2024ovid-19 Vaccine (1 - 2024- season)2025Influenza Vaccine (#1) 2025RSV Vaccine (1 - 1-dose 75+ series)2028Hepatitis C Screening Cmnfrcrje90/07/2017 Procedures Procedure NamePriorityDate/TimeAssociated DiagnosisCommentsHEP REMOTE PANEL BL Dcorqxq0412/10/2016 12:23 PM EST Anemia, unspecified type COMPREHENSIVE METABOLIC HWPKSHbpfmar82/07/2017 12:23 PM EST Anemia, unspecified type from Last 3 Months or Most Recently Relevant to Health Maintenance Results * HEP REMOTE PANEL BL (12/10/2016 12:23 PM EST)ComponentValueRef RangeTest MethodAnalysis TimePerformed AtPathologist SignatureHep B Core Ab, Total NtbukhfgBlwpjsbn22/08/2017 10:08 AM [facility] MA[facility] LABORATORYHep C Antibody IOUrsetnvjRoszvtgb01/08/2017 10:08 AM [facility] MAIN WBDUXOJWITUJbYyMqykwezmEyhqkmfp76/08/2017 10:08 AM [facility] MAIN LABORATORYHep B Surface Ab, SlabWvqgwusuPlckfngh74/08/2017 10:08 AM [facility] MAIN LABORATORYComment:NEGATIVESpecimen (Source)Anatomical Location / LateralityCollection Method / VolumeCollection TimeReceived Time Blood specimen (specimen)BLOOD SPECIMEN / Skrbybm2512/10/2016 12:23 PM EST 12/10/2016 12:28 PM EST Narrative Authorizing ProviderResult TypeResult StatusSamialex Mullen Adriana DOLABORATORY Final ResultPerforming OrganizationAddressCity/State/ZIP CodePhone Number [facility] [address] [place] [address] * (ABNORMAL) COMP METABOLIC PANEL (12/10/2016 12:23 PM EST)ComponentValueRef RangeTest MethodAnalysis TimePerformed AtPathologist SignatureProtein, Total 6.1(L)6.3 - 8.0 g/dL12/11/2016 7:44 AM [facility] Albumin3.6(L)3.9 - 4.9 g/dL12/11/2016 7:44 AM [facility] LABORATORYCalcium9.58.5 - 10.2 mg/dL12/11/2016 7:44 AM [facility] LABORATORYBilirubin, Total0.50.2 - 1.3 mg/dL12/11/2016 7:44 AM EST [facility] LABORATORYAlkaline Tjlrplvdvzm4572 - 117 U/L12/11/2016 7:44 AM [facility] MMPADATWXKZIG7443 - 35 U/L12/11/2016 7:44 AM [facility] MJKEAXQCRNYdhsayg695(H)74 - 99 mg/dL12/11/2016 7:44 AM [facility] LABORATORYComment: The [place] Diabetes Association (ADA) provides guidance for cutoff [...] Standards of Medical Care in Diabetes 2016, [place] [employer] Association. Diabetes Care. 2016.39(Suppl 1). OGN481 - 21 mg/dL12/11/2016 7:44 AM [facility] Creatinine1.41(H)0.58 - 0.96 mg/dL12/11/2016 7:44 AM [facility] FUWAXFWERTAbstdv580241 - 144 mmol/L12/11/2016 7:44 AM [facility] LABORATORYPotassium4.43.7 - 5.1 mmol/L12/11/2016 7:44 AM [facility] ZRFKPLZZICUhbouggq405(H)97 - 105 mmol/L12/11/2016 7:44 AM [facility] QLRABJRECECZ421(L)22 - 30 mmol/L12/11/2016 7:44 AM [facility] LABORATORYAnion Cdj378 - 18 mmol/L12/11/2016 7:44 AM [facility] JAZGWUPUZPTZK25 - 38 U/L12/11/2016 7:44 AM [facility] LABORATORYeGFR- Zksdrctk4646/08/2017 7:44 AM [facility] LABORATORYeGFR-All Other Races38.12/11/2016 7:44 AM [facility] LABORATORYComment: eGFR (Estimated GFR) Units of measure: mL/min/1.73 [...] eGFR may not accurately reflect actual GFR. Specimen (Source)Anatomical Location / LateralityCollection Method / Volume Collection TimeReceived TimeBlood specimen (specimen)BLOOD SPECIMEN / Unknown 12/10/2016 12:23 PM EST12/10/2016 12:28 PM EST Narrative Authorizing ProviderResult TypeResult StatusVasu Wright DOLABORATORY Final ResultPerforming OrganizationAddressCity/State/ZIP CodePhone Number [facility] [address] [place] [address] from Last 3 Months or Most Recently Relevant to Health Maintenance Insurance Care Teams Team MemberRelationshipSpecialtyStart DateEnd Date Steffen Lobato DO PCP - GeneralFamily Medicine12/09/16
--- NOTE | 2025-08-04 10:22 | PC.NURSE ---
no redness or bruising to site of complaint. skin intact and pt reports radiation to right hip
--- NOTE | 2025-08-04 10:23 | PC.NURSE ---
right knee pain getting worse for 2 wks since fall. no redness, bruising or swelling to knee
--- NOTE | 2025-08-04 10:28 | XR_ITS ---
The [address] [address] Patient Name: ADRIANNA RIVAS MRN: [id number] date: 1955 Sex: F Assigned Patient Location: ER Current Patient Location: ER Accession/Order Number: [id number] Exam Date: 08/04/2025 11:20 Report Date: 08/04/2025 11:45 At the request of: SOUMYA JOSUE Procedure: XR knee RT 3V RIGHT KNEE - 3 views CLINICAL DATA: Right knee pain following fall. COMPARISON: None AP, lateral and internal oblique views were obtained. There is a knee prosthesis. The hardware appears intact and in appropriate position. No acute fracture or dislocation is identified. There is a enthesophyte at the insertion of quadriceps tendon. There is a trace of joint fluid. Atherosclerotic disease is visualized. XR/XR knee RT 3V IMPRESSION: NO ACUTE BONY INJURY. Impression dictated by: Mallika Reynoso M.D. 08/04/2025 11:45 AM Dictation Location: [place] [address] Electronically authenticated by: [id number] Y Date: 08/04/2025 11:45
--- NOTE | 2025-08-04 10:28 | CT_ITS ---
The [address] [address] Patient Name: ADRIANNA RIVAS MRN: [id number] date: 1955 Sex: F Assigned Patient Location: ER Current Patient Location: Accession/Order Number: [id number] Exam Date: 08/04/2025 11:20 Report Date: 08/04/2025 11:59 At the request of: SOUMYA JOSUE Procedure: CT hip RT wo con CT RIGHT HIP WITHOUT CONTRAST WITH 3-D RECONSTRUCTIONS COMPARISON: CT pelvis 07/20/2025 CLINICAL DATA: Persistent right hip pain since fall. Spiral axial unenhanced images were obtained through the right hip. Sagittal, coronal and 3-D volume rendered reconstructions were reviewed. This CT exam was performed using one or more following dose reduction techniques: Automated exposure control, adjustment of the mA and/or kV according to patient size, or use of iterative reconstruction technique. The bony structures are osteopenic. There is a bone island at the femoral neck. There is still no evidence of acute fracture or dislocation. Slight narrowing of the hip joint space is seen. There is mild marginal spurring and also soft tissue calcification projecting at the joint space. There are enthesophytes at the greater trochanter and ischial tuberosity. Degenerative changes also seen at the imaged pubic symphysis. A small amount of fluid is again noted adjacent to the greater trochanter on the right that could be trochanteric bursitis. There is atherosclerotic plaque. No hematoma is noted. There is mild subcutaneous edema. CT/CT hip RT wo con IMPRESSION: OSTEOPENIA AND DEGENERATIVE CHANGES. CONTINUED SUSPECTED RIGHT TROCHANTERIC BURSITIS. NO ACUTE BONY FINDINGS OR SIGNIFICANT CHANGE. Impression dictated by: Mallika Reynoso M.D. 08/04/2025 11:59 AM Dictation Location: [place] [address] Electronically authenticated by: [id number] Y Date: 08/04/2025 11:59
[2025-08-04] MEDS: HYDROCODONE/ACET 5-325 MG TABLET 1 TAB PO (10:41)
--- NOTE | 2025-08-04 12:42 | ED.GENADUL1 ---
HPI HPI - General Adult General Chief complaint: Extremity Injury, Lower Stated complaint: BACK PAIN INTO R KNEE Time Seen by Provider: 08/04/25 10:18 Source: patient Mode of arrival: Wheelchair History of Present Illness HPI narrative: cc - right hip pain Pt fell 2 weeks ago and was evaluated in the ED - her pevlis CT did not show any acute fractures or dislocation. She came today reporting that her pain dramatically increased after being on her feet a lot more over the last few days than I normally am . No relief with tylenol and she has no other prescribed meds for pain. She also complains of pain in the right knee - she previously had right TKR. Related Data Home Medications ?Medication ?Instructions ?Recorded ?Confirmed amitriptyline 150 mg tablet 150 mg PO BEDTIME 05/04/23 08/04/25 diltiazem HCl 300 mg 300 mg PO Q24H 05/04/23 08/04/25 tablet,extended release 24 hr duloxetine 60 mg capsule,delayed 160 mg PO DAILY 05/04/23 08/04/25 release furosemide 20 mg tablet 20 mg PO QDAY 05/04/23 08/04/25 losartan 50 mg tablet 100 mg PO QDAY 05/04/23 08/04/25 potassium chloride 10 mEq 10 meq PO BID 05/04/23 08/04/25 tablet,extended release(part/cryst) quetiapine 100 mg tablet 100 mg PO DAILY 05/04/23 08/04/25 quetiapine 200 mg tablet 200 mg PO BEDTIME 05/04/23 08/04/25 tizanidine 4 mg tablet 8 mg PO BID 05/04/23 08/04/25 dicyclomine 10 mg capsule 10 mg PO TID 07/20/25 08/04/25 omeprazole 40 mg capsule,delayed 40 mg PO BID 07/20/25 08/04/25 release ondansetron HCl 4 mg tablet 4 mg PO DAILY 07/20/25 08/04/25 brimonidine 0.2 % eye drops 1 drp ophthalmic (eye) TID 08/04/25 08/04/25 rosuvastatin 10 mg tablet 10 mg PO DAILY 08/04/25 08/04/25 Previous Rx's ?Medication ?Instructions ?Recorded oxycodone-acetaminophen 5 mg-325 1 tab PO Q8H PRN pain 3 days #9 07/20/25 mg tablet (Percocet) tabs methylprednisolone 4 mg tablets in 4 mg PO DAILY #21 ea 08/04/25 a dose pack (Medrol (Jayy)) Allergies Allergy/AdvReac Type Severity Reaction Status Date / Time No Known Drug Allergies Allergy Verified 07/20/25 14:34 Opioid HPI Opioid Management Most Recent Opioid Data: Last Pain Scale 10 Today, 10:41 Last MAR Pain Assessment Today, 10:41 PFSH PFSH Medical History Surgical History Family History Father Family history of CHF (congestive heart failure) Family history of diabetes mellitus Mother Family history of CHF (congestive heart failure) Family history of hypertension Social History Within the past year, how often did you have a drink containing alcohol: never Score interpretation: A score less than 3 is consistent with normal alcohol consumption. Smoking status: Never smoker Non-prescribed substance use: denies use Previous occupational history: retired Highest level of school completed/degree received: high school graduate Are you now , , , , never or living with a partner: Little interest or pleasure in doing things: not at all Feeling down, depressed, or hopeless: not at all Feel stressed/tense/nervous/anxious/difficulty sleeping: only a little Do you think of yourself as: straight/heterosexual Gender Identity: female Exam Narrative Exam Narrative: Nurses notes and vital signs reviewed and patient is not hypoxic. afebrile General: Well-appearing and in no apparent distress. Skin: Warm, dry, no pallor noted. Ears, Nose, Mouth, and Throat: Oral mucosa is moist Cardiovascular: Regular Rate and Rhythm without murmur, gallop or rub. Respiratory: No accessory muscle use or respiratory distress. Lungs are clear to auscultation, no wheezing, rales or rhonchi Back: No midline thoracic or lumbar vertebral tenderness. Musculoskeletal: Marked tenderness along the right greater trochanter and into the lateral right thigh. Right knee pain with ROM but no effusion noted. Remainder of right LE with normal ROM, no calf or popliteal tenderness, no lower extremity edema/swelling Neurological: A&O x4. No cranial nerve dysfunction observed. No truncal ataxia. Moves all extremities. Sensation intact. Psychiatric: Cooperative and interactive. Normal mood and affect. Constitutional Vital Signs, click to edit/add: Last Vital Signs Temp 97.7 F 08/04/25 10:03 Pulse 122 H 08/04/25 10:03 Resp 18 08/04/25 10:03 BP 166/112 H 08/04/25 10:03 Pulse Ox 100 08/04/25 10:03 O2 Del Method Room Air 08/04/25 10:03 Course Vital Signs Vital signs: Vital Signs Temperature 97.7 F 08/04/25 10:03 Pulse Rate 122 H 08/04/25 10:03 Respiratory Rate 18 08/04/25 10:03 Blood Pressure 166/112 H 08/04/25 10:03 Pulse Oximetry 100 08/04/25 10:03 Oxygen Delivery Method Room Air 08/04/25 10:03 Temperature 97.7 F 08/04/25 10:03 Pulse Rate 122 H 08/04/25 10:03 Respiratory Rate 18 08/04/25 10:03 Blood Pressure 166/112 H 08/04/25 10:03 Pulse Oximetry 100 08/04/25 10:03 Oxygen Delivery Method Room Air 08/04/25 10:03 Medical Decision Making MDM Narrative Medical decision making narrative: The patient was given [place] for pain and x-ray of the right knee and CT scan of the right hip and pelvis were obtained. X-ray of the right knee did not show any acute bony injury. Hardware appears intact and in appropriate position. No fracture or dislocation is noted. CT scan of the right hip reveals, according to the radiologist, right trochanteric bursitis but no acute bony findings such as hip or pelvic fracture or dislocation. Osteopenia and degenerative changes also noted. I discussed the results with the patient and she was discharged home with a prescription for Medrol Dosepak. She was instructed to follow-up with her primary care provider. But I also gave her follow-up information for orthopedic group associated with [facility]. Imaging Data xr knee, ct hip: Radiologist's impression: ITS Impressions Hip CT 08/04/25 10:28 IMPRESSION: OSTEOPENIA AND DEGENERATIVE CHANGES. CONTINUED SUSPECTED RIGHT TROCHANTERIC BURSITIS. NO ACUTE BONY FINDINGS OR SIGNIFICANT CHANGE. Impression dictated by: Mallika Reynoso M.D. 08/04/2025 11:59 AM Dictation Location: [place] [address] Electronically authenticated by: [id number] Y Date: 08/04/2025 11:59 Knee X-Ray 08/04/25 10:28 IMPRESSION: NO ACUTE BONY INJURY. Impression dictated by: Mallika Reynoso M.D. 08/04/2025 11:45 AM Dictation [facility] authenticated by: [id number] Y Date: 08/04/2025 11:45 Discharge Plan Discharge Chief Complaint: Extremity Injury, Lower Clinical Impression: Trochanteric bursitis of right hip, Acute knee pain, Osteoarthritis Patient Disposition: Home, Self-Care Time of Disposition Decision: 12:47 Prescriptions / Home Meds: New methylprednisolone [Medrol (Jayy)] 4 mg tablets,dose pack 4 mg PO DAILY Qty: 21 0RF No Action amitriptyline 150 mg tablet 150 mg PO BEDTIME diltiazem HCl 300 mg tablet extended release 24 hr 300 mg PO Q24H duloxetine 60 mg capsule,delayed release(DR/EC) 160 mg PO DAILY furosemide 20 mg tablet 20 mg PO QDAY losartan 50 mg tablet 100 mg PO QDAY potassium chloride 10 mEq tablet,ER particles/crystals 10 meq PO BID quetiapine 100 mg tablet 100 mg PO DAILY quetiapine 200 mg tablet 200 mg PO BEDTIME tizanidine 4 mg tablet 8 mg PO BID brimonidine 0.2 % drops 1 drp OPHTHALMIC (EYE) TID rosuvastatin 10 mg tablet 10 mg PO DAILY omeprazole 40 mg capsule,delayed release(DR/EC) 40 mg PO BID ondansetron HCl 4 mg tablet 4 mg PO DAILY dicyclomine 10 mg capsule 10 mg PO TID oxycodone-acetaminophen [Percocet] 5-325 mg tablet 1 tab PO Q8H PRN (Reason: pain) 3 Days Qty: 9 0RF Print Language: Bulgarian Instructions: Hip Bursitis (ED), Osteoarthritis (ED), Knee Pain (ED) Referrals: VARUN CONTRERAS [Primary Care Provider, Family Practice] - 1 week Richie Zendejas MD [Physician, Orthopedics] - 1 week Referral Note: can see any of the available orthopedists for your trochanter bursitis
== END 2025-08-04 13:08 | disposition home or self-care (01) ==
PROVIDERS: Emergency Provider Emergency Medicine; PCP Nurse Practitioner Family
DX: M70.61 Trochanteric bursitis, right hip (principal); M25.561 Pain in right knee; M19.90 Unspecified osteoarthritis, unspecified site; M25.551 Pain in right hip; M85.88 Other specified disorders of bone density and structure, other site
CPT/HCPCS: 73562; 73700; 76376; 99284

== ENCOUNTER 2025-08-18 08:27 | Outpatient (OUT) | payer MEDICARE, BC, SELFPAY ==
--- OUTSIDE RECORDS SUMMARY | 2025-08-09 19:54 | XMS_ITS | Continuity of Care Document ---
Author Organization [facility] Address [address] [place] [address] Phone Care Team Providers Care Valve Technician Name Role Phone Germán Rodriguez MD Primary Care Provider [phone] Ruthy Jaquez Attending Provider Richie Zendejas II, MD Attending Provider Care Teams Patient Care Team Team Status: Active Member Role/Relationship Status Dates Germán Rodriguez MD Primary Care Provider Active Visit Care Team Team Status: Active Member Role/Relationship Status Greg Rodriguez MD Primary Care Provider Active Start: May 14, 2025 Ant Montelongo ProviderActiveStart: May 14, 2025 Visit Care Team Team Status: Inactive Member Role/Relationship Status Dates Germán Rodriguez MD Primary Care Provider Active Start: May 24, 2025 End: May 24Ant Mcguire ProviderActiveStart: May 24, 2025 End: May 24, 2025 Visit Care Team Team Status: Inactive Member Role/Relationship Status Gerg Rodriguez MD Primary Care Provider Active Start: August 09, 2025 End: August 09, 2025Ant Berg II ProviderActiveStart: August 09, 2025 End: August 09, 2025 Visit Care Team Team Status: Inactive Member Role/Relationship Status Greg Rodriguez MD Primary Care Provider Active Start: August 09, 2025 End: August 09, 2025Robert M Aashish II, MDAttending ProviderActiveStart: August 09, 2025 End: August 09, 2025 Chief Complaint and Reason for Visit Chief Complaint Admit Date renal 6 week f/u May 24, 2025 10 :05am ER [facility] RT HIP PAIN WX AND CT August 3:21pm M25.551 - Pain in right hip August 3:27pm Reason for Visit Admit Date CKD (chronic kidney disease) stage 3, GF R 30-59 ml/min May 24, 2025 10:05am Hyperlipidemia May 24, 2025 10 :05am Hypertensive chronic kidney disease with stage 1 through stage 4 chronic ki May 24, 2025 10:05am Nephrolithiasis May 24, 2025 10 :05am Secondary hyperparathyroidism May 10:05am UTI (urinary tract infection) May 10:05am Primary osteoarthritis of right hip Joy natarajan 2024 3:21pm Reason for Referral Type Reason(s) Provider Provider Contact Information [facility] Address Start Date Primary osteoarthritis of right hip M16.11 - Unilateral primary osteoarthritis, right hipM16.11 - Unilateral primary osteoarthritis, right hipBellevue Pain ManagementWork Phone: [phone] [facility] [address], [address] [address] Allergies, Adverse Reactions, Alerts Allergen Type Severity Reaction Last Updated Verified Status NSAIDS (Non-Steroidal Anti-Inflamma Allergy Unknown kidney disease August 09 3:49pm Yes Active Social History Smoking Status Status Start Date End Date Date of Observa tion Never smoked tobacco (finding) April 12, 2025 1:35pm Observation Status Observation Response Date of Response Legal Sex Female (finding) Sex Assigned At BirthFemaleJuly 1954 Family History Relationship Condition Age at Onset Recorded Date/T grecia father Congestive heart failure Unknown motherCongestive heart failureUnknownHeart diseaseUnknown Problems Active Problems Problem Diagnosis/Recorded Date Onset Date Stat us UTI (urinary tract infection) May 24, 2025 9:28am Unknown Active Primary osteoarthritis of right hip August 09, 2025 4:31pm Unknown Active Secondary hyperparathyroidism April 12, 2025 12:02pm U nknown Active CKD (chronic kidney disease) stage 3, GFR 30-59 ml/min April 12, 2025 12:02pm Unknown Active Hypertensive chronic kidney disease with stage 1 through stage 4 chronic kidney disease, or unspecified chronic kidney disease April 12, 2025 12:02pm Unknown Active Hyperlipidemia April 12, 2025 12:49pm Unknown Act dm Nephrolithiasis April 12, 2025 12:48pm Unknown Ac tive Medications Medication Status Dose Units Route Directions Qty Days Refills S tart Date Stop Date End Date Reason(s) Instructions Adherence Losartan 50 mg tablet Active 50 MG PO Twice ap y 2025 11:00pmUnknownCetirizine (Zyrtec) 10 mg jkvyvsEkkigs13LEACDticz as neededJuly 2024 11:00pmUnknownAmitriptyline 150 mg rmlmcxIyuwcb988FQOH Daily at bedtime as neededJuly 2024 11:00pmUnknownTizanidine 4 mg tablet Gxusxr0SZNTOsqro dailyJuly 2024 11:00pmUnknownOndansetron Hcl 4 mg tablet Ooewzv5LJYTFbjfs as neededJuly 2024 11:00pmUnknownSimvastatin 80 mg tablet Oelqsn23RFAWSvjypPrch 2024 11:00pmUnknownQuetiapine 100 mg nlyuxkDiolnb587 MGPO.COMPLEXJuly 2024 11:41lt841 mg orally 1 tab in am, 2 tabs in pm; UnknownAcetaminophen 500 mg ujkisrOdepag3575EUFTAujam daily as neededJuly 2024 11:00pmUnknownFurosemide 20 mg vsudacQdpyqb10ZEMFLlburQamg 2024 11:00pmUnknownDicyclomine 10 mg gilvtwzVtrrax50CANRHbggf times daily as needed 2025 11:00pmUnknownDiltiazem Hcl 300 mg tablet extended release 24 hr Wohxzs696NGKGHjuqReei 2024 11:00pmUnknownPotassium Chloride 10 mEq tablet,ER particles/aqlririqNzmtug32XGGWCCwhse dailyJuly 2024 11:00pm UnknownDuloxetine 60 mg capsule,delayed release(DR/EC)Rfbdqj331HZBCBwavq at bedtimeJuly 2024 11:00pmUnknownLatanoprost 0.005 % bkbumCootzq9NSUXI OPHTHALMICEvery eveningJuly 2024 11:00pmUnknownOmeprazole 40 mg capsule,delayed release(DR/EC)Qcnrbk63YFYHZdqvx dailyJuly 2024 11:00pm UnknownBrimonidine 0.2 % ytitfSjqyez4QRVIFXWIDRWVCBPLyanf times dailyJuly 2024 11:00pmUnknownDorzolamide-Timolol 22.3-6.8 mg/mL bkbjlVyusxx4UYIZP OPHTHALMICThree times dailyJuly 2024 11:00pmUnknownCefuroxime Axetil 250 mg edrnpxJilfvs540ZBFNAuolr fzktt227Egmzyy 2024 11:00pmUnknown Procedures Procedure Date Performed Status XR hip RT min 2V(w/wo pelvis)* August 09 3:28pm completed Relevant Diagnostic Tests and/or Laboratory Data Laboratory Results Test Collection Date/Time Result Date/Time Result Interpretation Reference Range Result Comment Performing Site Urine Other Casts May 14, 2025 9:30am NONE SEEN #/LPFNONE SEENUrine Random CreatinineAugust 2024 9:30amAugust 2024 9:30am54.37 mg/dL20.00-300.00Parathyroid Hormone (Intact)May 14, 2025 9:35amA2024 9:35am55 pg/dW17-39Lqnvyagzm at: - [facility] [id number] Director: Gerhard Saul PhD, Phone: [phone]-Hasrqvw Vitamin D TotalAugust 2024 9:35amAugu2024 9:35am27.5 ng/mL<20 ng/mL Vit D -<30 ng/mL Vit D dmiojwgsmtkg87- 100 ng/mL Vit D sufficient>100 ng/mL Potential ToxicityMagnesium LevelAugust 2024 9:35amAugu2024 9:35am1.8 mg/dL1.8-2.4Uric AcidAugust 2024 9:35amA2024 9:35am4.4 mg/dL2.6-6.0Anion GapAugust 2024 9:35am May 14, 2025 9:35am14.5HematocritAugust 2024 9:35amAugu2024 9:35am43.2 %36.0-48.0Urine Other CrystalsAugust 2024 9:30amNone Seen #/HPF None SeenUrine Protein/Creatinine RatioAugust 2024 9:30amAugu2024 9:30am1.13AlbuminAugust 2024 9:35amAugust 2024 9:35am3.1 g/dLBelow low normal3.4-5.0HemoglobinAugust 2024 9:35amAugu2024 9:35am14.6 g/dL 12.0-16.0Urine BacteriaAugust 2024 9:30amLARGE #/HPFAbnormal (applies to non-numeric results)NONE SEENUrine Random Total ProteinAugust 2024 9:30am May 14, 2025 9:30am61.6 mg/dLAbove high normal<=11.9BUN/Creatinine Ratio May 14, 2025 9:35amAugu2024 9:35am16.0Mean Corpuscular Hemoglobin May 14, 2025 9:352024 9:35am34.0 pg26.7-34.0Urine Bilirubin May 14, 2025 9:30amNEGATIVENEGATIVEBlood Urea NitrogenAugust 2024 9:35amAugust 2024 9:35am19.0 mg/dLAbove high normal7.0-18.0Mean Corpuscular Hemoglobin ConcentAugust 2024 9:35amAugu2024 9:35am33.8 g/dL 29.9-35.2Urine Occult BloodAugust 2024 9:30amSMALLAbnormal (applies to non- numeric results)NEGATIVECalcium LevelAugus2024 9:35amAugu2024 9:35am9.4 mg/dL8.5-10.1Mean Corpuscular VolumeAugust 2024 9:35amAugust 2024 9:85dw708.5 fLAbove high yqfsem76.0-99.0Urine AppearanceAugust 2024 9:30amCLOUDYAbnormal (applies to non-numeric results)CLEARChloride LevelAugust 2024 9:35amAugust 2024 9:77ph452 mmol/LAbove high togeff27-480Onkd Platelet VolumeAugust 2024 9:35amAugust 2024 9:35am10.1 fL9.5-13.5 Urine ColorAugust 2024 9:30amYELLOWYELLOWCarbon Dioxide LevelAugust 2024 9:35amAugust 2024 9:35am24.9 mmol/L21.0-32.0Platelet CountAugust 2024 9:35amAugust 2024 9:77hg280 10 3/yK563-640Bjkqu Glucose (UA)May 14, 2025 9:30amNEGATIVE mg/dLNEGATIVECreatinineA2024 9:35amAugust 2024 9:35am1.19 mg/dLAbove high normal0.55-1.02Red Blood CountAugust 2024 9:35amAugust 2024 9:35am4.30 10 6/uL4.20-5.40Urine KetonesAugu2024 9:30amNEGATIVE mg/dLNEGATIVEEstimated GFR ()May 14, 2025 9:35amAugu2024 9:25rr28Xjylg low normal>=60 mL/min/1.73m 2Red Cell Distribution WidthAugust 2024 9:35amAugu2024 9:35am12.3 %11.0-15.0 Urine Leukocyte EsteraseAugust 2024 9:30amLARGEAbnormal (applies to non- numeric results)NEGATIVEEstimated GFR (Non- AmericanAugust 2024 9:35amAugust 2024 9:66vl17Wjkob low normal>=60 mL/min/1.73m 2Corrected White Blood CountAugust 2024 9:35amAugust 2024 9:35am8.2 10 3/uL 4.0-11.0Urine MucusAugust 2024 9:30amNONE SEENNONE SEENGlucose LevelAugust 2024 9:35amAugust 2024 9:04ri001 mg/dLAbove high zvlyua71-590Atnep NitriteAugust 2024 9:30amNEGATIVENEGATIVEPotassium LevelAugust 2024 9:35amAugust 2024 9:35am4.4 mmol/L3.5-5.1Urine pHAugust 2024 9:30am6.0 5.0-9.0Sodium LevelAugust 2024 9:35amAugust 2024 9:60qe939 mmol/L 136-145Urine ProteinAugust 2024 9:30am30 mg/dLAbnormal (applies to non- numeric results)NEG/TRACEPhosphorus LevelAugust 2024 9:35amAugust 2024 9:35am3.8 mg/dL2.6-4.7Urine RBCAugust 2024 9:28dl7-8 #/HPFAbnormal (applies to non-numeric results)0-2Urine Specific GravityAugust 2024 9:30am1.015 1.005-1.025Urine Squamous Epithelial CellsAugust 2024 9:30amMODERATE #/LPF Abnormal (applies to non-numeric results)NONE/RAREUrine UrobilinogenAugust 2024 9:30am0.2 EU/dL0.2-1.0Urine WBCAugust 2024 9:71ab02-49 #/HPFAbnormal (applies to non-numeric results)NONE SEEN Diagnostic Imaging Reports Author Marcellus Valladares [facility]Report Date/TimeNov 2025 7:28pm [facility] [address] [place] [address] XRay Report Signed Patient: Keyanna Bauer MR#: [id number] : 1955 Acct:[id number] Age/Sex: 70 / F ADM Date: 5 Loc: [facility] [place]: Type: [facility] Attending Dr: Richie Zendejas II, MD Copies to: Richie Zendejas MD~ Ordering Provider: Richie Zendejas MD Date of Service: 08/09/25 XR/XR hip RT min 2V(w/wo pelvis)*: M25.551 - Pain in right hip 2 views right hip a single view pelvis HISTORY: Right hip pain. Fell. Adequate bony alignment without acute displaced fracture. Mild bilateral hip degeneration. Extensive bilateral SI joint degenerative changes. Greater trochanter spurring. Diffuse osteopenia. XR/XR hip RT min 2V(w/wo pelvis)* IMPRESSION: No acute displaced fracture. Impression dictated by: Marcellus Valladares M.D. 08/09/2025 7:28 PM Dictation Location: [place] [address] Transcribed By: [facility] 08/09/251927 Dictated By: Marcellus Valladares DO 08/09/251926 Signed By: <Electronically signed by Marcellus Valladares DO in OV> 08/09/251927 Vital Signs Vital Reading Result Reference Range Collection Date/Time Height 63 [in_i] May 24, 2025 9:21gnOucdpm90.06 kgAugust 2024 9:06amHeart Uprr109 /min 60-100August 2024 9:06amRespiratory rate18 /pie05-10Ficsdm 2024 9:06amOxygen saturation by Pulse fyqixsla31 %95-100August 2024 9:06amBP Avbfhxqa826 mm[Hg]100-140August 2024 9:06amBP Ukdxauhaf06 mm[Hg]60-100 May 24, 2025 9:06amBMI (Body Mass Index)32.4 kg/i6Mumcdn 2024 9:06am BP Usdrttae181 mm[Hg]100-140August 09, 2025 3:51pmBP Gzybgorue85 mm[Hg]60-100 August 09, 2025 3:51pm Advance Directives Advance Directive Response Recorded Date/ Time Advance Directives No April 06 1:43pm Insurance Providers Guarantor Keyanna Bauer Address [address] [address]Zvpiwdr Info.Home Phone: Payer Group Member ID Coverage Type Subscriber Relationship to Subscriber Effective Date Expiration Date Thu GRIFFIN Id: [id number] L Holmes Id: [id number] [address] [address] Home Phone: Encounters Encounter Location(s) Arrival/Admit Date Discharge/Departure Date Discharge/Departure Disposition Provider(s) Non-patient / Non-visit -[facility] Professional [facility] Sergei ugust 2024 10:35am NANY Montelongoeparted Physician/Provider Office Visit-[facility], [facility] Neph [facility] 2024 10:05amAugust 2024 10:29amDischarged to home care or self care (routine discharge)NANY Montelongoeparted Physician/Provider Office [facility] 3:21pmAugust 09, 2025 4:43pmDischarged to home care or self care (routine discharge)Isabel Walliseparted Clinical-[facility] 2024 3:27pmAugust 09, 2025 3:28pmDischarged to home care or self care (routine discharge)Isabel Wallis MD Recent Diagnosis Onset Date Admit Date CKD (chronic kidney disease) stage 3, GFR 30-59 ml/min Unknown May 24, 2025 10:05am Hyperlipidemia Unknown May 24 10:05am Hypertensive chronic kidney disease with stage 1 through stage 4 chronic ki Unknown May 24, 2025 10:05am Nephrolithiasis Unknown May 24 10:05am Secondary hyperparathyroidism Unknown [facility] 2024 10:05am UTI (urinary tract infection) Unknown [facility] 2024 10:05am Primary osteoarthritis of right hip Unknown August 09, 2025 3:21pm Assessments Diagnosis Onset Date Resolution Status Admit Date CKD (chronic kidney disease) stage 3, GF R 30-59 ml/min [place] 20[place] 10:05amHyperlipidemiaacuteAugust 2024 10:05am Hypertensive chronic kidney disease with stage 1 through stage 4 chronic [place] May 24, 2025 10:05amNephrolithiasisacuteAugust 2024 10:05amSecondary hyperparathyroidismacuteAugallup [facility]ert 2024 10:05amUTI (urinary tract infection) [place] 2024 10:05amPrimary osteoarthritis of right hipacuteNov2024 3:21pm Plan of Treatment Author Kristan Jaquez [facility] 20[facility] 7:14amShe has CKD due to longstanding hypertension and likely has a CKD as a result of it. Her baseline serum creatinine is 1.2- 1.4 mg/dL. I have ordered the kidney ultrasound to evaluate an anatomy. I discussed with her the importance of good HTN control to slow down the progression of the CKD. I have also advised her to avoid NSAIDs or any other nephrotoxic medication. Her blood pressure is controlled and she appears to be euvolemic. Will continue current antihypertensive medications. Advised her to monitor blood pressure and call the office if stays above 140 over 90 mmHg. Her MBD parameters including serum calcium, phosphorus, PTH and vitamin D are within the goal. She denies any recent passage of the kidney stones. Advised her to adequately hydrate herself. Will continue statins. Advised her to continue follow-up with PCP for monitoring of LFTs and lipid profile. She reported to have urinary symptoms and has abnormal UA. I have prescribed oral antibiotic. Also advised her to continue to follow with Dr. Whitlock's office for urinary incontinence. Future Tests Future scheduled test information is unavailable Pending Tests Test Name Ordered Date Scheduled Date Renal Function Panel May 24, 2025 9:27am 6 Months US renal BI May 24, 2025 9:22am Future Visits Future appointment information is unavailable Future Procedures Procedure Name Ordered Date Scheduled Date Dipstick and Microscopic May 24, 2025 9:27a m 6 Months Hemogram CBC Without Diff May 24, 2025 9:27 am 6 Months Magnesium May 24, 2025 9:27am 6 Month s Protein Creat Ratio Ur Random May 24, 2025 9:27am 6 Months Parathyroid Hormone Intact May 24, 2025 9:2 7am 6 Months Uric Acid May 24, 2025 9:27am 6 Month s Vitamin D 25 Hydroxy Total May 24, 2025 9:2 7am 6 Months Future Medications Future medication information is unavailable Patient Instructions Patient instructions are unavailable
--- OUTSIDE RECORDS SUMMARY | 2025-08-18 08:30 | XMS_ITS | Clinical Summary ---
Author Organization [facility] Address [address] [place], [place] [address] Care Team Providers Care Nailer Operator Name Role Phone Steffen Lobato DO Primary [...] of left eye03/24/2019 Choroidal nevus of left eye03/24/20197180Zxdfcqpnp32/19/2019Essential hypertension 03/24/20191036Oyyxlayqvlmipo14/19/6749Akuaux35/07/2017 Family History Medical HistoryRelationCommentsDiabetesFatherHypertensionFatherCataractMother HypertensionMotherGlaucomaPaternal GrandmotherRelationStatusCommentsFatherMother Paternal Grandmother Social History Tobacco UseTypesPacks/DayYears UsedDateSmoking Tobacco: NeverSmokeless Tobacco: NeverAlcohol UseStandard Drinks/WeekCommentsNo0 (1 standard drink = 0.6 oz pure alcohol)Area Deprivation IndexAnswerDate RecordedNational Score (1-100), lower number is lower riskNot on file09/12/2020State Score (1-10), lower number is lower riskNot on file09/12/2020Data from: https://www.neighborhoodatlas.[facility].edu/. Last address used for calculationNot on file09/12/2020CommentsNoSex and Gender Information ValueDate RecordedSex Assigned at BirthNot on fileLegal TexJsfasm84/06/2017 11:01 AM ESTGender IdentityNot on fileSexual OrientationNot on file Last Filed Vital Signs Vital SignReadingTime TakenCommentsBlood Cglwairm214/72004/01/2017 11:23 AM EDT Agesw796204/01/2017 11:23 AM YDNVqpvkqbfiso36.7 ??C (98.1 ??F)04/01/2017 11:23 AM EDTRespiratory Hgvm837604/01/2017 11:23 AM EDTOxygen Saturation--Inhaled Oxygen Concentration--Pkbjew02.4 kg (161 lb 14.4 oz)04/01/2017 11:23 AM SCQRxuorv456.9 cm (5' 0.98 )04/01/2017 11:23 AM EDTBody Mass Index30.61004/01/2017 11:23 AM EDT Plan of Treatment Health MaintenanceDue DateLast DoneCommentsAnxiety Chbzrzwiz08/07/1971Depression Avcpgrxcj30/07/1971DTaP,Tdap,Td Vaccine (1 - Tdap)1972Mammogram Screening 1993CT Guwuzfwvzfxq57/07/1998Cologuard (FIT-DNA)1998Colonoscopy 1998Colorectal Cancer Erkzteywp06/07/1998Fecal Occult Blood1998Lipid Lorxbyodt56/07/4605Tlceomlocxvnt10/07/1998Pneumococcal Vaccine: 50+ (1 of 1 - PCV)2003Shingrix Vaccine (1 of 2)2003Bone Density Screening 2018Diabetes Lrejpfwpq36Advance Directive Discussion 10/06/2024ovid-19 Vaccine (1 - 2024- season)2025Influenza Vaccine (#1) 2025RSV Vaccine (1 - 1-dose 75+ series)2028Hepatitis C Screening Aljwxmvmj92/07/2017 Procedures Procedure NamePriorityDate/TimeAssociated DiagnosisCommentsHEP REMOTE PANEL BL Vxuacss9612/10/2016 12:23 PM EST Anemia, unspecified type COMPREHENSIVE METABOLIC IWZVPDewwhfd18/07/2017 12:23 PM EST Anemia, unspecified type from Last 3 Months or Most Recently Relevant to Health Maintenance Results * HEP REMOTE PANEL BL (12/10/2016 12:23 PM EST)ComponentValueRef RangeTest MethodAnalysis TimePerformed AtPathologist SignatureHep B Core Ab, Total XfuaziefDogtudrd37/08/2017 10:08 AM [facility] LABORATORYHep C Antibody YYUmfuvfsvYbinmwqp81/08/2017 10:08 AM [facility] SLWKGUFKALSUnMyXgcroiaeThyacjwc04/08/2017 10:08 AM [facility] LABORATORYHep B Surface Ab, VajbKtdmupogNicyofhg53/08/2017 10:08 AM [facility] MAIN LABORATORYComment:NEGATIVESpecimen (Source)Anatomical Location / LateralityCollection Method / VolumeCollection TimeReceived Time Blood specimen (specimen)BLOOD SPECIMEN / Twtfihm7512/10/2016 12:23 PM EST 12/10/2016 12:28 PM EST Narrative Authorizing ProviderResult TypeResult StatusSamialex Mullen Adriana DOLABORATORY Final ResultPerforming OrganizationAddressCity/State/ZIP CodePhone Number [facility] [address] [place] [address] * (ABNORMAL) COMP METABOLIC PANEL (12/10/2016 12:23 PM EST)ComponentValueRef RangeTest MethodAnalysis TimePerformed AtPathologist SignatureProtein, Total 6.1(L)6.3 - 8.0 g/dL12/11/2016 7:44 AM [facility] Albumin3.6(L)3.9 - 4.9 g/dL12/11/2016 7:44 AM [facility] LABORATORYCalcium9.58.5 - 10.2 mg/dL12/11/2016 7:44 AM [facility] LABORATORYBilirubin, Total0.50.2 - 1.3 mg/dL12/11/2016 7:44 AM EST [facility] LABORATORYAlkaline Yndcgrduczy7130 - 117 U/L12/11/2016 7:44 AM [facility] UZYQIMWADYTXO5420 - 35 U/L12/11/2016 7:44 AM [facility] DFWKGUZHKUSnegmci575(H)74 - 99 mg/dL12/11/2016 7:44 AM [facility] LABORATORYComment: The [place] Diabetes Association (ADA) provides guidance for cutoff [...] Standards of Medical Care in Diabetes 2016, [place] Diabetes Association. Diabetes Care. 2016.39(Suppl 1). ZOQ437 - 21 mg/dL12/11/2016 7:44 AM [facility] Creatinine1.41(H)0.58 - 0.96 mg/dL12/11/2016 7:44 AM [facility] WSFRAITXMZJgsjaq844115 - 144 mmol/L12/11/2016 7:44 AM [facility] LABORATORYPotassium4.43.7 - 5.1 mmol/L12/11/2016 7:44 AM [facility] GBWDNMWGWOCoxenrac997(H)97 - 105 mmol/L12/11/2016 7:44 AM [facility] OXLOVGGXDMDA666(L)22 - 30 mmol/L12/11/2016 7:44 AM [facility] LABORATORYAnion Gbb579 - 18 mmol/L12/11/2016 7:44 AM [facility] ENZRQTTWSMNJX95 - 38 U/L12/11/2016 7:44 AM [facility] LABORATORYeGFR- Nhnnkasa2383/08/2017 7:44 AM [facility] LABORATORYeGFR-All Other Races38.12/11/2016 7:44 AM [facility] LABORATORYComment: eGFR (Estimated GFR) Units of measure: [...] Wright DOLABORATORY Final ResultPerforming OrganizationAddressCity/State/ZIP CodePhone Number [facility] [address] [place] [address] from Last 3 Months or Most Recently Relevant to Health Maintenance Insurance Care Teams Team MemberRelationshipSpecialtyStart DateEnd Date Steffen Lobato DO PCP - GeneralFamily Medicine12/09/16
--- OUTSIDE RECORDS SUMMARY | 2025-08-18 08:30 | XMS_ITS | Clinical Summary ---
Author Organization [facility] Address [address] [place] [address] Care Team Providers Care Pantograph Ii Engraver Name Role Phone Unavailable Primary Care Provider Unavailabl e Social History Tobacco UseTypesPacks/DayYears UsedDateSmoking Tobacco: Never Assessed CommentsUnknownSex and Gender InformationValueDate RecordedSex Assigned at Not on fileLegal OqrNqfygn24/15/2023 6:57 PM EDTGender IdentityNot on fileSexual OrientationNot on file Last Filed Vital Signs Vital SignReadingTime TakenCommentsBlood Csrczqsu678/8911/10/2019 12:00 PM EST Pulse--Temperature--Respiratory Rate--Oxygen Saturation--Inhaled Oxygen Concentration--Qlrclj355 kg (224 lb)11/10/2019 12:00 PM BWXOscmnl342 cm (5' 3 ) 11/10/2019 12:00 PM ESTBody Mass Index39.68011/10/2019 12:00 PM EST Plan of Treatment Not on file Insurance
--- NOTE | 2025-08-18 09:05 | PM.CN ---
Consult Note: HPI Data of Consult Patient: known to practice within the last 3 years Consult date: 08/18/25 Requesting Physician: Candy Anne NP Primary Care Provider: VARUN CONTRERAS Consult Narrative Reason for consult: right hip pain Narrative: Keyanna Bauer a pleasant 70 year old female presents for evaluation of right hip pain as recommended by Dr Alfaro. Patient has noted severe right hip pain starting october 2023 after a fall, has undergone extensive imaging which has ruled out fracture. notable OA to right hip and greater trochanteric bursitis. pt has not been able to tolerate HEP or PT. She has failed percocet and tramadol, cannot take NSAIDs. Pain today 10/10 sharp burning in right hip and leg. Pain increasing with sitting, standing, walking, activity. currently on tylenol, tizanidine, duloxetine, seroquel, amitrtiptyline without relief. notes frequent falls, utilize wheeled walker. cc:: CC: Candy Anne NP Review of Systems ROS Musculoskeletal Reports: back pain, extremity pain and joint pain PFSH PFSH Medical History Surgical History H/O tubal ligation ?Z98.51 - Tubal ligation status (ICD-10) Family History Father Family history of CHF (congestive heart failure) Family history of diabetes mellitus Mother Family history of CHF (congestive heart failure) Family history of hypertension Social History Within the past year, how often did you have a drink containing alcohol: never Score interpretation: A score less than 3 is consistent with normal alcohol consumption. Smoking status: Never smoker Non-prescribed substance use: denies use Previous occupational history: retired Highest level of school completed/degree received: high school graduate Are you now , , , , never or living with a partner: Little interest or pleasure in doing things: not at all Feeling down, depressed, or hopeless: not at all Feel stressed/tense/nervous/anxious/difficulty sleeping: only a little Do you think of yourself as: straight/heterosexual Gender Identity: female Meds Home Medications and Allergies Home Medications ?Medication ?Instructions ?Recorded ?Confirmed ?Type amitriptyline 150 mg tablet 150 mg PO BEDTIME 05/04/23 08/04/25 History diltiazem HCl 300 mg 300 mg PO Q24H 05/04/23 08/04/25 History tablet,extended release 24 hr furosemide 20 mg tablet 20 mg PO QDAY 05/04/23 08/04/25 History losartan 50 mg tablet 100 mg PO QDAY 05/04/23 08/04/25 History potassium chloride 10 mEq 10 meq PO BID 05/04/23 08/04/25 History tablet,extended release(part/cryst) quetiapine 100 mg tablet 100 mg PO DAILY 05/04/23 08/04/25 History quetiapine 200 mg tablet 200 mg PO BEDTIME 05/04/23 08/04/25 History tizanidine 4 mg tablet 8 mg PO BID 05/04/23 08/04/25 History dicyclomine 10 mg capsule 10 mg PO TID 07/20/25 08/04/25 History omeprazole 40 mg capsule,delayed 40 mg PO BID 07/20/25 08/04/25 History release ondansetron HCl 4 mg tablet 4 mg PO DAILY 07/20/25 08/04/25 History brimonidine 0.2 % eye drops 1 drp ophthalmic (eye) TID 08/04/25 08/04/25 History rosuvastatin 10 mg tablet 10 mg PO DAILY 08/04/25 08/04/25 History duloxetine 60 mg capsule,delayed 60 mg PO BID 08/18/25 08/18/25 History release Allergies Allergy/AdvReac Type Severity Reaction Status Date / Time No Known Drug Allergies Allergy Verified 07/20/25 14:34 Exam Constitutional Documenting provider has reviewed patient's vital signs: yes Common normals: no apparent distress, oriented x3 and alert General appearance: cooperative HENMT Common normals: normocephalic, hearing grossly normal bilaterally and moist oral mucous membranes Head and scalp: normocephalic Eye Common normals: PERRL Pupil: PERRL Neck & C-Spine Common normals: full ROM General: normal visual inspection Chest Common normals: inspection of chest normal Respiratory Common normals: normal respiratory effort, no retractions and no use of accessory muscles Back & Pelvis Lumbar spine/lower back: pain with ROM, lumbar spinal tenderness and straight leg raise positive right Sacroiliac joints: SI joint(s) abnormal Other: moderate pain over right PSIS moderate pain over right GTB severe pain with internal/external rotation of right hip strength 4/5 in RLE and 5/5 in LLE Neuro Common normals: oriented x3 Sensorium/orientation: alert Gait (neuro): assistive device used walker Motor exam: strength abnormal Psych Common normals: mental status grossly normal, thought process normal, cooperative, affect normal, speech normal and activity/motor behavior normal Speech: normal speech Thought process: normal thought process Results Additional Findings Additional findings: If on a controlled substance or opioids, I have checked an [place] report on this patient and there are no aberrancies noted in the prescribing history.??If on a controlled substance or opioid a drug screen was completed and reviewed within the last year, and if there has not been a drug screen completed we ordered one today to monitor higher risk, state monitored pain medication use. As part of providing excellent, safe, comprehensive care, the following was completed at our patient's visit: 1. A medication reconciliation and review to ensure accurate knowledge of current/active medications, including asking our patients to inform us about any pjwf-pek-fnskdir medications or herbal remedies/nutritional supplements/alternative remedies. 2. A review to specifically ensure our patients have had annual screening for screening for depression, screening for tobacco use, and screening for unhealthy alcohol use. For concerning screenings had a discussion with the patient, provided patient education, and recommended follow-up with primary care provider when appropriate. If patient noted with a risk of falling, they received education on strength, gait, and balance training to prevent future risk of falling. Portions of this note may have been carried over from the previous visit and updated as appropriate. Please note this office utilizes paper charting in addition to the electronic medical record. A list of current medications, vitals, and PMH is available there as the clinical staff outside of myself do not have access to [facility] charting during the clinic day operations. As part of providing quality comprehensive care the current medications, vitals, and PMH were reviewed in the paper chart. Assessment and Plan Assessment and Plan (1) Osteoarthritis of right hip: (2) Greater trochanteric bursitis of right hip: Plan 70 year old female with chronic severe right hip pain > 1 year unresponsive to heat, ice, tylenol, and topical nsaids. cannot take oral NSAIDs due to GI upset. cannot tolerate PT due to pain. will trial right hip injection under fluoroscopy for pain and OA as directed by orthopedics. recommend a right GTB injection at f/u visit with Dr Martinez. dc tizanidine, start baclofen 5-10mg tid prn pain/spasms risks vs benefits reviewed. continue to utilize wheeled walker, defer PT due to severe pain. may consider PT for frequent falls at f/u visit once pain improves. if patient notes no benefit from hip injections we should further address low back pain and questionable radiculopathy. f/u for injection therapy
== END 2025-08-18 08:28 | disposition home or self-care (01) ==
LOC: PM 08:27
PROVIDERS: PCP Nurse Practitioner Family; Visit Provider Nurse Practitioner
DX: M16.11 Unilateral primary osteoarthritis, right hip (principal); M70.61 Trochanteric bursitis, right hip
CPT/HCPCS: G0463

== ENCOUNTER 2025-08-29 08:43 | Day surgery (SDC) | payer MEDICARE, BC, SELFPAY ==
--- OUTSIDE RECORDS SUMMARY | 2025-08-15 11:30 | XMS_ITS ---
Author Organization [facility] [place] Address [address] [place] [address] Care Team Providers Care Stock Roller Name Role Phone Hanna Graves Primary Care Provider [phone] REASON FOR VISIT TOR note on 08/15 Encounters Encounter Location Date Provider Diagnosis [facility] [address] [place] [address] 08/15/2025 Hanna Graves Other chronic pain G89.29 Assessments Encounter Date Diagnosis (ICD Code) Assessment Notes Treatment Notes Treatment Clinical Notes Section Notes 08/15/2025 Other chronic pain (ICD-10 - G89 .29) Plan Of Treatment No Information Medications Administered Medication Instructions Date of Administration Dosage Notes Ketorolac Tromethamine 560 mg Progress Notes * Keyanna BAUER ADOB:[birth year] (70 yo F)Acc No.[id number]:08/15/2025 Progress Note Patient: Chapis LEAL Keyanna Mai :?Hanna Graves ([facility]), CNPDOB:1955 ???Age:70 Y???Sex:FemaleDate:08/15/2025Phone:[phone]:[address], [id number] In:04:27 PM ESTCheck Out:04:40 PM EST Subjective: * Chief Complaints: * T OR note on 08/15 * Active Problem List M79.7 Fibromyalgia Modified On:05/15/2023W/U Status:ttkhchleaQ54.909Migraine, unspecified, not intractable, without status migrainosus Modified On:05/15/2023 Status:squlcyaxqM54.ADepression, unspecified Modified On:05/15/2023 Status:omeubnxafD17.9Unspecified glaucoma Modified On:05/15/2023 Status:txeedkkveH30.90Unspecified osteoarthritis, unspecified site Modified On:05/15/2023 Status:gpbrtbgmgX91.5Hyperlipidemia, unspecified Modified On:05/15/2023 Status:fqssclehdX81Cukychvup (primary) hypertension Modified On:05/15/2023 Status:pcvylscghI94.29Other chronic pain Modified On:05/15/2023 Status:kuynvcwraV92.90Diverticulosis of intestine, part unspecified, without perforation or abscess without bleeding Modified On:05/15/2023 Status:bklypfvrnO90.919Ulcerative colitis, unspecified with unspecified complications Modified On:05/15/2023 Status:pgwgphikuE24.9Diaphragmatic hernia without obstruction or gangrene Modified On:05/15/2023 Status:dgyyedrsnL99.9Noninfective gastroenteritis and colitis, unspecified Modified On:05/15/2023 Status:rwtulfbrvJ65.9Anemia, unspecified Modified On:05/15/2023 Status:yetzdyfosW08.32Stage 3b chronic kidney disease Modified On:12/15/2024 Status:cfrvlghlrH19.89Balance problem Modified On:04/20/2025 Status:confirmed * Medical History: * Surgical History: * Hospitalization/Major Diagno stic Procedure: * Medications: Objective: * Vitals: Assessment: * Assessment: 1.?Other chronic pain - G89.29 (Primary)??? Plan: * Treatment: * Therapeutic Injections: Ketorolac Tromethamine : 60 mg (Route: Intramuscular) given by Izabel Mcconnell SA on right deltoid (Other chronic pain) * Procedure Codes: 9 6372 THERAP.INJ. OF MED. INTRAMUSCULAR OR [id number] TORADOL, PER 15 MG, Units: 4.00 * * Sign off status: CompletedVisit Status:?CHK (Check Out) true * Provider: Lisha Graves ([facility]), TALENT MANAGEMENT MANAGER Date: 10/15/2024 Generated for Printing/Faxing/eTransmitting on:?08/29/2025 08:47 AM EST
--- OUTSIDE RECORDS SUMMARY | 2025-08-25 07:08 | XMS_ITS | Continuity of Care Document ---
Author Organization [facility] Address [address] [place] [address] Phone Care Team Providers Care Associate Director Of Nursing Name Role Phone Germán Rodriguez MD Primary Care Provider [phone] Richie Zendejas II, MD Attending Provider [phone] Conner Louie DO Emergency Provider Ciro Valentin MD Admit Provider [phone] Hernandez Davies MD Attending Provider Care Teams Patient Care Team Team Status: Active Member Role/Relationship Status Greg Rodriguez MD Primary Care Provider Active Visit Care Team Team Status: Inactive Member [...] MD Primary Care Provider Active Start: August 20, 2025 End: August 25, 2025Lynn Flanagan ProviderActiveStart: August 20, 2025 End: August 25, 2025Ciro Valentin MDAdmit ProviderActiveStart: August 20, 2025 End: August 25, 2025Hernandez Davies MDAttending ProviderActiveStart: August 20, 2025 End: August 25, 2025 Chief Complaint and Reason for Visit Chief Complaint Admit Date ER [facility] RT HIP PAIN WX AND CT August 3:21pm M25.551 - Pain in right hip August 3:27pm Right hip pain, not eating August 1:06am Reason for Visit Admit Date Primary osteoarthritis of right hip Xiaoe mbeva 2024 3:21pm Bilateral kidney stones August 20, 025 1:06am High anion gap metabolic acidosis Novemb er 2024 1:06am Metabolic encephalopathy August 20, 2025 1:06am Polypharmacy August 20, 2025 1:06am UTI (urinary tract infection) August 062024 1:06am Health Concerns Concerns Start Date A [facility] screening has identified you as FRAIL or AT RISK FOR FRAILTY. This puts you at a higher risk for infection, illness, falls, and other injuries. Here are four ways to help you reduce your risk of frailty: 1. IDENTIFY EARLY SIGNS OF FRAILTY ??? Discuss contributing factors and concerns with your doctor 2. BE ACTIVE ??? Walking and light strengthening exercises will help reduce weakness 3. EAT WELL ??? Aim for three healthy meals a day that are high in protein 4. THINK POSITIVE ??? Keep your mind active by being sociable and continuing to learn References: Stay Strong: Four Ways to Beat the Frailty Risk https://www.[facility].org/health/drxryley-adn-fniydcgcqa/kamw-qerzrs-kqie- uugp-zb-yzkn-the-fra ilty-risk Allergies, Adverse Reactions, Alerts Allergen Type Severity Reaction Last Updated Verified Status NSAIDS (Non-Steroidal Anti-Inflamma Allergy Unknown kidney disease August 19, 2025 6:19pm Yes Active Social History Smoking Status Status Start Date End Date Date of Observa tion Never smoked tobacco (finding) August 20, 2025 2:33am Observation Status Observation Response Date of Response Legal Sex Female (finding) Sex Assigned At BirthFemaleJuly 1954 Social History Assessments Assessment Value Date Recorded SDOH Follow up August 25, 2025 10:10amQuestionAnswerDate RecordedHas the SDOH screening changed since admission?NNovember 2024 10:10am Family History Relationship Condition Age at Onset Recorded Date/T grecia father Congestive heart failure Unknown motherCongestive heart failureUnknownHeart diseaseUnknown Problems Active Problems Problem Diagnosis/Recorded Date Onset Date Status C omments UTI (urinary tract infection) May 24, 2025 9:28am Unk nown Active Primary osteoarthritis of right hipNovember 2024 4:31pmUnknownActiveHigh anion gap metabolic acidosisNovember 2024 2:20amUnknownActiveSecondary hyperparathyroidismJuly 2024 12:02pmUnknownActiveCKD (chronic kidney disease) stage 3, GFR 30-59 ml/minJuly 2024 12:02pmUnknownActiveMetabolic encephalopathyNovember 2024 2:02amUnknownActiveHypertensive chronic kidney disease with stage 1 through stage 4 chronic kidney disease, or unspecified chronic kidney diseaseJuly 2024 12:02pmUnknownActiveHyperlipidemiaJuly 2024 12:49pmUnknownActiveNephrolithiasisJuly 2024 12:48pmUnknownActive lithotripsy with stentsPolypharmacyNovember 2024 4:31amUnknownActive Bilateral kidney stonesNovember 2024 1:00amUnknownActive Medications Medication Status Dose Units Route Directions Qty Days Refills S tart Date Stop Date End Date Reason(s) Instructions Adherence Baclofen 5 mg tablet Discontinued 5 MG PO .prn August 19, 2025 12:00amNovember 2024 1:00pmRosuvastatin 10 mg tablet Hhhddb31MPRJMssdjLzmcgmlb 15th, 2025 12:00amComplies with drug therapyLosartan 50 mg ptpsdvNkhucz12CILXOezbc dailyJuly 2024 11:00pmComplies with drug therapyCetirizine (Zyrtec) 10 mg phewejUaljbbrkublb32MXTCIwoix as neededJuly 2024 11:00pmAugust 20, 2025 6:43pmAmitriptyline 150 mg tablet Kdgcdphleajc684ZZYYXmjxl at bedtime as needed for painJuly 2024 11:00pm August 24, 2025 1:00pmTizanidine 4 mg zicsvvDvvlxvomjdii4NIXCZlwwb dailyJuly 2024 11:00pmNov2024 2:08amOndansetron Hcl 4 mg zrmlwbOckgev8SV PODaily as needed for nausea and vomitingJuly 2024 11:00pmComplies with drug therapySimvastatin 80 mg oihrzvFluzeitblkpp92MRDFXfwpsTffy 2024 11:00pmNov2024 6:43pmQuetiapine 100 mg czvfyvGoddes339PZIZ.COMPLEX 2025 11:68dq264 mg orally 1 tab in am, 2 tabs in pm;Complies with drug therapyAcetaminophen 500 mg raqqusLlspqs3932TAVMQaqmt daily as needed for pain 2025 11:00pmComplies with drug therapyFurosemide 20 mg ynkuxhFjsode02 MGPODailyJuly 2024 11:00pmComplies with drug therapyDicyclomine 10 mg feaqwohVqwhba39GTCRZxliu times daily as needed for spasmsJuly 2024 11:00pm Complies with drug therapyDiltiazem Hcl 300 mg tablet extended release 24 hr Ojzpjr586MUVGIpjgrInoa 2024 11:00pmComplies with drug therapyPotassium Chloride 10 mEq tablet,ER particles/cxrujvkqRtbntc64VASPRYxvkl dailyJuly 2024 11:00pmComplies with drug therapyDuloxetine 60 mg capsule,delayed release(DR/EC)Zzmmyd88DJFQZjmww dailyJuly 2024 11:00pmComplies with drug therapyLatanoprost 0.005 % rhlrnElixvt2UJHDUCWBHCPBMFUCmfli eveningJuly 2024 11:00pmComplies with drug therapyOmeprazole 40 mg capsule,delayed release(DR/EC)Vccvhi57NUSKDvwpk dailyJuly 2024 11:00pmComplies with drug therapyBrimonidine 0.2 % jnoiaAsakyy7PIKQLMTWFAWJOVYOjupz times dailyJuly 2024 11:00pmComplies with drug therapyDorzolamide-Timolol 22.3-6.8 mg/mL drops Uprgzt6ILHNXIZOMSWDNUPCccyq times dailyJuly 2024 11:00pmComplies with drug therapyCefuroxime Axetil 250 mg hmtzbzNzzzxyekuine883DAMGWousd hhtnj369Pgtnxh 2024 11:00pmNovember 2024 2:08am Procedures Procedure Date Performed Status XR hip RT min 2V(w/wo pelvis)* August 19 7:19pm completed XR knee RT 4V* August 19, 2025 7:19pm compl eted CT abdomen pelvis w con August 19, 2025 9:[address] head/brain wo con August 19, 2025 9:54pm completed XR chest 1V portable August 19, 2025 9:54pm completed US gall bladder August 19, 2025 11:44pm comp leted Blood Culture August 19, 2025 completed Blood Culture August 19, 2025 completed Urine Culture August 19, 2025 completed Urine Culture August 19, 2025 cancelled XR hip RT min 2V(w/wo pelvis)* August 09 3:28pm completed Relevant Diagnostic Tests and/or Laboratory Data Laboratory Results Test Collection Date/Time Result Date/Time Result Interpretation Reference Range Result Comment Performing Site Corrected White Blood Count August 22, 2025 8:29am August 22, 2025 8:43am 7.9 10*3/uL 3.8-11.6[facility] [id number] [address] [facility] [address]Ebfwwycmwbw WBC CountNov2024 7:16amNovember 2024 8:49am8.9 10*3/uL3.8-11.6FHigh[facility] [id number] [address] [facility] 42410Lff Blood CountNovember 2024 8:29amNovember 2024 8:43am4.16 10*6/uL3.60-5.00[facility] [id number] [address] 45872XnuiwrmorwDtcionij 17th, 2025 8:292024 8:43am 14.5 g/dL11.8-15.4F[facility] [id number] [address] 16166ZpdaguktvvVtymbjjl 2024 8:2024 8:43am 42.2 %34.0-46.4F[facility] [id number] [address] 68436Shxv Corpuscular VolumeNovember 2024 8:29ove2024 8:64be570.5 fLAbove high upukfq85-156VuqyjnyuoParkwood Hospital [facility]tr [id number] [address] [facility] [address]Yawi Corpuscular HemoglobinNovember 2024 8:292024 8:43am34.8 pgAbove high qdotdx62.7-34.3FHigh[facility] [id number] [address] [place] [address] 05656Mqpt Corpuscular Hemoglobin ConcentNovember 2024 8:29am August 22, 2025 8:43am34.3 g/dL32.0-35.0[facility] [id number] [address] [place] [address]6933Zzd Cell Distribution WidthNovember 2024 8:2024 8:43am14.2 %11.9-15.3F[facility] [id number] [address] [facility] 72487Mmxblceg CountNovember 2024 8:292024 8:51nq657 10*3/rQ897-044KbzxpfaxaParkwood Hospital [facility] [id number] [address] [place] [address] 19564Szqt Platelet VolumeNovember 2024 8:2024 8:43am7.8 fL6.3-10.7FHigh[facility] [id number] [address] [place] [address] 40388Wkthncwk Distribution WidthNovember 2024 10:21amNoveer 2024 11:06am16.33 %0.00-20.00[facility] [id number] [address] [facility] [address] 234[address]Ixxeduyfxli (%) (Auto)August 21, 2025 7:amNovemb2024 8:49am72.8 %.[facility] [id number] [address] 42447Wblgmjvxraf (%) (Auto)August 21, 2025 7:16amNovemb2024 8:49am18.5 %.[facility] [id number] [address] 401[address]Ftjedxmph (%) (Auto)August 21, 2025 7:ove2024 8:49am7.6 %.[facility] [id number] [address] [address]37870Eosinophils (%) (Auto)August 21, 2025 7:amNovemb2024 8:49am0.6 %.[facility] [id number] [address] 76[address]Edketeumx (%) (Auto)August 21, 2025 7:ove2024 8:49am0.5 %.[facility] [id number] [address] 59362Moapgtrhb RBC Relative Count (auto)August 21, 2025 7:16am August 21, 2025 8:49am0.0 /100{WBC}0-0.5FHigh[facility] [id number] [address] [facility] 73821Bkygmbldgkq # (Auto)August 21, 2025 7:amNovemb2024 8:49am6.5 10*3/uL1.8-7.7FHigh[facility] [id number] [address] [place], [place] [address]Lymphocytes # (Auto)August 21, 2025 7:amNovemb2024 8:49am1.7 10*3/uL1.00-4.8[facility] [id number] [address] 65378[address]Monocytes # (Auto)August 21, 2025 7:16amNovember 2024 8:49am0.7 10*3/uL0.0-0.8[facility] [id number] [address] [facility] [address] 93661Htkxovdauxj # (Auto)August 21, 2025 7:16amNovember 2024 8:49am0.1 10*3/uL0.0-0.45[facility] [id number] [address] [facility] [address] 585[address]Npctyindg # (Auto)August 21, 2025 7:16amNovember 2024 8:49am0.0 10*3/uL0.0-0.2FHigh[facility] [id number] [address] [facility] [address] 72572Y-Trwco Quantitative (PE/DVT)August 19, 2025 10:07pm August 19, 2025 11:18pm< 200 ng/mL0-243The reference range for D-dimer is <243 ng/mL D-dimer units.D-dimer results must be used in conjunction with a clinicalpretest probability (PTP) assessment model for deep veinthrombosis (DVT) and pulmonary embolism (PE). Results <230ng/mL d-dimer units can be used as a negative predictor inpatients with low or moderate probability for DVT/PE.Results above the exclusion threshold of 230 ng/ml D-dimerunits for DVT/PE may indicate the need for furtherdiagnostic testing.D-Dimer can be increased in hospitalized patients due toco-morbid conditions.A hematocrit value greater than 55% may lead to inaccurate results in coagulation testing. Patients having hematocrit values >55% require a special collection tube for coagulation studies. Please contact the laboratory at [phone] for redraw instructions. [facility] [id number] [address] [facility] [address] 45[address]Riorn ColorNovember 2024 10:07pmNov2024 11:27pmLight-yellowYellowParkwood Hospital Ctr [id number] [address] 80624Hffri AppearanceNovember 2024 10:07pmAugust 19, 2025 11:27pmClearClearParkwood Hospital Ctr [id number] [address] 389[address]Gmiuh Specific GravityNov2024 10:07pmAugust 19, 2025 11:27pm1.0141.001-1.030[facility] [id number] [address] 739[address]Bwrfr pHNov2024 10:07pmNov2024 11:27pm 5.55.0-9.0[facility] [id number] [address] 10432Krfet Leukocyte EsteraseNov2024 10:07pmAugust 19, 2025 11:27pm2+Above high normalNegativeParkwood Hospital [facility]tr [id number] [address] 21752Dsgvj NitriteNov2024 10:072024 11:27pmNegativeNegativeParkwood Hospital Ctr [id number] [address] [facility] 93127Erlyi ProteinNov2024 10:07pmAugust 19, 2025 11:27pmNegative mg/dLNegativeParkwood Hospital Ctr [id number] [address] 45515Hhthv Glucose (UA)August 19, 2025 10:07pmAugust 19, 2025 11:27pmNormal mg/dLNormalParkwood Hospital Ctr [id number] [address] 30243Wiqxe KetonesNov2024 10:07pmAugust 19, 2025 11:27pm1+Above high normalNegativeParkwood Hospital [facility] [id number] [address] 26443Tptza UrobilinogenNov2024 10:07pmAugust 19, 2025 11:27pmNormal mg/dLNormalParkwood Hospital Ctr [id number] [address] [facility] [address] 59328Wnkgh BilirubinNov2024 10:07pmAugust 19, 2025 11:27pmNegativeNegativeParkwood Hospital [facility] [id number] [address] 14944Susem Occult BloodNovember 2024 10:07pmAugust 19, 2025 11:27pmNegativeNegativeParkwood Hospital [facility] [id number] [address] 13755Cmxzy RBCNovember 2024 10:07pmAugust 19, 2025 11:33pm 1-2 [HPF]0-4FHigh[facility] [id number] [address] [facility] 76[address]Iayib WBCNovember 2024 10:07pmNov2024 11:33pm 10-19 [HPF]Above high normal0-4FHighland District [facility] [id number] [address] [facility] [address] 56399Cuvdl WBC ClumpsNovember 2024 10:07pmAugust 19, 2025 11:33pmOccasional [LPF]Above high normalNone SeenParkwood Hospital Ctr [id number] [address] [facility] [address] 48078Vxqvz Squamous Epithelial CellsNov2024 10:07pm August 19, 2025 11:93gw1-9 [HPF]0-2FHighland District Hospital [facility] [id number] [address] [facility] 53979Gdyyu BacteriaNovember 2024 10:07pmAugust 19, 2025 11:33pmNone seen [HPF]None SeenParkwood Hospital Ctr [id number] [address] [facility] 43191Xupfi Hyaline CastsNov2024 10:07pmNov2024 11:33pmNone [LPF]0-8[facility] [id number] [address] [facility] [address] 45690Tglrt MucusNovember 2024 10:07pmNov2024 11:33pmRare [LPF][facility] [id number] [address] [facility] [address] 17735Oelglcn LevelNovember 2024 8:29amNovember 2024 9:59tt316 mg/dLAbove high ejckmg75-721YMJ recommended reference rangeRandom Glucose Reference Range is dependent on time and content of last meal. Glucose of more than 200 mg/dL in a nonstressed, ambulatory subject supports the diagnosisof Diabetes Mellitus.[facility] [id number] [address] [facility] [address] 13220Woktl Urea NitrogenAugust 22, 2025 8:29amNove2024 9:02am13 mg/dL7-25[facility] [id number] [address] 75902PyijxkukhvPddznjad 17th, 2025 8:29amNove2024 9:02am 0.90 mg/dL0.60-1.20[facility] [id number] [address] [facility] [address] 61285Vwaglncpe GFR (CKD-EPI)August 22, 2025 8:29amNove2024 9:02am> 60.0 mL/MinParkwood Hospital Ctr [id number] [address] [facility] [address] 27288Dkjroc LevelAugust 22, 2025 8:29amNove2024 9:32ki179 mmol/E950-916MdrescuufParkwood Hospital Ctr [id number] [address] [facility] 15806Sadlrteau LevelAugust 22, 2025 8:29amNove2024 9:02am3.9 mmol/L3.5-5.1FHighland District Hospital [facility] [id number] [address] [facility] 29208Vhffnjth LevelAugust 22, 2025 8:29amNove2024 9:16vb184 mmol/I02-749MvfdojcawParkwood Hospital Ctr [id number] [address] [facility] [address] 31154Lyqoxl Dioxide LevelNov2024 8:29amNove2024 9:02am27.5 mmol/L21.0-31.0[facility] [id number] [address] [facility] [address] 16708Gzwtc GapAugust 22, 2025 8:29amNove2024 9:02am 9.4 mEq/L6.0-15.0[facility] [id number] [address] [facility] [address] 04714Vvwnywc LevelNovember 2024 8:29amNovember 2024 9:02am8.9 mg/dL8.6-10.3FHigh[facility] [id number] [address] [facility] [address] 24628Bigws ProteinNovember 2024 10:35amNovember 2024 11:34am5.0 g/dLBelow low normal6.4-8.9[facility] [id number] [address] [facility] 62178AcovkiiTugolpsq 2024 10:35amNovember 2024 11:34am 3.0 g/dLBelow low normal3.5-5.7FHighland District Hospital [facility] [id number] [address] [facility] 62898JdxzjwypHodkytyg 2024 7:16amNovember 2024 9:39amSee commentSpecimen hemolyzed, redraw requestedParkwood Hospital Ctr [id number] [address] [facility] 74267Mgtdvht/Globulin RatioNovemb2024 7:16amNovember 2024 9:39amSee commentSpecimen hemolyzed, redraw requestedParkwood Hospital [facility]tr [id number] [address] [facility] 46720Ruuvs BilirubinNovember 2024 7:16amNovember 2024 9:36am0.7 mg/dL0.3-1.0[facility] [id number] [address] [facility] 04462Erellzpxr Amino Transf (AST/SGOT)August 21, 2025 10:35am August 21, 2025 11:34am11 U/LBelow low kugqmx94-64CpkcpghrlParkwood Hospital Ctr [id number] [address] [place] [address] 46733Pldjcic Aminotransferase (ALT/SGPT)August 21, 2025 7:16am August 21, 2025 9:36am6 U/LBelow low normal7-52[facility] [id number] [address] [facility] 70889Wbpxafab PhosphataseNovember 2024 7:16amNovember 2024 9:36am62 U/K54-858AukuolwitParkwood Hospital Ctr [id number] [address] [facility] 01886Qwclbt Acid LevelNovember 2024 10:07pmAugust 19, 2025 10:39pm0.6 mmol/L0.5-1.9Lactic Acid reference range has been updated to 0.5 ??? 1.9 mmol/L and the critical range of 2.0 orgreater.[facility] [id number] [address] [facility] 10654Tyazotop I High SensitivityNov2024 10:07pmAugust 19, 2025 10:51pm8 ng/L0-15The Troponin units of report have been changed to meet the Chest Pain Accreditation requirement, element EC5.M1l2. Troponin units are changed from pg/ml to ng/L. Also, the decimal is removed and results are in whole numbers.[facility] [id number] [address] [facility] 17289Iiaaneyv Creatinine Clearance (ChemNovember 2024 8:29am August 22, 2025 9:02am56.25[facility] [id number] [address] [facility] [address] Microbiology Results Procedure Source Result Collection Date/Time Result Date/Time Result Comment Performing Site Blood Culture Blood, Left Hand NO GROWTH 5 DAYS Novemb er 2024 10:07pm August 24, 2025 10:24pm [facility] [id number] [address] [facility] 97274Qayao CultureBlood, Left ForearmNO GROWTH 5 DAYSNov2024 10:07pmAugust 24, 2025 10:24pmParkwood Hospital [facility]tr [id number] [address] [facility] 87687Zkhkr CultureUrine, Straight CathSt. mitis/oralis grpNovember 2024 10:07pmAugust 22, 2025 9:10amParkwood Hospital [facility]tr [id number] [address] [facility] [address] Diagnostic Imaging Reports Author Mickey Dolan [facility]20[facility] 10:27pm [facility] Main [address] [address] XRay Report Signed Patient: Keyanna Bauer MR#: [id number] : 1955 Acct:[id number] Age/Sex: 70 / F ADM Date: 5 Loc: ER Room: Type: [facility] ER Attending Dr: Copies to: Conner Louie, DO Danielito Gutierrez DO~ Ordering Provider: Danielito Gutierrez DO Date of Service: 08/19/25 XR/XR hip RT min 2V(w/wo pelvis)*: Fall Single view pelvis and 2 views of the right hip CLINICAL HISTORY: Right hip pain COMPARISON: None FINDINGS: No fracture-dislocation. Lugh-ie-rndogdfu degenerative changes both hips. Moderate degenerative changes both sacral joints. Moderate severe degenerative changes lumbosacral junction. XR/XR hip RT min 2V(w/wo pelvis)* IMPRESSION: NO ACUTE BONY INJURY. Degenerative changes. Impression dictated by: Mickey Dolan M.D. 08/19/2025 10:27 PM Dictation Location: [place] [address] Transcribed By: [facility] 08/19/252226 Dictated By: Mickey Dolan MD 08/19/252225 Signed By: <Electronically signed by Mickey Dolan MD in OV> 08/19/252226 Author Mickey Dolan [facility] Date/2024 10:37pm [facility] Main [address] [address] XRay Report Signed Patient: Keyanna Bauer MR#: [id number] : 1955 Acct:[id number] Age/Sex: 70 / F ADM Date: 5 Loc: ER Room: Type: [facility] ER Attending Dr: Copies to: DO Danielito Flanagan DO~ Ordering Provider: Danielito Gutierrez DO Date of Service: 08/19/25 XR/XR knee RT 4V*: Fall 4 views right knee INDICATION: Knee pain COMPARISON: None FINDINGS: Right knee arthroplasty identified. No periprosthetic lucency or fracture. There are vascular calcifications. Soft tissues grossly unremarkable. XR/XR knee RT 4V* IMPRESSION: Negative acute osseous abnormality.. Impression dictated by: Mickey Dolan M.D. 08/19/2025 10:37 PM Dictation Location: [facility] Transcribed By: NOLAN 08/19/252236 Dictated By: Mickey Dolan MD 08/19/252234 Signed By: <Electronically signed by Mickey Dolan MD in OV> 08/19/252236 Author Mickey Dolan [facility]Report Date/TimeAugust 19, 2025 10:58pm [facility] Main [address] [address] XRay Report Signed Patient: Keyanna Bauer MR#: [id number] : 1955 Acct:[id number] Age/Sex: 70 / F ADM Date: 5 Loc: ER Room: Type: [facility] ER Attending Dr: Copies to: Conner Louie DO~ Ordering Provider: Conner Louie DO Date of Service: 08/19/25 XR/XR chest 1V portable: Fall SINGLE VIEW CHEST CLINICAL HISTORY: Fall, confusion COMPARISON: None FINDINGS: Mildly enlarged cardiomediastinal silhouette. No focal opacity, effusion or pneumothorax. XR/XR chest 1V portable IMPRESSION: NEGATIVE ACUTE PLEURAL-PARENCHYMAL DISEASE. Impression dictated by: Mickey Dolan M.D. 08/19/2025 10:58 PM Dictation Location: [facility] Transcribed By: NOLAN 08/19/252257 Dictated By: Mickey Dolan MD 08/19/252255 Signed By: <Electronically signed by Mickey Dolan MD in OV> 08/19/252257 Author Mickey Dolan [facility] Date/TimeAugust 19, 2025 11:25pm [facility] Main [address] [address] [address] Scan Report Signed Patient: Keyanna Bauer MR#: [id number] : 1955 Acct:[id number] Age/Sex: 70 / F ADM Date: Loc: ER Room: Type: [facility] ER Attending Dr: Copies to: Conner Louie DO~ Ordering Provider: Conner Louie DO Date of Service: 08/19/25 CT/CT head/brain wo con: weakness CT BRAIN WITHOUT CONTRAST: CLINICAL HISTORY: Fall, lethargic, weakness COMPARISON: None TECHNIQUE: Contiguous axial unenhanced images were obtained through the brain. This CT exam was performed using one or more following dose reduction techniques: Automated exposure control, adjustmentof the mA and/or kV accordingto patient size, or use of iterative reconstruction technique. FINDINGS: There is no evidence of midline shift, intra or extra-axial fluid collection, hemorrhage or CT evidence of acute large vascular stroke. Central involutional changes and chronic small vessel ischemic disease. Visualized intraorbital contents demonstrates cataract surgery. Left-sided glaucoma device.. Visualized paranasal sinuses are clear. The surrounding soft tissues are normal. CT/CT head/brain wo con IMPRESSION: NO ACUTE INTRACRANIAL ABNORMALITY. Impression dictated by: Mickey Dolan M.D. 08/19/2025 11:25 PM Dictation Location: [place] [address] Transcribed By: [facility] 08/19/255 Dictated By: Mickey Dolan MD 08/19/25 2319 Signed By: <Electronically signed by Mickey Dolan MD in OV> 08/19/25 2325 Author Mickey Dolan [facility] Date/TimeNovember 2024 11:[address] [place] [address] [address] [address] Scan Report Signed Patient: Keyanna Bauer MR#: [id number] : 1955 Acct:[id number] Age/Sex: 70 / F ADM Date: 5 Loc: ER Room: Type: REG ER Attending Dr: Copies to: Conner Louie DO~ Ordering Provider: Conner Louie DO Date of Service: 08/19/25 CT/CT abdomen pelvis w con: abd pain CT ABDOMEN AND PELVIS WITH INTRAVENOUS CONTRAST: CLINICAL HISTORY: Fall, lethargic, abdominal pain COMPARISON: None TECHNIQUE: Spiral images were obtained through the abdomen and pelvis followingthe administration of intravenous contrast. This CT exam was performed using one or more following dose reduction techniques: Automated exposure control, adjustment of the mA and/or kV according to patient size, or use of iterative reconstruction technique. FINDINGS: Lung Bases: [Hypoventilatory changes. Cardiomegaly. Trace pericardial effusion. Moderate retrocardiac hiatal hernia.] Organs:Gallbladder mildly distended 4.3 cm, this can be seen with nonfasting states. Correlate withexam findings. Bilateral nephrolithiasis. Nonobstructive measuring 7 mm in right and 9 mm in size on the left. There is acalculus right ureteral pelvic junction 9 x 8 mm in size, no hydronephrosis. Right kidney slightly atrophic when compared to the left kidney. Otherwise no additional ureteral calculi identified. Otherwise liver, spleen, adrenals, pancreas unremarkable.[ GI: Mild retained stool throughout the colon. No bowel obstruction. Appendix unremarkable.[ Pelvis:[Bladder unremarkable. Uterus atrophic. No adnexal mass. Peritoneum/Retroperitoneum: No free air or fluid. No bulky adenopathy. [Moderate severe plaque involving the nonaneurysmal aorta. There is heavy plaque involving the celiac artery. Mild plaque involving the SMA.] Abd wall/Bones:Degenerative changes hips, pelvis and lumbosacral spine.[ CT/CT abdomen pelvis w con IMPRESSION: Bilateral nephrolithiasis with 9 mm calculus right ureteral pelvic junction without definite hydronephrosis. Mildly distended gallbladder. This could be related to nonfasting age. Please correlate with clinical exam findings. Moderate retrocardiac hiatal hernia. Otherwise no evidence of acute inflammatory process or bowel obstruction. Impression dictated by: Mickey Dolan M.D. 08/19/2025 11:32 PM Dictation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 outpatient with urology ??? Does have history of bilateral kidney stones with cystoscopy, lithotripsy and stents placed Chronic conditions HTN Depression/anxiety Glaucoma Cataract GERD: Continue PPI Osteoarthritis???acetaminophen, Voltaren, Kpad as needed, ice as needed, consult PT/OT DVT PPx???enoxaparin Diet order???regular CODE STATUS???full code Attending attestation Dr. Ciro Valentin: I examined the patient, I agree with the assessment and plan. My edits/additions are included above. IP vs OBS Justification Based on differential dx, clinical care plan, and risk of adverse events, if untreated, in my clinical judgement this patient requires an acute care setting as: INPATIENT because of an expectation ofan over 2 midnight stay. Estimated length of stay (# of days): 3 Documented By: Jennifer Whitlock APRN 08/20/25 0201 Signed By: <Electronically signed by CLARISSE Whitlock> 08/20/25 0246 <Electronically signed by Ciro Valentin MD> 08/20/25 0441 Progress Note Author Hernandez Davies [facility] Date/TimeNov2024 11:36am [place] [address] Progress Note Signed Patient: Keyanna Bauer MR#: [id number] : 1955 Acct:[id number] Age/Sex: 70 / F Adm Date: 5 Loc: Room: [address] [place] [address] Type: ADM IN Attending Dr: Hernandez Davies MD Copies to: ~ Date of Service: 08/20/2025 Progress Narrative Note PROGRESS NOTE Progress Note: patient was seen and evaluated at bedside, remained afebrile here, appears tachycardic however blood pressure slightly elevated, saturating well on room air, patient is alert awake oriented to self and place not so much to time. Patient was admitted overnight by overnight team, defer to H&P forfurther details. Patient reports some right hip discomfort, imaging with no evidence of acute fracture or dislocation, will provide pain medications and send with as directed, will continue with IV hydration, will start patient on bicarb drip from her bicarb levels, no evidence of acidosis, lactic acid was within normal limit, anion gap within normal limit. Documented By: Hernandez Davies MD 08/20/25 11 34 Signed By: <Electronically signed by Hernandez Davies MD> 08/20/25 1136 Progress Note Author Hernandez Davies [facility] Date/TimeNov2024 11:04am [address] [address] Hospitalist Progress Note Signed Patient: Keyanna Bauer MR#: [id number] : 1955 Acct:[id number] Age/Sex: 70 / F Adm Date: 5 Loc: 3T Room: [address] [place] [address] Type: ADM IN Attending Dr: Hernandez Davies MD Copies to: ~ Date of Service: 08/21/2025 Subjective Subjective Narrative: Patient was seen and evaluated at bedside, she remained hemodynamically stable, afebrile, less tachycardic today, blood pressure stable, she denies any nausea or vomiting, tolerating diet, she still complaining of right hip pain. PT/OT consulted and following. Exam Physical Exam Vital Signs: Temp Pulse Resp BP Pulse Ox O2 Del Method 97.4 F L 105 H 18 135/85 96 Room Air 08/21/25 07:30 08/21/25 07:30 08/21/25 07:30 08/21/25 07:30 08/21/25 07:30 08/21/25 07:32 Narrative: Const General: cooperative HEENT Normal oropharyngeal mucosa without any ulcers or exudates Eyes: Conjunctiva normal Pulmonary Auscultation: clear to auscultation , no crackles, no wheezes Cardiovascular Rate: mildly tachy Rhythm: regular rhythm Heart Sounds: S1 normal, S2 normal and no murmurs GI Inspection: non-distended Palpation: soft, not firm and nontender. No rigidity or rebound. Deferred Neuro General: alert, awake and oriented. No obvious new focal deficit Musculoskeletal: limited ROM RLE. Extrem General: no cyanosis, no pedal edema Psych Appearance: appropriate affect. Grossly normal Objective Lab Results 08/21/25 07:16 08/21/25 07:16 Microbiology Results Microbiology 08/19/25 22:07 Urine - Straight Cath Urine Culture - Preliminary 08/19/25 22:07 Blood - Left Hand Blood Culture - Preliminary No Growth 1 Day 08/19/25 22:07 Blood - Left Forearm Blood Culture - Preliminary No Growth 1 Day Meds Allergies and Active Meds Allergies NSAIDS (Non-Steroidal Anti-Inflamma Allergy (Verified 08/19/25 18:19) kidney disease Active Meds: Active Medications Generic Name Dose Route Start Last Admin Trade Name Freq PRN Reason Stop Dose Admin Acetaminophen 500 mg 08/20/25 01:06 08/20/25 21:46 Acetaminophen 500 Mg Tablet PO 08/20/26 01:05 500 mg Q6H PRN Administration Pain Scale 1 - 3 or fever Atorvastatin Calcium 20 mg 08/20/25 09:00 08/21/25 09:46 Atorvastatin 20 Mg Tablet PO 08/20/26 08:59 20 mg DAILY SUSSY Administration Bisacodyl 10 mg 08/20/25 01:06 Bisacodyl 5 Mg Tablet. PO 08/20/26 01:05 DAILY PRN Constipation Brimonidine Tartrate 1 drops 08/20/25 09:00 08/21/25 09:46 Brimonidine 0.2% Op Soln 100 Drops/5 Ml Bottle EYE-BOTH 08/20/26 08:59 1 drops TID SUSSY Administration Diclofenac Sodium 2 gm 08/20/25 09:00 08/21/25 09:47 Diclofenac Sodium 1% Gel 100 Gm Tube TOPICAL 08/20/26 08:59 2 gm QID SUSSY Administration Dicyclomine HCl 10 mg 08/20/25 02:39 Dicyclomine 10 Mg Capsule PO 08/20/26 02:38 TID PRN Spasms Diltiazem HCl 300 mg 08/20/25 09:00 08/21/25 09:46 Diltiazem Cd.24hr 300 Mg Cap.Er.24h PO 08/20/26 08:59 300 mg DAILY SUSSY Administration Dorzolamide HCl 1 drops 08/20/25 09:00 08/21/25 09:46 Dorzolamide 2% Op Soln 200 Drops/10 Ml Bottle EYE-BOTH 08/20/26 08:59 1 drops TID SUSSY Administration Duloxetine HCl 60 mg 08/20/25 21:00 08/21/25 09:46 Duloxetine 60 Mg Capsule. PO 08/20/26 20:59 60 mg BID SUSSY Administration Enoxaparin Sodium 40 mg 08/20/25 10:00 08/21/25 09:46 Enoxaparin 40 Mg/0.4 Ml Syringe SUBCUT 08/20/26 09:59 40 mg DAILY@10 SUSSY Administration Ceftriaxone Sodium 1 gm in 50 mls @ 100 mls/hr 08/20/25 23:30 08/20/25 23:50 Rocephin IV 100 mls/hr Q24H SUSSY Administration Latanoprost 1 drops 08/20/25 21:00 08/20/25 21:49 Latanoprost 0.005% Op Soln 50 Drops/2.5 Ml Bottle EYE-BOTH 08/20/26 20:59 1drops QPM SUSSY Administration Losartan Potassium 50 mg 08/20/25 09:00 08/21/25 09:46 Losartan 50 Mg Tablet PO 08/20/26 08:59 50 mg BID SUSSY Administration Morphine Sulfate 2 mg 08/21/25 09:26 08/21/25 09:47 Morphine Sulfate 2 Mg/Ml Vial IV-PUSH 2 mg Q4H PRN Administration pain 8-10 Ondansetron HCl 4 mg 08/20/25 01:06 Ondansetron 4 Mg/2 Ml Vial IV-PUSH 08/20/26 01:05 Q8H PRN Nausea And Vomiting Pantoprazole Sodium 40 mg 08/20/25 09:00 08/21/25 09:46 Pantoprazole 40 Mg Tablet.Dr PO 08/20/26 08:59 40 mg DAILY SUSSY Administration Potassium Chloride 10 meq 08/20/25 09:00 08/21/25 09:46 Potassium Chloride Er 10 Meq Tablet.Er PO 08/20/26 08:59 10 meq BID SUSSY Administration Quetiapine Fumarate 200 mg 08/20/25 22:00 08/20/25 21:46 Quetiapine Fumarate 100 Mg Tablet PO 08/20/26 21:59 200 mg HS SUSSY Administration Sodium Chloride 0 ml 08/19/25 18:18 08/21/25 09:47 Sodium Chloride 0.9 % 10 Ml Syringe IV-PUSH 08/19/26 18:17 10 ml PRN PRN Administration Flush Timolol Maleate 1 drops 08/20/25 09:00 08/21/25 09:47 Timolol Mal 0.5% Op Soln 100 Drops/5 Ml Bottle EYE-BOTH 08/20/26 08:59 1 drops TID SUSSY Administration Tramadol HCl 50 mg 08/20/25 11:37 08/21/25 05:57 Tramadol 50 Mg Tablet PO 02/16/26 11:36 50 mg Q6H PRN Administration pain 4-7 A&P - Hospitalist Assessment/Plan (1) Metabolic encephalopathy: (2) High anion gap metabolic acidosis: (3) UTI (urinary tract infection): (4) Bilateral kidney stones: (5) Polypharmacy: Plan Metabolic encephalopathy???medication induced (polypharmacy) and UTI UTI ??? Discontinue baclofen ??? Hold morning dose of Seroquel and keep nighttime dose. Keep Cymbalta for chronic depression ??? Follow urine culture, blood cultures- neg to date ??? Continue ceftriaxone High anion gap metabolic acidosis???likely starvation ketoacidosis (UA positive ketones). Normal lactic acid ??? Added Bicarb drip - Labs repeated today showed much improvement. Bilateral kidney stones: Without obstruction ??? Follow-up outpatient with urology ??? Does have history of bilateral kidney stones with cystoscopy, lithotripsy and stents placed Chronic conditions HTN Depression/anxiety Glaucoma Cataract GERD: Continue PPI Osteoarthritis???acetaminophen, Voltaren, Kpad as needed, ice as needed, consult PT/OT DVT PPx???enoxaparin Diet order???regular CODE STATUS???full code PT/OT consulted, recs for SNF CM following for disposition continue supportive care Documented By: Hernandez Davies MD 08/21/25 Signed By: <Electronically signed by Hernandez Davies MD> 08/21/25 1104 Progress Note Author Hernandez Davies [facility] Date/TimeNovember 2024 12:20pm [place] [address] Hospitalist Progress Note Signed Patient: Keyanna Bauer MR#: [id number] : 1955 Acct:[id number] Age/Sex: 70 / F Adm Date: 5 Loc: Room: [address] [place] [address] Type: ADM IN Attending Dr: Hernandez Davies MD Copies to: ~ Date of Service: 08/22/2025 Subjective Subjective Narrative: Patient was seen and evaluated at bedside, she remained hemodynamically stable, afebrile, appears more comfortable today, better range of motion in the lower extremities. Mentation back to baseline, PT/OT following. Exam Physical Exam Vital Signs: Temp Pulse Resp BP Pulse Ox O2 Del Method 98.7 F 82 18 141/67 H 98 Room Air 08/22/25 09:00 08/22/25 09:00 08/22/25 09:00 08/22/25 09:00 08/22/25 09:00 08/22/25 09:00 Narrative: Const General: cooperative HEENT Normal oropharyngeal mucosa without any ulcers or exudates Eyes: Conjunctiva normal Pulmonary Auscultation: clear to auscultation , no crackles, no wheezes Cardiovascular Rate: Normal rate Rhythm: regular rhythm Heart Sounds: S1 normal, S2 normal and no murmurs GI Inspection: non-distended Palpation: soft, not firm and nontender. No rigidity or rebound. Deferred Neuro General: alert, awake and oriented, back to baseline. No obvious new focal deficit Musculoskeletal: Better ROM RLE. Extrem General: no cyanosis, no pedal edema Psych Appearance: appropriate affect. Grossly normal Objective Lab Results 08/22/25 08:29 08/22/25 08:29 Microbiology Results Microbiology 08/19/25 22:07 Urine - Straight Cath Urine Culture - Final St. mitis/oralis grp 08/19/25 22:07 Blood - Left Hand Blood Culture - Preliminary No Growth 2 Days 08/19/25 22:07 Blood - Left Forearm Blood Culture - Preliminary No Growth 2 Days Meds Allergies and Active Meds Allergies NSAIDS (Non-Steroidal Anti-Inflamma Allergy (Verified 08/19/25 18:19) kidney disease Active Meds: Active Medications Generic Name Dose Route Start Last Admin Trade Name Kirbyq PRN Reason Stop Dose Admin Acetaminophen 500 mg 08/20/25 01:06 08/20/25 21:46 Acetaminophen 500 Mg Tablet PO 08/20/26 01:05 500 mg Q6H PRN Administration Pain Scale 1 - 3 or fever Atorvastatin Calcium 20 mg 08/20/25 09:00 08/22/25 08:43 Atorvastatin 20 Mg Tablet PO 08/20/26 08:59 20 mg DAILY SUSSY Administration Bisacodyl 10 mg 08/20/25 01:06 Bisacodyl 5 Mg Tablet.Dr PO 08/20/26 01:05 DAILY PRN Constipation Brimonidine Tartrate 1 drops 08/20/25 09:00 08/22/25 08:44 Brimonidine 0.2% Op Soln 100 Drops/5 Ml Bottle EYE-BOTH 08/20/26 08:59 1 drops TID SUSSY Administration Diclofenac Sodium 2 gm 08/20/25 09:00 08/22/25 08:45 Diclofenac Sodium 1% Gel 100 Gm Tube TOPICAL 08/20/26 08:59 2 gm QID SUSSY Administration Dicyclomine HCl 10 mg 08/20/25 02:39 Dicyclomine 10 Mg Capsule PO 08/20/26 02:38 TID PRN Spasms Diltiazem HCl 300 mg 08/20/25 09:00 08/22/25 08:43 Diltiazem Cd.24hr 300 Mg Cap.Er.24h PO 08/20/26 08:59 300 mg DAILY SUSSY Administration Dorzolamide HCl 1 drops 08/20/25 09:00 08/22/25 08:45 Dorzolamide 2% Op Soln 200 Drops/10 Ml Bottle EYE-BOTH 08/20/26 08:59 1 drops TID SUSSY Administration Duloxetine HCl 60 mg 08/20/25 21:00 08/22/25 08:43 Duloxetine 60 Mg Capsule.Dr PO 08/20/26 20:59 60 mg BID SUSSY Administration Enoxaparin Sodium 40 mg 08/20/25 10:00 08/22/25 10:54 Enoxaparin 40 Mg/0.4 Ml Syringe SUBCUT 08/20/26 09:59 Not Given DAILY@10 SUSSY Ceftriaxone Sodium 1 gm in 50 mls @ 100 mls/hr 08/20/25 23:30 08/21/25 23:15 Rocephin IV 100 mls/hr Q24H SUSSY Administration Latanoprost 1 drops 08/20/25 21:00 08/21/25 21:00 Latanoprost 0.005% Op Soln 50 Drops/2.5 Ml Bottle EYE-BOTH 08/20/26 20:59 1drops QPM SUSSY Administration Losartan Potassium 50 mg 08/20/25 09:00 08/22/25 08:43 Losartan 50 Mg Tablet PO 08/20/26 08:59 50 mg BID SUSSY Administration Methylprednisolone Sodium Succinate 40 mg 08/22/25 09:30 08/22/25 10:54 Methylprednisolone Sod Succ/Pf 40 Mg/Ml (1ml) Vial IV-PUSH 08/22/26 09:29 40 mg DAILY SUSSY Administration Morphine Sulfate 2 mg 08/21/25 09:26 08/22/25 08:43 Morphine Sulfate 2 Mg/Ml Vial IV-PUSH 2 mg Q4H PRN Administration pain 8-10 Ondansetron HCl 4 mg 08/20/25 01:06 Ondansetron 4 Mg/2 Ml Vial IV-PUSH 08/20/26 01:05 Q8H PRN Nausea And Vomiting Pantoprazole Sodium 40 mg 08/20/25 09:00 08/22/25 08:43 Pantoprazole 40 Mg Tablet.Dr PO 08/20/26 08:59 40 mg DAILY SUSSY Administration Potassium Chloride 10 meq 08/20/25 09:00 08/22/25 08:43 Potassium Chloride Er 10 Meq Tablet.Er PO 08/20/26 08:59 10 meq BID SUSSY Administration Quetiapine Fumarate 200 mg 08/20/25 22:00 08/21/25 20:59 Quetiapine Fumarate 100 Mg Tablet PO 08/20/26 21:59 200 mg HS SUSSY Administration Sodium Chloride 0 ml 08/19/25 18:18 08/21/25 09:47 Sodium Chloride 0.9 % 10 Ml Syringe IV-PUSH 08/19/26 18:17 10 ml PRN PRN Administration Flush Timolol Maleate 1 drops 08/20/25 09:00 08/22/25 08:44 Timolol Mal 0.5% Op Soln 100 Drops/5 Ml Bottle EYE-BOTH 08/20/26 08:59 1 drops TID SUSSY Administration Tramadol HCl 50 mg 08/20/25 11:37 08/21/25 21:00 Tramadol 50 Mg Tablet PO 02/16/26 11:36 50 mg Q6H PRN Administration pain 4-7 A&P - Hospitalist Assessment/Plan (1) Metabolic encephalopathy: (2) High anion gap metabolic acidosis: (3) UTI (urinary tract infection): (4) Bilateral kidney stones: (5) Polypharmacy: Plan Metabolic encephalopathy???medication induced (polypharmacy) and UTI UTI ??? Discontinued baclofen ??? Blood cultures negative to date - Urine culture reviewed ??? Continue ceftriaxone for total 7 days High anion gap metabolic acidosis???likely starvation ketoacidosis (UA positive ketones). Normal lactic acid ??? Received adequate IV fluids - Labs repeated showed much improvement. Bilateral kidney stones: Without obstruction ??? Follow-up outpatient with urology ??? Does have history of bilateral kidney stones with cystoscopy, lithotripsy and stents placed Chronic conditions HTN Depression/anxiety Glaucoma Cataract GERD: Continue PPI Osteoarthritis???acetaminophen, Voltaren, Kpad as needed, ice as needed, consult PT/OT DVT PPx???enoxaparin Diet order???regular CODE STATUS???full code PT/OT consulted, recs for SNF CM following for disposition continue supportive care Started steroids for bursitis, planning short course Pain control as directed as needed I discussed with patient and her at bedside, explained diagnosis and ourplan of care, they are in agreement and comfortable with plan at this time CM following for placement Documented By: Hernandez Davies MD 08/22/25 12 17 Signed By: <Electronically signed by Hernandez Davies MD> 08/22/25 1220 Progress Note Author Hernandez Davies [facility] Date/TimeNovember 2024 10:41am [place] [address] Hospitalist Progress Note Signed Patient: Keyanna Bauer MR#: [id number] : 1955 Acct:[id number] Age/Sex: 70 / F Adm Date: 5 Loc: Room: [address] [place] [address] Type: ADM IN Attending Dr: Hernandez Davies MD Copies to: ~ Date of Service: 08/23/2025 Subjective Subjective Narrative: Patient was seen and evaluated at bedside, she remained hemodynamically stable, afebrile, appears more comfortable today, much better range of motion in the lower extremities. Mentation back to baseline, PT/OT following. Exam Physical Exam Vital Signs: Temp Pulse Resp BP Pulse Ox O2 Del Method 98.3 F 103 H 20 129/84 95 Room Air 08/23/25 09:10 08/23/25 09:10 08/23/25 09:10 08/23/25 09:10 08/23/25 09:10 08/23/25 09:10 Narrative: Const General: cooperative HEENT Normal oropharyngeal mucosa without any ulcers or exudates Eyes: Conjunctiva normal Pulmonary Auscultation: clear to auscultation , no crackles, no wheezes Cardiovascular Rate: Normal rate Rhythm: regular rhythm Heart Sounds: S1 normal, S2 normal and no murmurs GI Inspection: non-distended Palpation: soft, not firm and nontender. No rigidity or rebound. Deferred Neuro General: alert, awake and oriented, back to baseline. No obvious new focal deficit Musculoskeletal: much Better ROM RLE. Extrem General: no cyanosis, no pedal edema Psych Appearance: appropriate affect. Grossly normal Objective Lab Results 08/22/25 08:29 08/22/25 08:29 Microbiology Results Microbiology 08/19/25 22:07 Blood - Left Hand Blood Culture - Preliminary No Growth 3 Days 08/19/25 22:07 Blood - Left Forearm Blood Culture - Preliminary No Growth 3 Days 08/19/25 22:07 Urine - Straight Cath Urine Culture - Final St. mitis/oralis grp Meds Allergies and Active Meds Allergies NSAIDS (Non-Steroidal Anti-Inflamma Allergy (Verified 08/19/25 18:19) kidney disease Active Meds: Active Medications Generic Name Dose Route Start Last Admin Trade Name Freq PRN Reason Stop Dose Admin Acetaminophen 500 mg 08/20/25 01:06 08/20/25 21:46 Acetaminophen 500 Mg Tablet PO 08/20/26 01:05 500 mg Q6H PRN Administration Pain Scale 1 - 3 or fever Atorvastatin Calcium 20 mg 08/20/25 09:00 08/23/25 09:12 Atorvastatin 20 Mg Tablet PO 08/20/26 08:59 20 mg DAILY SUSSY Administration Bisacodyl 10 mg 08/20/25 01:06 Bisacodyl 5 Mg Tablet.Dr PO 08/20/26 01:05 DAILY PRN Constipation Brimonidine Tartrate 1 drops 08/20/25 09:00 08/23/25 09:12 Brimonidine 0.2% Op Soln 100 Drops/5 Ml Bottle EYE-BOTH 08/20/26 08:59 1 drops TID SUSSY Administration Diclofenac Sodium 2 gm 08/20/25 09:00 08/23/25 09:13 Diclofenac Sodium 1% Gel 100 Gm Tube TOPICAL 08/20/26 08:59 2 gm QID SUSSY Administration Dicyclomine HCl 10 mg 08/20/25 02:39 Dicyclomine 10 Mg Capsule PO 08/20/26 02:38 TID PRN Spasms Diltiazem HCl 300 mg 08/20/25 09:00 08/23/25 09:13 Diltiazem Cd.24hr 300 Mg Cap.Er.24h PO 08/20/26 08:59 300 mg DAILY SUSSY Administration Dorzolamide HCl 1 drops 08/20/25 09:00 08/23/25 09:13 Dorzolamide 2% Op Soln 200 Drops/10 Ml Bottle EYE-BOTH 08/20/26 08:59 1 drops TID SUSSY Administration Duloxetine HCl 60 mg 08/20/25 21:00 08/23/25 09:13 Duloxetine 60 Mg Capsule.Dr PO 08/20/26 20:59 60 mg BID SUSSY Administration Enoxaparin Sodium 40 mg 08/20/25 10:00 08/23/25 09:14 Enoxaparin 40 Mg/0.4 Ml Syringe SUBCUT 08/20/26 09:59 40 mg DAILY@10 SUSSY Administration Ceftriaxone Sodium 1 gm in 50 mls @ 100 mls/hr 08/20/25 23:30 08/22/25 23:44 Rocephin IV 100 mls/hr Q24H SUSSY Administration Latanoprost 1 drops 08/20/25 21:00 08/22/25 21:05 Latanoprost 0.005% Op Soln 50 Drops/2.5 Ml Bottle EYE-BOTH 08/20/26 20:59 1drops QPM SUSSY Administration Losartan Potassium 50 mg 08/20/25 09:00 08/23/25 09:13 Losartan 50 Mg Tablet PO 08/20/26 08:59 50 mg BID SUSSY Administration Methylprednisolone Sodium Succinate 40 mg 08/22/25 09:30 08/23/25 09:13 Methylprednisolone Sod Succ/Pf 40 Mg/Ml (1ml) Vial IV-PUSH 08/22/26 09:29 40 mg DAILY SUSSY Administration Morphine Sulfate 2 mg 08/21/25 09:26 08/22/25 08:43 Morphine Sulfate 2 Mg/Ml Vial IV-PUSH 2 mg Q4H PRN Administration pain 8-10 Ondansetron HCl 4 mg 08/20/25 01:06 Ondansetron 4 Mg/2 Ml Vial IV-PUSH 08/20/26 01:05 Q8H PRN Nausea And Vomiting Pantoprazole Sodium 40 mg 08/20/25 09:00 08/23/25 09:14 Pantoprazole 40 Mg Tablet. PO 08/20/26 08:59 40 mg DAILY SUSSY Administration Potassium Chloride 10 meq 08/20/25 09:00 08/23/25 09:14 Potassium Chloride Er 10 Meq Tablet.Er PO 08/20/26 08:59 10 meq BID SUSSY Administration Quetiapine Fumarate 200 mg 08/20/25 22:00 08/22/25 21:03 Quetiapine Fumarate 100 Mg Tablet PO 08/20/26 21:59 200 mg HS SUSSY Administration Sodium Chloride 0 ml 08/19/25 18:18 08/21/25 09:47 Sodium Chloride 0.9 % 10 Ml Syringe IV-PUSH 08/19/26 18:17 10 ml PRN PRN Administration Flush Timolol Maleate 1 drops 08/20/25 09:00 08/23/25 09:14 Timolol Mal 0.5% Op Soln 100 Drops/5 Ml Bottle EYE-BOTH 08/20/26 08:59 1 drops TID SUSSY Administration Tramadol HCl 50 mg 08/20/25 11:37 08/22/25 23:44 Tramadol 50 Mg Tablet PO 02/16/26 11:36 50 mg Q6H PRN Administration pain 4-7 A&P - Hospitalist Assessment/Plan (1) Metabolic encephalopathy: (2) High anion gap metabolic acidosis: (3) UTI (urinary tract infection): (4) Bilateral kidney stones: (5) Polypharmacy: Plan Metabolic encephalopathy???medication induced (polypharmacy) and UTI UTI ??? Discontinued baclofen ??? Blood cultures negative to date - Urine culture reviewed ??? Continue ceftriaxone for total 7 days High anion gap metabolic acidosis???likely starvation ketoacidosis (UA positive ketones). Normal lactic acid ??? Received adequate IV fluids - Labs repeated showed much improvement. Bilateral kidney stones: Without obstruction ??? Follow-up outpatient with urology ??? Does have history of bilateral kidney stones with cystoscopy, lithotripsy and stents placed Chronic conditions HTN Depression/anxiety Glaucoma Cataract GERD: Continue PPI Osteoarthritis???acetaminophen, Voltaren, Kpad as needed, ice as needed, consult PT/OT DVT PPx???enoxaparin Diet order???regular CODE STATUS???full code PT/OT consulted, recs for SNF CM following for disposition continue supportive care Continue steroids for bursitis, planning short course, responding well so far Pain control as directed as needed CM following for placement Documented By: Hernandez Davies MD 08/23/25 10 40 Signed By: <Electronically signed by Hernandez Davies MD> 08/23/25 1041 Progress Note Author Hernandez Davies [facility] Date/TimeNov2024 9:58am [place] [id number] Hospitalist Progress Note Signed Patient: Keyanna Bauer MR#: [id number] : 1955 Acct:[id number] Age/Sex: 70 / F Adm Date: 5 Loc: Room: [address] [place] [address] Type: ADM IN Attending Dr: Hernandez Davies MD Copies to: ~ Date of Service: 08/25/2025 Subjective Subjective Narrative: Patient was seen and evaluated at bedside, she remained hemodynamically stable, afebrile, appears more comfortable today, out of bed to chair. Precert approved today, pt will be discharged today 08/25/25. Exam Physical Exam Vital Signs: Temp Pulse Resp BP Pulse Ox O2 Del Method 98.6 F 87 16 120/79 97 Room Air 08/24/25 20:00 08/25/25 05:17 08/25/25 05:17 08/25/25 05:17 08/25/25 05:17 08/25/25 05:17 Narrative: Const General: cooperative HEENT Normal oropharyngeal mucosa without any ulcers or exudates Eyes: Conjunctiva normal Pulmonary Auscultation: clear to auscultation , no crackles, no wheezes Cardiovascular Rate: Normal rate Rhythm: regular rhythm Heart Sounds: S1 normal, S2 normal and no murmurs GI Inspection: non-distended Palpation: soft, not firm and nontender. No rigidity or rebound. Deferred Neuro General: alert, awake and oriented, back to baseline. No obvious new focal deficit Musculoskeletal: much Better ROM RLE. Extrem General: no cyanosis, no pedal edema Psych Appearance: appropriate affect. Grossly normal. Pleasant Objective Lab Results 08/22/25 08:29 08/22/25 08:29 Microbiology Results Microbiology 08/19/25 22:07 Blood - Left Hand Blood Culture - Final NO GROWTH 5 DAYS 08/19/25 22:07 Blood - Left Forearm Blood Culture - Final NO GROWTH 5 DAYS Meds Allergies and Active Meds Allergies NSAIDS (Non-Steroidal Anti-Inflamma Allergy (Verified 08/19/25 18:19) kidney disease Active Meds: Active Medications Generic Name Dose Route Start Last Admin Trade Name Freq PRN Reason Stop Dose Admin Acetaminophen 500 mg 08/20/25 01:06 08/25/25 07:43 Acetaminophen 500 Mg Tablet PO 08/20/26 01:05 500 mg Q6H PRN Administration Pain Scale 1 - 3 or fever Atorvastatin Calcium 20 mg 08/20/25 09:00 08/25/25 08:44 Atorvastatin 20 Mg Tablet PO 08/20/26 08:59 Not Given DAILY SUSSY Bisacodyl 10 mg 08/20/25 01:06 Bisacodyl 5 Mg Tablet. PO 08/20/26 01:05 DAILY PRN Constipation Brimonidine Tartrate 1 drops 08/20/25 09:00 08/25/25 08:44 Brimonidine 0.2% Op Soln 100 Drops/5 Ml Bottle EYE-BOTH 08/20/26 08:59 Not Given TID SUSSY Cefuroxime Axetil 250 mg 08/24/25 13:15 08/25/25 08:44 Cefuroxime Axetil 250 Mg Tablet PO Not Given BID SUSSY Diclofenac Sodium 2 gm 08/20/25 09:00 08/25/25 08:44 Diclofenac Sodium 1% Gel 100 Gm Tube TOPICAL 08/20/26 08:59 Not Given QID SUSSY Dicyclomine HCl 10 mg 08/20/25 02:39 Dicyclomine 10 Mg Capsule PO 08/20/26 02:38 TID PRN Spasms Diltiazem HCl 300 mg 08/20/25 09:00 08/25/25 08:44 Diltiazem Cd.24hr 300 Mg Cap.Er.24h PO 08/20/26 08:59 Not Given DAILY SUSSY Dorzolamide HCl 1 drops 08/20/25 09:00 08/25/25 08:44 Dorzolamide 2% Op Soln 200 Drops/10 Ml Bottle EYE-BOTH 08/20/26 08:59 Not Given TID SUSSY Duloxetine HCl 60 mg 08/20/25 21:00 08/25/25 08:45 Duloxetine 60 Mg Capsule. PO 08/20/26 20:59 Not Given BID [facility] Enoxaparin Sodium 40 mg 08/20/25 10:00 08/24/25 09:26 Enoxaparin 40 Mg/0.4 Ml Syringe SUBCUT 08/20/26 09:59 40 mg DAILY@10 SUSSY Administration Furosemide 20 mg 08/24/25 13:10 08/25/25 08:45 Furosemide 20 Mg Tablet PO 08/24/26 13:09 Not Given DAILY SUSSY Latanoprost 1 drops 08/20/25 21:00 08/24/25 21:07 Latanoprost 0.005% Op Soln 50 Drops/2.5 Ml Bottle EYE-BOTH 08/20/26 20:59 1drops QPM SUSSY Administration Losartan Potassium 50 mg 08/20/25 09:00 08/25/25 08:45 Losartan 50 Mg Tablet PO 08/20/26 08:59 Not Given BID SUSSY Morphine Sulfate 2 mg 08/21/25 09:26 08/22/25 08:43 Morphine Sulfate 2 Mg/Ml Vial IV-PUSH 2 mg Q4H PRN Administration pain 8-10 Ondansetron HCl 4 mg 08/20/25 01:06 Ondansetron 4 Mg/2 Ml Vial IV-PUSH 08/20/26 01:05 Q8H PRN Nausea And Vomiting Pantoprazole Sodium 40 mg 08/20/25 09:00 08/25/25 08:45 Pantoprazole 40 Mg Tablet.Dr PO 08/20/26 08:59 Not Given DAILY SUSSY Potassium Chloride 10 meq 08/20/25 09:00 08/25/25 08:45 Potassium Chloride Er 10 Meq Tablet.Er PO 08/20/26 08:59 Not Given BID SUSSY Prednisone 40 mg 08/24/25 12:30 08/25/25 08:45 Prednisone 20 Mg Tablet PO 08/26/25 09:01 Not Given DAILY SUSSY Quetiapine Fumarate 200 mg 08/20/25 22:00 08/24/25 21:05 Quetiapine Fumarate 100 Mg Tablet PO 08/20/26 21:59 200 mg HS SUSSY Administration Sodium Chloride 0 ml 08/19/25 18:18 08/24/25 09:25 Sodium Chloride 0.9 % 10 Ml Syringe IV-PUSH 08/19/26 18:17 10 ml PRN PRN Administration Flush Timolol Maleate 1 drops 08/20/25 09:00 08/25/25 08:46 Timolol Mal 0.5% Op Soln 100 Drops/5 Ml Bottle EYE-BOTH 08/20/26 08:59 Not Given TID [facility] Tramadol HCl 50 mg 08/20/25 11:37 08/22/25 23:44 Tramadol 50 Mg Tablet PO 02/16/26 11:36 50 mg Q6H PRN Administration pain 4-7 A&P - Hospitalist Assessment/Plan (1) Metabolic encephalopathy: (2) High anion gap metabolic acidosis: (3) UTI (urinary tract infection): (4) Bilateral kidney stones: (5) Polypharmacy: Plan Metabolic encephalopathy???medication induced (polypharmacy) and UTI UTI ??? Discontinued baclofen ??? Blood cultures negative to date - Urine culture reviewed ??? Completed course of AB here High anion gap metabolic acidosis???likely starvation ketoacidosis (UA positive ketones). Normal lactic acid ??? Received adequate IV fluids - Labs repeated showed much improvement. Bilateral kidney stones: Without obstruction ??? Follow-up outpatient with urology ??? Does have history of bilateral kidney stones with cystoscopy, lithotripsy and stents placed Chronic conditions HTN Depression/anxiety Glaucoma Cataract GERD: Continue PPI Osteoarthritis???acetaminophen, Voltaren, Kpad as needed, ice as needed, consult PT/OT DVT PPx???enoxaparin Diet order???regular CODE STATUS???full code PT/OT consulted, recs for SNF continue supportive care Completed course of steroids for bursitis Pain control as directed as needed Patient has been accepted to SNF and will be discharged today 08/25/25 Documented By: Hernandez Davies MD 08/25/25 09 57 Signed By: <Electronically signed by Hernandez Davies MD> 08/25/25 0931
--- OUTSIDE RECORDS SUMMARY | 2025-08-29 08:47 | XMS_ITS | Clinical Summary ---
Author Organization 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 Energy Engineer Name Role Phone Unavailable Primary Care Provider Unavailabl e Social History Tobacco UseTypesPacks/DayYears UsedDateSmoking Tobacco: Never Assessed CommentsUnknownSex and Gender InformationValueDate RecordedSex Assigned at Not on fileLegal SzbXcekzj71/15/2023 6:57 PM EDTGender IdentityNot on fileSexual OrientationNot on file Last Filed Vital Signs Vital SignReadingTime TakenCommentsBlood Pgnrxfgw938/8911/10/2019 12:00 PM EST Pulse--Temperature--Respiratory Rate--Oxygen Saturation--Inhaled Oxygen Concentration--Zhevtd473 kg (224 lb)11/10/2019 12:00 PM SKIEaspmw736 cm (5' 3 ) 11/10/2019 12:00 PM ESTBody Mass Index39.68011/10/2019 12:00 PM EST Plan of Treatment Not on file Insurance
--- OUTSIDE RECORDS SUMMARY | 2025-08-29 08:47 | XMS_ITS | Clinical Summary ---
Author Organization [facility] Address [address] [place], [place] [id number] Care Team Providers Care Travel Registered Nurse Oncology Name Role Phone Steffen Lobato DO Primary [...] of left eye03/24/2019 Choroidal nevus of left eye03/24/20199615Hxssvrdpu38/19/2019Essential hypertension 03/24/20191033Avdfxkskjkyewm80/19/6038Zhqkua74/07/2017 Family History Medical HistoryRelationCommentsDiabetesFatherHypertensionFatherCataractMother HypertensionMotherGlaucomaPaternal GrandmotherRelationStatusCommentsFatherMother Paternal Grandmother Social History Tobacco UseTypesPacks/DayYears UsedDateSmoking Tobacco: NeverSmokeless Tobacco: NeverAlcohol UseStandard Drinks/WeekCommentsNo0 (1 standard drink = 0.6 oz pure alcohol)Area Deprivation IndexAnswerDate RecordedNational Score (1-100), lower number is lower riskNot on file09/12/2020State Score (1-10), lower number is lower riskNot on file09/12/2020Data from: https://www.neighborhoodatlas.[facility].edu/. Last address used for calculationNot on file09/12/2020CommentsNoSex and Gender Information ValueDate RecordedSex Assigned at BirthNot on fileLegal YzaMzuwcu60/06/2017 11:01 AM ESTGender IdentityNot on fileSexual OrientationNot on file Last Filed Vital Signs Vital SignReadingTime TakenCommentsBlood Axzmwxlk466/72004/01/2017 11:23 AM EDT Lgmpv094804/01/2017 11:23 AM PRMYrziaslkcmo49.7 ??C (98.1 ??F)04/01/2017 11:23 AM EDTRespiratory Ibza730604/01/2017 11:23 AM EDTOxygen Saturation--Inhaled Oxygen Concentration--Bmkayl37.4 kg (161 lb 14.4 oz)04/01/2017 11:23 AM VEAKdcjqa087.9 cm (5' 0.98 )04/01/2017 11:23 AM EDTBody Mass Index30.61004/01/2017 11:23 AM EDT Plan of Treatment Health MaintenanceDue DateLast DoneCommentsAnxiety Nvuhuqchf79/07/1971Depression Hlneezuvi89/07/1971DTaP,Tdap,Td Vaccine (1 - Tdap)1972Mammogram Screening 1993CT Daitqocovxml26/07/1998Cologuard (FIT-DNA)1998Colonoscopy 1998Colorectal Cancer Vourqaatt26/07/1998Fecal Occult Blood1998Lipid Lneidhfht73/07/3330Knuesspaaypjl51/07/1998Pneumococcal Vaccine: 50+ (1 of 1 - PCV)2003Shingrix Vaccine (1 of 2)2003Bone Density Screening 2018Diabetes Okbpxbmth37Advance Directive Discussion 10/06/2024ovid-19 Vaccine (1 - 2024- season)2025Influenza Vaccine (#1) 2025RSV Vaccine (1 - 1-dose 75+ series)2028Hepatitis C Screening Sdfnhvnwy53/07/2017 Procedures Procedure NamePriorityDate/TimeAssociated DiagnosisCommentsHEP REMOTE PANEL BL Dnkecmb3612/10/2016 12:23 PM EST Anemia, unspecified type COMPREHENSIVE METABOLIC PKVXHAlzyvlr43/07/2017 12:23 PM EST Anemia, unspecified type from Last 3 Months or Most Recently Relevant to Health Maintenance Results * HEP REMOTE PANEL BL (12/10/2016 12:23 PM EST)ComponentValueRef RangeTest MethodAnalysis TimePerformed AtPathologist SignatureHep B Core Ab, Total FmtafcefEbdasckf75/08/2017 10:08 AM [facility] C Antibody PCJnaljaxeFcszunko74/08/2017 10:08 AM [facility] ZFTFOBORKCZPyKyUtwxfwffYifzuoej68/08/2017 10:08 AM [facility]ORYHep B Surface Ab, XkegNuifnqihJzhwmdjz27/08/2017 10:08 AM [facility] LABORATORYComment:NEGATIVESpecimen (Source)Anatomical Location / LateralityCollection Method / VolumeCollection TimeReceived Time Blood specimen (specimen)BLOOD SPECIMEN / Srvbddr4612/10/2016 12:23 PM EST 12/10/2016 12:28 PM EST Narrative Authorizing ProviderResult TypeResult StatusSamialex Mullen Adriana DOLABORATORY Final ResultPerforming OrganizationAddressCity/State/ZIP CodePhone Number [facility] [address] [place] [address] * (ABNORMAL) COMP METABOLIC PANEL (12/10/2016 12:23 PM EST)ComponentValueRef RangeTest MethodAnalysis TimePerformed AtPathologist SignatureProtein, Total 6.1(L)6.3 - 8.0 g/dL12/11/2016 7:44 AM [facility] Albumin3.6(L)3.9 - 4.9 g/dL12/11/2016 7:44 AM [facility] LABORATORYCalcium9.58.5 - 10.2 mg/dL12/11/2016 7:44 AM [facility] LABORATORYBilirubin, Total0.50.2 - 1.3 mg/dL12/11/2016 7:[address] LABORATORYAlkaline Qplzndvmgxw4156 - 117 U/L12/11/2016 7:44 AM [facility] LJRAKHUGAHRCI1236 - 35 U/L12/11/2016 7:44 AM [facility] UDLECPXEVCMjkzsej045(H)74 - 99 mg/dL12/11/2016 7:44 AM [facility] LABORATORYComment: The [place] Diabetes Association (ADA) provides guidance for cutoff [...] Standards of Medical Care in Diabetes 2016, [place] [employer]. Diabetes Care. 2016.39(Suppl 1). ACB755 - 21 mg/dL12/11/2016 7:44 AM [facility] Creatinine1.41(H)0.58 - 0.96 mg/dL12/11/2016 7:44 AM [facility] BVVLWTLXUHZpotez637660 - 144 mmol/L12/11/2016 7:44 AM [facility] LABORATORYPotassium4.43.7 - 5.1 mmol/L12/11/2016 7:44 AM [facility] VVCKSKZUIMMhnjzyww852(H)97 - 105 mmol/L12/11/2016 7:44 AM [facility] VJTUKMIGCHAT253(L)22 - 30 mmol/L12/11/2016 7:44 AM [facility] LABORATORYAnion Jtp649 - 18 mmol/L12/11/2016 7:44 AM [facility] VZCAAFAEUNNCM70 - 38 U/L12/11/2016 7:44 AM [facility] LABORATORYeGFR- Ulvdnbvb2670/08/2017 7:44 AM [facility] LABORATORYeGFR-All Other Races38.12/11/2016 7:44 AM [facility] LABORATORYComment: eGFR (Estimated GFR) Units of [...] Wright DOLABORATORY Final ResultPerforming OrganizationAddressCity/State/ZIP CodePhone Number [facility] [address] [place] [address] from Last 3 Months or Most Recently Relevant to Health Maintenance Insurance Care Teams Team MemberRelationshipSpecialtyStart DateEnd Date Steffen Lboato DO PCP - GeneralFamily Medicine12/09/16
--- OUTSIDE RECORDS SUMMARY | 2025-08-29 08:48 | XMS_ITS | Patient Health Record ---
Author Organization [facility] in [place] Address [address] [place] [address] Care Team Providers Care Real Estate Clerk Name Role Phone Hanna Graves Primary Care Provider InderjitjagdishRamo [phone] Allergies No Known Allergies Results Component Value Reference Range Notes CBC AUTO DIFF Reviewed date:12/06/2024 02:20:40 PM Interpretation: Performing Lab: Notes/Report: [facility] , White Blood Count 7.1 4.0-11.0 10 3/uL Red Blood Count4.234.20-5.40 10 6/kKNryqdewfyh91.112.0-16.0 g/qXGobwcundsg92.9 36.0-48.0 %Mean Corpuscular Cgrqvy504.481.0-99.0 fLMean Corpuscular Hemoglobin 33.326.7-34.0 pgMean Corpuscular HGB Conc32.929.9-35.2 g/dLRed Cell Distribution Width12.311.0-15.0 %Platelet Uifpa972438-307 10 3/uLMean Platelet Vdtzph49.59.5- 13.5 fLNeutrophils Percent Auto63.443.0-75.0 %Lymphocytes Percent Auto23.620.5- 60.0 %Monocytes Percent Auto6.61.7-12.0 %Eosinophils Percent Auto5.20.9-7.0 % Basophils Percent Auto0.80.2-2.0 %Immature Granulocytes Pct Auto0.40.0-0.5 % Neutrophils Absolute Auto4.51.4-6.5 10 3/uLLymphocytes Absolute Auto1.71.2-3.8 10 3/uLMonocytes Absolute Auto0.50.3-0.8 10 3/uLEosinophils Absolute Auto0.40.0- 0.7 10 3/uLBasophils Absolute Auto0.10.0-0.1 10 3/uLImmature Granulocytes Abs Auto0.030.00-0.03 10 3/uLPerforming Lab:see note - [facility] GLYCOHEMOGLOBIN A1C Reviewed date:12/06/2024 02:20:40 PM Interpretation: Performing Lab: Notes/Report: [facility] ,Glycohemoglobin A1C5.74.5-6.2 % ADA RECOMMENDED LIMIT 4.0 - 6.0 ADA THERAPEUTIC TARGET < 7.0 ACTION SUGGESTED > 7.0 Estimated Average Ijvjawt082Zelefnihdu Lab:[facility] BI Reviewed date:06/09/2025 01:36:44 PM Interpretation: Performing Lab: Notes/Report: Source Facility: [place] [address] Ultrasound Report Signed Patient: KEYANNA BAUER MR#: [id number] : 1955 Acct:[id number] Age/Sex: 70 / F ADM Date: 06/08/25 Loc: Attending Dr: KRISTAN BRIZUELA Ordering Physician: KRISTAN BRIZUELA Date of Service: 06/08/25 Procedure(s): US renal BI Accession Number(s): [id number] cc: HANNA GRAVES ; KRISTAN BRIZUELA [place] [address] Patient Name: KEYANNA BAUER MRN: [id number] date: 1955 Sex: F Assigned Patient Location: Current Patient Location: US Accession/Order Number: [id number] Exam Date: 06/08/2025 09:35 Report Date: 06/08/2025 10:58 At the request of: KRISTAN BRIZUELA Procedure: US renal BI BILATERAL RENAL AND BLADDER ULTRASOUND CLINICAL HISTORY: Stage 3 Chronic Kidney Disease, Hypertensive Renal Disease COMPARISON: CT 05/04/2023 Estimation of renal size is approximately 8.4 cm on the right and 9.8 cm on the left. There is thinning and increased echogenicity of the renal cortex on the right. Echogenic foci with shadowing are seen at both kidneys compatible with stones. The largest on the right is at the mid to lower pole measuring 12 mm . Largest on the left is at the superior pole measuring 10 mm. Small bilateral renal cysts are seen measuring up to 1 cm on the right and 1.7 cm on the left. There is no perinephric fluid. The urinary bladder is partially distended with a volume of 97 mL. No contour or intraluminal abnormalities are seen. US/US renal BI IMPRESSION: ATROPHIC RIGHT KIDNEY. BILATERAL NEPHROLITHIASIS AND RENAL CYSTS. NO OBSTRUCTIVE UROPATHY. Impression dictated by: Mallika Reynoso M.D. 06/08/2025 10:58 AM Dictation Location: [place] [address] Electronically authenticated by: [id number] Y Date: 06/08/2025 10:58 Dictated By: Mallika Reynoso M.D. Signed By: 06/08/25 1101 DD/ 1058 TD/TT: College Intern:CBC AUTO DIFF Reviewed date:07/21/2025 11:03:31 AM Interpretation: Performing Lab: Notes/Report: [facility] ,White Blood Count7.14.0-11.0 10 3/uLRed Blood Count4.904.20-5.40 10 6/uL Viriywpxep10.412.0-16.0 g/uDZtpcfqxsrh40.036.0-48.0 %Mean Corpuscular Ekstco49.0 81.0-99.0 fLMean Corpuscular Vdbxuqjreu76.526.7-34.0 pgMean Corpuscular HGB Conc 34.229.9-35.2 g/dLRed Cell Distribution Width13.511.0-15.0 %Platelet Jxrcf958 150-450 10 3/uLMean Platelet Volume9.59.5-13.5 fLNeutrophils Percent Auto55.8 43.0-75.0 %Lymphocytes Percent Auto34.020.5-60.0 %Monocytes Percent Auto7.21.7- 12.0 %Eosinophils Percent Auto1.60.9-7.0 %Basophils Percent Auto0.80.2-2.0 % Immature Granulocytes Pct Auto0.60.0-0.5 %Neutrophils Absolute Auto4.01.4-6.5 10 3/uLLymphocytes Absolute Auto2.41.2-3.8 10 3/uLMonocytes Absolute Auto0.50.3-0.8 10 3/uLEosinophils Absolute Auto0.10.0-0.7 10 3/uLBasophils Absolute Auto0.10.0- 0.1 10 3/uLImmature Granulocytes Abs Auto0.040.00-0.03 10 3/uLPerforming Lab:see noteML - [facility] LBPROF 14(COMP METB) Reviewed date:07/21/2025 11:03:31 AM Interpretation: Performing Lab: Notes/Report: [facility] ,Jkyeza230369-211 mmol/LPotassium3.53.5-5.1 mmol/KQivrhisf85387-501 mmol/LCarbon Zsnwges13.121.0-32.0 mmol/LAnion Gap22.9Juuyezd73887-264 mg/dLBlood Urea Jjbymgbp54.07.0-18.0 mg/dLCreatinine1.410.55-1.02 mg/dLEstimated GFR ( [place]19>=60 mL/min/1.73m 2Estimated GFR (Non- Ame37>=60 mL/min/1.73m 2 BUN Creatinine Ratio12.4Dgsktct3.38.5-10.1 mg/dLBilirubin Total0.40.2-1.0 mg/dL Aspartate Amino Yydosturvmq8593-35 U/LAlanine Sqnfdywewfawmwmu3012-67 U/L Alkaline Poywixmflwq7949-995 U/LTotal Protein6.96.4-8.2 g/dLAlbumin Level3.13.4- 5.0 g/dLGlobulin3.8Albumin Globulin Ratio0.8Performing Lab:see noteML - [facility] LBPROF CHEM 8 (BAS METB) Reviewed date:07/21/2025 11:03:31 AM Interpretation: Performing Lab: Notes/Report: [facility] ,Lpnpsd681000-924 mmol/LPotassium3.23.5-5.1 mmol/UXehyhqok20928-497 mmol/LCarbon Lurojck56.321.0-32.0 mmol/LAnion Gap18.7Kheiurh0128-278 mg/dLBlood Urea Nitrogen 17.07.0-18.0 mg/dLCreatinine1.220.55-1.02 mg/dLEstimated GFR ( Xtqudce86 >=60 mL/min/1.73m 2Estimated GFR (Non- Ame43>=60 mL/min/1.73m 2BUN Creatinine Ratio13.1Tnpxzvk1.08.5-10.1 mg/dLPerforming Lab:see noteML - [facility] LBCT PELVIS WO CON Reviewed date:07/21/2025 11:03:31 AM Interpretation: Performing Lab: Notes/Report: Source Facility: [facility]-[address] [place] [address] CT Scan Report Signed Patient: KEYANNA BAUER MR#: [id number] : 1955 Acct:[id number] Age/Sex: 70 / F ADM Date: 07/20/25 Loc: ER Attending Dr: Ordering Physician: Aniyah Gómez Date of Service: 07/20/25 Procedure(s): CT pelvis wo con Accession Number(s): [id number] cc: HANNA GRAVES [place] [address] Patient Name: KEYANNA BAUER MRN: [id number]:[id number] date: 1955 Sex: F Assigned Patient Location: ER Current Patient Location: ER Accession/Order Number: [id number] Exam Date: 07/20/2025 15:17 Report Date: 07/20/2025 16:32 At the request of: ANIYAH GÓMEZ MD Procedure: CT pelvis wo con CT pelvis wo con 07/20/2025 3:22 PM SIGNS AND SYMPTOMS: Fall, right hip pain TECHNIQUE: Multidetector ct axial images of the abdomen and pelvis were obtained without IV contrast. Multiplanar reformats were performed and reviewed to further define anatomy and possible pathology. CT was performed with one or more of the following dose reduction techniques: Automated exposure control, adjustment of the mA and/or kV according to patient size, or use of iterative reconstruction technique. COMPARISON: 05/04/2023 FINDINGS: Reproductive Organs: No pelvic masses. Ureters: Within normal limits. Bladder: Within normal limits. Bowel: Normal caliber. Mesenteric Lymph Nodes: No enlarged mesenteric lymph nodes. Peritoneum: There is a small amount of free fluid in the pelvis which is nonspecific. Vessels: Atherosclerotic changes are noted in the abdominal aorta and its branches. Retroperitoneum: Within normal limits. Abdominal Wall: Within normal limits. Bones: Degenerative changes are noted in the sacroiliac joints. Degenerative changes are noted in the hips bilaterally. Degenerative changes are noted in the symphysis pubis. No fracture. There is an effusion along the greater trochanter of the right hip suggesting bursitis. CT/CT pelvis wo con IMPRESSION: No acute displaced fracture. There is an effusion along the greater trochanter of the right hip suggesting bursitis. Degenerative changes are noted in the lumbar spine, sacroiliac joints, bilateral hips, and symphysis pubis. There is a small amount of free fluid in the pelvis which is nonspecific. Impression dictated by: Elver Bustamante M.D. 07/20/2025 4:32 PM Dictation Location: [place] [address] Electronically authenticated by: [id number] Y Date: 07/20/2025 16:32 Dictated By: Elver Bustamante M.D. Signed By: 07/20/25 1634 DD/ 1632 TD/TT: College Intern:PTH, Intact Reviewed date:05/16/2025 10:31:48 AM Interpretation: Performing Lab: Notes/Report: [facility] ,PTH, Wzfiad6691-19 pg/mL Performed at: [address] [id number] Chocolate Dipper: Gerhard Saul PhD, Phone: [phone] Performing Lab:[facility]OC[facility] LBC no Diff (Hemogram) Reviewed date:05/16/2025 10:31:48 AM Interpretation: Performing Lab: Notes/Report: [facility] ,White Blood Count8.24.0-11.0 10 3/uLRed Blood Count4.304.20-5.40 10 6/uL Gfhcjxczoz40.612.0-16.0 g/yBZbohviwfbv59.236.0-48.0 %Mean Corpuscular Volume 100.581.0-99.0 fLMean Corpuscular Ldzjbgnqvv55.026.7-34.0 pgMean Corpuscular HGB Conc33.829.9-35.2 g/dLRed Cell Distribution Width12.311.0-15.0 %Platelet Count 846713-890 10 3/uLMean Platelet Ccsjvs20.19.5-13.5 fLPerforming Lab:see noteML - [facility] LBVITAMIN D 25 [place] Reviewed date:05/16/2025 10:31:48 AM Interpretation: Performing Lab: Notes/Report: [facility] ,Vitamin D27.5 <20 ng/mL Vit D deficient 20-<30 ng/mL Vit D insufficient 30-100 ng/mL Vit D sufficient >100 ng/mL Potential Toxicity Performing Lab:see noteML - [facility] LBURINE T PROTEIN CREAT RATIO Reviewed date:05/16/2025 10:31:48 AM Interpretation: Performing Lab: Notes/Report: [facility] ,Total Protein Urine Yvqxuo99.6<=11.9 mg/dLCreatinine Urine Luqxzg15.3720.00- 300.00 mg/dLProtein Creatinine Ratio Urine1.13Performing Lab:see note - [facility] LBURIC ACID SERUM Reviewed date:05/16/2025 10:31:48 AM Interpretation: Performing Lab: Notes/Report: [facility] ,Uric Acid4.42.6-6.0 mg/dLPerforming Lab:see note - [facility] LBUA RANDOM W or MICROSCOPIC Reviewed date:05/16/2025 10:31:48 AM Interpretation: Performing Lab: Notes/Report: [facility] ,Color UrineYELLOWYELLOWClarity UrineCLOUDYCLEARSpecific [employer] Urine1.015 1.005-1.025pH Urine6.05.0-9.0Protein Bgmhz59PFV/TRACE mg/dLGlucose Urine UA NEGATIVENEGATIVE mg/dLBilirubin UrineNEGATIVENEGATIVEKetones UrineNEGATIVE NEGATIVE mg/dLBlood UrineSMALLNEGATIVENitrite UrineNEGATIVENEGATIVEUrobilinogen Urine0.20.2-1.0 EU/dLLeukocyte Esterase UrineLARGENEGATIVEWBC Vwgmj35-92IQZM SEEN #/HPFRBC Urine2-50-2 #/HPFBacteria UrineLARGENONE SEEN #/HPFMucus UrineNONE SEENNONE SEENSquamous Epithelial Cell UrineMODERATENONE/RARE #/LPFCrystals Seen? None SeenNone Seen #/HPFCast Seen?NONE SEENNONE SEEN #/LPFPerforming Lab:see noteML - [facility] LBRENAL FUNCTION PANEL Reviewed date:05/16/2025 10:31:48 AM Interpretation: Performing Lab: Notes/Report: [facility] ,Uevebc296133-121 mmol/LPotassium4.43.5-5.1 mmol/OZubrmsyw76742-702 mmol/LCarbon Ugstxkc90.921.0-32.0 mmol/LAnion Gap14.9Xbzyvpg22132-940 mg/dLBlood Urea Pzvjuhbg32.07.0-18.0 mg/dLCreatinine1.190.55-1.02 mg/dLEstimated GFR ( Csjqjij00>=60 mL/min/1.73m 2Estimated GFR (Non- Ame45>=60 mL/min/1.73m 2 BUN Creatinine Ratio16.2Kjdwjxz0.48.5-10.1 mg/dLPhosphorus3.82.6-4.7 mg/dL Albumin Level3.13.4-5.0 g/dLPerforming Lab:see noteML - [facility] LB MAGNESIUM Reviewed date:05/16/2025 10:31:48 AM Interpretation: Performing Lab: Notes/Report: [facility] ,Magnesium1.81.8-2.4 mg/dLPerforming Lab:see note - [facility] LB TSH Reviewed date:12/06/2024 02:20:40 PM Interpretation: Performing Lab: Notes/Report: [facility] ,Thyroid Stimulating Hormone1.1610.358-3.740 uIU/mLPerforming Lab:see noteML - [facility] LBT4 Reviewed date:12/06/2024 02:20:40 PM Interpretation: Performing Lab: Notes/Report: [facility] ,T4 Thyroxine3.204.80-13.90 ug/dLPerforming Lab:see noteML - [facility] LBPROF 14(COMP METB) Reviewed date:12/06/2024 02:20:40 PM Interpretation: Performing Lab: Notes/Report: [facility] ,Wqvflb233115-749 mmol/LPotassium3.93.5-5.1 mmol/ABlswsacb11188-526 mmol/LCarbon Wwzznur31.421.0-32.0 mmol/LAnion Gap12.6Csxmxhc38206-771 mg/dLBlood Urea Uczwkiec35.07.0-18.0 mg/dLCreatinine1.460.55-1.02 mg/dLEstimated GFR ( Ulmxonb89>=60 mL/min/1.73m 2Estimated GFR (Non- Ame35>=60 mL/min/1.73m 2 BUN Creatinine Ratio11.0Hdgfamt6.18.5-10.1 mg/dLBilirubin Total0.30.2-1.0 mg/dL Aspartate Amino Kqnaeiitnio3581-71 U/LAlanine Yuboedhvqqkqaftn322-06 U/LAlkaline Hhzftfqcxrd38439-508 U/LTotal Protein6.46.4-8.2 g/dLAlbumin Level3.33.4-5.0 g/dL Globulin3.1Albumin Globulin Ratio1.1Performing Lab:see noteML - [facility] LBLIPID PROFILE Reviewed date:12/06/2024 02:20:40 PM Interpretation: Performing Lab: Notes/Report: [facility] ,Iafytactzoesz008<=150 mg/yKJcanwoojpvy441<=200 mg/dLHDL Cxnscplwauk4642-14 mg/dL > or =60 mg/dl - LOW CARDIOVASCULAR RISK <40 mg/dl - HIGH CARDIOVASCULAR RISK LDL Cholesterol Ligtxjtwns73.0 <100 mg/dl OPTIMAL 100-129 mg/dl NEAR OR ABOVE OPTIMAL 130-159 mg/dl BORDERLINE HIGH 160-189 mg/dl HIGH >190 mg/dl VERY HIGH VLDL VBXZQCCKMBU62.2Chol HDL Ratio2.6 3.3 - 4.4 LOW RISK 4.4 - 7.1 AVERAGE RISK 7.1 - 11.0 MODERATE RISK >11.0 HIGH RISK Performing Lab:see noteML - [facility] LBFREE T3 Reviewed date:12/06/2024 02:20:40 PM Interpretation: Performing Lab: Notes/Report: [facility] ,Free T31.692.18-3.98 pg/mLPerforming Lab:see noteML - [facility] LB CT hip RT wo con Reviewed date:08/04/2025 01:32:04 PM Interpretation: Performing Lab: Notes/Report: Source Facility: [place] [address] CT Scan Report Signed Patient: KEYANNA BAUER MR#: [id number] : 1955 Acct:[id number] Age/Sex: 70 / F ADM Date: 08/04/25 Loc: ER Attending Dr: Ordering Physician: Soumya Josue D.O. Date of Service: 08/04/25 Procedure(s): CT hip RT wo con Accession Number(s): [id number] cc: HANNA GRAVES [place] [id number] Patient Name: KEYANNA BAUER MRN: [id number] date: 1955 Sex: F Assigned Patient Location: ER Current Patient Location: ER Accession/Order Number: [id number] Exam Date: 08/04/2025 11:20 Report Date: 08/04/2025 11:59 At the request of: SOUMYA JOSUE Procedure: CT hip RT wo con CT RIGHT HIP WITHOUT CONTRAST WITH 3-D RECONSTRUCTIONS COMPARISON: CT pelvis 07/20/2025 CLINICAL DATA: Persistent right hip pain since fall. Spiral axial unenhanced images were obtained through the right hip. Sagittal, coronal and 3-D volume rendered reconstructions were reviewed. This CT exam was performed using one or more following dose reduction techniques: Automated exposure control, adjustment of the mA and/or kV according to patient size, or use of iterative reconstruction technique. The bony structures are osteopenic. There is a bone island at the femoral neck. There is still no evidence of acute fracture or dislocation. Slight narrowing of the hip joint space is seen. There is mild marginal spurring and also soft tissue calcification projecting at the joint space. There are enthesophytes at the greater trochanter and ischial tuberosity. Degenerative changes also seen at the imaged pubic symphysis. A small amount of fluid is again noted adjacent to the greater trochanter on the right that could be trochanteric bursitis. There is atherosclerotic plaque. No hematoma is noted. There is mild subcutaneous edema. CT/CT hip RT wo con IMPRESSION: OSTEOPENIA AND DEGENERATIVE CHANGES. CONTINUED SUSPECTED RIGHT TROCHANTERIC BURSITIS. NO ACUTE BONY FINDINGS OR SIGNIFICANT CHANGE. Impression dictated by: Malliak Reynoso M.D. 08/04/2025 11:59 AM Dictation Location: [place] [address] Electronically authenticated by: [id number] Y Date: 08/04/2025 11:59 Dictated By: Mallika Reynoso M.D. Signed By: 08/04/25 1234 DD/ 1159 TD/TT: College Intern:XR KNEE RT 3V Reviewed date:08/04/2025 01:32:04 PM Interpretation: Performing Lab: Notes/Report: Source Facility: [place] [address] XRay Report Signed Patient: KEYANNA BAUER MR#: [id number] : 1955 Acct:[id number] Age/Sex: 70 / F ADM Date: 08/04/25 Loc: ER Attending Dr: Ordering Physician: Soumya Josue D.O. Date of Service: 08/04/25 Procedure(s): XR knee RT 3V Accession Number(s): [id number] cc: HANNA GRAVES ; Soumya Josue D.O. [place] [address] Patient Name: KEYANNA BAUER MRN: [facility]:[id number] date: 1955 Sex: F Assigned Patient Location: ER Current Patient Location: ER Accession/Order Number: [id number] Exam Date: 08/04/2025 11:20 Report Date: 08/04/2025 11:45 At the request of: SOUMYA JOSUE Procedure: XR knee RT 3V RIGHT KNEE - 3 views CLINICAL DATA: Right knee pain following fall. COMPARISON: None AP, lateral and internal oblique views were obtained. There is a knee prosthesis. The hardware appears intact and in appropriate position. No acute fracture or dislocation is identified. There is a enthesophyte at the insertion of quadriceps tendon. There is a trace of joint fluid. Atherosclerotic disease is visualized. XR/XR knee RT 3V IMPRESSION: NO ACUTE BONY INJURY. Impression dictated by: Mallika Reynoso M.D. 08/04/2025 11:45 AM Dictation Location: [place] [address] Electronically authenticated by: [id number] Y Date: 08/04/2025 11:45 Dictated By: Mallika Reynoso M.D. Signed By: 08/04/25 1234 DD/ 1145 TD/TT: College Intern:INSULIN Reviewed date:12/07/2024 11:28:44 AM Interpretation: Performing Lab: Notes/Report: [facility] ,Insulin5.32.6-24.9 uIU/mL Performed at: - [facility] [address] [id number] Chocolate Dipper: Gerhard Saul PhD, Phone: [phone] Performing Lab:see note - [facility] LB Reason For Referral Diagnosis 1 Kidney disease (N28. 9) Referral Organization [facility] Referring Provider First Name Hanna Referring Provider Last Name Star Referring Provider Speciality [facility] ronda Referred Provider Kristan Brizuela Referred Provider Specialty Nephrology Referral Priority Routine Medications Medication SIG (Take, Route, Frequency, Duration) Notes Start Date End Date Status dilTIAZem HCl ER 300 MG take 1 tablet by mouth once daily Orally Once a day; Duration: 90 days UnknownDULoxetine HCl 60 MG2 capsule Orally Once a day; Duration: 90 daysUnknown Amitriptyline HCl 150 MGtake 1 tablet by mouth at bedtime if needed; Duration: 90 daysUnknownRosuvastatin Calcium 10 MG1 tablet Orally Once a day; Duration: 30 days06/17/2025UnknownDicyclomine HCl 10 MGtake 1 capsule by mouth three times a day if needed; Duration: 30UnknowntiZANidine HCl 4 MGtake 1 tablet by mouth every morning and 2 tablets at bedtime; Duration: 90 daysUnknownPotassium Chloride Ofelia ER 10 MEQtake 1 tablet by mouth twice a day; Duration: 90Unknown Acetaminophen Extra Strength 500 MG1 tablet as needed Orally every 6 hrsUnknown QUEtiapine Fumarate 100 MGTAKE 1 CAP IN THE MORNING AND 2 CAPS AT BEDTIME; Duration: 30 daysUnknowntraMADol HCl 50 MG1 tablet as needed Orally twice a day; Duration: 7 days08/12/2025tiveOmeprazole 40 MGtake 1 capsule by mouth twice a day Oral; Duration: 90 daysUnknownOndansetron HCl 4 MGtake 1 tablet by mouth once daily if needed; Duration: 90 daysUnknownHandicap Placard -as directed 04/27/2025UnknownLosartan Potassium 50 mgTAKE 2 TABLETS BY MOUTH DAILY; Duration: 30 daysUnknownFurosemide 20 MGtake 1 tablet by mouth once daily; Duration: 90 daysUnknown Social History Tobacco Use: Social History Observation Description Date Details (start date - stop date) Never Smoker NA - NA Tobacco Use/Smoking Question Answer Notes Patient is a nonsmoker Alcohol Screen (Audit-C) Question Answer Notes Did you have a drink containing alcohol in the p ast year? No Xnmfvf9HkfwizlqixhthvAzmlhcldZHBQM-D (Standard) Question Answer Notes Did you have a drink containing alcohol in the p ast year? No Qjsaiz0MeeqtmjaeoxjkxUacvweyv Problems Problem Type SNOMED Code ICD Code Onset Dates Problem Status W/U Status Risk Notes Problem Essential hypertension (95248741 ) Essential (primary) hypertension (I10) ActiveconfirmedProblemAnemia (041196088)Anemia, unspecified (D64.9)Active confirmedProblemHyperlipidemia (80267708)Hyperlipidemia, unspecified (E78.5) ActiveconfirmedProblemMigraine without aura, not refractory (disorder) (718236413)Migraine, unspecified, not intractable, without status migrainosus (G43.909)ActiveconfirmedProblemChronic pain (42128380)Other chronic pain (G89.29)ActiveconfirmedProblemGlaucoma (10767797)Unspecified glaucoma (H40.9) ActiveconfirmedProblemDiaphragmatic hernia (03159588)Diaphragmatic hernia without obstruction or gangrene (K44.9)ActiveconfirmedProblemUlcerative colitis (48496801)Ulcerative colitis, unspecified with unspecified complications (K51.919)ActiveconfirmedProblemNon-infective enteritis and colitis (958235948) Noninfective gastroenteritis and colitis, unspecified (K52.9)Activeconfirmed ProblemDiverticula of intestine (44013716)Diverticulosis of intestine, part unspecified, without perforation or abscess without bleeding (K57.90)Active confirmedProblemOsteoarthritis (237728277)Unspecified osteoarthritis, unspecified site (M19.90)ActiveconfirmedProblemFibromyalgia (076575873) Fibromyalgia (M79.7)ActiveconfirmedProblemImpairment of balance (392291848) Balance problem (R26.89)ActiveconfirmedProblemChronic kidney disease stage 3B (disorder) (907835635)Stage 3b chronic kidney disease (N18.32)Activeconfirmed ProblemDepression (719347113)Depression, unspecified (F32.A)Activeconfirmed Vital Signs Blood pressure diastolic 80 mm Hg 08/05/2025 Tlsdtd92 in08/05/2025lood pressure afolpgpc223 mm Hg08/05/20255545Bmgium917 lbs 08/05/2025BMI30.29 kg/m208/05/2025 Encounters Encounter Location Date Provider Diagnosis [facility] [address] [place] [address] 08/31/2024 Hanna Graves [facility] [place] [address] [facility] [place] [address]/26/2024[place]cia [facility] [place] [address]/[facility] [place] [address]/[place] [facility] [place] [address]/08/2025 Hanna [facility] [place] [address]/08/2025[place] [facility] N28.9B[facility] [place] [address]/Hanna Marr specified abnormal findings of blood chemistry R79.89[facility] [place] [address]/04/2025[place] [facility] [place] [address]/06/2025 [facility] [place] [address] 03/18/2025[place] [facility] [place] [address]/[facility] [place] [address]/[place] [facility] [place] [address]/[place] [facility] [place] [address]/ Hanna [facility] [place] [address]/Hanna [facility] [place] [address]/05/2025Thom[facility] [place] [address]/[place] [facility] [facility] [place] [address] [facility] [facility] [place] [address]/[place]ela [facility] [facility] [place] [address]/07/2025Pamela [facility] [address] [facility] [place] [address]/08/2025P[place]ela [facility] [facility] [place] [id number]/PamelMercyOne [facility] [facility] [place] [address]Pamela CramerTrochanteric bursitis of right hip M70.61[facility] [facility] [place] [address] [facility] [facility] [place] [address]Pamela CramerEssential (primary) hypertension I10 and Balance problem R26.89[facility] [facility] [place] [address]Pamela CramerTrochanteric bursitis of right hip M70.61[facility] [facility] [place] [address]/07/2025Pamela CramerOther chronic pain G89.29 Assessments Encounter Date Diagnosis (ICD Code) Assessment Notes Treatment Notes Treatment Clinical Notes Section Notes 04/19/2025 Essential (primary) hypertension (ICD-10 - I10) BP ok , continue meds04/19/2025alance problem (ICD-10 - R26.89) offered PT, declined using cane 08/05/2025Trochanteric bursitis of right hip (ICD-10 - M70.61) toradol 60 continue steroids from ER call ortho for apt tramadol short script notify office on Friday if want pain man referral [facility] reviewed 08/15/2025Other chronic pain (ICD-10 - G89.29)12/14/2024Kidney disease (ICD-10 - N28.9)01/19/2025Other specified abnormal findings of blood chemistry (ICD-10 - R79.89)08/12/2025Trochanteric bursitis of right hip (ICD-10 - M70.61) Plan Of Treatment Pending Test Test Name [...] Coverage Start Date Coverage End Date [facility] [address] [place] [address] [phone] [id number] 2000 Alvaro Bauer Spouse - patient is the spouse of the insured 3 [place] [id number] Kathy Bauerelf - patient is the insured Medications Administered Medication Instructions Date of Administration Dosage Notes Ketorolac Tromethamine 560 mgKetorolac Zlchjhnawckr07/10/507649 mg Medical (General) History Medical History History ICD Code Low Back Pain ShinglesEssential TremorBilateral Hearing LossHypokalemiaNephrolithasisSurgical History Surgery Date(Month/Year) Bilateral Carpal Tunnel Release Total Knee Arthroplasty- Left05/2003Total Knee Arthroplasty- Right10/2005 Qhjyorocrq80/2006EndoscopyColonoscopyHospitalization History Reason Date(Month/Year) GI Issues 04/2023
--- OUTSIDE RECORDS SUMMARY | 2025-08-29 08:48 | XMS_ITS | CCD ---
Author Organization [facility] Inform ion Partnership [facility] Care Team Providers Care Alteration Tailor Apprentice Name Role Phone MARCO, DR TARIK Duran Consulting Unavaildeepali e MARCO, DR TARIK Duran Attending Unavailabl e MARCO, DR TARIK Duran Admitting Unavailabl e BEN, VARUN Primary Care Unavailable JULIO CÉSAR LAMBERT Consulting Unavailable VARUN CONTRERAS Attending Unavailable BEN, VARUN Admitting Unavailable BEN, VARUN Primary Care Unavailable VARUN CONTRERAS Primary Care Unavailable VARUN CONTRERAS Consulting Unavailable VARUN CONTRERAS Attending Unavailable VARUN CONTRERAS Admitting Unavailable Germán Rodriguez MD Primary Care Provider [phone] Kristan Jaquez MD Attending Provider [phone] Germán Rodriguez MD Primary Care Provider [phone] Kristan Jaquez MD Attending Provider [phone] Richie Zendejas MD Attending Provider Richie Zendejas II Attending Richie Gillette II Admitting Germán Louis Primary Care Unavailable Allergies Allergy ClassificationReported Allergen(s)Allergy TypeDate of OnsetReaction(s) Facility (1 source)CephalexinDrug Vtmkkgc72-02-8484Nzp [facility] Repository (1 source)NSAIDsDrug allergy (disorder)98-68-3770NwrxehamhLakehealth Tripoint [facility] Center Repository Medications Current Medications MedicationDrug Class(es)DatesSig (Normalized)Sig (Original)acetaminophen 500 mg oral tablet (4 sources)Start: 23-13-8164oxos 2 tablets by mouth twice daily as needed amitriptyline hydrochloride 150 mg oral tablet (4 sources)Tricyclic AntidepressantStart: 71-87-3442rblu 1 tablet by mouth once daily at bedtime as neededbrimonidine tartrate 2 mg/ml ophthalmic solution (4 sources)alpha-Adrenergic AgonistStart: 47-72-6930rkaq 1 drop(s) into the eye(s) three times dailycefuroxime 250 mg oral tablet (3 sources)Cephalosporin AntibacterialStart: 54-99-0476vhmn 1 tablet by mouth twice dailycetirizine hydrochloride 10 mg oral tablet (4 sources)Histamine-1 Receptor AntagonistStart: 82-88-3609qavu 1 tablet by mouth once daily as neededdicyclomine hydrochloride 10 mg oral capsule (4 sources)AnticholinergicStart: 17-34-9933gvxz 1 capsule by mouth three times daily as occgob10 hr dilTIAZem hydrochloride 300 mg extended release oral tablet (4 sources)Calcium Channel BlockerStart: 33-57-5520kkcm 1 tablet by mouth every twenty-four hoursdorzolamide 20 mg/ml / timolol 5 mg/ml ophthalmic solution (4 sources)Carbonic Anhydrase Inhibitor, beta-Adrenergic BlockerStart: 22-42-9563gsbk 1 drop(s) into the eye(s) three times dailyDULoxetine 60 mg delayed release oral capsule (4 sources)Serotonin and Norepinephrine Reuptake InhibitorStart: 16-05-8439puwq 2 capsules by mouth once daily at bedtimefurosemide 20 mg oral tablet (4 sources)Loop DiureticStart: 46-54-4414slgq 1 tablet by mouth once daily latanoprost 0.05 mg/ml ophthalmic solution (4 sources)Prostaglandin AnalogStart: 49-78-1146xacv 1 drop(s) into the eye(s) once daily in the eveninglosartan potassium 50 mg oral tablet (4 sources)Angiotensin 2 Receptor BlockerStart: 49-65-5253dyyk 1 tablet by mouth twice dailyomeprazole 40 mg delayed release oral capsule (4 sources)Proton Pump InhibitorStart: 90-79-2216hvbc 1 capsule by mouth twice dailyondansetron 4 mg oral tablet (4 sources)Serotonin-3 Receptor AntagonistStart: 31-94-5209dasb 1 tablet by mouth once daily as neededmicroencapsulated potassium chloride 10 meq extended release oral tablet (4 sources)Start: 55-41-5629psne 1 tablet by mouth twice dailyQUEtiapine 100 mg oral tablet (4 sources)Atypical AntipsychoticStart: 78-93-2180uycc 2 tablets by mouth in the eveningsimvastatin 80 mg oral tablet (4 sources)HMG-CoA Reductase InhibitorStart: 32-92-5030xvpk 1 tablet by mouth once dailytiZANidine 4 mg oral tablet (4 sources)Central alpha-2 Adrenergic AgonistStart: 10-47-3641szrf 1 tablet by mouth twice daily Problems Active Problems Problem ClassificationProblemDateDocumented DateEpisodic/ChronicCalculus of urinary tract (10 sources)Personal history of urinary calculi; Translations: [Kidney stone] Onset: [id number] kidney disease (9 sources)Chronic kidney disease stage 3; Translations: [Stage 3 chronic kidney disease]96-69-1025VasxybiTkbhztaxz of lipid metabolism (14 sources)Pure hypercholesterolemia, unspecified; Translations: [Hyperlipidemia, unspecified]Onset: 88-82-3088CmbjmhxKkzqyvawh hypertension (1 source)Essential (primary) hypertension; Translations: [ESSENTIAL PRIMARY HYPERTENSION]Onset: 14-63-0013AbzwnowPdhcknnscwkx with complications and secondary hypertension (9 sources)Chronic kidney disease due to hypertension; Translations: [Hypertensive chronic kidney disease withstage 1 through stage 4 chronic kidney disease, or unspecified chronic kidney disease]28-04-5142LzctszaYlte disorders (1 source)Major depressive disorder, single episode, unspecified; Translations: [WILFREDO DEPRESS D/O SINGLE EPIS UNS]Onset: 25-59-8956BltlivqEudxgcommmrhkc (6 sources)Osteoarthritis of right hip joint; Translations: [Unilateral primary osteoarthritis, right hip]ChronicOther diseases of kidney and ureters (9 sources)Secondary hyperparathyroidism; Translations: [Secondary hyperparathyroidism of renal origin]71-39-6413CyeogioGzexe non-traumatic joint disorders (1 source)Pain in right hip; Translations: [Pain in right hip]Onset: 08-09-2025 EpisodicUnclassified (1 source)LOW BACK PAIN, UNSPECIFIED; Translations: [LOW BACK PAIN, UNSPECIFIED] Onset: 33-62-5434Rmtlfefyvfcs (4 sources)M16.11 - Unilateral primary osteoarthritis, right hipUrinary tract infections (5 sources)Urinary tract infectious disease; Translations: [Urinary tract infection, site not specified]24-43-0756Ifsompfy Past or Other Problems Problem ClassificationProblemDateDocumented DateEpisodic/ChronicE Codes: Natural/environment (1 source)Other and unspecified overexertion or strenuous movements or postures, initial encounter; Translations: [OTH AND UNS OVREXRT/STRN MVMT/POS INT]Onset: 24-34-7221YjhcdgpuJxgwjthohhyym symptoms and ill-defined conditions (1 source)Personal history of urinary (tract) infections; Translations: [PERS HX URINARY TRACT INFECTIONS]Onset: 90-90-3850PtfyuftqNvwyv aftercare (1 source)Other detention (current) drug therapy; Translations: [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 CURRENT DRUG THERAPY]Onset: 90-05-7508LljmcfqfRvmhi connective tissue disease (1 source)Fibromyalgia; Translations: [FIBROMYALGIA]Onset: 05-97-2017Ozujxgyd Spondylosis; intervertebral disc disorders; other back problems (3 sources)Dorsalgia, unspecified; Translations: [DORSALGIA UNSPECIFIED]Onset: 54-29-5741XfrmmjflBgcqlim and strains (1 source)Sprain of ligaments of lumbar spine, initial encounter; Translations: [SPRAIN LIGAMENTS LUMBAR SPN INITIAL]Onset: 32-87-7929Zgtiqhmk Results Test NameValueInterpretationReference RangeFacilityX-ray reportOrdered By: Marcellus Valladares on 57-17-6971Afggt reportFIRHIGHLAND DISTRICT HOSPITAL [facility] [address] [place] [address] XRay Report Signed Patient: Keyanna Bauer MR#: [id number] : 1955 Acct:[id number] Age/Sex: 70 / F ADM Date: 5 Loc: [facility] [place] Room: Type: [facility] Attending Dr: Richie Zendejas II, MD Copies [...] Valladares M.D. 08/09/2025 7:28 PM Dictation Location: RADIO-PC-20 Transcribed By: NOLAN 08/09/251927 Dictated By: Marcellus Valladares DO 08/09/251926 Signed By: 08/09/251927 [facility] CenterXR hip RT min 2V(w/wo pelvis)*on 93-61-9323ZJ hip RT min 2V(w/wo pelvis)*[facility] [address] [place] [address] XRay Report Signed Patient: Keyanna Bauer MR#: [id number] : 1955 Acct:[id number] Age/Sex: 70 / F ADM Date: 08/09/25 Loc: [facility] [place] Room: Type: [facility] Attending Dr: Richie Zendejas II, MD Copies to: Richie Zendejas MD Ordering Provider: Richie Zendejas MD Date of [...] Valladares M.D. 08/09/2025 7:28 PM Dictation Location: RADIO-PC-20 Transcribed By: NOLAN 08/09/251927 Dictated By: Marcellus Valladares DO 08/09/251926 Signed By: 08/09/251927[facility] Physician GroupErythrocyte distribution width Auto (RBC) [Ratio]Ordered By: Kristan Jaquez on 80-83-4914Lrlxdledvzk distribution width (RBC) [Ratio]12.3 %11.0-15.0[facility] Medical CenterGlomerular filtration rate (GFR) estimation in non- AmericanOrdered By: Kristan Jaquez on 92-39-0182LPA/1.73 sq M.predicted among non-blacks MDRD (S/P/Bld) [Vol rate/Area]45 mL/min/{1.73_m2}Low>=60 mL/min/1.73m 2FCleveland Clinic Avon HospitalHematocrit Auto (Bld) [Volume fraction]Ordered By: Kristan Jaquez on 97-18-8458Xckgnqlxwj (Bld) [Volume fraction]43.2 %36.0-48.0[facility] CenterHemoglobin [Mass/volume] in BloodOrdered By: Kristan Jaquez on 54-48-2609Zutqbsrvcc (Bld) [Mass/Vol]14.6 g/dL12.0-16.0[facility] CenterLaboratory - Chemistry and Chemistry - challengeOrdered By: Kristan Jaquez on 35-50-6928Lrogjcl [Mass/Vol]3.1 g/dLLow3.4-5.0[facility] Medical CenterCalcium [Mass/Vol]9.4 mg/dL8.5-10.1FCleveland Clinic Avon HospitalChloride [Moles/Vol]108 mmol/JBsxv44-865TuhmuujmiLakehealth Tripoint Medical Center CO2 [Moles/Vol]24.9 mmol/L21.0-32.0[facility] CenterCreatinine [Mass/Vol]1.19 mg/dLHigh0.55-1.02[facility] Medical CenterGFR/1.73 sq M.predicted MDRD (S/P/Bld) [Vol rate/Area]54 mL/min/{1.73_m2}Low>=60 mL/min/1.[address]m [address] [place], [place] [address]Glucose [Mass/Vol]130 mg/dLHigh 74-106[facility] Medical CenterMagnesium [Mass/Vol]1.8 mg/dL1.8-2.4 [facility] CenterPotassium [Moles/Vol]4.4 mmol/L3.5-5.1FRegional Medical Centerodium [Moles/Vol]143 mmol/X064-752CcbrrhptgLakehealth Tripoint Medical CenterUrate [Mass/Vol]4.4 mg/dL2.6-6.0[facility] Urea nitrogen [Mass/Vol]19.0 mg/dLHigh7.0-18.0[facility] Urea nitrogen/Creatinine [Mass ratio]16.0 mg/mgLakehealth [facility]point Medical Center Bilirubin Ql (U)NegativeNEGATIVELakehealth Tripoint Medical CenterGlucose (U) [Mass/Vol]NegativeNEGATIVELakehealth Tripoint Medical CenterKetones Ql (U) NegativeNEGATIVELakehealth Tripoint Medical CenterpH (U)6.0 [pH]5.0-9.0Wilson [address] Hospitalpecific gravity (U) [Rel density]1.0151.005-1.025 [facility] CenterUrobilinogen Qn (U)0.2 {Brianne'U}/dL0.2-1.0 [facility] CenterLaboratory - Specimen informationOrdered By: Kristan Jaquez on 62-94-3650Juvhlewhtm (U)CLOUDYAbnormalCLEARFCleveland Clinic Avon HospitalColor (U)YELLOWYELLOWLakehealth Tripoint Medical CenterLaboratory - UrinalysisOrdered By: Kristan Jaquez on 07-63-3772Vfbzjditx esterase Test strip Ql (U)LARGEAbnormalNEGATIVELakehealth Tripoint Medical CenterMucus Ql (Urine sed) NONE SEENNONE SEENLakehealth Tripoint Medical CenterNitrite Ql (U)Negative NEGATIVELakehealth Tripoint Medical CenterProtein (U) [Mass/Vol]61.6 mg/dLHigh <=11.9[facility] CenterProtein Ql (U)30 mg/dLAbnormalNEG/TRACE [facility] CenterLeukocytes [#/volume] corrected for nucleated erythrocytes in Blood by Automated counOrdered By: Kristan Jaquez on 28-98-2523HUA corrected for nucl RBC Auto (Bld) [#/Vol]8.2 10 3/uL4.0-11.0[facility] CenterMCH Auto (RBC) [Entitic mass]Ordered By: Kristan Jaquez on 05-14-2025 MCH (RBC) [Entitic mass]34.0 pg26.7-34.0[facility] Medical CenterMCHC Auto (RBC) [Mass/Vol]Ordered By: Kristan Jaquez on 21-74-2301SJZK (RBC) [Mass/Vol] 33.8 g/dL29.9-35.2FCleveland Clinic Avon HospitalMCV Auto (RBC) [Entitic vol] Ordered By: Kristan Jaquez on 82-36-0707LSV (RBC) [Entitic vol]100.5 fLHigh 81.0-99.0[facility] CenterNo Panel InformationOrdered By: Kristan Jaquez on 439238-Aqhzhrt Vitamin D Total27.5 ng/mLLakehealth Tripoint Medical CenterComment on above:<20 ng/mL Vit D rcyuleqwa55-<30 ng/mL Vit D hljytmhhvikj48-772 ng/mL Vit D sufficient>100 ng/mL Potential Toxicity Parathyroid Hormone (Intact)55 pg/kQ98-52KpujrzchhLakehealth Tripoint Medical Center Comment on above:Performed at: [facility] [place] [id number] Director: Gerhard Saul PhD, Phone: [phone] Level 3.8 mg/dL2.6-4.7FCleveland Clinic Avon HospitalUrine BacteriaLARGE #/HPF AbnormalNONE [facility] HospitalUrine Occult BloodSMALL AbnormalNEGATIVELakehealth Tripoint Medical CenterUrine Other CastsNONE SEEN #/LPFNONE [facility] HospitalUrine Other CrystalsNone Seen #/HPFNone [facility] HospitalUrine Random Pwcnbbbyrc38.37 mg/dL20.00-300.00[facility] Medical CenterUrine RBC2-5 #/HPFAbnormal0-2 [facility] CenterUrine Squamous Epithelial CellsMODERATE #/LPF AbnormalNONE/RARELakehealth Tripoint Medical CenterUrine SJP66-78 #/HPFAbnormal NONE [facility] HospitalPlatelet mean volume Auto (Bld) [Entitic vol]Ordered By: Kristan Jaquez on 65-35-1205Imilygvi mean volume (Bld) [Entitic vol]10.1 fL9.5-13.5FCleveland Clinic Avon HospitalPlatelets Auto (Bld) [#/Vol]Ordered By: Kristan Gisele on 47-47-0121Fztkrjbhe (Bld) [#/Vol]238 10 3/tS418-372QtqoevqvrLakehealth Tripoint Medical CenterRBC Auto (Bld) [#/Vol]Ordered By: Kristan Gisele on 66-89-7670UDS (Bld) [#/Vol]4.30 10 6/uL4.20-5.40Wilson [address] Hospitalerum or plasma anion gap determinationOrdered By: Kristan Gisele on 18-46-6819Taixu gap [Moles/Vol]14.5 mmol/LFCleveland Clinic Avon HospitalUrine protein/creatinine ratioOrdered By: Kristan Jaquez on 05-14-2025 Protein/Creatinine (U) [Ratio]1.13[facility] Medical CenterCT LSPINE WO CONon 23-16-0823NX LSMILAN WO CONEXAM: CT LSMILAN WO CON HISTORY: Back pain. COMPARISON: None. TECHNIQUE: Routine [...] authenticated by: JULIO CÉSAR LAMBERT Date: 2022-01-19 15:26NormalThe [facility] HospitalINSULINon 78-15-8615Xwbztnz4.8 uIU/mLNormal2.6-24.9The [facility] HospitalComment on above:Performed By: #### INSULIN #### [facility] [address] [address] [address] Ирина Jackson AUTO DIFFon 39-38-9539SETY #0.1 103/ulNormal0.0-0.1[facility] HospitalComment on above:Performed By: #### CBC #### [facility] [address] [place] [address] Dr. Ирина KerrBasophils/100 WBC (Bld)1.1 %Normal0.2-2.0[facility] Comment on above:Performed By: #### CBC #### [facility] [address] [address] [address] Ирина Sellers #0.2 103/ulNormal0.0-0.7The [facility] HospitalComment on above: Performed By: #### CBC #### [facility] [address] [address] [address] Ирина Beachosinophils/100 WBC (Bld)4.5 %Normal0.9-7.0[facility] Comment on above:Performed By: #### CBC #### [facility] [address] [place] [address] Dr. Ирина Beachrythrocyte distribution width (RBC) [Ratio]15.4 %Critically high 11.0-15.0[facility] HospitalComment on above:Performed By: #### CBC #### [facility] [address] [place] [address] Dr. Ирина KerrHematocrit (Bld) [Volume fraction]39.7 %Joyhhr14.0-48.0The [facility] HospitalComment on above:Performed By: #### CBC #### [facility] [address] [place] [address] Dr. Ирина KerrHemoglobin (Bld) [Mass/Vol]13.2 g/oQUzmtyv22.0-16.0The [facility] HospitalComment on above:Performed By: #### CBC #### [facility] [address] [place] [address] Dr. Ирина Hurtado #0.03 10e3/ulNormal0.00-0.03The [facility] HospitalComment on above:Performed By: #### CBC #### [facility] [address] [place] [address] Dr. Ирина Hurtado %0.6 %Critically high0.0-0.5The [facility] HospitalComment on above:Performed By: #### CBC #### [facility] [address] [place] [address] Dr. Ирина Womack #1.6 103/ulNormal1.2-3.8The [facility] HospitalComment on above:Performed By: #### CBC #### [facility] [address] [place] [address] Dr. Ирина Rockwellhocytes/100 WBC (Bld)35.1 %Rqtnma38.5-60.0The [facility] HospitalComment on above:Performed By: #### CBC #### [facility] [address] [place] [address] Dr. Ирина Nick DIFF REQNONormalThe [facility] HospitalComment on above: Performed By: #### CBC #### [facility] [address] [place] [address] Dr. Ирина Heller (RBC) [Entitic mass]36.2 pgCritically high26.7-34.0The [facility] HospitalComment on above:Performed By: #### CBC #### [facility] [address] [place] [address] Dr. Ирина Pierce (RBC) [Mass/Vol]33.2 g/hAMhlpgy11.9-35.2The [facility] HospitalComment on above:Performed By: #### CBC #### [facility] [address] [place] [address] Dr. Ирина Whyte (RBC) [Entitic vol]108.8 fLCritically high81.0-99.0The [facility] HospitalComment on above:Performed By: #### CBC #### [facility] [address] [place] [address] Dr. Ирина De La Torre #0.4 103/ulNormal0.3-0.8The [facility] HospitalComment on above:Performed By: #### CBC #### [facility] [address] [place] [address] Dr. Ирина Amaroocytes/100 WBC (Bld)7.8 %Normal1.7-12.0The [facility] Comment on above:Performed By: #### CBC #### [facility] [address] [place] [address] Dr. Ирина Gould #2.4 103/ulNormal1.4-6.5The [facility] HospitalComment on above:Performed By: #### CBC #### [facility] [address] [place] [address] Dr. Ирина Tobiasutrophils/100 WBC (Bld)50.9 %Rdfcht99.0-75.0The [facility] HospitalComment on above:Performed By: #### CBC #### [facility] [address] [place] [address] Dr. Ирина Lagunaslet mean volume (Bld) [Entitic vol]9.6 fLNormal9.5-13.5The [facility] HospitalComment on above:Performed By: #### CBC #### [facility] [address] [place] [address] Dr. Ирина AngelT208 103/diMiikpo708-411Iht [facility] HospitalComment on above: Performed By: #### CBC #### [facility] [address] [place] [address] Dr. Ирина GallegosC3.65 106/ulCritically low4.20-5.40The [facility] HospitalComment on above:Performed By: #### CBC #### [facility] [address] [address] [address] Ирина KerrWBC4.6 103/ulNormal4.0-11.0The [facility] HospitalComment on above: Performed By: #### CBC #### [facility] [address] [address] [address] Ирина Davalos THYROXINE INDEX T7on 79-22-9598SLV8.70NoOhioHealth Doctors HospitalComment on above:Performed By: #### TSH, CMP, T7, LIPID #### [facility] [address] [place] [address] Dr. Ирина KerrT3U37.0 %Ejumsq49.5-40.5The [facility] HospitalComment on above: Performed By: #### TSH, CMP, T7, LIPID #### [facility] [address] [address] [address] Ирина KerrT4 [Mass/Vol]4.60 ug/dLCritically low5.53-11.00The [facility] HospitalComment on above:Performed By: #### TSH, CMP, T7, LIPID #### [facility] [address] [place] [address] Dr. Ирина KerrGLYCOHEMOGLOBIN A1Con 18-84-1085NEN RECOMMENDATIONADA THERAPEUTIC TARGET 6.0 - 7.0 ACTION SUGGESTED > 7.0NoOhioHealth Doctors HospitalComment on above:Performed By: #### A1C #### [facility] [address] [place] [address] Dr. Ирина KerrGlucose [Mass/Vol]114 mg/dLTriHealth McCullough-Hyde Memorial HospitalComment on above:Performed By: #### A1C #### [facility] [address] [place] [address] Dr. Ирина KerrHbA1c (Bld) [Mass fraction]5.6 %Normal<=6.0The [facility] Comment on above:Performed By: #### A1C #### [facility] [address] [address] [address] Ирина Angeles 58-72-3550Rxyp [Mass/Vol]105.0 ug/wEFddyjd80.0-170.0The [facility] HospitalComment on above:Performed By: #### IRON #### [facility] [address] [address] [address] Ирина Delarosa PROFILEon 21-42-9668LITG-HDL RATIO NORMSEE [facility] Private HospitalComment on above:Result Comment: 3.3 - 4.4 LOW RISK 4.4 - 7.1 AVERAGE RISK 7.1 - 11.0 MODERATE RISK >11.0 HIGH RISKPerformed By: #### TSH, CMP, T7, LIPID #### [facility] [address] [place] [address] Dr. Ирина Macesterol [Mass/Vol]179 mg/dLNormal<=200[facility] Comment on above:Performed By: #### TSH, CMP, T7, LIPID #### [facility] [address] [address] [address] Ирина Macesterol in HDL [Mass/Vol]66 mg/dLTriHealth McCullough-Hyde Memorial Hospital Comment on above:Performed By: #### TSH, CMP, T7, LIPID #### [facility] [address] [address] [address] Ирина Macesterol in LDL [Mass/Vol]74.2 mg/dLTriHealth McCullough-Hyde Memorial HospitalComment on above:Performed By: #### TSH, CMP, T7, LIPID #### [facility] [address] [address] [address] Ирина Jean.total/Cholesterol in HDL [Mass ratio]2.7 {ratio} NormalCleveland Clinic Medina HospitalComeaton rapids medical center on above:Performed By: #### TSH, CMP, T7, LIPID #### [facility] [address] [address] [address] Ирина Aponte NORMAL> or = 60 mg/dl - LOW CARDIOVASCULAR RISK <40 mg/dl - HIGH CARDIOVASCULAR RISKTriHealth McCullough-Hyde Memorial HospitalComment on above:Performed By: #### TSH, CMP, T7, LIPID #### [facility] [address] [address] [address] Ирина Cox CALC NORMALSEE BELOWTriHealth McCullough-Hyde Memorial HospitalComeaton rapids medical center on above:Result Comment: <100 mg/dl OPTIMAL 100 - 129 mg/dl NEAR OR ABOVE OPTIMAL 130 - 159 mg/dl BORDERLINE HIGH 160 - 189 mg/dl HIGH >190 mg/dl VERY HIGH Performed By: #### TSH, CMP, T7, LIPID #### [facility] [address] [address] [address] Ирина KerrTriglyceride [Mass/Vol]194 mg/dLCritically high<=150The [facility] on above:Performed By: #### TSH, CMP, T7, LIPID #### [facility] [address] [address] [address] Ирина KerrVLDL CALC38.8 mg/dLNoOhioHealth Doctors HospitalComeaton rapids medical center on above: Performed By: #### TSH, CMP, T7, LIPID #### [facility] [address] [address] [address] Ирина KerrPROLuzmaria 14(COMP METB)on 24-42-5572Wglhhhe [Mass/Vol]3.9 g/dLNormal 3.5-5.0The [facility] on above:Performed By: #### TSH, CMP, T7, LIPID #### [facility] [address] [address] [address] Ирина KerrAlbumin/Globulin [Mass ratio]1.1 {ratio}NormalThe [facility] on above:Performed By: #### TSH, CMP, T7, LIPID #### [facility] [address] [address] [address] Ирина Parra [Catalytic activity/Vol]90 U/VRmdexc52-865Lby [facility] on above:Performed By: #### TSH, CMP, T7, LIPID #### [facility] [address] [address] [address] Ирина Pierre [Catalytic activity/Vol]14 U/LNormal9-52The [facility] Comment on above:Performed By: #### TSH, CMP, T7, LIPID #### [facility] [address] [address] [address] Ирина Gambleon gap [Moles/Vol]14.4 mmol/LNormalC[facility] Clinic [facility] Hospital Comment on above:Performed By: #### TSH, CMP, T7, LIPID #### [facility] [address] [address] [address] Ирина KerrAST [Catalytic activity/Vol]14 U/WMtupvb44-43Nss [facility] HospitalComment on above:Performed By: #### TSH, CMP, T7, LIPID #### [facility] [address] [place] [address] Dr. Ирина KerrBilirubin [Mass/Vol]0.6 mg/dLNormal0.2-1.3TAultman Hospital Comment on above:Performed By: #### TSH, CMP, T7, LIPID #### [facility] [address] [place] [address] Dr. Ирина KerrCalcium [Mass/Vol]9.2 mg/dLNormal8.4-10.2[facility] Comment on above:Performed By: #### TSH, CMP, T7, LIPID #### [facility] [address] [place] [address] Dr. Ирина KerrChloride [Moles/Vol]104 mmol/CNzbgcr98-055KodCleveland Clinic Medina Hospital Comment on above:Performed By: #### TSH, CMP, T7, LIPID #### [facility] [address] [place] [address] Dr. Ирина KerrCO2 [Moles/Vol]25.8 mmol/FBjcmxb55.0-30.0[facility] Comment on above:Performed By: #### TSH, CMP, T7, LIPID #### [facility] [address] [place] [address] Dr. Ирина KerrCreatinine [Mass/Vol]1.45 mg/dLCritically high0.52-1.04[facility] HospitalComment on above:Performed By: #### TSH, CMP, T7, LIPID #### [facility] [address] [address] [address] Ирина BeachGFR-AF IPODRBDS17 mL/min/1.56z3Eblgpcnlja low>=60The [facility] Hospitalment on above:Performed By: #### TSH, CMP, T7, LIPID #### [facility] [address] [place] [address] Dr. Ирина BeachGFR-NON AF HQPMFOKW73 mL/min/1.02z8Junifrrwof low>=60The [facility] HospitalComment on above:Performed By: #### TSH, CMP, T7, LIPID #### [facility] [address] [place] [address] Dr. Ирина KerrGlobulin (S) [Mass/Vol]3.4 g/dLNormalThe [facility] HospitalComment on above:Performed By: #### TSH, CMP, T7, LIPID #### [facility] [address] [place] [address] Dr. Ирина KerrGlucose [Mass/Vol]110 mg/dLCritically wcot26-779Eif [facility] HospitalComment on above:Performed By: #### TSH, CMP, T7, LIPID #### [facility] [address] [place] [address] Dr. Ирина KerrPotassium [Moles/Vol]4.2 mmol/LNormal3.4-5.0[facility] Comment on above:Performed By: #### TSH, CMP, T7, LIPID #### [facility] [address] [place] [address] Dr. Ирина KerrProtein [Mass/Vol]7.3 g/dLNormal6.1-8.2[facility] Comment on above:Performed By: #### TSH, CMP, T7, LIPID #### [facility] [address] [place] [address] Dr. Ирина KerrSodium [Moles/Vol]140 mmol/HMzupmj842-220TfwCleveland Clinic Medina Hospital Comment on above:Performed By: #### TSH, CMP, T7, LIPID #### [facility] [address] [place] [address] Dr. Yilan ChangUrea nitrogen [Mass/Vol]22.0 mg/dLCritically high7.0-17.0[facility]ment on above:Performed By: #### TSH, CMP, T7, LIPID #### [facility] [address] [address] [address] Ирина Clark nitrogen/Creatinine [Mass ratio]15.2 mg/mgTriHealth McCullough-Hyde Memorial HospitalComment on above:Performed By: #### TSH, CMP, T7, LIPID #### [facility] [address] [address] [address] Ирина Swanson 61-16-4021DOU2.181 uIU/mLNormal0.470-4.680The [facility]Come[facility] on above:Performed By: #### TSH, CMP, T7, LIPID #### [facility] [address] [place] [address] Dr. Ирина Corey [facility] BELOWTriHealth McCullough-Hyde Memorial HospitalComment on above: Result Comment: <0.34 UIU/ml HYPERTHYROID 0.34-5.60 UIU/ml EUTHYROID >5.60 UIU/ml HYPOTHYROIDPerformed By: #### TSH, CMP, T7, LIPID #### [facility] [address] [place] [address] Dr. Ирина Robbins for Procedure/Surgeryon 45-83-5980Viadktj for Procedure/[id number]#1.00CD:127NoalKettering Health – Soin Medical Centerstroenterology Office/Clinic Noteon 10-05-2021 Gastroenterology Office/Clinic NoteChief Complaint 1 year f/u HPI Staff This is a 66 year old female who presents today for a 1 year follow up. History of Present Illness Keyanna Bauer is a 66-year-old white female who presents today for a follow- up. She was a patient of Dr. Ibrahim [...] rubs, murmurs or gallop. Peripheral: no edema Gastrointestinal/Abdomen: Abdomen: normal consistency and bowel sounds; no tenderness or masses. Liver/Spleen: normal size and consistency, not palpable. Rectal: deferred Musculoskeletal: Gait/station: normal gait Assessment/Plan 1. Heartburn (R12: Heartburn) The patient underwent an EGD in 2018 that showed mild inflammation in the stomach and duodenum withnegative H-pylori. She is controlling her heartburn with antacid and Carafate. We will proceed withan EGD to assess the heartburn and hiatal [...] Apriso and 6-MP together with allopurinol, and wewill refill all. We will proceed with a surveillance colonoscopy. 4. 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 There is no need for further evaluation. ATTESTATION: Documentation services were performed by FABRIZIO after patient consented to recording for virtual field talent qualification specialist and provider reviewed before signing. FABRIZIO: Maria G Oates. Entered into [employer] by Lois Nelson. Follow-up No qualifying data [...] 11 refills Apriso 0.375 (more content not included)...[facility] Comment on above:Result Comment: Electronically Signed By: Lois Nelson\.br\Date and Time Signed: 10/04/21 17:20 EST\.br\Electronically Co-Signed By: Bibiana FARIA MD\.br\Date and Time Co-Signed: 10/05/21 10:31 ESTAmbulatory Clinical Summaryon 90-11-1158Mdupefqgwg Clinical Summary {15-7u-u4-o2-m5-v4-02-y1-43-65-0q-29-f4-18-58-c5}CD:[id number] Valley HospitalAmbulatory Clinical Summary {7e-67-yb-na-08-94-1g-iu-ix-30-15-78-6c-75-a3-b9}CD:488171XiyldrFvqyzwTriHealth Bethesda Butler HospitalPROGRESSon 71-26-7073HGXZOBTLHAF ID: [id number] Author: Migdalia Gamble Service: ? Author Type: [...] The treatment options/risks/benefits have been discussed. Questions answered.NormalSelect Medical Specialty Hospital - Cincinnati NorthMR-MRI ORBIT WO/W CON IMPORT on 56-49-6065UT-MRI ORBIT WO/W CON IMPORTImages were obtained outside of [facility] [id number]_[id number] Medical Specialty Hospital - Cincinnati NorthANAon 39-58-2279Uhmjdfu Ab IF (S) [Titer]NegativeNormalNegativeMetroHealth Cleveland Heights Medical Center on above: Performed By: #### TERRY, ANAS #### [facility] [employer] [address] [address] Gdlrjrv Ab IF (S) [Titer]0.1 OD RatioNormalMetroHealth Cleveland Heights Medical Center on above:Result Comment: OD Ratio is interpreted as follows: Negative <1.0 Positive >=1.0Performed By: #### TERRY, ANAS #### [address] [address] Rvrxsmjnz. Conv [place] 08-85-5657Pgqpzthds. Conv Enz23 U/LNormal<52 [facility] on above:Result Comment: Artificially low TERRY levels may be found for patients taking TERRY inhibitors or after the administration of gadolinium. This test was developed and its performance characteristics determined by [facility]'s [facility] [place] ( [facility]). It has not been cleared or approved by the FDA. [facility] is regulated under CLIA as qualified to perform high complexity testing. This test is used for clinical purposes. It should not be regarded as investigational or for research.Performed By: #### TERRY, ANAS #### [facility] [employer] [address] [id number] [phone] 94-30-3813QCIGPMRUZSG ID: [id number] Author: Migdalia Gamble Service: ? Author Type: [...] The treatment options/risks/benefits have been discussed. Questions answered.NormalSelect Medical Specialty Hospital - [facility] North Vital Signs Date TimeVital SignValuePerforming QouajmtijTtdtosky86-35-9213 15:51-0500 Diastolic blood vjlugclr30 mm[Hg]Germán Rodriguez MD Work Phone: [facility]11-04-2025 15:51-0500 Systolic blood xnmvqugd478 mm[Hg]Germán Rodriguez MD Work Phone: [facility]08-19-2025 10:06-0400 Body azkafl074.02 cmGermán Rodriguez MD Work Phone: [facility]08-19-2025 10:06-0400 Body mass index (BMI) [Ratio]32.4 kg/l8AoyalclGermán Rodriguez MD Work Phone: [facility]08-19-2025 10:06-0400 Body veqiuc75.06 kgGermán Rodriguez MD Work Phone: [phone] [place], [place] [address]8-19-2025 10:06-0400 Diastolic blood pwwtmbug69 mm[Hg]Germán Rodriguez MD Work Phone: [phone])[address]08-19-2025 10:06-0400 Heart kdxy579 /Delia Rodriguez MD Work Phone: [phone])[address] [place], [place] 4615508-19-2025 10:06-0400 Respiratory rate18 /Delia Rodriguez MD Work Phone: [phone])[address] [place], [place] 4615508-19-2025 10:06-0400 SaO2% (BldA) [Mass fraction]95 %Germán Rodriguez MD Work Phone: 1(846)[address] [place], [place] 4615508-19-2025 10:06-0400 Systolic blood xewqlhoa762 mm[Hg]Germán Rodriguez MD Work Phone: 1([phone])[address] [place], [place] 4615507-08-2025 13:23-0400 Body .02 cmGermán Rodriguez MD Work Phone: [phone])[address] [place], [place] 4615507-08-2025 13:23-0400 Body mass index (BMI) [Ratio]33.1 kg/g6XkacqquGermán Rodriguez MD Work Phone: [phone])[address] [place], [place] 4615507-08-2025 13:23-0400 Body laxhmgukanw98.3 [degF]Germán Rodriguez MD Work Phone: [phone])[address] [place], [place] 4615507-08-2025 13:23-0400 Body .93 kgGermán Rodriguez MD Work Phone: [phone])[address] [place], [place] 4615507-08-2025 13:23-0400 Diastolic blood hwurgfka40 mm[Hg]Germán Rodriguez MD Work Phone: 1(663)[address] [place], [place] 4615507-08-2025 13:23-0400 Heart rate95 /Delia Rodriguez MD Work Phone: 1(270)[address] [place], [place] 4615507-08-2025 13:23-0400 Respiratory rate18 /Delia Rodriguez MD Work Phone: [facility]07-08-2025 13:23-0400 SaO2% (BldA) [Mass fraction]98 %Germán Rodriguez MD Work Phone: [facility]07-08-2025 13:23-0400 Systolic blood mm[Hg]Germán Rodriguez MD Work Phone: [facility] Encounters Encounter DateEncounter TypeCare ProviderFacilityStart: 08-09-2025 End: 88-17-4733beacuxjsdzKcwivfg M Hoy MD Work Phone: [phone]-Cwlcoysgq Health OrthopedicsStart: 08-09-2025 End: 17-93-9154Eliilst encounter procedureRobert Aashish Hall MD-[facility] Work Phone: Start: 05-24-2025 End: 03-11-6987yyzuxmqzkqLktytwm M Hoy MD Work Phone: [facility] Work Phone: Start: 05-24-2025 End: 21-23-8828Xekdiga encounter procedureKristan Jaquez MD-[facility] Work Phone: Start: 45-57-2004Pcz-patient / Non-visitKristan Jaquez MD -[facility] Work Phone: Start: 04-12-2025 End: 09-71-3961nsraoeouhvFejxcfv M Hoy MD Work Phone: [facility] Work Phone: Start: 04-12-2025 End: 08-80-8016Pzpgjmg encounter procedureKristan Jaquez MD-[facility] Work Phone: Start: 97-81-8323dowtidothgHRIAFB CRAMERFacility:H1 Start: 01-19-2022 End: 48-69-0270tjiegarvcePF TARIK LARAFacility:U8Ccqli: 12-13-2021 End: 43-41-9375nrnpnoyycuTCYMAP CRAMERFacility:H1 Procedures DateProcedureProcedure DetailPerforming ClinicianStart: 47-17-8071Mdhqv X-ray of right hipDodeoshola Michael MTZ Work Phone: Plan of Treatment DateCare ActivityDetailAuthorStart: 79-01-1494Waptp X-ray of right hipXR hip RT min 2V(w/wo pelvis)*[address] Hospitaltart: 31-12-7572JX Hip - right 2 ViewsLakehealth Tripoint Medical CenterRenal function 1999 panel - Serum or [facility] CenterRenal function 1999 panel - Serum or [facility] CenterUS Kidney - bilateralOrlando Health [facility] Payers DatePayer CategoryPayerPolicy [id number] Social History DateTypeDetailFacilityStart: 04-12-2025 End: 31-42-0880Xcqvdxk smoking status NHISNever smoked tobacco (finding) [facility] HospitalexFemale (finding)[facility] [address] Hospitaltart: 47-44-3916Fxf Assigned At [facility] Hospital Discharge instructions 08-09-2025 Note Date & RotwYgbxUcjvdwzd91-45-7358 Hospital Discharge instructionsAmbulatory Orders* Referral to Pain Management Time Frame: 08/09/25, Location: None Selected [facility] Work Phone: Evaluation note 05-24-2025 Note Date & NqcyHyblUofbgxsq54-40-6928 Evaluation note* Diagnosis Onset Date Resolution Status Admit Date CKD (chronic kidney disease) stage 3, GF R 30-59 ml/min acuteAugust 2024 10:05amHyperlipidemiaacuteAugust 2024 10:05am Hypertensive chronic kidney disease with stage 1 through stage 4 chronic k[place]ute [facility] 2024 10:05amNephrolithiasisacuteAugust 2024 10:05amSecondary hyperparathyroidismacuteAugust 2024 10:05amUTI (urinary tract infection) acuteAugust 2024 10:05amPrimary osteoarthritis of right hipacuteNov2024 3:21pm [facility] Work Phone: Evaluation note 04-12-2025 Note Date & ZnllIvicQqujdevq81-22-8578 Evaluation note* Diagnosis Onset Date Resolution Status Admit Date CKD (chronic kidney disease) stage 3, GF R 30-59 ml/min acuteJuly 2024 1:18pmHyperlipidemiaacuteJuly 2024 1:18pmHypertensive chronic kidney disease with stage 1 through stage 4 chronic kiacuteJuly 2024 1:18pmNephrolithiasisacuteJuly 2024 1:18pmSecondary hyperparathyroidismacuteJuly 2024 1:18pmCKD (chronic kidney disease) stage 3, GFR 30-59 ml/minacuteAugust 2024 10:05amHyperlipidemiaacuteAugust 2024 10:05amHypertensive chronic kidney disease with stage 1 through stage 4 chronic kiacuteAugust 2024 10:05amNephrolithiasisacuteAugust 2024 10:05amSecondary hyperparathyroidismacuteAugust 2024 10:05am [facility] Work Phone: Evaluation note Note Date & TypeNoteFacilityEvaluation note* Diagnosis Onset Date Resolution Status Admit Date CKD (chronic kidney disease) stage 3, GF R 30-59 ml/min acuteJuly 2024 1:18pmHyperlipidemiaacuteJuly 2024 1:18pmHypertensive chronic kidney disease with stage 1 through stage 4 chronic kiacuteJuly 2024 1:18pmNephrolithiasisacuteJuly 2024 1:18pmSecondary hyperparathyroidismacuteApril 12, 2025 1:18pm [facility] Work Phone: Reason for referral (narrative) Note Date & TypeNoteFacilityReason for referral (narrative)No reason for referral information availableLicking Memorial Hospital Work Phone: Summary Purpose Family History No Family History Records Found Relationship Condition Age at Onset Recorded Date/T grecia father Congestive heart failure Unknown motherCongestive heart failureUnknownHeart diseaseUnknown Advance Directives No Advanced Directives Records Found Advance Directive Response Recorded Date/ Time Advance Directives No April 06 2:43pm Advance Directive Response Recorded Date/ Time Advance Directives No April 06 1:43pm Chief Complaint and Reason for Visit Chief [...] disorder of kidney, ckd 3 April 1:18pm renal 6 week f/u May [...] 2025 10 :05am Secondary hyperparathyroidism May 10:05am Chief Complaint Admit Date renal 6 week [...] of right hip Joy natarajan 2024 3:21pm Additional Source Comments INFORMATION SOURCE (unrecogn ized section and content) DATE CREATED AUTHOR 06/17/2019 [facility] DATE CREATED AUTHOR AUTHOR'S ORGANIZ ATION 12/31/2021 [facility] DATE CREATED AUTHOR AUTHOR'S ORGANIZ ATION 04/28/2022 [facility] DATE CREATED AUTHOR AUTHOR'S ORGANIZ ATION 08/15/2025 [facility] Care Teams (unrecognized sec tion and content) Team Status: Active Member Role Status Dates Germán Rodriguez MD Primary Care Provider Active Team Status: Inactive Member Role Status Dates Germán Rodriguez MD Primary Care Provider Active Start: April 12, 2025 End: April 12Ant Mcguire ProviderActiveStart: April 12, 2025 End: April 12, 2025 Team Status: Active Member Role Status Dates Germán Rodriguez MD Primary Care Provider Active Start: May 14, 2025 Ant Montelongo ProviderActiveStart: May 14, 2025 Team Status: Inactive Member Role Status Dates Germán Rodriguez MD Primary Care Provider Active Start: May 24, 2025 End: May 24Ant Mcguire ProviderActiveStart: May 24, 2025 End: May 24, 2025 Team Status: Active Member Role/Relationship Status Greg Rodriguez MD Primary Care Provider Active Team Status: Active Member Role/Relationship Status Greg Rodriguez MD Primary Care Provider Active Start: May 14, 2025 Kristan Gisele , MDAttending ProviderActiveStart: May 14, 2025 Team Status: Inactive Member Role/Relationship Status Greg Rodriguez MD Primary Care Provider Active Start: May 24, 2025 End: May 24bdul Gisele , MDAttending ProviderActiveStart: May 24, 2025 End: May 24, 2025 Team Status: Inactive Member Role/Relationship Status Greg Rodriguez MD Primary Care Provider Active Start: August 09, 2025 End: August 09, 2025Richie Zendejas II, MDAttending ProviderActiveStart: August 09, 2025 End: August 09, 2025 Team Status: Active Member Role/Relationship Status Greg Rodriguez MD Primary Care Provider Active Start: August 09, 2025 Richie Zendejas II, CLAUDIAttending ProviderActiveStart: August 09, 2025 Team Status: Inactive Member Role/Relationship Status Greg Rodriguez MD Primary Care Provider Active Start: August 09, 2025 End: August 09, 2025Richie Zendejas II, CLAUDIAttending ProviderActiveStart: August 09, 2025 End: August 09, 2025 Goals (unrecognized section and content) Goals may be documented in a n alternate sectionGoals may be documented in an alternate sectionGoals may be documented in an alternate sectionGoals may be documented in an [...] BE BASED ON THE PRIMARY CLINICAL RECORDS. [facility] [facility]. provides no warranty or guarantee of the accuracy or completeness of information in this document.
[2025-08-29 09:01] VITALS: BP 141/82; PULSE 102; TEMP 36; O2SAT 97
[2025-08-29] MEDS: BUPIVACAINE HCL 0.25% PF 25 MG/10 ML VIAL INJ (09:58)
[2025-08-29] MEDS: METHYLPREDNISOLONE ACETATE 40 MG/ML VIAL INJ (09:58)
[2025-08-29] MEDS: IOHEXOL 240 MG/ML - 10 ML VIAL INJ (09:58)
[2025-08-29] MEDS: LIDOCAINE HCL 2% 400 MG/20 ML MDV 5 ML INJ (09:58)
[2025-08-29 10:00] VITALS: BP 117/95; BP 133/74; PULSE 102; PULSE 106; O2SAT 96
--- NOTE | 2025-08-29 10:03 | W.PM.PROCNOT ---
Date of procedure: 08/29/25 Pre-op diagnosis: Pain due to right hip osteoarthritis Post-op diagnosis: same as pre-op Procedure: Procedure: Right hip injection Medications: Bupivacaine 0.25% 4cc, depomedrol 40mg I explained the details of the procedure to the patient including the risks, benefits and alternatives. We had an informed discussion and the patient verbalized understanding and signed the consent form. All questions were answered appropriately.? A time out was performed.? After obtaining a comfortable supine position, the skin overlying the hip, subtrochanteric region, and joint space were prepped with alcohol. A sterile syringe containing the above medication was attached to a 25 guage, 3.5 inch spinal needle under strict aseptic technique. X ray was used to identify the joint space and the femoral neck on the right side.? The needle was than advanced through the subcutaneous tissue after local injection of 1% lidocaine.? The contents of the syringe were gently injected without any resistance into the joint space after contrast (isovue) outlined the appropriate area. The needle was removed and pressure was applied to the injection site to decrease the incidence of ecchymosis and hematoma formation.? A sterile bandage was applied. Post procedural instructions were given to the patient. Anesthesia: Local Surgeon: Gold Martinez Pathology: none sent Condition: stable Disposition: no change
== END 2025-08-29 10:05 | disposition home or self-care (01) ==
PROVIDERS: PCP Nurse Practitioner Family; Visit Provider Anesthesiology
DX: M16.11 Unilateral primary osteoarthritis, right hip (principal); M25.551 Pain in right hip; G89.29 Other chronic pain
CPT/HCPCS: 20610; 77002; J0665; J1010; Q9966

== ENCOUNTER 2025-09-12 14:20 | Outpatient (OUT) | payer MEDICARE, BC, SELFPAY ==
--- NOTE | 2025-09-12 15:03 | PM.CN ---
Consult Note: HPI Data of Consult Patient: known to practice within the last 3 years Consult date: 09/05/25 Requesting Physician: Gold Martinez MD Primary Care Provider: VARUN CONTRERAS Consult Narrative Reason for consult: right hip pain Narrative: 70yof who presents for assessment. notes worsening pain through right hip, also has low back pain. history of scoliosis. uses tylenol. denies adverse med side effects. cc:: CC: Gold Martinez MD Review of Systems ROS Status of ROS 10 or more systems reviewed and unremarkable except as noted in history and below [facility] Medical History COVID ?U07.1 - COVID-19 (ICD-10) Muscle spasm of back ?M62.830 - Muscle spasm of back (ICD-10) Muscle spasm of both lower legs ?M62.838 - Other muscle spasm (ICD-10) High cholesterol ?E78.00 - Pure hypercholesterolemia, unspecified (ICD-10) Other disorders of the left eye following cataract surgery ?H59.092 - Other disorders of the left eye following cataract surgery (ICD-10) GERD (gastroesophageal reflux disease) ?K21.9 - Gastro-esophageal reflux disease without esophagitis (ICD-10) Glaucoma ?H40.9 - Unspecified glaucoma (ICD-10) Depression ?F32.A - Depression, unspecified (ICD-10) Hypertension ?I10 - Essential (primary) hypertension (ICD-10) Dehydration ?E86.0 - Dehydration (ICD-10) Tachycardia ?R00.0 - Tachycardia, unspecified (ICD-10) Gastrointestinal bleed ?K92.2 - Gastrointestinal hemorrhage, unspecified (ICD-10) Surgical History H/O tubal ligation ?Z98.51 - Tubal ligation status (ICD-10) Family History Father Family history of CHF (congestive heart failure) Family history of diabetes mellitus Mother Family history of CHF (congestive heart failure) Family history of hypertension Social History Within the past year, how often did you have a drink containing alcohol: never Score interpretation: A score less than 3 is consistent with normal alcohol consumption. Smoking status: Never smoker Non-prescribed substance use: denies use Previous occupational history: retired Highest level of school completed/degree received: high school graduate Are you now , , , , never or living with a partner: Little interest or pleasure in doing things: not at all Feeling down, depressed, or hopeless: not at all Feel stressed/tense/nervous/anxious/difficulty sleeping: only a little Do you think of yourself as: straight/heterosexual Gender Identity: female Meds Home Medications and Allergies Home Medications ?Medication ?Instructions ?Recorded ?Confirmed ?Type amitriptyline 150 mg tablet 150 mg PO BEDTIME 05/04/23 08/29/25 History diltiazem HCl 300 mg 300 mg PO Q24H 05/04/23 08/29/25 History tablet,extended release 24 hr furosemide 20 mg tablet 20 mg PO QDAY 05/04/23 08/29/25 History losartan 50 mg tablet 100 mg PO QDAY 05/04/23 08/29/25 History potassium chloride 10 mEq 10 meq PO BID 05/04/23 08/29/25 History tablet,extended release(part/cryst) quetiapine 100 mg tablet 100 mg PO DAILY 05/04/23 08/29/25 History quetiapine 200 mg tablet 200 mg PO BEDTIME 05/04/23 08/29/25 History tizanidine 4 mg tablet 8 mg PO BID 05/04/23 08/29/25 History dicyclomine 10 mg capsule 10 mg PO TID 07/20/25 08/29/25 History omeprazole 40 mg capsule,delayed 40 mg PO BID 07/20/25 08/29/25 History release ondansetron HCl 4 mg tablet 4 mg PO DAILY 07/20/25 08/29/25 History brimonidine 0.2 % eye drops 1 drp ophthalmic (eye) TID 08/04/25 08/29/25 History rosuvastatin 10 mg tablet 10 mg PO DAILY 08/04/25 08/29/25 History duloxetine 60 mg capsule,delayed 60 mg PO BID 08/18/25 08/29/25 History release Allergies Allergy/AdvReac Type Severity Reaction Status Date / Time No Known Drug Allergies Allergy Verified 08/29/25 08:58 Exam Narrative Exam Narrative: Psych-alert and oriented x 3.? Attentive and appropriate, constitutionally normal, displays normal mood and affect per situation.? There are no obvious deficits in memory, reasoning, or intellect.? Skin-no obvious rashes, bruising, erythema noted to the patient's area of pain. Extremities- extremities are warm with minimal edema and palpable pulses. Hip-tenderness to palpation is noted over the right hip joint.? Pain is elicited with internal and external rotation of the hip.? Hip provocative maneuvers are positive and consistent with the patient's normal pain.? Coordination remains intact.? Gait remains antalgic. Assessment and Plan Assessment and Plan (1) Greater trochanteric bursitis of right hip: (2) Osteoarthritis of right hip: Qualifiers: Osteoarthritis type: primary Qualified Code(s): M16.11 - Unilateral primary osteoarthritis, right hip (3) Lumbar stenosis with neurogenic claudication: Plan 70yof who presents for assessment. notes minimal relief with recent right hip injection. imaging reviewed, significant for right greater trochanteric bursitis. would like to proceed with right greater troch bursa injection. also discussed that depending on her response, given her history of scoliosis, may need to consider working up lumbar spine to assess for any spinal involvement. she is in agreement. meds reviewed. will trial t#3 bid prn. drug screen obtained. follow up in 4-6 weeks.
== END 2025-09-12 14:21 | disposition home or self-care (01) ==
LOC: PM 14:20
PROVIDERS: PCP Nurse Practitioner Family; Visit Provider Anesthesiology
DX: M70.61 Trochanteric bursitis, right hip (principal); M16.11 Unilateral primary osteoarthritis, right hip; M48.062 Spinal stenosis, lumbar region with neurogenic claudication
CPT/HCPCS: 20610; J0665; J1010